=== PATIENT | female | born 1940 | race Caucasian/White ===

== ENCOUNTER → 2017-11-13 09:06 | Outpatient (CLI) | payer MEDICARE, OTHER, SELFPAY ==
--- NOTE | 2017-11-13 | DI.MG.S_ITS ---
BILATERAL DIGITAL SCREENING MAMMOGRAM 3D/2D WITH CAD: 11/13/2017 CLINICAL: Routine screening. Family history of breast cancer. Comparison is made to exams dated: 11/14/2012 mammogram, 09/12/2011 mammogram, and 05/30/2010 mammogram - [facility]. There are scattered fibroglandular elements in both breasts. Current study was also evaluated with a Computer Aided Detection (CAD) system. Bilateral breast implants are intact. No significant masses, calcifications, or other findings are seen in either breast. There has been no significant interval change. IMPRESSION: NEGATIVE There is no mammographic evidence of malignancy. A 1 year screening mammogram is recommended. This exam was interpreted at Station ID: [id number]. NOTE: For mammograms, a report in lay terms will be sent to the patient. Approximately 15% of breast malignancies will not be visualized mammographically. In the management of a palpable breast mass, a negative mammogram must not discourage biopsy of a clinically suspicious lesion. Electronically Signed By: Sera galindo/arnulfo:11/13/2017 10:18:23 letter sent: Normal Exam ACR BI-RADS Category 1: Negative [id number]
== END ==
PROVIDERS: PCP Family Medicine; Visit Provider Family Medicine
DX: Z12.31 Encounter for screening mammogram for malignant neoplasm of breast (principal); Z80.3 Family history of malignant neoplasm of breast
CPT/HCPCS: 77063; 77067

== ENCOUNTER 2018-04-06 01:16 | Emergency (ER) | payer MEDICARE, OTHER, SELFPAY ==
[2018-04-06 01:48] VITALS: BP 160/75; PULSE 79; RESP 16; TEMP 36.7; O2SAT 99; BMI 26.6
[2018-04-06] MEDS: CLINDAMYCIN 150 MG CAPSULE 300 MG PO (02:09)
--- NOTE | 2018-04-06 02:11 | ED_ITS ---
HPI - Skin/Abscess/Foreign Bdy General Chief complaint: Skin/Abscess/Foreign Body Stated complaint: bee sting 4 days ago red swollen Time Seen by Provider: 04/06/18 01:58 Source: patient Mode of arrival: ambulatory Limitations: no limitations History of Present Illness HPI narrative: This is a 77-year-old female who states she was either stung or bitten by a small be when she was in [place] 5 days ago. Patient states that the areas had some increasing redness Um after returning to the [facility] she noticed a lot more redness and a circular area as well as swelling in the ankle lower calf. She states the area is tender. There has not been any drainage. She has not had any fevers. No chest pain or shortness of breath. She states that this central area of the redness was where they would be either bit or stung her. She has not had any other GI symptoms. Related Data Home Medications Medication Instructions Recorded Confirmed ASPIRIN (Aspirin EC) 81 mg PO Q DAY #0 05/02/11 04/06/18 CA PANTOTHENATE/FOLIC ACID/VIT 1 tab PO Q DAY #0 05/02/11 (MULTIVITAMIN) loratadine [Claritin] 10 mg PO Q DAY #0 05/02/11 CHOLECALCIFEROL (VITAMIN D3) 2,000 iu PO QDAY #0 05/03/11 (Vitamin D) Calcium Carbonate/Vitamin D 1 cap PO Q DAY #0 05/03/11 (#CALCIUM) Previous Rx's Medication Instructions Recorded atenolol 25 mg PO QDAY #90 tab 04/26/17 chlorthalidone 25 mg PO QDAY #90 tab 05/02/17 potassium chloride ER 20 mEq 20 meq PO QDAY #90 tab 02/20/18 tablet,extended release(part/cryst) clindamycin HCl 300 mg PO QID #40 cap 04/06/18 Allergies Allergy/AdvReac Type Severity Reaction Status Date / Time morphine AdvReac Mild N/V Verified 04/06/18 01:55 Review of Systems Review of Systems All systems reviewed & are unremarkable except as noted in HPI and below Constitutional Denies fever(s) and Denies weakness Cardiovascular Denies chest pain, Denies lightheadedness, Denies palpitations, Denies dyspnea and Denies dyspnea on exertion Respiratory Denies dyspnea, Denies dyspnea on exertion and Denies wheezing Gastrointestinal Gastrointestinal: Denies nausea and Denies vomiting Musculoskeletal Reports as per HPI, Denies tingling and Reports other (swelling, redness) Integumentary/Breasts Reports erythema Neurologic Denies tingling, Denies paresthesias and Denies weakness Endocrine Denies palpitations Allergic/Immunologic Denies wheezing [facility] Surgical History History of breast augmentation History of cardiac radiofrequency ablation (RFA) History of cataract removal with insertion of prosthetic lens Status post cholecystectomy Family History Grandmother Stroke Mother Osteoporosis Social History Smoking Status: Never smoker Exam Narrative Exam Narrative: GENERAL: Alert and oriented x three, well-nourished, well- appearing female in mild distress. HEENT: Head normocephalic, atraumatic, EOMI, pupils reactive, face symmetric, moist mucous membranes NECK: Supple, full range of motion CARDIOVASCULAR: Regular rate and rhythm without murmurs, rubs or gallops. RESPIRATORY: Breath sounds equal bilaterally, no wheezes rales or rhonchi. ABDOMEN: Soft, nontender. Normoactive bowel sounds all 4 quadrants. No guarding or rebound, rigidity, no mass EXTREMITIES: Normal range of motion, no clubbing. Patient has a circular area of erythema and swelling the lower right calf that 5 cm in diameter, patient has some additional swelling of the lower ankle with no erythema. She has tenderness over the area of redness as well as warmth. There is no discharge or for fluctuant fluid collection. Patient has 2+ dorsalis pedis, full range of motion of her leg and feet cap refills less than 2 sec in all 5 toes. Neurovascularly intact NEUROLOGICAL: Cranial nerves II through XII grossly intact. Moving all extremities SKIN: Warm, dry, no petechiae, no rashes or lesions. Initial Vital Signs Initial Vital Signs: Vital Signs Temperature 98.1 F 04/06/18 01:48 Pulse Rate 79 04/06/18 01:48 Respiratory Rate 16 04/06/18 01:48 Blood Pressure 160/75 H 04/06/18 01:48 Pulse Oximetry 99 04/06/18 01:48 Course Orders Ordered: Discontinued Medications Clindamycin HCl (Cleocin) 300 mg PO NOW ONE Stop: 04/06/18 02:05 Last Admin: 04/06/18 02:09 Dose: 300 mg Vital Signs - 8 hr 04/06/18 01:48 04/06/18 02:50 Temperature 98.1 F Pulse Rate 79 71 Respiratory Rate 16 14 Blood Pressure 160/75 H 158/80 H Pulse Oximetry 99 99 Discharge Plan Departure Patient Disposition: Home Clinical Impression: Cellulitis of leg, Insect bite Discharge Date/Time: 04/06/18 02:51 Interventions: ED Discharge Assessment Last Done: 04/06/18 02:50 Instructions: DI for Cellulitis -- Adult Activity Restrictions/Additional Instructions: Take antibiotics until they are completely gone. Return to the emergency department for fevers greater than 100.4 F, increasing redness, increasing swelling, increasing pain of her lower extremity. Shortness of breath or chest pain or passing out or other new or concerning symptoms. Follow-up with primary care if your symptoms have not completely resolved by the time he finished your antibiotics Prescriptions: New clindamycin HCl 300 mg capsule 300 mg PO QID Qty: 40 RF: 0 No Action ASPIRIN (Aspirin EC) 81 mg PO Q DAY Qty: 0 RF: 0 loratadine [Claritin] 10 MG tablet 10 mg PO Q DAY Qty: 0 RF: 0 CA PANTOTHENATE/FOLIC ACID/VIT (MULTIVITAMIN) 1 tab PO Q DAY Qty: 0 RF: 0 CHOLECALCIFEROL (VITAMIN D3) (Vitamin D) 2,000 iu PO QDAY Qty: 0 RF: 0 Calcium Carbonate/Vitamin D (#CALCIUM) 1 cap PO Q DAY Qty: 0 RF: 0 atenolol 25 MG tablet 25 mg PO QDAY Qty: 90 RF: 3 chlorthalidone 25 MG tablet 25 mg PO QDAY Qty: 90 RF: 3 potassium chloride [Klor-Con M20] 20 mEq tablet,ER particles/crystals 20 meq PO QDAY Qty: 90 RF: 3
[2018-04-06 02:50] VITALS: BP 158/80; PULSE 71; RESP 14; O2SAT 99
--- NOTE | 2018-04-06 03:23 | PC.NURSE ---
reddened area from a witnessed bee sting in [place]. swollen with tight shiny skin. pt reports seeing the bee and stomping it . pt flew home yesterday and has increased symptoms today.
== END 2018-04-06 02:51 | disposition home or self-care (01) ==
PROVIDERS: Emergency Provider Emergency Medicine; PCP Family Medicine
DX: T63.441A Toxic effect of venom of bees, accidental (unintentional), initial encounter (principal); L03.115 Cellulitis of right lower limb
CPT/HCPCS: 99282; 99283

== ENCOUNTER → 2018-07-03 11:38 | Outpatient (CLI) | payer MEDICARE, OTHER, SELFPAY ==
[2018-07-03 13:16] LABS: BUN Creatinine Ratio 28.8 (6-22); Blood Urea Nitrogen 23 mg/dL (7-17); Calcium 9.9 mg/dL (8.4-10.2); Carbon Dioxide 33 mmol/L (22-32); Chloride 100 mmol/L (98-107); Estimated Glomerular Filt Rate > 60.0 mL/min (>60); Glucose 89 mg/dL (80-110); HEMOLYSIS 15 (0-50); Potassium 4.1 mmol/L (3.4-5.1); Sodium 141 mmol/L (137-145)
[2018-07-03 15:58] LABS: Creatinine Urine Random 111.7 mg/dL
[2018-07-03 16:05] LABS: Microalbumi Creatinin Ratio Ur 5.3 ug/mg CR (<30); Microalbumin Urine Random < 0.6 mg/dL (0-1.6)
== END ==
PROVIDERS: PCP Family Medicine; Visit Provider Family Medicine
DX: I10 Essential (primary) hypertension (principal)
CPT/HCPCS: 36415; 80048; 82043; 82570

== ENCOUNTER 2019-12-05 22:04 | Emergency (ER) | payer MEDICARE, OTHER, SELFPAY ==
[2019-12-05 22:15] VITALS: BP 180/90; PULSE 96; RESP 18; TEMP 36.6; O2SAT 96
--- NOTE | 2019-12-05 22:33 | DI.RAD.S_ITS ---
PROCEDURE: XR CHEST 1V INDICATIONS: chest pain TECHNIQUE: One view of the chest was acquired. COMPARISON: [facility], , CHEST 1 VIEW, 06/21/2007, 11:34. FINDINGS: Surgical changes and devices: None. Lungs and pleura: Lungs are clear. No pleural effusions or pneumothorax. Mediastinum: Mediastinal contours appear normal. Heart size is normal. There is aortic atherosclerosis. Bones and chest wall: No suspicious bony lesions. Overlying soft tissues appear unremarkable. IMPRESSION: No acute cardiopulmonary process is evident. Dictated by: Kade Pugh M.D. on 12/06/2019 at 7:36 Approved by: Kade Pugh M.D. on 12/06/2019 at 7:36
--- NOTE | 2019-12-05 22:39 | ED_ITS ---
HPI - Arrhythmia/Palpitations General Chief Complaint: Arrhythmia/Palpitations Stated Complaint: says something going on with her heart Time Seen by Provider: 12/05/19 22:21 Source: patient Mode of arrival: Ambulatory Limitations: no limitations History of Present Illness HPI narrative: 79F non smoker with history of HTN presents with her and the chief complaint of occasional palpitations over the past day or so and an episode of pain in her right posterior shoulder. That pain has since resolved and she denies any anterior chest pain, shortness of breath no dizziness, weakness or lightheadedness. She denies any nausea, vomiting or diarrhea. She denies any recent changes in diet or medications. Related Data Home Medications Medication Instructions Recorded Confirmed CA PANTOTHENATE/FOLIC ACID/VIT 1 tab PO Q DAY #0 05/02/11 10/29/18 (MULTIVITAMIN) loratadine [Claritin] 10 mg PO Q DAY #0 05/02/11 10/29/18 CHOLECALCIFEROL (VITAMIN D3) 2,000 iu PO QDAY #0 05/03/11 10/29/18 (Vitamin D) magnesium oxide 400 mg PO DAILY cap 07/03/18 10/29/18 Previous Rx's Medication Instructions Recorded atenolol 25 mg tablet 25 mg PO QDAY #90 tab 07/29/19 chlorthalidone 25 mg tablet See Rx Instructions .ROUTE 11/13/19 .COMPLEX #90 tablet potassium chloride 20 mEq See Rx Instructions PO QDAY #90 tab 11/13/19 tablet,extended release(part/cryst) Allergies Allergy/AdvReac Type Severity Reaction Status Date / Time clindamycin AdvReac Mild rash Verified 10/29/18 08:56 morphine AdvReac Mild N/V Verified 10/29/18 08:56 Review of Systems Constitutional Constitutional: Denies chills, Denies fatigue, Denies fever(s), Denies frequent falls, Denies lethargy and Denies weakness Eyes Eyes: Denies change in vision, Denies eye discharge, Denies irritation and Denies loss of vision ENT Ears, Nose, Mouth, and Throat: Denies change in voice, Denies dizziness, Denies neck pain, Denies sore throat and Denies throat swelling Cardiovascular Cardiovascular: Denies chest pain, Reports irregular heart rhythm, Denies lightheadedness, Denies palpitations, Denies dyspnea, Denies dyspnea on exertion and Denies orthopnea Respiratory Respiratory: Denies cough, Denies dyspnea, Denies dyspnea on exertion and Denies wheezing Gastrointestinal Gastrointestinal: Denies abdominal pain, Denies change in bowel habits, Denies diarrhea, Denies nausea and Denies vomiting Musculoskeletal Musculoskeletal: Denies neck pain and Denies numbness Integumentary/Breasts Skin/Breast: Denies pruritus, Denies erythema, Denies rash and Denies wounds Neurologic Neurologic: Denies behavioral changes, Denies confusion, Denies dizziness, Denies frequent falls, Denies loss of vision, Denies numbness and Denies weakness Psychiatric Psychiatric: Denies anxiety, Denies behavioral changes, Denies confusion, Denies depression, Denies homicidal ideation and Denies suicidal ideation Endocrine Endocrine: Denies fatigue, Denies flushing and Denies palpitations Hematologic/Lymphatic Hematologic/Lymphatic: Denies easy bruising Allergic/Immunologic Allergic/Immunologic: Denies urticaria, Denies throat swelling and Denies wheezing Patient History Medical History Essential hypertension (Chronic) Hypokalemia (Chronic) Surgical History History of breast augmentation History of cardiac radiofrequency ablation (RFA) History of cataract removal with insertion of prosthetic lens Status post cholecystectomy Family History Grandmother Stroke Mother Osteoporosis Social History marital status: number of children: 2 household members: spouse lives independently: Yes caregiver/support person: No housing: house Smoking Status: Never smoker second hand exposure: No alcohol intake: current substance use type: does not use Smoking Status: Never smoker alcohol intake frequency: 0-2 drinks per day Substance Use Type: does not use Exam Narrative Exam Narrative: GENERAL: [79] year old patient appears stated age. Well- nourished, well-developed patient, in mild distress. HEAD: Atraumatic. Normocephalic. EYES: Pupils equal round and reactive. Extraocular motions intact. No scleral icterus. No injection or drainage. ENT: Nose without bleeding, purulent drainage. Throat without erythema, tonsillar hypertrophy or exudate. Airway patent. NECK: Trachea midline. Non tender CARDIOVASCULAR: Regular rate and rhythm without murmurs, gallops, or rubs. RESPIRATORY: Clear to auscultation. Breath sounds equal bilaterally. No wheezes, rales, or rhonchi. GASTROINTESTINAL: Abdomen soft, non-tender, nondistended. EXTREMITIES: No edema or joint tenderness. BACK: Nontender without deformity or crepitance. No flank tenderness. NEURO: AOx3. SKIN: No rash or erythema of visible areas Initial Vital Signs Initial Vital Signs: Vital Signs Temperature 98 F 12/05/19 22:15 Pulse Rate 96 H 12/05/19 22:15 Respiratory Rate 18 12/05/19 22:15 Blood Pressure 180/90 H 12/05/19 22:15 Pulse Oximetry 96 12/05/19 22:15 Course Orders Ordered: ED Orders 12/05/19 22:30 EKG-12 Lead Stat 12/05/19 22:33 XR chest 1V Stat 12/05/19 22:36 Complete Blood Count AUTO DIFF Stat Comprehensive Metabolic Panel Stat Lipase Stat Partial Thromboplastin Time Stat Prothrombin Time INR Stat Troponin & CK Cardiac Panel Stat Discontinued Medications Potassium Chloride 40 meq/ (Sodium Chloride) 520 mls @ 130 mls/hr IV NOW ONE Stop: 12/06/19 03:59 Last Infusion: 12/06/19 04:10 Dose: 0 mls/hr Documented by: BECKI Cosigned by: JEANINE Admin: 12/06/19 00:13 Dose: 130 mls/hr Documented by: FANNIE Cosigned by: JEANINE Potassium Chloride (Potassium Chloride) 40 meq PO NOW ONE Stop: 12/06/19 00:01 Last Admin: 12/06/19 00:10 Dose: 40 meq Documented by: FANNIE Vital Signs Vital signs: Vital Signs - 8 hr 12/05/19 23:43 12/06/19 01:51 12/06/19 03:47 Pulse Rate 77 87 77 Respiratory Rate 19 16 20 Blood Pressure [Left Arm] 175/90 H 161/67 H 170/77 H Pulse Oximetry 93 97 99 12/06/19 05:30 Pulse Rate 76 Respiratory Rate 18 Blood Pressure [Left Arm] 169/76 H Pulse Oximetry 98 MDM - Arrhythmia/Palpitations Lab Data Result diagrams: 12/05/19 22:36 12/05/19 22:36 Labs: Lab Results 12/05/19 12/05/19 12/05/19 Range/Units 22:36 22:36 22:36 WBC 7.9 (4.5-11.0) X10^3/uL RBC 4.37 (4.0-5.2) X10^6/uL Hgb 13.8 (12.0-16.0) g/dL Hct 40.4 (36-46) % MCV 92.5 (80-100) fL MCH 31.5 (26-34) PG MCHC 34.1 (30-36) % RDW 13.0 (11.6-14.8) % Plt Count 315 (150-400) X10^3/uL Neut % (Auto) 48.6 L (50-75) % Lymph % (Auto) 36.9 (25-40) % Woodward % (Auto) 10.7 (3-14) % Eos % (Auto) 2.6 (2-4) % Baso % (Auto) 1.2 (0-2) % Neut # (Auto) 3800 (5349-5475) /uL Lymph # (Auto) 2900 (1057-2107) /uL Woodward # (Auto) 900 (0-900) /uL Eos # (Auto) 200 (0-450) /uL Baso # (Auto) 100 (0-100) /uL PT 11.8 (10.1-12.7) SECONDS INR 1.0 (0.9-1.3) APTT 31 (26.4-36.2) SECONDS Sodium 140 (137-145) mmol/L Potassium 2.8 L (3.4-5.1) mmol/L Chloride 101 (98-107) mmol/L Carbon Dioxide 27 (22-32) mmol/L BUN 20 H (7-17) mg/dL Creatinine 0.65 (0.52-1.04) mg/dL Estimated GFR > 60.0 (>60) mL/min BUN/Creatinine Ratio 30.8 H (6-22) Glucose 129 H (80-110) mg/dL Calcium 10.1 (8.4-10.2) mg/dL Total Bilirubin 0.2 (0.2-1.3) mg/dL AST 34 (14-36) IU/L ALT 23 (<35) IU/L Alkaline Phosphatase 92 (38-126) U/L Total Creatine Kinase 77 (30-135) U/L CK-MB (CK-2) TNP CK-MB (CK-2) Rel Index TNP Troponin I < 0.012 (0.01-0.034) ng/mL Total Protein 8.0 (6.3-8.2) g/dL Albumin 4.6 (3.5-5.0) g/dL Globulin 3.4 (1.7-4.1) g/dL Albumin/Globulin Ratio 1.4 (1.0-2.8) Lipase 272 (23-300) U/L Discharge Plan Departure Patient Disposition: Home Clinical Impression: Hypokalemia Instructions: DI for Hypokalemia, DI for Palpitations Activity Restrictions/Additional Instructions: *You have been diagnosed with [ low potassium and palpitations ] *What to do: *Please double your potassium pill for the next 5 days and then return to normal dosing. Otherwise take medications as directed *Follow up with your primary care provider in 2-3 days, call for an appointment. Let them know you were seen in the Emergency Department and that we ask that you be seen in follow up *Return to ER if you should have any new, worsening or concerning symptoms Prescriptions: No Action loratadine [Claritin] 10 MG tablet 10 mg PO Q DAY Qty: 0 RF: 0 CA PANTOTHENATE/FOLIC ACID/VIT (MULTIVITAMIN) 1 tab PO Q DAY Qty: 0 RF: 0 CHOLECALCIFEROL (VITAMIN D3) (Vitamin D) 2,000 iu PO QDAY Qty: 0 RF: 0 atenolol 25 mg tablet 25 mg PO QDAY Qty: 90 RF: 1 potassium chloride [Klor-Con M20] 20 mEq tablet,ER particles/crystals See Rx Instructions PO QDAY Qty: 90 RF: 0 chlorthalidone 25 mg tablet See Rx Instructions .ROUTE .COMPLEX Qty: 90 RF: 0 magnesium oxide 400 mg capsule 400 mg PO DAILY RF: 0 Referrals: Anabell Powell MD [Primary Care Provider] -
[2019-12-05 22:45] LABS: Add Manual Diff / Slide Review NO; Basophils Absolute Auto 100 /uL (0-100); Basophils Percent Auto 1.2 % (0-2); Eosinophils Absolute Auto 200 /uL (0-450); Eosinophils Percent Auto 2.6 % (2-4); Hematocrit 40.4 % (36-46); Hemoglobin 13.8 g/dL (12.0-16.0); Lymphocytes Absolute Auto 2900 /uL (1100-4500); Lymphocytes Percent Auto 36.9 % (25-40); Mean Corpuscular HGB Conc 34.1 % (30-36); Mean Corpuscular Hemoglobin 31.5 PG (26-34); Mean Corpuscular Volume 92.5 fL (80-100); Monocytes Absolute Auto 900 /uL (0-900); Monocytes Percent Auto 10.7 % (3-14); Neutrophils Absolute Auto 3800 /uL (1500-7000); Neutrophils Percent Auto 48.6 % (50-75); Platelet Count 315 X10^3/uL (150-400); Red Blood Cell Count 4.37 X10^6/uL (4.0-5.2); White Blood Cell Count 7.9 X10^3/uL (4.5-11.0)
[2019-12-05 22:50] LABS: Prothrombin Time 11.8 SECONDS (10.1-12.7)
[2019-12-05 22:52] LABS: PTT Partial Thromboplastin Tim 31 SECONDS (26.4-36.2)
[2019-12-05 22:54] LABS: Alanine Aminotransferase 23 IU/L (<35); Albumin 4.6 g/dL (3.5-5.0); Albumin Globulin Ratio 1.4 (1.0-2.8); Alkaline Phosphatase 92 U/L (38-126); Aspartate Aminotransferase 34 IU/L (14-36); BUN Creatinine Ratio 30.8 (6-22); Bilirubin Total 0.2 mg/dL (0.2-1.3); Blood Urea Nitrogen 20 mg/dL (7-17); Calcium 10.1 mg/dL (8.4-10.2); Carbon Dioxide 27 mmol/L (22-32); Chloride 101 mmol/L (98-107); Creatine Kinase 77 U/L (30-135); Estimated Glomerular Filt Rate > 60.0 mL/min (>60); Globulin 3.4 g/dL (1.7-4.1); Glucose 129 mg/dL (80-110); HEMOLYSIS < 15 (0-50); Lipase 272 U/L (23-300); Potassium 2.8 mmol/L (3.4-5.1); Sodium 140 mmol/L (137-145)
[2019-12-05 23:06] LABS: Troponin I < 0.012 ng/mL (0.01-0.034)
--- NOTE | 2019-12-05 23:06 | PC.NURSE ---
pt c/o irregular heartbeat, palpitations, and pounding heart. intermittent since this afternoon. also had a small episode of pain in her shoulder blade area. continuing to have irregular heart beat, all other symptoms resolved.
[2019-12-05 23:43] VITALS: BP 175/90; PULSE 77; RESP 19; O2SAT 93
[2019-12-06] MEDS: POTASSIUM CHLORIDE 20 MEQ/15 ML UDC 40 MEQ PO (00:10)
[2019-12-06] MEDS: POTASSIUM CHLORIDE 40 MEQ in SODIUM CHLORIDE 0.9% 500 ML 130 ML IV (00:13)
[2019-12-06 01:51] VITALS: BP 161/67; PULSE 87; RESP 16; O2SAT 97
[2019-12-06 03:47] VITALS: BP 170/77; PULSE 77; RESP 20; O2SAT 99
[2019-12-06 05:30] VITALS: BP 169/76; PULSE 76; RESP 18; O2SAT 98
== END 2019-12-06 06:25 | disposition home or self-care (01) ==
PROVIDERS: Emergency Provider Emergency Medicine; PCP Family Medicine
DX: E87.6 Hypokalemia (principal); R00.2 Palpitations; I10 Essential (primary) hypertension; M25.511 Pain in right shoulder
CPT/HCPCS: 36415; 71045; 80053; 82550; 83690; 84484; 85025; 85610; 85730; 93005; 96365; 96366; 99284; J3480

== ENCOUNTER → 2019-12-15 07:54 | Outpatient (CLI) | payer MEDICARE, OTHER, SELFPAY ==
[2019-12-15 10:12] LABS: BUN Creatinine Ratio 27.9 (6-22); Blood Urea Nitrogen 19 mg/dL (7-17); Calcium 9.8 mg/dL (8.4-10.2); Carbon Dioxide 30 mmol/L (22-32); Chloride 101 mmol/L (98-107); Estimated Glomerular Filt Rate > 60.0 mL/min (>60); Glucose 126 mg/dL (80-110); HEMOLYSIS < 15 (0-50); Potassium 3.7 mmol/L (3.4-5.1); Sodium 139 mmol/L (137-145)
== END ==
PROVIDERS: PCP Family Medicine; Referring Provider Family Medicine; Visit Provider Family Medicine
DX: E87.6 Hypokalemia (principal); I10 Essential (primary) hypertension
CPT/HCPCS: 36415; 80048

== ENCOUNTER → 2020-01-06 15:06 | Outpatient (CLI) | payer MEDICARE, OTHER, SELFPAY ==
[2020-01-06 16:33] LABS: BUN Creatinine Ratio 21.4 (6-22); Blood Urea Nitrogen 18 mg/dL (7-17); Carbon Dioxide 32 mmol/L (22-32); Chloride 104 mmol/L (98-107); Estimated Glomerular Filt Rate > 60.0 mL/min (>60); Glucose 96 mg/dL (80-110); HEMOLYSIS < 15 (0-50); Potassium 4.3 mmol/L (3.4-5.1); Sodium 141 mmol/L (137-145)
== END ==
PROVIDERS: PCP Family Medicine; Referring Provider Family Medicine; Visit Provider Family Medicine
DX: E87.6 Hypokalemia (principal)
CPT/HCPCS: 36415; 80048

== ENCOUNTER 2020-01-24 14:49 | Inpatient (IN) | payer MEDICARE, OTHER, SELFPAY ==
[2020-01-24] VITALS (34 sets, daily range): BP systolic 137–233; BP diastolic 57–105; PULSE 83–98; RESP 18–35; TEMP 36.7–37.3; O2SAT 90–99; BMI 26.6
--- NOTE | 2020-01-24 | DI.ECHO.S_ITS ---
[facility]---------+ [facility] +---------+ : : [address] : : : : [id number] : : : : Phone: [phone] Echocardiogram Report + + :Name: DANY AMADOR Study Date: 01/25/2020 Height: 66 in : :[facility] Weight: 168 lb : : Gender: Female BSA: 1.9 m2 : :: 1940 Age: 79 yrs BP: 129/59 mmHg: :Reason For Study: ANGINA : :Ordering Physician: : :HOSPITALISTMOHAN Performed By: Ligia Christy : :Referring: DANA HESTER : + + Interpretation Summary Left ventricular systolic function appears normal with an estimated ejection fraction of 65 to 70% without any focal wall motion abnormality. Global left ventricular strain assessment is also normal with a value of -21.5%. There is mild LVH with probable increased filling pressures. The right ventricle appears normal. Right ventricular systolic pressure is estimated at 32 mmHg with an estimated CVP of 3 mmHg. There is severe left atrial enlargement with mild right atrial enlargement. There is mild to moderate mitral and tricuspid regurgitation and mild aortic regurgitation. The ascending aorta is mildly enlarged. The abdominal aorta appears to have echogenic irregular luminal contours, suggestive of atherosclerotic disease. Consider formal abdominal ultrasound if clinically indicated. Procedure: A two-dimensional transthoracic echocardiogram with color flow and Doppler was performed. The study quality was technically adequate. There is no prior echocardiogram noted for this patient. The patient was in sinus rhythm with heart rates between 65-71 bpm during the exam. The patient had occasional PACs during the exam. The patient had occasional PVCs during the exam. Left Ventricle: The left ventricle is normal in size. There is mild concentric left ventricular hypertrophy. Left ventricular systolic function is normal without focal wall motion abnormalities. The ejection fraction is estimated to be 65-70%. Left ventricular global longitudinal strain average is -21.5%. Diastolic parameters suggest a pseudonormalization pattern, consistent with probable elevated filling pressures. Right Ventricle: The right ventricle is normal in size and function. Atria: The left atrium is severely dilated. The right atrium is mildly dilated. There is no Doppler evidence for an interatrial shunt. Mitral Valve: The mitral valve leaflets appear mildly thickened, but open well. There is mild to moderate mitral regurgitation. Aortic Valve: The aortic valve is trileaflet. The aortic valve is mildly calcified. The aortic valve opens well. There is no aortic valve stenosis. There is mild aortic regurgitation. Tricuspid Valve: The tricuspid valve is normal in structure and function. There is mild to moderate tricuspid regurgitation. The right ventricular systolic pressure is estimated to be at least 32 mmHg based on an estimated right atrial pressure of 3 mm Hg. Pulmonic Valve: The pulmonic valve leaflets are thin and pliable; valve motion is normal. There is trace pulmonic regurgitation. Great Vessels: The aortic root is normal size. The ascending aorta is mildly enlarged. The aortic arch is mildly enlarged. The IVC is of normal diameter and collapses greater than 50% with a sniff. This suggests a low right atrial pressure of 3 mm Hg. Pericardium/ Pleura There is no pericardial effusion. There is no pleural effusion. MMode/2D Measurements & Calculations LVIDd: 4.4 cm LVOT diam: 2.0 cm LVIDs: 3.1 cm Ao root diam: 3.6 cm FS: 30.5 % asc Aorta Diam: 3.9 cm EPSS: 0.70 cm Ao Arch Diam (Prox Trans): 3.3 cm IVSd: 1.2 cm LVPWd: 0.99 cm LV winslow. diameter/BSA (cm/m^2): 2.4 LV sys. diameter/BSA (cm/m^2): 1.7 LA A2 area: 25.2 cm2 RA long axis: 5.7 cm LA A4 area: 23.5 cm2 RA area: 21.4 cm2 LA length (vol): 5.7 cm RA vol: 68.3 ml LA vol: 88.4 ml RA : 36.8 ml/m2 LA vol index: 47.6 ml/m2 IVC diam: 1.9 cm RVD1 (basal): 4.0 cm TAPSE: 2.3 cm Doppler Measurements & Calculations Ao V2 max: 142.2 cm/sec LVOT Max Benigno: 84.9 cm/sec Ao V2 mean: 84.4 cm/sec LV V1 max P.9 mmHg Ao max P.1 mmHg LV V1 VTI: 17.6 cm Ao mean P.6 mmHg LFACO(I,D): 2.1 cm2 Ao V2 VTI: 27.9 cm FLACO(V,D): 2.0 cm2 sev ratio: 0.63 FLACO indexed to BSA (cm^2/m^2): 1.1 MV E max benigno: 102.5 cm/sec TR max benigno: 271.0 cm/sec MV A max benigno: 66.2 cm/sec TR max P.4 mmHg MV E/A: 1.5 PA V2 max: 111.4 cm/sec Med Peak E' Benigno: 5.5 cm/sec PA V2 mean: 63.5 cm/sec E/E' med: 18.7 PA mean P.0 mmHg Lat Peak E' Benigno: 7.9 cm/sec PA pr(Accel): 25.9 mmHg E/E' lat: 12.9 E/e' average: 15.8 MV dec time: 0.23 sec SV(LVOT): 57.6 ml Reading Physician:LIAN
--- NOTE | 2020-01-24 15:06 | DI.RAD.S_ITS ---
PROCEDURE: XR CHEST 1V INDICATIONS: chest pain TECHNIQUE: One view of the chest was acquired. COMPARISON: [facility], CR, XR CHEST 1V, 12/05/2019, 22:38. FINDINGS: Surgical changes and devices: None. Lungs and pleura: Lungs are hyperinflated and demonstrate diffuse coarsening of the interstitial markings. There is biapical pleural plaquing, left worse than right. No definite dense consolidations. No pleural effusions or pneumothorax. Mediastinum: Mediastinal contours appear normal. Heart size is stable, enlarged. Bones and chest wall: Thoracic scoliosis and diffuse demineralization. No suspicious bony lesions. Overlying soft tissues appear unremarkable. IMPRESSION: 1. No definite new pulmonary consolidations. 2. Chronic coarse interstitial markings suggest emphysema, fibrosis, or senescent changes. 3. Mild, stable cardiomegaly without central venous congestion. Dictated by: Christy Pak M.D. on 01/24/2020 at 14:55 Approved by: Christy Pak M.D. on 01/24/2020 at 14:57
--- NOTE | 2020-01-24 15:15 | ED_ITS ---
HPI - Chest Pain General Chief Complaint: Chest Pain Stated Complaint: Shortness of breath/Tightness in neck Time Seen by Provider: 01/24/20 14:58 Source: patient Mode of arrival: Ambulatory Limitations: no limitations History of Present Illness HPI narrative: The patient had a period of lower central chest discomfort this morning. She told her she felt like she had gas in her chest. She is not having chest discomfort at this time. She also complained of dyspnea yesterday, she had walked out side and developed dyspnea during her exertion. She was seen here about 6 weeks ago with palpitations, and hypokalemia. The hypokalemia was addressed. It was noted that she had significantly elevated blood pressure on that visit. At that time she was taking atenolol and chlorthalidone. Her blood pressure has been monitored by her PCM, medications are changed to atenolol and lisinopril. The lisinopril has been escalated from initial 5 mg daily now up to 40 mg daily. She continues take atenolol 25 mg daily. She apparently has previously had edema, there is no lower extremity edema at this time. She has no orthopnea. She generally has no dyspnea at rest, she had the episode of dyspnea on exertion yesterday. Related Data Home Medications Medication Instructions Recorded Confirmed CA PANTOTHENATE/FOLIC ACID/VIT 1 tab PO Q DAY #0 05/02/11 01/24/20 (MULTIVITAMIN) loratadine [Claritin] 10 mg PO Q DAY #0 05/02/11 01/24/20 CHOLECALCIFEROL (VITAMIN D3) 2,000 iu PO QDAY #0 05/03/11 01/24/20 (Vitamin D) Previous Rx's Medication Instructions Recorded atenolol 25 mg tablet 25 mg PO QDAY #90 tab 01/14/20 lisinopril 40 mg tablet 40 mg PO DAILY #90 tab 01/19/20 Allergies Allergy/AdvReac Type Severity Reaction Status Date / Time clindamycin AdvReac Mild rash Verified 01/24/20 15:01 morphine AdvReac Mild N/V Verified 01/24/20 15:01 Review of Systems Constitutional Constitutional: Denies chills, Denies fever(s), Denies headache(s) and Reports weakness Eyes Eyes: Denies change in vision ENT Ears, Nose, Mouth, and Throat: Denies change in voice, Denies vertigo, Denies d izziness, Denies headache(s), Denies neck pain and Denies sore throat Cardiovascular Cardiovascular: Reports as per HPI and Reports dyspnea Respiratory Respiratory: Reports as per HPI, Denies cough and Reports dyspnea Gastrointestinal Gastrointestinal: Denies abdominal pain, Denies change in bowel habits, Denies diarrhea, Denies nausea and Denies vomiting Musculoskeletal Musculoskeletal: Denies back pain, Denies muscle cramps, Denies neck pain and Denies numbness Integumentary/Breasts Skin/Breast: Denies pruritus, Denies rash and Denies wounds Neurologic Neurologic: Denies confusion, Denies vertigo, Denies dizziness, Denies headache(s), Denies numbness and Reports weakness Psychiatric Psychiatric: Denies anxiety and Denies confusion Hematologic/Lymphatic Hematologic/Lymphatic: Denies easy bruising Patient History Medical History Essential hypertension (Chronic) Hypokalemia (Chronic) Surgical History History of breast augmentation History of cardiac radiofrequency ablation (RFA) History of cataract removal with insertion of prosthetic lens Status post cholecystectomy Family History Grandmother Stroke Mother Osteoporosis Social History marital status: number of children: 2 household members: spouse lives independently: Yes caregiver/support person: No housing: house Smoking Status: Never smoker second hand exposure: No alcohol intake: current substance use type: does not use Smoking Status: Never smoker alcohol intake frequency: 0-2 drinks per day Substance Use Type: does not use Exam Initial Vital Signs Initial Vital Signs: Vital Signs Pulse Rate 98 H 01/24/20 14:56 Blood Pressure 217/105 H 01/24/20 14:56 Pulse Oximetry 95 01/24/20 14:56 Const General: cooperative, well developed and anxious Nutritional Appearance: well nourished [facility] Head: normocephalic and atraumatic Throat: posterior oropharynx normal Eyes Conjunctivae: conjunctivae normal Sclera: sclerae normal Pupils: PERRL EOM: EOM intact bilaterally Neck Neck: normal visual inspection, trachea midline, No lymphadenopathy and No JVD Lymphatic: No lymphedema Chest Chest: normal palpation of entire chest wall Resp Effort & Inspection: normal respiratory effort and able to speak in complete sentences Auscultation: clear to auscultation bilaterally, no rales, no rhonchi and no wheezes Cardio Rate: regular rate Rhythm: regular rhythm Heart Sounds: S1 normal, S2 normal, no click, no gallops, no murmurs and no rubs Pulses: normal peripheral pulses GI Inspection: non-distended Palpation: soft, no hepatosplenomegaly, No guarding, No pulsatile mass and No tender Auscultation: normal bowel sounds Back/Spine/Pelvis Back: No CVA tenderness Cervical Spine: cervical ROM normal Thoracic/Lumbar Spine: thoracic and lumbar spine normal to inspection Skin General: no rashes or lesions noted and No petechiae Neuro General: patient alert, patient oriented x3, gait normal and no focal motor deficits Speech: speech normal Extrem General: full ROM, no clubbing, cyanosis or edema, no pedal edema and no calf tenderness Psych Appearance: well kempt Mental Status: mental status grossly normal Attitude: cooperative Thought Content: normal Course Course Course Narrative: When the patient 1st arrived her systolic blood pressure was 217, she also had dyspnea yesterday as well as the chest discomfort today. Her blood pressure improved to 190s, but when I enter the room the next blood pressure ED was 234 systolic. Cardiac evaluation had been initiated. Labetalol 10 mg IV was given. Her systolic blood pressure dropped below 180 after labetalol. Chest x-ray suggested vascular congestion, her BNP is elevated. Troponin is negative. There are nonspecific changes only on the EKG. Next she complained of a severe frontal headache, a stat head CT was obtained, there are no acute changes. There is no suggestion of hemorrhage. On repeat exam she had no acute neurologic deficits. Upon return from CT again evaluate her. Her blood pressure is 1 60s systolic. She now has a degree of scotoma. She has no chest pain or dyspnea. The patient has hypertensive crisis with associated chest discomfort, and mild CHF. Lasix 40 mg IV was given. Although improved, she requires ongoing observation and possible treatment. The case was discussed with the on-call physician, Dr. Cavanaugh. She will be admitted. Orders Ordered: ED Orders 01/24/20 14:56 EKG-12 Lead Routine 01/24/20 15:04 BNP [NT-proBNP (BNP-Adult 18+)] Stat Complete Blood Count AUTO DIFF Stat Comprehensive Metabolic Panel Stat Lipase Stat Partial Thromboplastin Time Stat Prothrombin Time INR Stat Troponin & CK Cardiac Panel Stat 01/24/20 15:06 XR chest 1V Stat 01/24/20 16:38 Urine Culture Stat Urine Microscopic Stat 01/24/20 16:46 CT head/brain wo con Stat Discontinued Medications Acetaminophen (Tylenol) 650 mg PO NOW ONE Stop: 01/24/20 17:20 Last Admin: 01/24/20 17:23 Dose: 650 mg Documented by: LALA Furosemide (Lasix) 40 mg IV NOW ONE Stop: 01/24/20 18:20 Labetalol HCl (Trandate) 10 mg IV NOW ONE Stop: 01/24/20 15:24 Last Admin: 01/24/20 15:26 Dose: 10 mg Documented by: LALA Vital Signs Vital signs: Vital Signs - 8 hr 01/24/20 14:56 01/24/20 14:58 01/24/20 15:00 Temperature Pulse Rate 98 H 96 H 92 H Respiratory Rate 30 H 28 H Blood Pressure 217/105 H 215/101 H 209/100 H Pulse Oximetry 95 98 98 01/24/20 15:01 01/24/20 15:05 01/24/20 15:10 Temperature 99.1 F Pulse Rate 95 H 87 85 Respiratory Rate 28 H 28 H 27 H Blood Pressure 217/101 H Pulse Oximetry 98 98 97 01/24/20 15:15 01/24/20 15:20 01/24/20 15:21 Temperature Pulse Rate 86 83 87 Respiratory Rate 27 H 32 H 33 H Blood Pressure 199/94 H 233/94 H Pulse Oximetry 97 97 96 01/24/20 15:25 01/24/20 15:26 01/24/20 15:30 Temperature Pulse Rate 88 86 92 H Respiratory Rate 22 28 H Blood Pressure 233/94 H 186/82 H Pulse Oximetry 97 97 01/24/20 15:35 01/24/20 15:40 01/24/20 15:45 Temperature Pulse Rate 90 87 86 Respiratory Rate 35 H 26 H 26 H Blood Pressure 182/84 H 167/77 H 173/81 H Pulse Oximetry 95 96 95 01/24/20 15:59 01/24/20 16:00 08/08/20 16:05 Temperature Pulse Rate 91 H 92 H 87 Respiratory Rate 28 H 29 H 27 H Blood Pressure 173/85 H 182/91 H 171/84 H Pulse Oximetry 99 98 96 01/24/20 16:10 01/24/20 16:15 01/24/20 16:30 Temperature Pulse Rate 86 88 86 Respiratory Rate 24 26 H 25 H Blood Pressure 171/84 H 163/77 H 169/74 H Pulse Oximetry 95 95 94 01/24/20 16:45 01/24/20 17:01 01/24/20 17:03 Temperature Pulse Rate 95 H 94 H 91 H Respiratory Rate 26 H 26 H Blood Pressure 175/81 H 170/77 H Pulse Oximetry 94 96 96 01/24/20 17:15 01/24/20 17:34 01/24/20 17:45 Temperature Pulse Rate 90 93 H 91 H Respiratory Rate 24 25 H 27 H Blood Pressure 164/74 H Pulse Oximetry 94 95 93 01/24/20 18:00 01/24/20 18:15 Temperature Pulse Rate 88 85 Respiratory Rate 24 22 Blood Pressure Pulse Oximetry 90 L 90 L MDM - Chest Pain Lab Data Result diagrams: 01/24/20 15:04 01/24/20 15:04 Labs: Lab Results 01/24/20 01/24/20 01/24/20 Range/Units 15:04 15:04 15:04 WBC 14.7 H (4.5-11.0) X10^3/uL RBC 4.33 (4.0-5.2) X10^6/uL Hgb 13.3 (12.0-16.0) g/dL Hct 40.3 (36-46) % MCV 93.3 (80-100) fL MCH 30.8 (26-34) PG MCHC 33.0 (30-36) % RDW 13.4 (11.6-14.8) % Plt Count 321 (150-400) X10^3/uL Neut % (Auto) 78.9 H (50-75) % Lymph % (Auto) 8.9 L (25-40) % [place] % (Auto) 10.6 (3-14) % Eos % (Auto) 0.8 L (2-4) % Baso % (Auto) 0.8 (0-2) % Neut # (Auto) 49976 H (2622-3022) /uL Lymph # (Auto) 1300 (3056-7876) /uL [place] # (Auto) 1600 H (0-900) /uL Eos # (Auto) 100 (0-450) /uL Baso # (Auto) 100 (0-100) /uL PT 12.8 H (10.1-12.7) SECONDS INR 1.1 (0.9-1.3) APTT 32 (26.4-36.2) SECONDS Sodium 139 (137-145) mmol/L Potassium 3.8 (3.4-5.1) mmol/L Chloride 103 (98-107) mmol/L Carbon Dioxide 30 (22-32) mmol/L BUN 20 H (7-17) mg/dL Creatinine 0.63 (0.52-1.04) mg/dL Estimated GFR > 60.0 (>60) mL/min BUN/Creatinine Ratio 31.7 H (6-22) Glucose 117 H (80-110) mg/dL Calcium 10.1 (8.4-10.2) mg/dL Total Bilirubin 0.6 (0.2-1.3) mg/dL AST 67 H (14-36) IU/L ALT 59 H (<35) IU/L Alkaline Phosphatase 97 (38-126) U/L Total Creatine Kinase 59 (30-135) U/L CK-MB (CK-2) TNP CK-MB (CK-2) Rel Index TNP Troponin I < 0.012 (0.01-0.034) ng/mL NT-Pro-B Natriuret Pep (<450) pg/mL Total Protein 8.1 (6.3-8.2) g/dL Albumin 4.6 (3.5-5.0) g/dL Globulin 3.5 (1.7-4.1) g/dL Albumin/Globulin Ratio 1.3 (1.0-2.8) Lipase 140 (23-300) U/L Urine RBC (0-5/HPF) Urine WBC (0-5/HPF) Urine Bacteria (None) Ur Culture Indicated? 01/24/20 01/24/20 Range/Units 15:04 16:38 WBC (4.5-11.0) X10^3/uL RBC (4.0-5.2) X10^6/uL Hgb (12.0-16.0) g/dL Hct (36-46) % MCV (80-100) fL MCH (26-34) PG MCHC (30-36) % RDW (11.6-14.8) % Plt Count (150-400) X10^3/uL Neut % (Auto) (50-75) % Lymph % (Auto) (25-40) % [place] % (Auto) (3-14) % Eos % (Auto) (2-4) % Baso % (Auto) (0-2) % Neut # (Auto) (5627-2469) /uL Lymph # (Auto) (9199-2761) /uL [place] # (Auto) (0-900) /uL Eos # (Auto) (0-450) /uL Baso # (Auto) (0-100) /uL PT (10.1-12.7) SECONDS INR (0.9-1.3) APTT (26.4-36.2) SECONDS Sodium (137-145) mmol/L Potassium (3.4-5.1) mmol/L Chloride (98-107) mmol/L Carbon Dioxide (22-32) mmol/L BUN (7-17) mg/dL Creatinine (0.52-1.04) mg/dL Estimated GFR (>60) mL/min BUN/Creatinine Ratio (6-22) Glucose (80-110) mg/dL Calcium (8.4-10.2) mg/dL Total Bilirubin (0.2-1.3) mg/dL AST (14-36) IU/L ALT (<35) IU/L Alkaline Phosphatase (38-126) U/L Total Creatine Kinase (30-135) U/L CK-MB (CK-2) CK-MB (CK-2) Rel Index Troponin I (0.01-0.034) ng/mL NT-Pro-B Natriuret Pep 533 H (<450) pg/mL Total Protein (6.3-8.2) g/dL Albumin (3.5-5.0) g/dL Globulin (1.7-4.1) g/dL Albumin/Globulin Ratio (1.0-2.8) Lipase (23-300) U/L Urine RBC 1-5/hpf (0-5/HPF) Urine WBC 5-10/hpf H (0-5/HPF) Urine Bacteria None seen (None) Ur Culture Indicated? Specimen cultured Urine Dip Bedside Urine Glucose Negative Bedside Urine Bilirubin - Negative Bedside Urine Ketone - Negative Urine Specific [place] 1.015 Bedside Urine Occult Blood + Bedside Urine pH 7.5 Bedside Urine Protein +/- 15 Bedside Urine Urobilinogen - Negative Bedside Urine Nitrite - Negative Bedside Urine Leukocytes - Negative Esterase Imaging Data Chest x-ray: Radiologist's Impression: 99 Wood Velazquez MD Find Patient Imaging - Rashida Quijano 79 F 1940 ACTIVITY DATE EXAM STATUS AUTHOR 01/24/20 15:06 Signed Christy Pak ORDER STATUS ORDER START ORDER DETAIL CT head/brain wo con Taken 01/24/20 16:[address] [address] XRay Report Signed Patient: Rashida Quijano DMR#: [id number] : 1940Acct:[id number] Age/Sex: 79 / FDate of Service: 01/24/20 Loc: ED Accession Number: [id number] Procedure: XR chest 1V Ordering Provider: Wood Velazquez MD PROCEDURE: XR CHEST 1V INDICATIONS: chest pain TECHNIQUE: One view of the chest was acquired. COMPARISON: [facility], , XR CHEST 1V, 12/05/2019, 22:38. FINDINGS: Surgical changes and devices: None. Lungs and pleura: Lungs are hyperinflated and demonstrate diffuse coarsening of the interstitial markings. There is biapical pleural plaquing, left worse than right. No definite dense consolidations. No pleural effusions or pneumothorax. Mediastinum: Mediastinal contours appear normal. Heart size is stable, enlarged. Bones and chest wall: Thoracic scoliosis and diffuse demineralization. No suspicious bony lesions. Overlying soft tissues appear unremarkable. IMPRESSION: 1. No definite new pulmonary consolidations. 2. Chronic coarse interstitial markings suggest emphysema, fibrosis, or senescent changes. 3. Mild, stable cardiomegaly without central venous congestion. Dictated by: Christy Pak M.D. on 01/24/2020 at 14:55 Approved by: Christy Pak M.D. on 01/24/2020 at 14:57 CT scan - head: Radiologist's Impression: 85 Wood Velazquez MD Find Patient Imaging - Rashida Quijano 79 F 1940 ACTIVITY DATE EXAM STATUS AUTHOR 01/24/20 16:46 Signed Christy Pak 01/24/20 15:06 Signed Christy Pak [address] [address] [address] Scan Report Signed Patient: Rashida Quijano [facility]#: [id number] : 1940Acct:[id number] Age/Sex: 79 / FDate of Service: 01/24/20 Loc: ED Accession Number: [id number] Procedure: CT head/brain wo con Ordering Provider: Wood Velazquez MD PROCEDURE: CT HEAD/BRAIN WO CON INDICATIONS: Severe hypertension. Sudden onset of headache. TECHNIQUE: Noncontrast 4.5 mm thick angled axial sections acquired from the foramen magnum to the vertex, with coronal and sagittal reformats. For radiation dose reduction, the following was used: automated exposure control, adjustment of mA and/or kV according to patient size. COMPARISON: None. FINDINGS: Image quality: Excellent. CSF spaces: Basal cisterns are patent. No extra-axial fluid collections. The ventricles are symmetric in size and shape. Brain: No intracranial bleeds or masses. There is cerebral volume loss for age, with resultant ventricular and sulcal prominence. There are periventricular and deep white matter chronic small vessel ischemic changes. There is intracranial internal carotid artery atherosclerosis. Skull and face: Calvarium and visualized facial bones appear intact, without suspicious lesions. Sinuses: Visualized sinuses and mastoids are clear. IMPRESSION: 1. No CT evidence of acute intracranial process. 2. Age-appropriate exam. Dictated by: Christy Pak M.D. on 01/24/2020 at 16:03 Approved by: Christy Pak M.D. on 01/24/2020 at 16:03 ECG Data Attestation: I personally reviewed and interpreted this ECG as follows: (Normal sinus rhythm rate 94 beats per minute. First-degree AV block. Nonspecific ST T wave changes. No ectopy.) Critical Care Time Critical Care Time Critical Care Time: Yes Total Critical Care Time: 50 Attestation: Critical care time includes initial assessment patient, review of past medical records, review of EKG, lab and radiology data. Multiple treatment decisions were made. Clinical findings and clinical needs were discussed. I discussed the care with the on-call physician, who has agreed to accept the patient for admission. Discharge Plan Departure Patient Disposition: Admitted as Observation Prescriptions: No Action loratadine [Claritin] 10 MG tablet 10 mg PO Q DAY Qty: 0 RF: 0 CA PANTOTHENATE/FOLIC ACID/VIT (MULTIVITAMIN) 1 tab PO Q DAY Qty: 0 RF: 0 CHOLECALCIFEROL (VITAMIN D3) (Vitamin D) 2,000 iu PO QDAY Qty: 0 RF: 0 atenolol 25 mg tablet 25 mg PO QDAY Qty: 90 RF: 1 lisinopril 40 mg tablet 40 mg PO DAILY Qty: 90 RF: 1 Referrals: Anabell Powell MD [Primary Care Provider] - Admit Date/Time: 01/24/20 18:40
[2020-01-24 15:18] LABS: Add Manual Diff / Slide Review NO; Basophils Absolute Auto 100 /uL (0-100); Basophils Percent Auto 0.8 % (0-2); Eosinophils Absolute Auto 100 /uL (0-450); Eosinophils Percent Auto 0.8 % (2-4); Hematocrit 40.3 % (36-46); Hemoglobin 13.3 g/dL (12.0-16.0); Lymphocytes Absolute Auto 1300 /uL (1100-4500); Lymphocytes Percent Auto 8.9 % (25-40); Mean Corpuscular Hemoglobin 30.8 PG (26-34); Mean Corpuscular Volume 93.3 fL (80-100); Monocytes Absolute Auto 1600 /uL (0-900); Monocytes Percent Auto 10.6 % (3-14); Neutrophils Absolute Auto 11600 /uL (1500-7000); Neutrophils Percent Auto 78.9 % (50-75); Platelet Count 321 X10^3/uL (150-400); Red Blood Cell Count 4.33 X10^6/uL (4.0-5.2); Red Cell Distribution Width 13.4 % (11.6-14.8); White Blood Cell Count 14.7 X10^3/uL (4.5-11.0)
[2020-01-24 15:19] LABS: INR 1.1 (0.9-1.3); Prothrombin Time 12.8 SECONDS (10.1-12.7)
[2020-01-24 15:22] LABS: PTT Partial Thromboplastin Tim 32 SECONDS (26.4-36.2)
[2020-01-24] MEDS: LABETALOL 20 MG/4 ML SYRINGE 10 MG IV (15:26)
[2020-01-24 15:29] LABS: Alanine Aminotransferase 59 IU/L (<35); Albumin 4.6 g/dL (3.5-5.0); Albumin Globulin Ratio 1.3 (1.0-2.8); Alkaline Phosphatase 97 U/L (38-126); Aspartate Aminotransferase 67 IU/L (14-36); BUN Creatinine Ratio 31.7 (6-22); Bilirubin Total 0.6 mg/dL (0.2-1.3); Blood Urea Nitrogen 20 mg/dL (7-17); Calcium 10.1 mg/dL (8.4-10.2); Carbon Dioxide 30 mmol/L (22-32); Chloride 103 mmol/L (98-107); Creatine Kinase 59 U/L (30-135); Estimated Glomerular Filt Rate > 60.0 mL/min (>60); Globulin 3.5 g/dL (1.7-4.1); Glucose 117 mg/dL (80-110); HEMOLYSIS < 15 (0-50); Lipase 140 U/L (23-300); Potassium 3.8 mmol/L (3.4-5.1); Sodium 139 mmol/L (137-145); Total Protein 8.1 g/dL (6.3-8.2)
[2020-01-24 15:38] LABS: NT-proBNP (BNP-Adult 18+) 533 pg/mL (<450)
--- NOTE | 2020-01-24 15:38 | PC.NURSE ---
Reports pain/tightness in mid chest, starting at 0800. Worsens with inspiration. Reports new meds lisinopril with dosage changes weekly for the past 3-4 weeks
[2020-01-24 15:41] LABS: Troponin I < 0.012 ng/mL (0.01-0.034)
[2020-01-24 16:39] LABS: Bacteria Urine None Seen
--- NOTE | 2020-01-24 16:46 | DI.CT.S_ITS ---
PROCEDURE: CT HEAD/BRAIN WO CON INDICATIONS: Severe hypertension. Sudden onset of headache. TECHNIQUE: Noncontrast 4.5 mm thick angled axial sections acquired from the foramen magnum to the vertex, with coronal and sagittal reformats. For radiation dose reduction, the following was used: automated exposure control, adjustment of mA and/or kV according to patient size. COMPARISON: None. FINDINGS: Image quality: Excellent. CSF spaces: Basal cisterns are patent. No extra-axial fluid collections. The ventricles are symmetric in size and shape. Brain: No intracranial bleeds or masses. There is cerebral volume loss for age, with resultant ventricular and sulcal prominence. There are periventricular and deep white matter chronic small vessel ischemic changes. There is intracranial internal carotid artery atherosclerosis. Skull and face: Calvarium and visualized facial bones appear intact, without suspicious lesions. Sinuses: Visualized sinuses and mastoids are clear. IMPRESSION: 1. No CT evidence of acute intracranial process. 2. Age-appropriate exam. Dictated by: Christy Pak M.D. on 01/24/2020 at 16:03 Approved by: Christy Pak M.D. on 01/24/2020 at 16:03
[2020-01-24 16:51] LABS: Culture Indicated Urine Specimen Cultured; RBC Urine 1-5/HPF (0-5/HPF); WBC Urine 5-10/HPF (0-5/HPF)
[2020-01-24] MEDS: ACETAMINOPHEN 325 MG TABLET 650 MG PO (17:23)
[2020-01-24] MEDS: FUROSEMIDE 40 MG/4 ML VIAL IV (18:43)
--- NOTE | 2020-01-24 18:53 | PM.HP.1 ---
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 Powell. She presented to the ED today complaining of dyspnea and worsening chest pressure/tightness. Describes it as feeling like gas bubbling up into her chest and neck. Does not endorse chest pain, calling it instead a ?discomfort.? She generally has no dyspnea and after trying to lie down with no improvement in symptoms, decided to come into the ED to be evaluated. While in the ED described a frontal headache and had uncontrolled blood pressure. Physical exam findings showed no neurological deficits but she did have a scotoma. She had no peripheral edema. Patient denies nausea, vomiting, fever, or dizziness. No palpitations. She did have a recent ED visit 6 weeks ago for palpitations and hypokalemia. Patient was on atenolol and chlorthalidone at that time, chlorthalidone was discontinued and hypokalemia self-corrected. She is now on atenolol 25 mg p.o. q.day and lisinopril 40 mg p.o. q.day. Patient has 2 drinks per night before dinner. Vital signs upon presentation to the ED included a temperature of 99.1?, pulse 98, blood pressure 217/25, and O2 saturation 95% on room air. Final blood pressure after labetalol 10 mg IV x1 was 164/74. Workup significant for a mildly elevated white count at 14.7, BNP 533, AST and ALT elevated at 67 and 59, respectively. BUN and glucose slightly elevated. Chest x-ray showed coarse interstitial markings and stable cardiomegaly. CT of the head was notably negative. EKG showed nonspecific ST changes. Troponin was notably negative. Prior to transfer to floor patient was given Lasix 40 mg IV x1. Patient History Medical History Essential hypertension (Chronic) Hypokalemia (Chronic) Surgical History History of breast augmentation History of cardiac radiofrequency ablation (RFA) History of cataract removal with insertion of prosthetic lens Status post cholecystectomy Family & Social History Family History Grandmother Stroke Mother Osteoporosis Social History: household members spouse lives independently Yes caregiver/support person No Safety & Behavioral: Feels Safe in Current Yes Environment Tobacco & Substance use: Smoking Status Never smoker alcohol intake current alcohol intake frequency 0-2 drinks per day Substance Use Type does not use Meds Home Medications and Allergies Home Medications Medication Instructions Recorded Confirmed Type CA PANTOTHENATE/FOLIC ACID/VIT 1 tab PO Q DAY #0 05/02/11 01/24/20 History (MULTIVITAMIN) loratadine [Claritin] 10 mg PO Q DAY #0 05/02/11 01/24/20 History CHOLECALCIFEROL (VITAMIN D3) 2,000 iu PO QDAY #0 05/03/11 01/24/20 History (Vitamin D) atenolol 25 mg tablet 25 mg PO QDAY #90 tab 01/14/20 01/24/20 Rx lisinopril 40 mg tablet 40 mg PO DAILY #90 tab 01/19/20 01/24/20 Rx Allergies Allergy/AdvReac Type Severity Reaction Status Date / Time clindamycin AdvReac Mild rash Verified 01/24/20 15:01 morphine AdvReac Mild N/V Verified 01/24/20 15:01 Review of Systems Review of Systems ROS: Yes All systems reviewed with the patient and are negative except as otherwise documented Exam Vital Signs (past 8 hours): - 01/24/20 14:56 01/24/20 14:58 01/24/20 15:00 Temperature Pulse Rate 98 H 96 H 92 H Respiratory Rate 30 H 28 H Blood Pressure 217/105 H 215/101 H 209/100 H Pulse Oximetry 95 98 98 01/24/20 15:01 01/24/20 15:05 01/24/20 15:10 Temperature 99.1 F Pulse Rate 95 H 87 85 Respiratory Rate 28 H 28 H 27 H Blood Pressure 217/101 H Pulse Oximetry 98 98 97 01/24/20 15:15 01/24/20 15:20 01/24/20 15:21 Temperature Pulse Rate 86 83 87 Respiratory Rate 27 H 32 H 33 H Blood Pressure 199/94 H 233/94 H Pulse Oximetry 97 97 96 01/24/20 15:25 01/24/20 15:26 01/24/20 15:30 Temperature Pulse Rate 88 86 92 H Respiratory Rate 22 28 H Blood Pressure 233/94 H 186/82 H Pulse Oximetry 97 97 01/24/20 15:35 01/24/20 15:40 01/24/20 15:45 Temperature Pulse Rate 90 87 86 Respiratory Rate 35 H 26 H 26 H Blood Pressure 182/84 H 167/77 H 173/81 H Pulse Oximetry 95 96 95 01/24/20 15:59 01/24/20 16:00 01/24/20 16:05 Temperature Pulse Rate 91 H 92 H 87 Respiratory Rate 28 H 29 H 27 H Blood Pressure 173/85 H 182/91 H 171/84 H Pulse Oximetry 99 98 96 01/24/20 16:10 01/24/20 16:15 01/24/20 16:30 Temperature Pulse Rate 86 88 86 Respiratory Rate 24 26 H 25 H Blood Pressure 171/84 H 163/77 H 169/74 H Pulse Oximetry 95 95 94 01/24/20 16:45 01/24/20 17:01 01/24/20 17:03 Temperature Pulse Rate 95 H 94 H 91 H Respiratory Rate 26 H 26 H Blood Pressure 175/81 H 170/77 H Pulse Oximetry 94 96 96 01/24/20 17:15 01/24/20 17:34 01/24/20 17:45 Temperature Pulse Rate 90 93 H 91 H Respiratory Rate 24 25 H 27 H Blood Pressure 164/74 H Pulse Oximetry 94 95 93 01/24/20 18:00 01/24/20 18:15 01/24/20 18:45 Temperature Pulse Rate 88 85 86 Respiratory Rate 24 22 22 Blood Pressure Pulse Oximetry 90 L 90 L 91 01/24/20 18:47 Temperature Pulse Rate 86 Respiratory Rate 25 H Blood Pressure 162/72 H Pulse Oximetry 91 Oxygen Delivery Method Room Air Narrative Exam Narrative: GENERAL: Alert and oriented, appearing stated age and in no acute distress. HEENT: Head normocephalic/atraumatic. Pupils equal, round, and reactive to light and accomodation. Extraocular muscles intact. Tympanic membranes clear. Nasal mucosa moist, septum midline. Oral mucosa moist, no lesions. Neck soft and supple, no lymphadenopathy. LUNGS: Clear to ausculation bilaterally, no wheezes, rhonchi or rales. CV: Normal S1 and S2 with regular rate and rhythm, no audible murmurs, rubs or gallops. ABDOMEN: Soft, non-tender, non-distended, no organomegaly. Positive bowel sounds. EXTREMITIES: No clubbing, cyanosis, or edema. NEURO: Cranial nerves II through XII grossly intact, no focal deficits. PSYCH: Alert and oriented x 3. SKIN: No concerning lesions. Objective Labs Result Diagrams: 01/24/20 15:04 01/24/20 15:04 Labs: Laboratory Results - last 24 hr 01/24/20 01/24/20 01/24/20 15:04 15:04 15:04 WBC 14.7 H RBC 4.33 Hgb 13.3 Hct 40.3 MCV 93.3 MCH 30.8 MCHC 33.0 RDW 13.4 Plt Count 321 Neut % (Auto) 78.9 H Lymph % (Auto) 8.9 L [place] % (Auto) 10.6 Eos % (Auto) 0.8 L Baso % (Auto) 0.8 Neut # (Auto) 49818 H Lymph # (Auto) 1300 [place] # (Auto) 1600 H Eos # (Auto) 100 Baso # (Auto) 100 PT 12.8 H INR 1.1 APTT 32 Sodium 139 Potassium 3.8 Chloride 103 Carbon Dioxide 30 BUN 20 H Creatinine 0.63 Estimated GFR > 60.0 BUN/Creatinine Ratio 31.7 H Glucose 117 H Calcium 10.1 Total Bilirubin 0.6 AST 67 H ALT 59 H Alkaline Phosphatase 97 Total Creatine Kinase 59 CK-MB (CK-2) TNP CK-MB (CK-2) Rel Index TNP Troponin I < 0.012 NT-Pro-B Natriuret Pep Total Protein 8.1 Albumin 4.6 Globulin 3.5 Albumin/Globulin Ratio 1.3 Lipase 140 Urine RBC Urine WBC Urine Bacteria Ur Culture Indicated? 01/24/20 01/24/20 15:04 16:38 WBC RBC Hgb Hct MCV MCH MCHC RDW Plt Count Neut % (Auto) Lymph % (Auto) [place] % (Auto) Eos % (Auto) Baso % (Auto) Neut # (Auto) Lymph # (Auto) [place] # (Auto) Eos # (Auto) Baso # (Auto) PT INR APTT Sodium Potassium Chloride Carbon Dioxide BUN Creatinine Estimated GFR BUN/Creatinine Ratio Glucose Calcium Total Bilirubin AST ALT Alkaline Phosphatase Total Creatine Kinase CK-MB (CK-2) CK-MB (CK-2) Rel Index Troponin I NT-Pro-B Natriuret Pep 533 H Total Protein Albumin Globulin Albumin/Globulin Ratio Lipase Urine RBC 1-5/hpf Urine WBC 5-10/hpf H Urine Bacteria None seen Ur Culture Indicated? Specimen cultured Assessment & Plan Assessment & Plan narrative: 1. Hypertensive crisis, acute -Presentation BP 217/105, down to 164/74 after labetalol 10 mg IV x 1. Now 144/57. -History of recent medication change from hydrochlorothiazide to lisinopril. -Headache, frontal, CT head negative. -Risk for ASCVD. PLAN: Observation overnight for [place] rule out and neurological monitoring. Nitroglycerin 5 mcg/min IV for SBP greater than 160 and/or DBP >110. Will continue home lisinopril and atenolol. 2. Dyspnea on exertion with angina, acute -Risk for ASCVD. PLAN: Will start aspirin 325 mg PO qd and check fasting lipid panel in the morning. Blood pressure control as noted above. Will rule out [place]. Echo and cardiac stress test. 4. Rule out [place] PLAN: Please see #2. 5. Heart failure, mild, etiology unknown, acute -BNP 533 -Lasix 40 mg IV x 1 in ED PLAN: BNP in am, lasix if needed. Echo and stress test as noted above. 6. Elevated liver enzymes, acute -AST 67, ALT 59, possibly due to acute phase. PLAN: Will trend CMP in am. 7. Cardiomegaly, chronic PLAN: As above. DVT prophylaxis: SCDs. Code: Full Disposition: Anticipate overnight stay for observation and cardiac rule out.
[2020-01-24 20:04] LABS: COVID19 -Nasal RAPID Negative (Negative)
[2020-01-24 21:21] LABS: Troponin I 0.012 ng/mL (0.01-0.034)
--- NOTE | 2020-01-24 22:29 | PC.NURSE ---
2230- Patient desaturates to 89-90% when sleeping. Placed on 2 liters nasal cannula. Will monitor.
[2020-01-25] VITALS (12 sets, daily range): BP systolic 119–155; BP diastolic 58–93; PULSE 50–86; RESP 16–20; TEMP 36.3–36.8; O2SAT 93–98
[2020-01-25] MEDS: ACETAMINOPHEN 325 MG TABLET 650 MG PO (02:24)
[2020-01-25 05:21] LABS: Add Manual Diff / Slide Review NO; Basophils Absolute Auto 100 /uL (0-100); Basophils Percent Auto 0.7 % (0-2); Eosinophils Absolute Auto 100 /uL (0-450); Eosinophils Percent Auto 0.7 % (2-4); Hematocrit 36.4 % (36-46); Hemoglobin 12.3 g/dL (12.0-16.0); Lymphocytes Absolute Auto 1800 /uL (1100-4500); Mean Corpuscular HGB Conc 33.7 % (30-36); Mean Corpuscular Hemoglobin 31.1 PG (26-34); Mean Corpuscular Volume 92.1 fL (80-100); Monocytes Absolute Auto 1500 /uL (0-900); Monocytes Percent Auto 15.5 % (3-14); Neutrophils Absolute Auto 6500 /uL (1500-7000); Neutrophils Percent Auto 65.1 % (50-75); Platelet Count 262 X10^3/uL (150-400); Red Blood Cell Count 3.96 X10^6/uL (4.0-5.2); Red Cell Distribution Width 13.1 % (11.6-14.8); White Blood Cell Count 9.9 X10^3/uL (4.5-11.0)
[2020-01-25 05:34] LABS: Alanine Aminotransferase 47 IU/L (<35); Albumin 3.8 g/dL (3.5-5.0); Albumin Globulin Ratio 1.2 (1.0-2.8); Alkaline Phosphatase 74 U/L (38-126); Aspartate Aminotransferase 42 IU/L (14-36); Bilirubin Total 1.1 mg/dL (0.2-1.3); Blood Urea Nitrogen 13 mg/dL (7-17); Carbon Dioxide 31 mmol/L (22-32); Chloride 101 mmol/L (98-107); Cholesterol 181 mg/dL (140-199); Estimated Glomerular Filt Rate > 60.0 mL/min (>60); Globulin 3.1 g/dL (1.7-4.1); Glucose 120 mg/dL (80-110); HDL Cholesterol 62 mg/dL (40-60); HEMOLYSIS < 15 (0-50); LDL Cholesterol Calculated 105 mg/dL (<100); Sodium 139 mmol/L (137-145); Total Protein 6.9 g/dL (6.3-8.2); Triglycerides 71 mg/dL (35-150)
[2020-01-25 05:42] LABS: NT-proBNP (BNP-Adult 18+) 1220 pg/mL (<450)
[2020-01-25 05:45] LABS: Troponin I 0.014 ng/mL (0.01-0.034)
[2020-01-25 05:52] LABS: Potassium 2.7 mmol/L (3.4-5.1)
[2020-01-25] MEDS: POTASSIUM CHLORIDE 20 MEQ TAB 40 MEQ PO ×3 (08:16→20:09)
[2020-01-25] MEDS: ASPIRIN EC 325 MG TABLET PO (08:16)
[2020-01-25] MEDS: atenoloL 25 MG TABLET PO (08:16)
[2020-01-25] MEDS: lisinopriL 20 MG TABLET 40 MG PO (08:16)
[2020-01-25] MEDS: LORATADINE 10 MG TABLET PO (08:17)
--- NOTE | 2020-01-25 09:01 | PM.PN.1 ---
Subjective Subjective Date Patient Seen: 01/25/20 Time Patient Seen: 09:01 Interval history: Feeling much better this morning, had a shower. Nursing reports uneventful night. Patient continues to have a very slight feeling of chest pressure and chest tightness on her left side with deep inspiration. Feels a little short of breath when this happens. Denies overt chest pain. No headache. Has been afebrile. Blood pressures have normalized on home medication, now 120/60s. Potassium was low this morning, patient has been repleted orally. Has completed echo, awaiting stress test which will happen tomorrow Exam Vital Signs (past 8 hours): - 01/25/20 04:53 01/25/20 08:00 01/25/20 08:16 Temperature 98.2 F 97.3 F L Pulse Rate 77 83 72 Respiratory Rate 18 18 Blood Pressure 119/62 128/58 L 128/58 L Pulse Oximetry 97 95 Oxygen Delivery Method Room Air Oxygen Flow Rate 0 Narrative Exam Narrative: GENERAL: Alert and oriented, appearing stated age and in no acute distress. HEENT: Head normocephalic/atraumatic. Pupils equal, round, and reactive to light and accomodation. Extraocular muscles intact. Tympanic membranes clear. Nasal mucosa moist, septum midline. Oral mucosa moist, no lesions. Neck soft and supple, no lymphadenopathy. LUNGS: Clear to ausculation bilaterally, no wheezes, rhonchi or rales. CV: Normal S1 and S2 with regular rate and rhythm, no audible murmurs, rubs or gallops. ABDOMEN: Soft, non-tender, non-distended, no organomegaly. Positive bowel sounds. EXTREMITIES: No clubbing, cyanosis, or edema. NEURO: Cranial nerves II through XII grossly intact, no focal deficits. PSYCH: Alert and oriented x 3. SKIN: No concerning lesions. Objective Labs Result Diagrams: 01/25/20 04:50 01/25/20 04:50 Labs: Laboratory Results - last 24 hr 01/24/20 01/24/20 01/24/20 15:04 15:04 15:04 WBC 14.7 H RBC 4.33 Hgb 13.3 Hct 40.3 MCV 93.3 MCH 30.8 MCHC 33.0 RDW 13.4 Plt Count 321 Neut % (Auto) 78.9 H Lymph % (Auto) 8.9 L [place] % (Auto) 10.6 Eos % (Auto) 0.8 L Baso % (Auto) 0.8 Neut # (Auto) 63524 H Lymph # (Auto) 1300 [place] # (Auto) 1600 H Eos # (Auto) 100 Baso # (Auto) 100 PT 12.8 H INR 1.1 APTT 32 Sodium 139 Potassium 3.8 Chloride 103 Carbon Dioxide 30 BUN 20 H Creatinine 0.63 Estimated GFR > 60.0 BUN/Creatinine Ratio 31.7 H Glucose 117 H Calcium 10.1 Total Bilirubin 0.6 AST 67 H ALT 59 H Alkaline Phosphatase 97 Total Creatine Kinase 59 CK-MB (CK-2) TNP CK-MB (CK-2) Rel Index TNP Troponin I < 0.012 NT-Pro-B Natriuret Pep Total Protein 8.1 Albumin 4.6 Globulin 3.5 Albumin/Globulin Ratio 1.3 Triglycerides Cholesterol LDL Cholesterol, Calc HDL Cholesterol Lipase 140 Urine RBC Urine WBC Urine Bacteria Ur Culture Indicated? Nasal Screen MRSA (PCR) COVID-19 PCR 01/24/20 01/24/20 01/24/20 15:04 16:38 18:48 WBC RBC Hgb Hct MCV MCH MCHC RDW Plt Count Neut % (Auto) Lymph % (Auto) [place] % (Auto) Eos % (Auto) Baso % (Auto) Neut # (Auto) Lymph # (Auto) [place] # (Auto) Eos # (Auto) Baso # (Auto) PT INR APTT Sodium Potassium Chloride Carbon Dioxide BUN Creatinine Estimated GFR BUN/Creatinine Ratio Glucose Calcium Total Bilirubin AST ALT Alkaline Phosphatase Total Creatine Kinase CK-MB (CK-2) CK-MB (CK-2) Rel Index Troponin I NT-Pro-B Natriuret Pep 533 H Total Protein Albumin Globulin Albumin/Globulin Ratio Triglycerides Cholesterol LDL Cholesterol, Calc HDL Cholesterol Lipase Urine RBC 1-5/hpf Urine WBC 5-10/hpf H Urine Bacteria None seen Ur Culture Indicated? Specimen cultured Nasal Screen MRSA (PCR) COVID-19 PCR Negative 01/24/20 01/24/20 01/25/20 19:30 20:45 04:50 WBC RBC Hgb Hct MCV MCH MCHC RDW Plt Count Neut % (Auto) Lymph % (Auto) [place] % (Auto) Eos % (Auto) Baso % (Auto) Neut # (Auto) Lymph # (Auto) [place] # (Auto) Eos # (Auto) Baso # (Auto) PT INR APTT Sodium Potassium Chloride Carbon Dioxide BUN Creatinine Estimated GFR BUN/Creatinine Ratio Glucose Calcium Total Bilirubin AST ALT Alkaline Phosphatase Total Creatine Kinase CK-MB (CK-2) CK-MB (CK-2) Rel Index Troponin I 0.012 0.014 NT-Pro-B Natriuret Pep Total Protein Albumin Globulin Albumin/Globulin Ratio Triglycerides Cholesterol LDL Cholesterol, Calc HDL Cholesterol Lipase Urine RBC Urine WBC Urine Bacteria Ur Culture Indicated? Nasal Screen MRSA (PCR) Negative for mrsa COVID-19 PCR 01/25/20 01/25/20 04:50 04:50 WBC 9.9 RBC 3.96 L Hgb 12.3 Hct 36.4 MCV 92.1 MCH 31.1 MCHC 33.7 RDW 13.1 Plt Count 262 Neut % (Auto) 65.1 Lymph % (Auto) 18.0 L [place] % (Auto) 15.5 H Eos % (Auto) 0.7 L Baso % (Auto) 0.7 Neut # (Auto) 6500 Lymph # (Auto) 1800 [place] # (Auto) 1500 H Eos # (Auto) 100 Baso # (Auto) 100 PT INR APTT Sodium 139 Potassium 2.7 L* Chloride 101 Carbon Dioxide 31 BUN 13 Creatinine 0.62 Estimated GFR > 60.0 BUN/Creatinine Ratio 21.0 Glucose 120 H Calcium 9.0 Total Bilirubin 1.1 AST 42 H ALT 47 H Alkaline Phosphatase 74 Total Creatine Kinase CK-MB (CK-2) CK-MB (CK-2) Rel Index Troponin I NT-Pro-B Natriuret Pep 1220 H Total Protein 6.9 Albumin 3.8 Globulin 3.1 Albumin/Globulin Ratio 1.2 Triglycerides 71 Cholesterol 181 LDL Cholesterol, Calc 105 H HDL Cholesterol 62 H Lipase Urine RBC Urine WBC Urine Bacteria Ur Culture Indicated? Nasal Screen MRSA (PCR) COVID-19 PCR Assessment & Plan Assessment & Plan narrative: 1. Hypertensive crisis, acute, resolving -Presentation BP 217/105, down to 164/74 after labetalol 10 mg IV x 1. 144/57 when transferred to floor. Has normalized overnight. -History of recent medication change from hydrochlorothiazide to lisinopril. -Headache, frontal, CT head negative, no further headache. -Risk for ASCVD. -Troponin negative x 3 -Echo showed ejection fraction of 65-70%, mild LVH, severe left atrial enlargement, mild right atrial enlargement, and a mildly enlarged ascending aorta. Questionable atherosclerotic disease in the aorta. PLAN: Observation overnight unremarkable. Suspect that hypertensive crisis secondary to angina and CHF. Patient does have a history of cardiac ablation x2 for what sounds like a reentry SVT, may have gone into an arrhythmia as well prior to her episode that would have exacerbated her heart failure and increased her blood pressure. ASCVD risk 62% during her hypertensive crisis (based on BP). Will likely benefit from a pvc monitor as an outpatient and close outpatient cardiac follow up. Will continue home lisinopril and atenolol while awaiting stress test prior to discharge. 2. Acute Coronary Syndrome secondary to unstable angina -Patient has had recent significant worsening of dyspnea and chest tightness/pressure that led to a hypertensive crisis. -FLP showed elevated LDL 105. -ASCVD risk score 32.5% using her baseline BP of 128/58 this morning and 62% while in hypertensive crisis. -Troponin negative x 3 -Oxygenating well on room air. -HD#1: experiencing mild chest pressure/tightness on her left side with deep inspiration and slight shortness of breath. PLAN: Questionable atherosclerotic disease in the aorta on echo, high ASCVD risk score; will start atorvastain 80 mg PO qhs. May benefit from prophylactic PCI in outpatient setting. Patient is appropriately on a beta-fannie and RAFAEL-inhibitor. Patient has a 10 year life expectancy, with her ASCVD risk, aspirin appropriate; will change to 81 mg PO qd to mitigate risk of bleeding. Blood pressure control as noted above. Advised cutting down on alcohol intake to <1 serving per day. Cardiac stress test pending. SL nitro as needed for angina. Nitroglycerin drip ordered for persistently elevated blood pressure (SBP>160 and/or DBP >105). Plan for outpatient prescription of nitroglycerin as needed for symptoms. Patient already has outpatient cardiology appointment with Dr. Flores on 02/15/2020, will facilitate earlier appointment upon discharge. Following potassium and magnesium closely. Potassium has been repleted, repeat labs due this evening at 6:00 p.m. 3. Rule out [place] PLAN: Please see #1-2. 4. Heart failure, with preserved ejection fraction, acute -BNP 533 on admission, now 1220. -Lasix 40 mg IV x 1 in ED. -Echo showed ejection fraction of 65-70%, mild LVH, severe left atrial enlargement, mild right atrial enlargement, and a mildly enlarged ascending aorta. Questionable atherosclerotic disease in the aorta. -HD#1: experiencing mild chest pressure/tightness on her left side with deep inspiration and slight shortness of breath. PLAN: Repeat lasix 40 mg IV x 1 now. Patient had a significant hypertensive crisis with acute HF and unstable angina, still at risk for repeat episode and DC/CVA if not controlled. ASCVD risk 62% during hypertensive crisis. BNP in am. Echo and stress test as noted above. 5. Hypokalemia, new -2.7 on HD#1 PLAN: KCl 40 meq PO BIDac. Repeat lab this evening and again in morning to ensure levels are repleted while on Lasix. Goal level >4.0. 6. Elevated liver enzymes, acute -AST 67, ALT 59 on admission now 42/27, respectively. PLAN: Likely acute phase, will trend CMP in am. 7. Cardiomegaly, chronic -Echo showed ejection fraction of 65-70%, mild LVH, severe left atrial enlargement, mild right atrial enlargement, and a mildly enlarged ascending aorta. Questionable atherosclerotic disease in the aorta. PLAN: As above. 8. Questionable atherosclerotic disease, aorta PLAN: AAA US. DVT prophylaxis: SCDs. Code: Full Disposition: Anticipate discharge tomorrow after stress test complete. Will need blood pressure follow-up with PCP in 1 week and likely initiation of cardiac event monitor in advance of cardiology appointment. [place] to move up cardiology appointment after discharge to discuss medication management, possible need for prophylactic PCI, and event monitor.
--- NOTE | 2020-01-25 09:12 | PC.NURSE ---
Dayshift Note: Pt received sitting up in bed, eating breakfast. Pt on RA, SPO2 93-96%. Denies SOB, chest pain or chest pressure. Pt is tolerating diet, reports feeling much better than on admission last night. Pt's BP is 128/58. Pt given morning medications, including 40 mEq PO potassium for low potassium. Pt is NSR. Will continue to monitor, notify MD with changes.
[2020-01-25] MEDS: FUROSEMIDE 40 MG/4 ML VIAL IV (12:24)
--- NOTE | 2020-01-25 12:27 | DI.US.S_ITS ---
PROCEDURE: US ABD AORTA ANEURYSM SCREEN INDICATIONS: ATHEROSCLEROTIC DIAGNOSIS IN AORTA TECHNIQUE: Real time scanning was performed of the aorta and iliac arteries, with image documentation. COMPARISON: [facility], CT, IVP (ABD & PEL WWO CONTRAST), 12/03/2014, 10:49. FINDINGS: Aorta: Proximal aortic diameter measures 2 cm. Mid-aorta measures 1.6 cm. Distal aortic diameter is 1.4 cm. Iliac arteries: Right common iliac artery measures 1 cm. Left common iliac artery measures 1.1 cm. IMPRESSION: Negative for aneurysm. No significant change from the prior. Dictated by: Wong Winter M.D. on 01/26/2020 at 8:38 Approved by: Wong Winter M.D. on 01/26/2020 at 8:39
--- NOTE | 2020-01-25 13:24 | PC.NURSE ---
Day shift: Pt moved from room 227 to room 211. Tolerated the move well. Oriented to new room and call light. Spouse in room for support. Report received from INSPECTOR PACKER GLASS CONTAINER. Also talked about Pt w/ Dr Cavanaugh. Pt on tele. Call light in reach.
--- NOTE | 2020-01-25 16:09 | CM.DANOTE ---
Discharge Planning/Care Management DCP: assessment: case received, EMR reviewed and went this morning to check in with pt. She was having ECHO. Spoke later with Dr. Cavanaugh, following this pt this weekend. PCP: Dr. Kristian Powell Payer: Medicare and [facility] Medical Admission status: OBS: confirmed by HONG Puri. Pt is a 79 year old who admitted last night with chest pain and shortness of breath. Dr. Cavanaugh stated she expected pt would be able to d/c to home setting if test results supported same. She had placed an order for ECHO and stress test and wondered if stress test was doable on Sunday. Referred her to the RN coordinator as the best person to know this on a daily basis: then called RN coordinator Ruel who confirmed that for today no one was available for to do this test. He stated option was to wait for Sunday or to have it as an outpatient. Dr. Cavanaugh confirmed then that she did not think pt would be medically stable for a d/c until these test results were in and decision made to keep pt until Sunday. She also discussed same with HONG Puri. P: home when medically stable for same, likely tomorrow if stress test results support this. CM Discharge Assessment Start: 01/25/20 16:06 Freq: Status: Active Protocol: Document 01/25/20 16:07 ITV (Rec: 01/25/20 16:08 ITV [id number]) Discharge Planning Assessment Advance Directives? Yes: at home History Provided By Medical Record Prior Living Arrangements House Household Members spouse Is patient alert and oriented? Yes Review Status In Process
--- NOTE | 2020-01-25 16:55 | PC.NURSE ---
Addendum entered by Daniela Conn R.N. 01/25/20 19:19: Pt transferred to ICU per MD orders. Addendum entered by Daniela Conn R.N. 01/25/20 18:55: At 1820 pt stated that she felt like she was slipping a beat Tel per ICU staff NSR At 1840 tele showed a-fib. B/P 134/81 P= 73 Pt stated she had a brief moment w/chest pressure but resolved in a short time. Dr. Cavanaugh made aware by INSTALLATION SPECIALIST, EKG done, and labs drawn. Will await results. Original Note: Pt awake, denies any discomfort @ this time. Lungs clear. SpO2 98% RA Tele shows NSR per ICU staff. HL LFA intact/patent. Call light w/in reach, pt calls appropriately for needs.
--- NOTE | 2020-01-25 19:09 | PM.EVENT ---
Event Note Date Patient Seen: 01/25/20 Time Patient Seen: 19:09 Event Note: Called by nursing, reporting new onset atrial fibrillation in the last hour. QT interval normal at 432. Patient did report that she is feeling more chest pressure. BP 134/81, HR 73. Patient has known WPW with history of cardiac ablation x 2 in 1994 and 1995. Potassium was low this morning, 2.7. She was given 40 meq of oral potassium, evening labs ordered at 18:00 but not yet drawn. Nursing will call those in stat. In the meantime, advised vasalva maneuvers. Due to her WPW, first-line medical agents for cardioversion are contraindicated. Have consulted with Dr. Flores, cardiology, he recommended: 1. Heparin Drip, baseline PT/PTT now. 2. Amiodorine 150 mg IV x 1 over 10 min, followed by 1 mg/min IV x 6 hours, then 0.5 mg/min IV x 18 hours. 3. Aggressive correction of potassium if indicated. 4. Electrical cardioversion tomorrow after appropriate anticoagulation if unable to medically cardiovert. Will also run a 12 lead EKG now and again in the morning. Will repeat troponins. Patient was transferred to ACU this morning after unremarkable night, she will be transferred back to ICU now. UPDATE: K 3.5, Mg 2.0. Goal K >4, Goal Mg >2. Will give an extra dose of oral potassium now, 40 meq and recheck labs in am.
--- NOTE | 2020-01-25 19:14 | PC.NURSE ---
Addendum entered by Gissel Franco R.N. 01/25/20 22:26: 2220- patient converted to NSR. Vital signs wnl, Amiodarone gtt infusing per protocol. Addendum entered by Gissel Franco R.N. 01/25/20 19:34: 1930- Patient transferred to room 230. Remains in AFIB/CVR. No change in rhythm with valsalva maneuver. Will monitor. Original Note: 1830- Patient tele shows AFib/CVR/SVR . Stat EKG ordered and notified. Darlene DIXON notified. Patient hemodynamically stable. Will monitor
[2020-01-25 19:36] LABS: HEMOLYSIS < 15 (0-50); Potassium 3.5 mmol/L (3.4-5.1)
[2020-01-25] MEDS: AMIODARONE 150 MG/100 ML PIGGYBACK 600 MG IV (20:10)
[2020-01-25] MEDS: HEPARIN 5,000 UNIT/ML VIAL 6100 UNIT IV (20:10)
[2020-01-25] MEDS: HEPARIN DRIP 25,000 UNIT/500 ML IV.SOLN 27.433 UNIT IV (20:11)
[2020-01-25] MEDS: AMIODARONE 360 MG/200 ML PIGGYBACK 33.33 MG IV (20:46)
[2020-01-25] MEDS: ATORVASTATIN 20 MG TABLET 80 MG PO (21:50)
[2020-01-25 21:52] LABS: Troponin I < 0.012 ng/mL (0.01-0.034)
[2020-01-26] VITALS (36 sets, daily range): BP systolic 99–158; BP diastolic 53–95; PULSE 55–74; RESP 16–20; TEMP 36.1–36.5; O2SAT 92–99
[2020-01-26 03:07] LABS: Add Manual Diff / Slide Review NO; Basophils Absolute Auto 100 /uL (0-100); Basophils Percent Auto 0.9 % (0-2); Eosinophils Absolute Auto 300 /uL (0-450); Hemoglobin 12.8 g/dL (12.0-16.0); Lymphocytes Absolute Auto 3100 /uL (1100-4500); Lymphocytes Percent Auto 37.2 % (25-40); Mean Corpuscular HGB Conc 32.8 % (30-36); Mean Corpuscular Hemoglobin 30.8 PG (26-34); Mean Corpuscular Volume 93.9 fL (80-100); Monocytes Absolute Auto 1100 /uL (0-900); Monocytes Percent Auto 13.2 % (3-14); Neutrophils Absolute Auto 3900 /uL (1500-7000); Neutrophils Percent Auto 45.7 % (50-75); Platelet Count 282 X10^3/uL (150-400); Red Blood Cell Count 4.15 X10^6/uL (4.0-5.2); Red Cell Distribution Width 13.4 % (11.6-14.8); White Blood Cell Count 8.5 X10^3/uL (4.5-11.0)
[2020-01-26] MEDS: AMIODARONE 360 MG/200 ML PIGGYBACK 16.7 MG IV ×2 (03:15→14:49)
[2020-01-26 03:16] LABS: INR 1.3 (0.9-1.3); Prothrombin Time 15.3 SECONDS (10.1-12.7)
[2020-01-26 03:22] LABS: Alanine Aminotransferase 42 IU/L (<35); Albumin 3.9 g/dL (3.5-5.0); Albumin Globulin Ratio 1.2 (1.0-2.8); Alkaline Phosphatase 78 U/L (38-126); Aspartate Aminotransferase 34 IU/L (14-36); BUN Creatinine Ratio 19.4 (6-22); Bilirubin Total 0.4 mg/dL (0.2-1.3); Blood Urea Nitrogen 13 mg/dL (7-17); Calcium 9.2 mg/dL (8.4-10.2); Carbon Dioxide 32 mmol/L (22-32); Chloride 104 mmol/L (98-107); Estimated Glomerular Filt Rate > 60.0 mL/min (>60); Globulin 3.2 g/dL (1.7-4.1); Glucose 124 mg/dL (80-110); HEMOLYSIS < 15 (0-50); Sodium 138 mmol/L (137-145); Total Protein 7.1 g/dL (6.3-8.2)
[2020-01-26 03:32] LABS: NT-proBNP (BNP-Adult 18+) 510 pg/mL (<450)
[2020-01-26 03:34] LABS: Troponin I < 0.012 ng/mL (0.01-0.034)
[2020-01-26 03:49] LABS: PTT Partial Thromboplastin Tim 195 SECONDS (26.4-36.2)
--- NOTE | 2020-01-26 06:32 | PC.NURSE ---
Noc Note: Pt denies any chest pain or pressure. PTT drawn at 0300, lab reported at 0345 PTT was 195, Heparin gtt running at 27.4, gtt held x 60 min per protocol and restarted at 214ml/hr per protocol. Amiodarone running as ordered. Pt tele was SR, 1 st degree AVB. Pt is A&Ox 4 and making needs known, Moving independently in the bed. BP had been WNL this shift.
--- NOTE | 2020-01-26 08:27 | PM.PN.1 ---
Subjective Subjective Date Patient Seen: 01/26/20 Time Patient Seen: 08:27 Interval history: Patient basically feeling well doing well. Denies really any chest pressure pain. Takes a deep breath maybe feels like she might be able to feel something. Has gone back to sinus rhythm on telemetry and EKG Breathing seems to be okay. Vital signs have been okay blood pressure much better Exam Vital Signs (past 8 hours): - 01/26/20 01:00 01/26/20 01:45 01/26/20 02:00 Pulse Rate 65 64 Blood Pressure 113/57 L 119/63 Pulse Oximetry 95 97 98 01/26/20 03:09 01/26/20 03:10 01/26/20 03:15 Pulse Rate 69 68 67 Blood Pressure 131/64 Pulse Oximetry 96 96 95 01/26/20 03:30 01/26/20 03:45 01/26/20 04:00 Pulse Rate 69 67 69 Blood Pressure 118/56 L Pulse Oximetry 93 96 95 01/26/20 04:15 01/26/20 04:30 01/26/20 04:45 Pulse Rate 68 64 64 Blood Pressure Pulse Oximetry 93 96 96 01/26/20 05:00 01/26/20 05:01 01/26/20 05:15 Pulse Rate 66 66 69 Blood Pressure 108/53 L Pulse Oximetry 98 97 98 01/26/20 05:30 01/26/20 05:45 01/26/20 06:00 Pulse Rate 66 60 65 Blood Pressure 117/56 L Pulse Oximetry 95 94 96 01/26/20 06:15 01/26/20 06:30 01/26/20 06:45 Pulse Rate 67 67 70 Blood Pressure Pulse Oximetry 98 97 96 01/26/20 07:06 01/26/20 07:08 Pulse Rate 74 68 Blood Pressure 156/72 H Pulse Oximetry 96 96 Fraction of Inspired Oxygen 100 Oxygen Delivery Method Nasal Cannula Oxygen Flow Rate 2 Objective Labs Result Diagrams: 01/26/20 02:56 01/26/20 02:56 Labs: Laboratory Results - last 24 hr 01/25/20 01/25/20 01/25/20 19:30 19:30 21:08 WBC RBC Hgb Hct MCV MCH MCHC RDW Plt Count Neut % (Auto) Lymph % (Auto) Jessamine % (Auto) Eos % (Auto) Baso % (Auto) Neut # (Auto) Lymph # (Auto) Jessamine # (Auto) Eos # (Auto) Baso # (Auto) PT INR APTT Sodium Potassium 3.5 Chloride Carbon Dioxide BUN Creatinine Estimated GFR BUN/Creatinine Ratio Glucose Calcium Magnesium 2.0 Total Bilirubin AST ALT Alkaline Phosphatase Troponin I < 0.012 NT-Pro-B Natriuret Pep Total Protein Albumin Globulin Albumin/Globulin Ratio 01/26/20 01/26/20 01/26/20 02:56 02:56 02:56 WBC 8.5 RBC 4.15 Hgb 12.8 Hct 39.0 MCV 93.9 MCH 30.8 MCHC 32.8 RDW 13.4 Plt Count 282 Neut % (Auto) 45.7 L Lymph % (Auto) 37.2 Jessamine % (Auto) 13.2 Eos % (Auto) 3.0 Baso % (Auto) 0.9 Neut # (Auto) 3900 Lymph # (Auto) 3100 Jessamine # (Auto) 1100 H Eos # (Auto) 300 Baso # (Auto) 100 PT INR APTT Sodium 138 Potassium 4.0 Chloride 104 Carbon Dioxide 32 BUN 13 Creatinine 0.67 Estimated GFR > 60.0 BUN/Creatinine Ratio 19.4 Glucose 124 H Calcium 9.2 Magnesium 2.0 Total Bilirubin 0.4 AST 34 ALT 42 H Alkaline Phosphatase 78 Troponin I NT-Pro-B Natriuret Pep 510 H Total Protein 7.1 Albumin 3.9 Globulin 3.2 Albumin/Globulin Ratio 1.2 01/26/20 01/26/20 02:56 02:56 WBC RBC Hgb Hct MCV MCH MCHC RDW Plt Count Neut % (Auto) Lymph % (Auto) Jessamine % (Auto) Eos % (Auto) Baso % (Auto) Neut # (Auto) Lymph # (Auto) Jess[place] # (Auto) Eos # (Auto) Baso # (Auto) PT 15.3 H INR 1.3 APTT 195 H* D Sodium Potassium Chloride Carbon Dioxide BUN Creatinine Estimated GFR BUN/Creatinine Ratio Glucose Calcium Magnesium Total Bilirubin AST ALT Alkaline Phosphatase Troponin I < 0.012 NT-Pro-B Natriuret Pep Total Protein Albumin Globulin Albumin/Globulin Ratio Assessment & Plan Assessment & Plan narrative: 1. Atrial fibrillation-patient's return to sinus rhythm. She continue on the amiodarone drip for now. 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 Given the complicated history she presents with with the WPW the apparently new paroxysmal atrial fibrillation the congestive heart failure hypertensive crisis I believe she would certainly benefit from Cardiology input and I will ask for an inpatient consultation as well. She was also started on heparin probably anticipation of possible cardioversion but I am going to discontinue that at this point. 2. Chest pressure-patient with negative EKG and troponins and is scheduled for cardiac stress testing. That makes sense to follow through with that at this point. 3. Congestive heart failure-acute congestive heart failure with normal left ventricular ejection fraction. Continue with diuretic therapy. BNP much better 4. Electrolytes-patient's potassium is now normal. Continue to monitor this and recheck tomorrow 5. LFTs-improved this morning. Further workup as per patient's PCP probably as an outpatient Note: Greater than 30 minutes was spent evaluating the patient on the floor, including examining the patient, discussing clinical course with clinical and nursing staff, reviewing clinical course in the computer, preparing documentation and writing orders for continued management of care, discussing status with family as appropriate, reviewing plans for the next 24 hours with both patient/family and nursing staff as appropriate.
[2020-01-26] MEDS: POTASSIUM CHLORIDE 20 MEQ TAB 40 MEQ PO (08:59)
[2020-01-26] MEDS: lisinopriL 20 MG TABLET 40 MG PO (08:59)
[2020-01-26] MEDS: atenoloL 25 MG TABLET PO ×2 (09:00→20:40)
[2020-01-26] MEDS: ASPIRIN EC 81 MG TABLET PO (09:00)
[2020-01-26] MEDS: LORATADINE 10 MG TABLET PO (09:00)
[2020-01-26] MEDS: CALCIUM CARBONATE 500 MG TAB 1000 MG PO (11:46)
--- NOTE | 2020-01-26 14:19 | PC.NURSE ---
Day Shift Note Pt alert and oriented x3. Amio gtt infusing at 0.5 mg/min. SB/SR in the 50-60s. Heparin gtt d/c'd this morning per MD order. SBA in room. Reported heartburn at 1145 which resolved with Tums, no further symptoms reported. Taken down for stress test at 1300 and returned to room at this time. Call light within reach.
--- NOTE | 2020-01-26 17:06 | DI.NM.S_ITS ---
DATE OF SERVICE: 01/25/2020 PROCEDURE: Pharmacological perfusion study. INDICATIONS: Atrial fibrillation, shortness of breath, diastolic heart failure. RADIOPHARMACEUTICAL: 24.2 millicurie technetium-99m Myoview IV was injected at stress. Please note this is a stress test perfusion study only. CARDIAC STRESS: The patient underwent IV Lexiscan perfusion study under the supervision of an attending staff using standard protocol. Initially, she had attempted exercise stress test. However, she was on amiodarone drip with inability of heart rate to go up, hence was given IV Lexiscan. She remained hemodynamically stable. No significant symptoms were reported. Baseline EKG revealed sinus rhythm. During stress, there were no convincing ischemic changes. There were no significant sustained arrhythmias. RAW DATA: There was breast shadow seen. The patient has a breast implant. GATED STUDY: Stress LV ejection fraction 76% without any obvious wall motion abnormalities. Stress end-diastolic volume 116 mL. Lung heart ratio 0.33, which is within normal limits. MYOCARDIAL PERFUSION SCAN: Stress supine images revealed a small-sized moderately decreased perfusion of mid anterior wall which got improved during prone images. No convincing significant perfusion defect during prone images. CONCLUSION: I will call this study likely a normal myocardial perfusion study with evidence of breast tissue attenuation artifact which got improved during prone images. The patient has history of breast implant. No regional wall motion abnormalities. Left ventricular function is preserved. Overall this is a low risk myocardial perfusion scan. Rashida Quijano - MEKA/papi/cass doc#: [id number]/job#: [id number] dd: 01/26/2020 16:52:00 dt: 01/26/2020 17:00:00 DICTATING MD/COPIES TO: Romana James MD COPIES MNE: AB;
--- NOTE | 2020-01-26 17:35 | P.CONS_ITS ---
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 According to the patient about 3 weeks ago she was seen at [facility] because of palpitation. She was found to be significantly hypokalemic hence c hlorthalidone was discontinued. Since then her blood pressure started getting uncontrolled and she started retaining fluid. PCP started her on lisinopril which was slowly increased to 40 mg a day however blood pressure was still uncontrolled. She presented to the ED on Sunday complaining of dyspnea and worsening chest pressure/tightness. Describes it as feeling like gas bubbling up into her chest and neck. Does not endorse chest pain, calling it instead a ?discomfort.? She generally has no dyspnea and after trying to lie down with no improvement in symptoms, decided to come into the ED to be evaluated. While in the ED described a frontal headache and had uncontrolled blood pressure. Physical exam findings showed no neurological deficits but she did have a scotoma. She had no peripheral edema. Patient denies nausea, vomiting, fever, or dizziness. Vital signs upon presentation to the ED included a temperature of 99.1?, pulse 98, blood pressure 217/25, and O2 saturation 95% on room air. Final blood pressure after labetalol 10 mg IV x1 was 164/74. Workup significant for a mildly elevated white count at 14.7, BNP 533, AST and ALT elevated at 67 and 59, respectively. BUN and glucose slightly elevated. Chest x-ray showed coarse interstitial markings and stable cardiomegaly. CT of the head was notably negative. EKG showed nonspecific ST changes. Troponin was notably negative. Prior to transfer to floor patient was given Lasix 40 mg IV x1. In the hospital she developed if atrial fibrillation. Her potassium was low. Potassium was corrected. She was also started on amiodarone and resulted in sinus rhythm. Underwent 2D echo which revealed preserved systolic function with pseudonormalization of diastolic dysfunction and severe left atrium enlargement. Perfusion study today did not reveal any significant ischemia infarction. There is evidence of breast tissue attenuation artifact. Patient denies any fever, cough, expectoration or bleeding or stroke-like symptoms. She drinks 2 alcoholic drinks a night. She has symptoms of sleep apnea but never been investigated. Meds Home Medications and Allergies Home Medications Medication Instructions Recorded Confirmed Type CA PANTOTHENATE/FOLIC ACID/VIT 1 tab PO Q DAY #0 05/02/11 01/24/20 History (MULTIVITAMIN) loratadine [Claritin] 10 mg PO Q DAY #0 05/02/11 01/24/20 History CHOLECALCIFEROL (VITAMIN D3) 2,000 iu PO QDAY #0 05/03/11 01/24/20 History (Vitamin D) atenolol 25 mg tablet 25 mg PO QDAY #90 tab 01/14/20 01/24/20 Rx lisinopril 40 mg tablet 40 mg PO DAILY #90 tab 01/19/20 01/24/20 Rx Allergies Allergy/AdvReac Type Severity Reaction Status Date / Time clindamycin AdvReac Mild rash Verified 01/24/20 15:01 morphine AdvReac Mild N/V Verified 01/24/20 15:01 Review of Systems Review of Systems ROS: Yes All systems reviewed with the patient and are negative except as otherwise documented Exam Vital Signs (past 8 hours): - 01/26/20 10:00 01/26/20 10:05 01/26/20 11:00 Temperature Pulse Rate 63 56 L Respiratory Rate 16 18 Blood Pressure 117/56 L 99/54 L Pulse Oximetry 93 93 94 01/26/20 12:00 01/26/20 15:10 01/26/20 16:00 Temperature 97.5 F L Pulse Rate 55 L 63 66 Respiratory Rate 18 16 17 Blood Pressure 120/79 124/59 L 125/57 L Pulse Oximetry 95 93 95 01/26/20 17:00 Temperature Pulse Rate 68 Respiratory Rate 16 Blood Pressure 125/75 Pulse Oximetry 96 Fraction of Inspired Oxygen 100 Oxygen Delivery Method Room Air Oxygen Flow Rate 0 Const General: cooperative and comfortable [facility] Head: normal to inspection Eyes Other: No significant anemia or jaundice Neck Other: No obvious JVD Chest Chest: normal inspection of the chest Resp Other: No obvious crepitations or rhonchi Cardio Other: S1, S2 appears normal, no S3, no S4, soft ejection systolic murmur at left parasternal area GI Other: No obvious hepatosplenomegaly Neuro Other: No obvious motor or sensory deficit Extrem Other: No significant pedal edema Psych Other: Alert oriented to time place and person Objective Labs Result Diagrams: 01/26/20 02:56 01/26/20 02:56 Labs: Laboratory Results - last 24 hr 01/25/20 01/25/20 01/25/20 19:30 19:30 21:08 WBC RBC Hgb Hct MCV MCH MCHC RDW Plt Count Neut % (Auto) Lymph % (Auto) Maries % (Auto) Eos % (Auto) Baso % (Auto) Neut # (Auto) Lymph # (Auto) Maries # (Auto) Eos # (Auto) Baso # (Auto) PT INR APTT Sodium Potassium 3.5 Chloride Carbon Dioxide BUN Creatinine Estimated GFR BUN/Creatinine Ratio Glucose Calcium Magnesium 2.0 Total Bilirubin AST ALT Alkaline Phosphatase Troponin I < 0.012 NT-Pro-B Natriuret Pep Total Protein Albumin Globulin Albumin/Globulin Ratio 01/26/20 01/26/20 01/26/20 02:56 02:56 02:56 WBC 8.5 RBC 4.15 Hgb 12.8 Hct 39.0 MCV 93.9 MCH 30.8 MCHC 32.8 RDW 13.4 Plt Count 282 Neut % (Auto) 45.7 L Lymph % (Auto) 37.2 Maries % (Auto) 13.2 Eos % (Auto) 3.0 Baso % (Auto) 0.9 Neut # (Auto) 3900 Lymph # (Auto) 3100 Maries # (Auto) 1100 H Eos # (Auto) 300 Baso # (Auto) 100 PT INR APTT Sodium 138 Potassium 4.0 Chloride 104 Carbon Dioxide 32 BUN 13 Creatinine 0.67 Estimated GFR > 60.0 BUN/Creatinine Ratio 19.4 Glucose 124 H Calcium 9.2 Magnesium 2.0 Total Bilirubin 0.4 AST 34 ALT 42 H Alkaline Phosphatase 78 Troponin I NT-Pro-B Natriuret Pep 510 H Total Protein 7.1 Albumin 3.9 Globulin 3.2 Albumin/Globulin Ratio 1.2 01/26/20 01/26/20 02:56 02:56 WBC RBC Hgb Hct MCV MCH MCHC RDW Plt Count Neut % (Auto) Lymph % (Auto) Maries % (Auto) Eos % (Auto) Baso % (Auto) Neut # (Auto) Lymph # (Auto) Maries # (Auto) Eos # (Auto) Baso # (Auto) PT 15.3 H INR 1.3 APTT 195 H* D Sodium Potassium Chloride Carbon Dioxide BUN Creatinine Estimated GFR BUN/Creatinine Ratio Glucose Calcium Magnesium Total Bilirubin AST ALT Alkaline Phosphatase Troponin I < 0.012 NT-Pro-B Natriuret Pep Total Protein Albumin Globulin Albumin/Globulin Ratio Assessment & Plan Assessment and plan (1) Acute diastolic heart failure: Status: Acute (2) Hypertensive heart disease with acute diastolic congestive heart failure: Status: Acute (3) Atrial fibrillation: Status: Acute (4) Hypokalemia: Status: Chronic (5) History of Nzobn-Wvedvqahp-Mjjtm (WPW) syndrome: Status: Acute Assessment & Plan narrative: Patient has acute diastolic heart failure likely due to uncontrolled hypertension. On 2D echo patient has pseudonormalization type of diastolic dysfunction with preserved LV systolic function without any critical aortic valve or mitral valve pathology. Left atrium is significantly enlarged. She feels better with diuretic however she is prone for profound hypokalemia which is a likely trigger for atrial fibrillation. In the hospital she has ruled out for myocardial infarction. 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 During atrial fibrillation, she did not have any wide QRS tachycardia. EKG today at about 3:20 a.m. showed sinus rhythm with evidence of repolarization QTC 460 milliseconds and AL interval 228 millisecond suggestive of first-degree AV block. It suggests that old accessory pathway ablation is effective. Patient also has symptoms of sleep apnea but never been investigated. She will need diuretic. In order to avoid side effects of hypokalemia I will use Aldactone w hich is reported seems bearing diuretic. Will start 25 mg daily. I do not see ongoing need for amiodarone at this point of time. This is the 1st time she was diagnosed atrial fibrillation. Her CHADS2 vascular score is 4 and she will need anticoagulation for stroke prevention. Will recommend Eliquis 5 mg twice a day and stopping aspirin. We will also stop amiodarone and increase atenolol to 25 mg twice a day. Because of history of complex multiple types of supraventricular arrhythmias in the past, it would be reasonable for her to be seen by EP as an outpatient. Her ischemic workup is negative. Will also recommend checking TSH. Discussed the plan with the patient as well as her husb and. Consider close watch on electrolytes. Target blood pressure less than 130/80. Consider sleep apnea workup as an outpatient. Thanks for the cardiology consult. At this point of time cardiology service will sign off. Feel free to call us if needs any further assistance. Total time spent today for this consultation at least 70 minutes with more than 50% time [id number] counseling and coordination of care.
[2020-01-26] MEDS: APIXABAN 5 MG TABLET PO (20:40)
[2020-01-26] MEDS: ATORVASTATIN 20 MG TABLET 80 MG PO (20:41)
[2020-01-27] VITALS (40 sets, daily range): BP systolic 113–173; BP diastolic 53–111; PULSE 57–79; RESP 15–39; TEMP 36.2–36.8; O2SAT 87–99
[2020-01-27] MEDS: NITROGLYCERIN 0.4 MG SL TAB SL ×2 (00:51→07:39)
--- NOTE | 2020-01-27 01:19 | PC.NURSE ---
Addendum entered by Amanda Jolly R.N. 01/27/20 06:25: Patient has been dozing intermittently since 299, no more episodes of chest pain or pressure, or c/o pain beneath breast. Troponin I has been 0.012 x2, VSS. No EKG changes. Addendum entered by Amanda Jolly R.N. 01/27/20 06:21: 0300-Patient c/o pain under left breast again, states it is comes on gradual, gets sharp, then goes away rates low. No change to VS or SpO2, went to give another SL nitroglycerine, but she declined. Will continue to monitor. Original Note: 0115-Patient developed chest pressure 2/10 started at sternum, radiated to jaw, then moved under left breast and increased to 7/10, routine am EKG obtained, BP 173/111, HR 70s still SR, placed her on 2L NC for difficult breathing SpO2 93-96%, Lt LS slightly coarse, otherwise clear. 1 nitroglycerine tab given under tongue with fast relief, states pain is gone. Notified provider cert occupational therapy asst, Dr Hernandez of all above information, orders received for STAT Troponin, and repeat with scheduled am labs, continue with nitroglycerine prn for chest pain. BP decreased to 158/74. Patient is now joking, anxiety decreased, will monitor closely.
[2020-01-27 02:07] LABS: Troponin I < 0.012 ng/mL (0.01-0.034)
[2020-01-27 05:28] LABS: INR 1.3 (0.9-1.3); Prothrombin Time 15.5 SECONDS (10.1-12.7)
[2020-01-27 05:31] LABS: PTT Partial Thromboplastin Tim 34 SECONDS (26.4-36.2)
[2020-01-27 05:32] LABS: Add Manual Diff / Slide Review NO; Basophils Absolute Auto 100 /uL (0-100); Basophils Percent Auto 0.9 % (0-2); Eosinophils Absolute Auto 300 /uL (0-450); Eosinophils Percent Auto 4.1 % (2-4); Hematocrit 38.7 % (36-46); Hemoglobin 12.7 g/dL (12.0-16.0); Lymphocytes Absolute Auto 1900 /uL (1100-4500); Lymphocytes Percent Auto 24.4 % (25-40); Mean Corpuscular HGB Conc 32.7 % (30-36); Mean Corpuscular Hemoglobin 30.7 PG (26-34); Monocytes Absolute Auto 900 /uL (0-900); Monocytes Percent Auto 11.8 % (3-14); Neutrophils Absolute Auto 4500 /uL (1500-7000); Neutrophils Percent Auto 58.8 % (50-75); Platelet Count 280 X10^3/uL (150-400); Red Blood Cell Count 4.12 X10^6/uL (4.0-5.2); Red Cell Distribution Width 12.9 % (11.6-14.8); White Blood Cell Count 7.7 X10^3/uL (4.5-11.0)
[2020-01-27 05:36] LABS: Alanine Aminotransferase 35 IU/L (<35); Albumin 3.8 g/dL (3.5-5.0); Albumin Globulin Ratio 1.3 (1.0-2.8); Alkaline Phosphatase 71 U/L (38-126); Aspartate Aminotransferase 28 IU/L (14-36); BUN Creatinine Ratio 22.2 (6-22); Bilirubin Total 0.7 mg/dL (0.2-1.3); Blood Urea Nitrogen 14 mg/dL (7-17); Calcium 9.6 mg/dL (8.4-10.2); Carbon Dioxide 27 mmol/L (22-32); Chloride 106 mmol/L (98-107); Estimated Glomerular Filt Rate > 60.0 mL/min (>60); Glucose 106 mg/dL (80-110); HEMOLYSIS < 15 (0-50); Sodium 139 mmol/L (137-145); Total Protein 6.8 g/dL (6.3-8.2)
[2020-01-27 05:44] LABS: NT-proBNP (BNP-Adult 18+) 577 pg/mL (<450)
[2020-01-27 05:46] LABS: Troponin I < 0.012 ng/mL (0.01-0.034)
[2020-01-27 06:51] LABS: Thyroid Stimulating Hormone 1.28 uIU/mL (0.47-4.68)
--- NOTE | 2020-01-27 08:00 | P.PN_ITS ---
Subjective Subjective Date Patient Seen: 01/27/20 Time Patient Seen: 07:45 Interval history: This morning the pt reports having mild, 2/10 on the pain scale, lower substernal chest pain. She states it is a dull aching sensation. It started briefly after she woke. It does not radiate. No associated nausea, palpitations, diaphoresis. She received a dose of sublingual nitroglycerin a few minutes prior to our discussion. She states that it feels like a gas se nsation that she frequently gets at home. Her BP was noted to be elevated to 160/77. The pt also reports that last night she had much more severe chest pain. It started in a similar way to her pain this morning, but then spread up under her sternum and more into the left side of her chest. The pain intensified significantly. Troponins were negative x 2, and EKG negative as well. She recieved sublingual nitrogen, which did alleviate the pain. Per nursing, no additional overnight events other than those mentioned above. She has remained in sinus rhythm with normal rate. Exam Vital Signs (past 8 hours): - 01/27/20 00:25 01/27/20 00:26 01/27/20 00:30 Temperature Pulse Rate 69 73 69 Respiratory Rate Blood Pressure 158/88 H Pulse Oximetry 94 96 97 01/27/20 00:38 01/27/20 00:45 01/27/20 00:49 Temperature 97.3 F L Pulse Rate 67 72 79 Respiratory Rate 18 27 H 37 H Blood Pressure 149/65 H 173/111 H Pulse Oximetry 96 95 95 01/27/20 00:51 01/27/20 00:58 01/27/20 01:00 Temperature Pulse Rate 74 67 67 Respiratory Rate 23 23 Blood Pressure 173/111 H 158/74 H 158/74 H Pulse Oximetry 92 92 01/27/20 01:15 01/27/20 01:30 01/27/20 01:45 Temperature Pulse Rate 64 64 71 Respiratory Rate 19 22 25 H Blood Pressure Pulse Oximetry 95 99 87 L 01/27/20 01:46 01/27/20 02:00 01/27/20 02:15 Temperature Pulse Rate 71 63 67 Respiratory Rate 25 H 23 18 Blood Pressure 144/69 H 134/61 Pulse Oximetry 99 96 96 01/27/20 02:30 01/27/20 02:45 01/27/20 02:53 Temperature Pulse Rate 75 64 69 Respiratory Rate 39 H 19 25 H Blood Pressure 148/81 H Pulse Oximetry 96 96 98 01/27/20 03:00 01/27/20 03:15 01/27/20 03:30 Temperature Pulse Rate 67 66 61 Respiratory Rate 29 H 28 H 17 Blood Pressure 151/80 H Pulse Oximetry 97 95 96 01/27/20 03:45 01/27/20 04:00 01/27/20 04:15 Temperature Pulse Rate 58 L 60 65 Respiratory Rate 15 16 18 Blood Pressure 143/62 H Pulse Oximetry 97 96 97 01/27/20 04:30 01/27/20 04:45 01/27/20 05:00 Temperature Pulse Rate 62 65 61 Respiratory Rate 16 17 17 Blood Pressure 113/53 L Pulse Oximetry 96 96 95 01/27/20 05:15 01/27/20 05:30 01/27/20 05:45 Temperature Pulse Rate 66 66 57 L Respiratory Rate 20 18 17 Blood Pressure Pulse Oximetry 95 94 93 01/27/20 06:00 01/27/20 06:01 01/27/20 06:15 Temperature Pulse Rate 59 L 59 L 58 L Respiratory Rate 16 18 15 Blood Pressure 135/63 Pulse Oximetry 92 94 95 01/27/20 06:30 01/27/20 06:45 01/27/20 07:00 Temperature Pulse Rate 66 63 63 Respiratory Rate 24 23 21 Blood Pressure Pulse Oximetry 95 01/27/20 07:39 Temperature Pulse Rate 66 Respiratory Rate Blood Pressure 160/77 H Pulse Oximetry Fraction of Inspired Oxygen 24 Oxygen Delivery Method Nasal Cannula Oxygen Flow Rate 1 Narrative Exam Narrative: Gen: NAD, sitting comfortably in bed, appears well, speaking easily in complete sentences CV: RRR, no murmurs Resp: clear to auscultation bilaterally Abd: soft, nontender, nondistended, normoactive bowel sounds Ext: no edema Objective Labs Result Diagrams: 01/27/20 04:36 01/27/20 04:36 Labs: Laboratory Results - last 24 hr 01/27/20 01/27/20 01/27/20 01:36 04:36 04:36 WBC 7.7 RBC 4.12 Hgb 12.7 Hct 38.7 MCV 94.0 MCH 30.7 MCHC 32.7 RDW 12.9 Plt Count 280 Neut % (Auto) 58.8 Lymph % (Auto) 24.4 L [place] % (Auto) 11.8 Eos % (Auto) 4.1 H Baso % (Auto) 0.9 Neut # (Auto) 4500 Lymph # (Auto) 1900 [place] # (Auto) 900 Eos # (Auto) 300 Baso # (Auto) 100 PT INR APTT Sodium 139 Potassium 4.0 Chloride 106 Carbon Dioxide 27 BUN 14 Creatinine 0.63 Estimated GFR > 60.0 BUN/Creatinine Ratio 22.2 H Glucose 106 Calcium 9.6 Total Bilirubin 0.7 AST 28 ALT 35 H Alkaline Phosphatase 71 Troponin I < 0.012 NT-Pro-B Natriuret Pep 577 H Total Protein 6.8 Albumin 3.8 Globulin 3.0 Albumin/Globulin Ratio 1.3 TSH 01/27/20 01/27/20 01/27/20 04:36 04:36 04:36 WBC RBC Hgb Hct MCV MCH MCHC RDW Plt Count Neut % (Auto) Lymph % (Auto) [place] % (Auto) Eos % (Auto) Baso % (Auto) Neut # (Auto) Lymph # (Auto) [place] # (Auto) Eos # (Auto) Baso # (Auto) PT 15.5 H INR 1.3 APTT 34 D Sodium Potassium Chloride Carbon Dioxide BUN Creatinine Estimated GFR BUN/Creatinine Ratio Glucose Calcium Total Bilirubin AST ALT Alkaline Phosphatase Troponin I < 0.012 NT-Pro-B Natriuret Pep Total Protein Albumin Globulin Albumin/Globulin Ratio TSH 1.28 Assessment & Plan Assessment and plan (1) Acute diastolic heart failure: Status: Acute (2) Hypertensive heart disease with acute diastolic congestive heart failure: Status: Acute (3) Atrial fibrillation: Status: Acute (4) Hypokalemia: Status: Chronic (5) History of Typyn-Bmdzaswhh-Xntqd (WPW) syndrome: Status: Acute Assessment & Plan narrative: 79yo woman with hypertension, hypokalemia, and hx of WPW s/p ablation who presented with dyspnea and chest pain, found to have hypertensive crisis with acute diastolic heart failure. Later in hospitalization, pt went into atrial fibrillation with conversion to sinus rhythm on amiodarone. 1) Acute diastolic congestive heart failure: 2) Hypertension: 3) Atrial Fibrillation: 4) Hypokalemia: 5) COVID-19 COVID-19 status: Negative Result date/Date tested (Pos, Neg/Pending): 01/24/20
[2020-01-27] MEDS: CALCIUM CARBONATE 500 MG TAB 1000 MG PO (08:05)
[2020-01-27] MEDS: APIXABAN 5 MG TABLET PO (09:36)
[2020-01-27] MEDS: LORATADINE 10 MG TABLET PO (09:36)
[2020-01-27] MEDS: lisinopriL 20 MG TABLET 40 MG PO (09:36)
[2020-01-27] MEDS: SPIRONOLACTONE 25 MG TABLET PO (09:36)
[2020-01-27] MEDS: atenoloL 25 MG TABLET PO (09:36)
[2020-01-27] MEDS: SODIUM CHLORIDE 0.9% FLUSH 10 ML IV (09:37)
--- NOTE | 2020-01-27 12:12 | CM.DPC ---
DCP Cont: Met with patient in her room. Introduced self and role. She was sitting up in her chair next to her bed. Pleasant. Patient had seen her provider this morning. She is hopeful that she can go home today. She is independent, and resides with her spouse, Jorge. She mentioned that he had recent stent surgery, but is now doing well. She has good community support as well. P: DCP to continue to follow. Plan is for home when she is medically cleared. Viviana Cruz RN/Roll Edge Machine Operator
--- NOTE | 2020-01-27 17:02 | P.DS_ITS ---
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 Powell. She presented to the ED today complaining of dyspnea and worsening chest pressure/tightness. Describes it as feeling like gas bubbling up into her chest and neck. Does not endorse chest pain, calling it instead a ?discomfort.? She generally has no dyspnea and after trying to lie down with no improvement in symptoms, decided to come into the ED to be evaluated. While in the ED described a frontal headache and had uncontrolled blood pressure. Physical exam findings showed no neurological deficits but she did have a scotoma. She had no peripheral edema. Patient denies nausea, vomiting, fever, or dizziness. No palpitations. She did have a recent ED visit 6 weeks ago for palpitations and hypokalemia. Patient was on atenolol and chlorthalidone at that time, chlorthalidone was discontinued and hypokalemia self-corrected. She is now on atenolol 25 mg p.o. q.day and lisinopril 40 mg p.o. q.day. Patient has 2 drinks per night before dinner. Vital signs upon presentation to the ED included a temperature of 99.1?, pulse 98, blood pressure 217/25, and O2 saturation 95% on room air. Final blood pressure after labetalol 10 mg IV x1 was 164/74. Workup significant for a mildly elevated white count at 14.7, BNP 533, AST and ALT elevated at 67 and 59, respectively. BUN and glucose slightly elevated. Chest x-ray showed coarse interstitial markings and stable cardiomegaly. CT of the head was notably negative. EKG showed nonspecific ST changes. Troponin was notably negative. Prior to transfer to floor patient was given Lasix 40 mg IV x1. Discharge Providers Provider Date of admission: 01/24/20 18:40 Discharge Date: 01/27/20 Primary care physician: Anabell Powell MD Consults: 01/24/20 20:23 Consult to Discharge Planning Routine Comment: 01/26/20 08:26 Consult to Physician Routine Comment: Consulting Provider: Romana James Reason for consultation: afib Has provider been notified: Yes Discharge provider: Anabell Powell MD Summary Hospital Course Discharge Diagnosis: Acute diastolic heart failure Hypertensive crisis Atrial fibrillation Hypokalemia Elevated liver enzymes Hospital Course: The pt presented with chest pain and shortness of breath, found to be severely hypertensive. She received 10mg Labetalol IV in the ED, which brought down her BP. She had a negative initial cardiac work-up with negative troponin x 3 and normal EKG. Echo was completed that showed ejection fraction of 65-70%, mild LVH, severe left atrial enlargement, mild right atrial enlargement, and a mildly enlarged ascending aorta. Questionable atherosclerotic disease in the aorta. Abdominal u/s was completed, that showed no evidence of AAA. The pts BNP geraldine, and she received a dose of Lasix due to acute diastolic heart failure. She had good diuresis, but then worsening hypokalemia that was appropriately repleted. She will repeat her CMP in 2 days. The pts statin was increased to 80mg Atorvastatin daily. Lexiscan stress test was completed, that was negative. On hospital day #2, the pt went into atrial fibrillation. Due to her hx of WPW, Cardiology was consulted via phone. She was started on a heparin drip in preparation for possible cardioversion the next day, in addition to Amiodarone 150 mg IV x 1 over 10 min, followed by 1 mg/min IV x 6 hours, then 0.5 mg/min IV x 18 hours. The pt converted back into sinus rhythm, and remained sinus rhythm throughout the remainder of her hospitalization. The Amiodarone and Heparin were stopped the next day. Cardiology was consulted again on hospital day #3, and saw the pt in-person. They started the pt on potassium-sparing diuretic Spirinolactone. Due to a CHADS2-VASC score of 4, she was started on Eliquis. Her Atenolol was increased to BID dosing. The pts BPs were slightly erratic prior to d/c, however on further discussion with Cardiology the decision was made to not further adjust her medications prior to discharge. If her BPs remain elevated, they recommend starting Imdur 30mg, or Nitroglycerin patch for 12 hrs/day, or increasing her Spirinolactone to 50mg daily. Cardiology also recommends sleep study as an outpatient. She will f/u with Dr Casper as an outpatient. Incidentally, the pts liver enzymes were found to be slightly elevated at admission, thought to be an acute phase reaction to her hypertensive crisis. They were trending down appropriately at discharge. The pt had intermittent episodes of chest pain throughout her hospitalization. These were primarily managed with nitroglycerin, which did little, and then Tums, which helped significantly more. She will be started on Omeprazole daily at discharge. The pt will keep a log of her BPs at home, and daily weights as well. She will f/u in clinic in 1 week. Status at Discharge Cognitive/behavioral status at discharge: oriented Functional status at discharge: independent ambulation Overall status at discharge: patient is back to baseline Time Spent with Patient Time spent: Greater than 30 minutes Exam Vital Signs (past 8 hours): - 01/27/20 12:00 01/27/20 16:00 Temperature 97.2 F L 97.8 F Pulse Rate 72 62 Respiratory Rate 20 15 Blood Pressure 167/76 H 140/65 Pulse Oximetry 98 99 Fraction of Inspired Oxygen 24 Oxygen Delivery Method Room Air Oxygen Flow Rate 0 Narrative Exam Narrative: Gen: NAD, sitting comfortably in bed, appears well, speaking easily in complete sentences CV: RRR, no murmurs Resp: clear to auscultation bilaterally Abd: soft, nontender, nondistended, normoactive bowel sounds Ext: no edema Objective Labs Result Diagrams: 01/27/20 04:36 01/27/20 04:36 Labs: Laboratory Results - last 24 hr 01/27/20 01/27/20 01/27/20 01:36 04:36 04:36 WBC 7.7 RBC 4.12 Hgb 12.7 Hct 38.7 MCV 94.0 MCH 30.7 MCHC 32.7 RDW 12.9 Plt Count 280 Neut % (Auto) 58.8 Lymph % (Auto) 24.4 L [place] % (Auto) 11.8 Eos % (Auto) 4.1 H Baso % (Auto) 0.9 Neut # (Auto) 4500 Lymph # (Auto) 1900 [place] # (Auto) 900 Eos # (Auto) 300 Baso # (Auto) 100 PT INR APTT Sodium 139 Potassium 4.0 Chloride 106 Carbon Dioxide 27 BUN 14 Creatinine 0.63 Estimated GFR > 60.0 BUN/Creatinine Ratio 22.2 H Glucose 106 Calcium 9.6 Total Bilirubin 0.7 AST 28 ALT 35 H Alkaline Phosphatase 71 Troponin I < 0.012 NT-Pro-B Natriuret Pep 577 H Total Protein 6.8 Albumin 3.8 Globulin 3.0 Albumin/Globulin Ratio 1.3 TSH 01/27/20 01/27/20 01/27/20 04:36 04:36 04:36 WBC RBC Hgb Hct MCV MCH MCHC RDW Plt Count Neut % (Auto) Lymph % (Auto) [place] % (Auto) Eos % (Auto) Baso % (Auto) Neut # (Auto) Lymph # (Auto) [place] # (Auto) Eos # (Auto) Baso # (Auto) PT 15.5 H INR 1.3 APTT 34 D Sodium Potassium Chloride Carbon Dioxide BUN Creatinine Estimated GFR BUN/Creatinine Ratio Glucose Calcium Total Bilirubin AST ALT Alkaline Phosphatase Troponin I < 0.012 NT-Pro-B Natriuret Pep Total Protein Albumin Globulin Albumin/Globulin Ratio TSH 1.28 Discharge Plan Discharge Plan Patient Disposition: Home Discharge comment: Please check your blood pressure at home twice/day and keep a log. Please check your weight daily at the same time and keep a log. Discharge orders & Medications Prescriptions: New atorvastatin [Lipitor] 20 mg Tablet 80 mg PO BEDTIME Qty: 30 RF: 0 atenolol 25 mg Tablet 25 mg PO BID Qty: 60 RF: 0 spironolactone 25 mg Tablet 25 mg PO DAILY Qty: 30 RF: 0 Eliquis 5 mg Tablet 5 mg PO BID Qty: 60 RF: 0 omeprazole 20 mg capsule,delayed release(DR/EC) 20 mg PO DAILY Qty: 30 RF: 0 Continued loratadine [Claritin] 10 MG tablet 10 mg PO Q DAY Qty: 0 RF: 0 CA PANTOTHENATE/FOLIC ACID/VIT (MULTIVITAMIN) 1 tab PO Q DAY Qty: 0 RF: 0 CHOLECALCIFEROL (VITAMIN D3) (Vitamin D) 2,000 iu PO QDAY Qty: 0 RF: 0 lisinopril 40 mg tablet 40 mg PO DAILY Qty: 90 RF: 1 Discontinued atenolol 25 mg tablet 25 mg PO QDAY Qty: 90 RF: 1 Follow up/Referrals: Anabell Powell MD [Primary Care Provider] - 1 Week Discharge Health Status Multidrug resistant organism: No MDRO Diet/Activity/Treatments Diet: Diet as Tolerated Visit Report/Discharge Packet Instructions: DI for Heart Failure, DI for Prescription Opioid Use Visit Report Forms: Congestive Heart Failure, Patient Portal/API, Stroke Signs & Symptoms Discharge Data Primary Care Provider: Anabell Powell Discharges patient from system. Discharge Date/Time: 01/27/20 17:23
== END 2020-01-27 17:23 | disposition home or self-care (01) | DRG 308 ==
LOC: ED 15:15 → ICU 18:41 → AC 01-26 14:22 → ICU 01-27 09:28
PROVIDERS: Family Medicine; Internal Medicine Cardiovascular Disease; Admitting Provider Student in an Organized Health Care Education/Training Program; Emergency Provider Emergency Medicine; PCP Family Medicine; Visit Provider Family Medicine
DX: I48.91 Unspecified atrial fibrillation (principal); I50.31 Acute diastolic (congestive) heart failure; I16.9 Hypertensive crisis, unspecified; I11.0 Hypertensive heart disease with heart failure; E87.6 Hypokalemia; R74.0 Nonspecific elevation of levels of transaminase and lactic acid dehydrogenase [LDH]; I45.6 Pre-excitation syndrome
CPT/HCPCS: 36415; 70450; 71045; 76706; 78451; 80053; 80061; 81003; 81015; 82550; 83690; 83735; 83880; 84132; 84443; 84484; 85025; 85610; 85730; 87086; 87635; 87797; 93005; 93010; 93017; 93306; 94762; 96374; 96375; 99233; 99285; 99291; A9502; J0282; J1644; J1940; J2785

== ENCOUNTER → 2020-03-16 13:01 | Outpatient (CLI) | payer MEDICARE, OTHER, SELFPAY ==
[2020-01-24 19:42] VITALS: BMI 26.6
[2020-03-16 13:37] LABS: BUN Creatinine Ratio 27.1 (6-22); Blood Urea Nitrogen 19 mg/dL (7-17); Calcium 9.4 mg/dL (8.4-10.2); Carbon Dioxide 28 mmol/L (22-32); Chloride 104 mmol/L (98-107); Estimated Glomerular Filt Rate > 60.0 mL/min (>60); Glucose 102 mg/dL (80-110); HEMOLYSIS < 15 (0-50); Potassium 4.2 mmol/L (3.4-5.1); Sodium 139 mmol/L (137-145)
== END ==
PROVIDERS: PCP Family Medicine; Referring Provider Family Medicine; Visit Provider Family Medicine
DX: E87.6 Hypokalemia (principal)
CPT/HCPCS: 36415; 80048

== ENCOUNTER → 2020-07-05 10:07 | Outpatient (CLI) | payer MEDICARE, OTHER, SELFPAY ==
[2020-01-24 19:42] VITALS: BMI 26.6
[2020-07-05 11:06] LABS: HEMOLYSIS < 15 (0-50)
[2020-07-05 11:07] LABS: Blood Urea Nitrogen 58 mg/dL (7-17); Carbon Dioxide 25 mmol/L (22-32); Chloride 107 mmol/L (98-107); Estimated Glomerular Filt Rate 14.7 mL/min (>60); Glucose 117 mg/dL (80-110); Sodium 140 mmol/L (137-145)
[2020-07-05 11:19] LABS: Potassium 5.5 mmol/L (3.4-5.1)
== END ==
PROVIDERS: PCP Family Medicine; Referring Provider Internal Medicine Cardiovascular Disease; Visit Provider Internal Medicine Cardiovascular Disease
DX: I10 Essential (primary) hypertension (principal)
CPT/HCPCS: 36415; 80048

== ENCOUNTER 2020-07-05 15:06 | Observation (INO) | payer MEDICARE, OTHER, SELFPAY ==
[2020-01-24 19:42] VITALS: BMI 26.6
[2020-07-05] VITALS (10 sets, daily range): BP systolic 111–148; BP diastolic 58–82; PULSE 63–77; RESP 14–27; TEMP 36.2–36.7; O2SAT 97–100; BMI 26.8
--- NOTE | 2020-07-05 15:14 | DI.RAD.S_ITS ---
PROCEDURE: XR CHEST 1V INDICATIONS: chest pain TECHNIQUE: One view of the chest was acquired. COMPARISON: [facility], CR, XR CHEST 1V, 01/24/2020, 15:19. [facility], CR, XR CHEST 1V, 12/05/2019, 22:38. FINDINGS: Surgical changes and devices: None. Lungs and pleura: Lungs are clear. No pleural effusions or pneumothorax. Mediastinum: Mediastinal contours appear normal. Heart size is normal. Bones and chest wall: No suspicious bony lesions. Overlying soft tissues appear unremarkable. IMPRESSION: Normal for age, source of current chest pain symptoms is not seen. Dictated by: Reginald Martinez M.D. on 07/05/2020 at 15:41 Approved by: Reginald Martinez M.D. on 07/05/2020 at 15:42
--- NOTE | 2020-07-05 15:30 | ED.RECABL ---
HPI - Recheck/Abnormal Lab/Rx General Chief Complaint: Recheck/Abnormal Lab/Rx Stated Complaint: ACUTE RENAL FAILURE Time Seen by Provider: 07/05/20 15:18 Source: patient Mode of arrival: Ambulatory Limitations: no limitations History of Present Illness HPI narrative: The patient is an 80-year-old female nonsmoker who presents with her for chief complaint of an abnormal lab. She has a history of atrial fibrillation, is on apixaban, recently had her flecainide dose lowered from 50 mg twice a day to 50 mg in the morning and 25 mg at night. She also takes lisinopril. She states that she has been feeling poorly for a few months with general fatigue, sometimes nausea, no chest pain or shortness of breath. She saw her heavy forging machine operator, Dr. James, who ordered some labs creatinine had increased from February 2020 at 0.7 to 3.05. Additionally her potassium was 5.5. The patient states that we need to get her feeling better so she can go on her cruise to scanned in ED via, as well as get her coronavirus vaccination. She denies any recent illnesses, denies any episodes of dehydration, states that she is making urine well. She does complain of urinary frequency that is a little worse than usual. Denies any dysuria. She denies any abdominal pain or flank pain. Her primary care provider is Dr. Powell. She states that she is eating and drinking well. She had lunch at [employer] today. Related Data Home Medications Medication Instructions Recorded Confirmed CA PANTOTHENATE/FOLIC ACID/VIT 1 tab PO Q DAY #0 05/02/11 05/04/20 (MULTIVITAMIN) CHOLECALCIFEROL (VITAMIN D3) 2,000 iu PO QDAY #0 05/03/11 05/04/20 (Vitamin D) Previous Rx's Medication Instructions Recorded lisinopril 40 mg tablet 40 mg PO DAILY #90 tab 02/26/20 loratadine 10 mg tablet 10 mg PO Q DAY #30 tab 02/26/20 spironolactone 25 mg tablet 25 mg PO DAILY #30 tab 02/26/20 atenolol 25 mg tablet 25 mg PO BID #180 tab 04/21/20 omeprazole 20 mg capsule,delayed 20 mg PO DAILY #90 cap 04/21/20 release flecainide 50 mg tablet 50 mg PO Q12H #60 tab 05/04/20 atorvastatin 80 mg tablet See Rx Instructions .ROUTE 05/31/20 .COMPLEX #90 tab apixaban 5 mg tablet See Rx Instructions .ROUTE 06/17/20 .COMPLEX #60 tab Allergies Allergy/AdvReac Type Severity Reaction Status Date / Time clindamycin AdvReac Mild rash Verified 05/03/20 09:04 morphine AdvReac Mild N/V Verified 05/03/20 09:04 Review of Systems Review of Systems Narrative: GENERAL: See HPI HEENT: Denies sinus pain, ear pain, sore throat, difficulty swallowing, dizziness. RESPIRATORY: Denies dyspnea, cough, wheezing, hemoptysis, sputum. CARDIOVASCULAR: Denies chest pain, palpitations, orthopnea, edema, GASTROINTESTINAL: Denies nausea, vomiting, abdominal pain, diarrhea, constipation, melena. : Denies dysuria, frequency, incontinence, hematuria, urinary retention. MUSCULOSKELETAL: denies weakness, joint pain, or bony pain SKIN: Denies rash, skin lesions, or other NEUROLOGIC: Denies weakness, headache, numbness, change in speech, confusion, seizures, incoordination. PSYCHIATRIC: No concerning psychosocial issues. 12 point review of systems is negative except for those stated above Patient History Medical History Acute diastolic heart failure Atrial fibrillation Essential hypertension History of Xiqhm-Zonmuhjzt-Hxdbk (WPW) syndrome Hypokalemia Insomnia Obstructive sleep apnea syndrome Surgical History History of breast augmentation History of cardiac radiofrequency ablation (RFA) History of cataract removal with insertion of prosthetic lens Status post cholecystectomy Family History Grandmother Stroke Mother Osteoporosis Social History marital status: number of children: 2 household members: spouse lives independently: Yes caregiver/support person: No housing: house Smoking Status: Never smoker second hand exposure: No alcohol intake: current substance use type: does not use Smoking Status: Never smoker alcohol intake frequency: 0-2 drinks per day Substance Use Type: does not use Exam Narrative Exam Narrative: GENERAL: This is a well-nourished, well-developed patient, in no acute distress with at bedside HEAD: Atraumatic. Normocephalic. No temporal or scalp tenderness. EYES: Pupils equal round and reactive. Extraocular motions intact. No scleral icterus. No injection or drainage. ENT: Nose without bleeding, purulent drainage or septal hematoma. Wearing a mask. Airway patent. NECK: Trachea midline. No JVD or lymphadenopathy. Supple, nontender, no meningeal signs. CARDIOVASCULAR: Regular rate and rhythm RESPIRATORY: Clear to auscultation. Breath sounds equal bilaterally. No wheezes, rales, or rhonchi. No cough. No increased respiratory effort. No accessory muscle use. GASTROINTESTINAL: Abdomen soft, non-tender, nondistended. No hepato-splenomegaly, or palpable masses. No guarding. Active bowel sounds all 4 quadrants. EXTREMITIES: No clubbing, cyanosis, or edema. No joint tenderness, effusion, or edema noted. BACK: Nontender without deformity or crepitance. No flank tenderness. NEURO: AOx3. SKIN: No rash or erythema on visible skin Scores GCS Consuelo coma scale eye opening: Spontaneous Consuelo coma scale verbal response: Orientated Consuelo coma scale motor response: Obey commands Fisher coma scale total score: 15 Course Orders Ordered: ED Orders 07/05/20 15:14 XR chest 1V Stat COVID19 Stat EKG-12 Lead Stat 07/05/20 15:15 Urinalysis and Microscopic Stat 07/05/20 15:21 BNP [NT-proBNP (BNP-Adult 18+)] Stat Complete Blood Count AUTO DIFF Stat Comprehensive Metabolic Panel Stat Lipase Stat Partial Thromboplastin Time Stat Prothrombin Time INR Stat Troponin & CK Cardiac Panel Stat MDM - Recheck/Abnormal Lab/Rx Lab Data Result diagrams: 07/05/20 15:21 07/05/20 15:21 Discharge Plan Departure Prescriptions: No Action flecainide 50 mg tablet 50 mg PO Q12H Qty: 60 RF: 0 CA PANTOTHENATE/FOLIC ACID/VIT (MULTIVITAMIN) 1 tab PO Q DAY Qty: 0 RF: 0 CHOLECALCIFEROL (VITAMIN D3) (Vitamin D) 2,000 iu PO QDAY Qty: 0 RF: 0 lisinopril 40 mg tablet 40 mg PO DAILY Qty: 90 RF: 1 loratadine [Claritin] 10 mg tablet 10 mg PO Q DAY Qty: 30 RF: 1 spironolactone 25 mg tablet 25 mg PO DAILY Qty: 30 RF: 3 omeprazole 20 mg capsule,delayed release(DR/EC) 20 mg PO DAILY Qty: 90 RF: 3 atenolol 25 mg tablet 25 mg PO BID Qty: 180 RF: 0 atorvastatin 80 mg tablet See Rx Instructions .ROUTE .COMPLEX Qty: 90 RF: 1 Eliquis 5 mg tablet See Rx Instructions .ROUTE .COMPLEX Qty: 60 RF: 2
[2020-07-05 15:31] LABS: Add Manual Diff / Slide Review NO; Basophils Absolute Auto 100 /uL (0-100); Basophils Percent Auto 1.3 % (0-2); Eosinophils Absolute Auto 300 /uL (0-450); Eosinophils Percent Auto 3.5 % (2-4); Hematocrit 33.1 % (36-46); Hemoglobin 11.3 g/dL (12.0-16.0); Lymphocytes Absolute Auto 2200 /uL (1100-4500); Lymphocytes Percent Auto 22.6 % (25-40); Mean Corpuscular HGB Conc 34.1 % (30-36); Mean Corpuscular Hemoglobin 31.3 PG (26-34); Mean Corpuscular Volume 91.8 fL (80-100); Monocytes Absolute Auto 1100 /uL (0-900); Monocytes Percent Auto 11.6 % (3-14); Neutrophils Absolute Auto 6000 /uL (1500-7000); Platelet Count 414 X10^3/uL (150-400); White Blood Cell Count 9.8 X10^3/uL (4.5-11.0)
--- NOTE | 2020-07-05 15:40 | ED_ITS ---
HPI - Recheck/Abnormal Lab/Rx <Kimberly Vale, VETERINARY LABORATORY TECHNICIAN-BC - Last Filed: 07/05/20 15:58> General Chief Complaint: Recheck/Abnormal Lab/Rx Stated Complaint: ACUTE RENAL FAILURE Time Seen by Provider: 07/05/20 15:18 Source: patient Mode of arrival: Ambulatory Limitations: no limitations History of Present Illness HPI narrative: The patient is an 80-year-old female nonsmoker with history of atrial fibrillation who presents with a chief complaint of an elevated creatinine. She states that she has felt poorly for the past several months, with increased fatigue, lack of energy, sometimes nausea with no vomiting. She denies any chest pain or shortness of breath. 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 Allie tenorio who checked her labs and noticed today that her creatinine was elevated at 3.05. Her previous creatinine was drawn in February and was 0.70. Additionally her potassium was 5.5 this morning. The patient denies any recent episodes of dehydration, states she has been eating and drinking normally. She went for [employer] at lunch today. She denies any dysuria complains of slight frequency. She does note that her flecainide dose was recently decreased from 50 mg twice a day to 50 mg in the morning and 25 mg at night. She states that we have to get her feeling better so she can get her coronavirus vaccination that is scheduled soon. She denies any previous history or issues with her kidneys, though notes that her father from kidney cancer. She also has a history of diastolic heart failure, history of WPW. Related Data Home Medications Medication Instructions Recorded Confirmed apixaban [Eliquis] 5 mg PO BID 07/05/20 07/05/20 atorvastatin 80 mg PO DAILY 07/05/20 07/05/20 cholecalciferol (vitamin D3) 25 mcg PO DAILY 07/05/20 07/05/20 flecainide 25 mg PO QPM 07/05/20 07/05/20 flecainide 50 mg PO QAM 07/05/20 07/05/20 Previous Rx's Medication Instructions Recorded lisinopril 40 mg tablet 40 mg PO DAILY #90 tab 02/26/20 loratadine 10 mg tablet 10 mg PO Q DAY #30 tab 02/26/20 spironolactone 25 mg tablet 25 mg PO DAILY #30 tab 02/26/20 atenolol 25 mg tablet 25 mg PO BID #180 tab 04/21/20 omeprazole 20 mg capsule,delayed 20 mg PO DAILY #90 cap 04/21/20 release Allergies Allergy/AdvReac Type Severity Reaction Status Date / Time clindamycin AdvReac Mild rash Verified 07/05/20 18:24 morphine AdvReac Mild N/V Verified 07/05/20 18:24 Review of Systems <ANU Jauregui - Last Filed: 07/05/20 15:58> Review of Systems Narrative: GENERAL: See HPI HEENT: Denies sinus pain, ear pain, sore throat, difficulty swallowing, dizziness. RESPIRATORY: Denies dyspnea, cough, wheezing, hemoptysis, sputum. CARDIOVASCULAR: Denies chest pain, palpitations, orthopnea, edema, GASTROINTESTINAL: Denies nausea, vomiting, abdominal pain, diarrhea, constipation, melena. : Denies dysuria, frequency, incontinence, hematuria, urinary retention. MUSCULOSKELETAL: denies weakness, joint pain, or bony pain SKIN: Denies rash, skin lesions, or other NEUROLOGIC: Denies weakness, headache, numbness, change in speech, confusion, seizures, incoordination. PSYCHIATRIC: No concerning psychosocial issues. 12 point review of systems is negative except for those stated above Patient History <ANU Jauregui - Last Filed: 07/05/20 15:58> Medical History Acute diastolic heart failure Atrial fibrillation Essential hypertension History of Oqizu-Dfkkgxkfr-Dqlpd (WPW) syndrome Hypokalemia Insomnia Obstructive sleep apnea syndrome Surgical History History of breast augmentation History of cardiac radiofrequency ablation (RFA) History of cataract removal with insertion of prosthetic lens Status post cholecystectomy Family History Grandmother Stroke Mother Osteoporosis Social History marital status: number of children: 2 household members: spouse lives independently: Yes caregiver/support person: No housing: house Smoking Status: Never smoker second hand exposure: No alcohol intake: current substance use type: does not use Smoking Status: Never smoker alcohol intake frequency: 0-2 drinks per day Substance Use Type: does not use Exam <ANU Jauregui - Last Filed: 07/05/20 15:58> Narrative Exam Narrative: GENERAL: This is a well-nourished, well-developed patient, in no acute distress with at bedside HEAD: Atraumatic. Normocephalic. No temporal or scalp tenderness. EYES: Pupils equal round and reactive. Extraocular motions intact. No scleral icterus. No injection or drainage. ENT: Nose without bleeding, purulent drainage or septal hematoma. Wearing a mask Airway patent. NECK: Trachea midline. No JVD or lymphadenopathy. Supple, nontender, no meningeal signs. CARDIOVASCULAR: Regular rate and rhythm RESPIRATORY: Clear to auscultation. Breath sounds equal bilaterally. No wheezes, rales, or rhonchi. No cough. No increased respiratory effort. No accessory muscle use. GASTROINTESTINAL: Abdomen soft, non-tender, nondistended. No hepato- splenomegaly, or palpable masses. No guarding. Active bowel sounds all 4 quadrants. EXTREMITIES: No clubbing, cyanosis, or edema. No joint tenderness, effusion, or edema noted. BACK: Nontender without deformity or crepitance. No flank tenderness. NEURO: AOx3. Alert interactive, age appropriate SKIN: No rash or erythema. Initial Vital Signs Initial Vital Signs: Vital Signs Temperature 98.1 F 07/05/20 15:10 Pulse Rate 66 07/05/20 15:10 Respiratory Rate 14 07/05/20 15:10 Blood Pressure 127/71 07/05/20 15:10 Pulse Oximetry 99 07/05/20 15:10 <Kimberly Talavera DO - Last Filed: 07/05/20 18:55> Initial Vital Signs Initial Vital Signs: Vital Signs Temperature 98.1 F 07/05/20 15:10 Pulse Rate 66 07/05/20 15:10 Respiratory Rate 14 07/05/20 15:10 Blood Pressure 127/71 07/05/20 15:10 Pulse Oximetry 99 07/05/20 15:10 Scores <ANU Jauregui - Last Filed: 07/05/20 15:58> GCS Consuelo coma scale eye opening: Spontaneous Consuelo coma scale verbal response: Orientated [place] coma scale motor response: Obey commands [place] coma scale total score: 15 Course <CHANEL JaureguiP-BC - Last Filed: 07/05/20 15:58> Course Course Narrative: The patient is an 80-year-old female who presents with a chief complaint of an elevated creatinine and general not feeling well for the past several months. Repeat labs are pending at this time, will get a CT KUB to evaluate for any possible masses, renal stones etcetera. Urine is pending. Patient signed out to Dr. Talavera at 16:00 with labs, urine and imaging pending. Patient is in accordance with plan of care. Orders Ordered: ED Orders 07/05/20 15:14 XR chest 1V Stat EKG-12 Lead Stat 07/05/20 15:21 BNP [NT-proBNP (BNP-Adult 18+)] Stat Complete Blood Count AUTO DIFF Stat Comprehensive Metabolic Panel Stat Lipase Stat Magnesium Stat Partial Thromboplastin Time Stat Prothrombin Time INR Stat Troponin & CK Cardiac Panel Stat 07/05/20 15:30 COVID19 Stat 07/05/20 15:46 CT kidney ureter bladder (KUB) Stat 07/05/20 16:15 Urinalysis and Microscopic Stat Urine Culture Stat Vital Signs Vital signs: Vital Signs - 8 hr 07/05/20 15:10 07/05/20 15:29 07/05/20 15:30 Temperature 98.1 F Pulse Rate 66 63 63 Respiratory Rate 14 27 H 26 H Blood Pressure 127/71 127/71 Pulse Oximetry 99 100 100 07/05/20 16:03 07/05/20 16:20 07/05/20 16:30 Temperature Pulse Rate 64 67 66 Respiratory Rate 17 25 H 19 Blood Pressure 137/62 Pulse Oximetry 99 99 100 07/05/20 17:00 07/05/20 17:30 Temperature Pulse Rate 67 66 Respiratory Rate 24 19 Blood Pressure 137/62 Pulse Oximetry 98 99 <Kimberly Talavera DO - Last Filed: 07/05/20 18:55> Orders Ordered: ED Orders 07/05/20 15:14 XR chest 1V Stat EKG-12 Lead Stat 07/05/20 15:21 BNP [NT-proBNP (BNP-Adult 18+)] Stat Complete Blood Count AUTO DIFF Stat Comprehensive Metabolic Panel Stat Lipase Stat Magnesium Stat Partial Thromboplastin Time Stat Prothrombin Time INR Stat Troponin & CK Cardiac Panel Stat 07/05/20 15:30 COVID19 Stat 07/05/20 15:46 CT kidney ureter bladder (KUB) Stat 07/05/20 16:15 Urinalysis and Microscopic Stat Urine Culture Stat Consultations Consultation #1: Spoke with Dr. Powell who accepts for observation. Plan for observation overnight. Hold possible offending medications and if patient is stable follow up with nephrology. Reviewed labs, CT and EKG findings. Vital Signs Vital signs: Vital Signs - 8 hr 07/05/20 15:10 07/05/20 15:29 07/05/20 15:30 Temperature 98.1 F Pulse Rate 66 63 63 Respiratory Rate 14 27 H 26 H Blood Pressure 127/71 127/71 Pulse Oximetry 99 100 100 07/05/20 16:03 07/05/20 16:20 07/05/20 16:30 Temperature Pulse Rate 64 67 66 Respiratory Rate 17 25 H 19 Blood Pressure 137/62 Pulse Oximetry 99 99 100 07/05/20 17:00 07/05/20 17:30 Temperature Pulse Rate 67 66 Respiratory Rate 24 19 Blood Pressure 137/62 Pulse Oximetry 98 99 MDM - Recheck/Abnormal Lab/Rx <CHRISTIE Jauregui-BC - Last Filed: 07/05/20 15:58> Lab Data Result diagrams: 07/05/20 15:21 07/05/20 15:21 Labs: Lab Results 07/05/20 07/05/20 07/05/20 Range/Units 15:21 15:21 15:21 WBC 9.8 (4.5-11.0) X10^3/uL RBC 3.60 L (4.0-5.2) X10^6/uL Hgb 11.3 L (12.0-16.0) g/dL Hct 33.1 L (36-46) % MCV 91.8 (80-100) fL MCH 31.3 (26-34) PG MCHC 34.1 (30-36) % RDW 13.0 (11.6-14.8) % Plt Count 414 H (150-400) X10^3/uL Neut % (Auto) 61.0 (50-75) % Lymph % (Auto) 22.6 L (25-40) % [place] % (Auto) 11.6 (3-14) % Eos % (Auto) 3.5 (2-4) % Baso % (Auto) 1.3 (0-2) % Neut # (Auto) 6000 (2037-7384) /uL Lymph # (Auto) 2200 (4742-2725) /uL [place] # (Auto) 1100 H (0-900) /uL Eos # (Auto) 300 (0-450) /uL Baso # (Auto) 100 (0-100) /uL PT 18.9 H (10.1-12.7) SECONDS INR 1.6 H (0.9-1.3) APTT 39 H (26.4-36.2) SECONDS Sodium 139 (137-145) mmol/L Potassium 5.4 H (3.4-5.1) mmol/L Chloride 107 (98-107) mmol/L Carbon Dioxide 24 (22-32) mmol/L BUN 62 H (7-17) mg/dL Creatinine 3.01 H (0.52-1.04) mg/dL Estimated GFR 15.0 L (>60) mL/min BUN/Creatinine Ratio 20.6 (6-22) Glucose 119 H (80-110) mg/dL Calcium 9.9 (8.4-10.2) mg/dL Magnesium (1.6-2.3) mg/dL Total Bilirubin 0.2 (0.2-1.3) mg/dL AST 28 (14-36) IU/L ALT 19 (<35) IU/L Alkaline Phosphatase 116 (38-126) U/L Total Creatine Kinase 35 (30-135) U/L CK-MB (CK-2) TNP CK-MB (CK-2) Rel Index TNP Troponin I < 0.012 (0.01-0.034) ng/mL NT-Pro-B Natriuret Pep 252 (<450) pg/mL Total Protein 8.5 H (6.3-8.2) g/dL Albumin 4.5 (3.5-5.0) g/dL Globulin 4.0 (1.7-4.1) g/dL Albumin/Globulin Ratio 1.1 (1.0-2.8) Lipase 665 H (23-300) U/L Urine Color Urine Appearance Urine pH (4.5-8.0) Ur Specific [place] (1.000-1.035) Urine Protein (Negative) Urine Glucose (UA) (Negative) g/dL Urine Ketones (NEGATIVE) Urine Occult Blood (Negative) Urine Nitrate (Negative) Urine Bilirubin (NEGATIVE) Urine Urobilinogen (0.2) E.U./dL Ur Leukocyte Esterase (NEGATIVE) Urine RBC (0-5/HPF) Urine WBC (0-5/HPF) Ur Squamous Epith Cells (0-5/HPF) Urine Bacteria (None) Ur Culture Indicated? SARS-CoV-2 (PCR) (Negative) 07/05/20 07/05/20 07/05/20 Range/Units 15:21 15:30 16:15 WBC (4.5-11.0) X10^3/uL RBC (4.0-5.2) X10^6/uL Hgb (12.0-16.0) g/dL Hct (36-46) % MCV (80-100) fL MCH (26-34) PG MCHC (30-36) % RDW (11.6-14.8) % Plt Count (150-400) X10^3/uL Neut % (Auto) (50-75) % Lymph % (Auto) (25-40) % [place] % (Auto) (3-14) % Eos % (Auto) (2-4) % Baso % (Auto) (0-2) % Neut # (Auto) (0003-2526) /uL Lymph # (Auto) (9682-2347) /uL [place] # (Auto) (0-900) /uL Eos # (Auto) (0-450) /uL Baso # (Auto) (0-100) /uL PT (10.1-12.7) SECONDS INR (0.9-1.3) APTT (26.4-36.2) SECONDS Sodium (137-145) mmol/L Potassium (3.4-5.1) mmol/L Chloride (98-107) mmol/L Carbon Dioxide (22-32) mmol/L BUN (7-17) mg/dL Creatinine (0.52-1.04) mg/dL Estimated GFR (>60) mL/min BUN/Creatinine Ratio (6-22) Glucose (80-110) mg/dL Calcium (8.4-10.2) mg/dL Magnesium 1.8 (1.6-2.3) mg/dL Total Bilirubin (0.2-1.3) mg/dL AST (14-36) IU/L ALT (<35) IU/L Alkaline Phosphatase (38-126) U/L Total Creatine Kinase (30-135) U/L CK-MB (CK-2) CK-MB (CK-2) Rel Index Troponin I (0.01-0.034) ng/mL NT-Pro-B Natriuret Pep (<450) pg/mL Total Protein (6.3-8.2) g/dL Albumin (3.5-5.0) g/dL Globulin (1.7-4.1) g/dL Albumin/Globulin Ratio (1.0-2.8) Lipase (23-300) U/L Urine Color Yellow Urine Appearance Clear Urine pH 6.5 (4.5-8.0) Ur Specific [place] <=1.005 (1.000-1.035) Urine Protein Negative (Negative) Urine Glucose (UA) Negative (Negative) g/dL Urine Ketones Negative (NEGATIVE) Urine Occult Blood 1+ H (Negative) Urine Nitrate Negative (Negative) Urine Bilirubin Negative (NEGATIVE) Urine Urobilinogen 0.2 (0.2) E.U./dL Ur Leukocyte Esterase Trace H (NEGATIVE) Urine RBC 1-5/hpf (0-5/HPF) Urine WBC 5-10/hpf H (0-5/HPF) Ur Squamous Epith Cells 0-1 /hpf (0-5/HPF) Urine Bacteria Few (2-10) H (None) Ur Culture Indicated? Specimen cultured SARS-CoV-2 (PCR) Negative (Negative) Urine Dip Bedside Urine Glucose Negative Bedside Urine Bilirubin - Negative Bedside Urine Ketone - Negative Urine Specific [place] 1.005 Bedside Urine Occult Blood +/- Bedside Urine pH 6.5 Bedside Urine Protein - Negative Bedside Urine Urobilinogen - Negative Bedside Urine Nitrite - Negative Bedside Urine Leukocytes - Negative Esterase Imaging Data Chest x-ray: Radiologist's Impression: [address] [place] [id number] ReportSigned Patient: Rashida Quijano [facility]#: [id number]: 1940Acct:[id number]/Sex: 80 / FDate of Service: 07/05/20Loc: EDAccession Number: [id number] Procedure: XR chest 1V Ordering Provider: Kimberly Vale VETERINARY LABORATORY TECHNICIAN-BC PROCEDURE: XR CHEST 1V INDICATIONS: chest pain TECHNIQUE: One view of the chest was acquired. COMPARISON: [facility], CR, XR CHEST 1V, 01/24/2020, 15:19. [facility], CR, XR CHEST 1V, 12/05/2019, 22:38. FINDINGS: Surgical changes and devices: None. Lungs and pleura: Lungs are clear. No pleural effusions or pneumothorax. Mediastinum: Mediastinal contours appear normal. Heart size is normal. Bones and chest wall: No suspicious bony lesions. Overlying soft tissues appear unremarkable. IMPRESSION: Normal for age, source of current chest pain symptoms is not seen. Dictated by: Reginald Martinez M.D. on 07/05/2020 at 15:41 Approved by: Reginald Martinez M.D. on 07/05/2020 at 15:42 <Kimberly Talavera, - Last Filed: 07/05/20 18:55> Lab Data Attestation: I reviewed the patient's lab results. Labs: Lab Results 07/05/20 07/05/20 07/05/20 Range/Units 15:21 15:21 15:21 WBC 9.8 (4.5-11.0) X10^3/uL RBC 3.60 L (4.0-5.2) X10^6/uL Hgb 11.3 L (12.0-16.0) g/dL Hct 33.1 L (36-46) % MCV 91.8 (80-100) fL MCH 31.3 (26-34) PG MCHC 34.1 (30-36) % RDW 13.0 (11.6-14.8) % Plt Count 414 H (150-400) X10^3/uL Neut % (Auto) 61.0 (50-75) % Lymph % (Auto) 22.6 L (25-40) % [place] % (Auto) 11.6 (3-14) % Eos % (Auto) 3.5 (2-4) % Baso % (Auto) 1.3 (0-2) % Neut # (Auto) 6000 (0975-4261) /uL Lymph # (Auto) 2200 (5127-8459) /uL [place] # (Auto) 1100 H (0-900) /uL Eos # (Auto) 300 (0-450) /uL Baso # (Auto) 100 (0-100) /uL PT 18.9 H (10.1-12.7) SECONDS INR 1.6 H (0.9-1.3) APTT 39 H (26.4-36.2) SECONDS Sodium 139 (137-145) mmol/L Potassium 5.4 H (3.4-5.1) mmol/L Chloride 107 (98-107) mmol/L Carbon Dioxide 24 (22-32) mmol/L BUN 62 H (7-17) mg/dL Creatinine 3.01 H (0.52-1.04) mg/dL Estimated GFR 15.0 L (>60) mL/min BUN/Creatinine Ratio 20.6 (6-22) Glucose 119 H (80-110) mg/dL Calcium 9.9 (8.4-10.2) mg/dL Magnesium (1.6-2.3) mg/dL Total Bilirubin 0.2 (0.2-1.3) mg/dL AST 28 (14-36) IU/L ALT 19 (<35) IU/L Alkaline Phosphatase 116 (38-126) U/L Total Creatine Kinase 35 (30-135) U/L CK-MB (CK-2) TNP CK-MB (CK-2) Rel Index TNP Troponin I < 0.012 (0.01-0.034) ng/mL NT-Pro-B Natriuret Pep 252 (<450) pg/mL Total Protein 8.5 H (6.3-8.2) g/dL Albumin 4.5 (3.5-5.0) g/dL Globulin 4.0 (1.7-4.1) g/dL Albumin/Globulin Ratio 1.1 (1.0-2.8) Lipase 665 H (23-300) U/L Urine Color Urine Appearance Urine pH (4.5-8.0) Ur Specific [place] (1.000-1.035) Urine Protein (Negative) Urine Glucose (UA) (Negative) g/dL Urine Ketones (NEGATIVE) Urine Occult Blood (Negative) Urine Nitrate (Negative) Urine Bilirubin (NEGATIVE) Urine Urobilinogen (0.2) E.U./dL Ur Leukocyte Esterase (NEGATIVE) Urine RBC (0-5/HPF) Urine WBC (0-5/HPF) Ur Squamous Epith Cells (0-5/HPF) Urine Bacteria (None) Ur Culture Indicated? SARS-CoV-2 (PCR) (Negative) 07/05/20 07/05/20 07/05/20 Range/Units 15:21 15:30 16:15 WBC (4.5-11.0) X10^3/uL RBC (4.0-5.2) X10^6/uL Hgb (12.0-16.0) g/dL Hct (36-46) % MCV (80-100) fL MCH (26-34) PG MCHC (30-36) % RDW (11.6-14.8) % Plt Count (150-400) X10^3/uL Neut % (Auto) (50-75) % Lymph % (Auto) (25-40) % [place] % (Auto) (3-14) % Eos % (Auto) (2-4) % Baso % (Auto) (0-2) % Neut # (Auto) (2992-0074) /uL Lymph # (Auto) (5563-9866) /uL [place] # (Auto) (0-900) /uL Eos # (Auto) (0-450) /uL Baso # (Auto) (0-100) /uL PT (10.1-12.7) SECONDS INR (0.9-1.3) APTT (26.4-36.2) SECONDS Sodium (137-145) mmol/L Potassium (3.4-5.1) mmol/L Chloride (98-107) mmol/L Carbon Dioxide (22-32) mmol/L BUN (7-17) mg/dL Creatinine (0.52-1.04) mg/dL Estimated GFR (>60) mL/min BUN/Creatinine Ratio (6-22) Glucose (80-110) mg/dL Calcium (8.4-10.2) mg/dL Magnesium 1.8 (1.6-2.3) mg/dL Total Bilirubin (0.2-1.3) mg/dL AST (14-36) IU/L ALT (<35) IU/L Alkaline Phosphatase (38-126) U/L Total Creatine Kinase (30-135) U/L CK-MB (CK-2) CK-MB (CK-2) Rel Index Troponin I (0.01-0.034) ng/mL NT-Pro-B Natriuret Pep (<450) pg/mL Total Protein (6.3-8.2) g/dL Albumin (3.5-5.0) g/dL Globulin (1.7-4.1) g/dL Albumin/Globulin Ratio (1.0-2.8) Lipase (23-300) U/L Urine Color Yellow Urine Appearance Clear Urine pH 6.5 (4.5-8.0) Ur Specific [place] <=1.005 (1.000-1.035) Urine Protein Negative (Negative) Urine Glucose (UA) Negative (Negative) g/dL Urine Ketones Negative (NEGATIVE) Urine Occult Blood 1+ H (Negative) Urine Nitrate Negative (Negative) Urine Bilirubin Negative (NEGATIVE) Urine Urobilinogen 0.2 (0.2) E.U./dL Ur Leukocyte Esterase Trace H (NEGATIVE) Urine RBC 1-5/hpf (0-5/HPF) Urine WBC 5-10/hpf H (0-5/HPF) Ur Squamous Epith Cells 0-1 /hpf (0-5/HPF) Urine Bacteria Few (2-10) H (None) Ur Culture Indicated? Specimen cultured SARS-CoV-2 (PCR) Negative (Negative) Urine Dip Bedside Urine Glucose Negative Bedside Urine Bilirubin - Negative Bedside Urine Ketone - Negative Urine Specific [place] 1.005 Bedside Urine Occult Blood +/- Bedside Urine pH 6.5 Bedside Urine Protein - Negative Bedside Urine Urobilinogen - Negative Bedside Urine Nitrite - Negative Bedside Urine Leukocytes - Negative Esterase Imaging Data CT scan - abdomen/pelvis: Radiologist's Impression: [address] [id number] Scan ReportSigned Patient: Rashida Quijano [facility]#: [id number]: 1940Acct:[id number]/Sex: 80 / FDate of Service: 07/05/20Loc: EDAccession Number: [id number] Procedure: CT kidney ureter bladder (KUB) Ordering Provider: Kimberly Vale [facility]- PROCEDURE: CT KIDNEY URETER BLADDER (KUB) INDICATIONS: elevated cr TECHNIQUE: Noncontrast 5 mm thick sections acquired from the diaphragms to the symphysis. 5 mm thick coronal and sagittal reformats were then performed. For radiation dose reduction, the following was used: automated exposure control, adjustment of mA and/or kV according to patient size. COMPARISON: [facility], CR, XR CHEST 1V, 07/05/2020, 15:27. [facility], CT, IVP (ABD & PEL WWO CONTRAST), 12/03/2014, 10:49. [facility], CR, XR CHEST 1V, 01/24/2020, 15:19. FINDINGS: Image quality: Excellent. Lung bases: Lung bases are clear. Heart size is normal. Small hiatal hernia. Urinary system: Both kidneys are normal in size. No kidney stones. No hydronephrosis or perinephric fat stranding. Both ureters appear non-dilated throughout their expected courses. Bladder wall thickness is normal; no calcified bladder stones. Other solid organs: Liver is normal in size. Gallbladder is surgically absent . Pancreas is normal in contours. Spleen is normal in size. No adrenal nodules. Peritoneum and bowel: Unenhanced bowel loops demonstrate normal wall thickness and caliber. There is a large amount of stool in colon. Scattered colonic diverticula are present. No CT findings to suggest acute diverticulitis. No free fluid or air. Nodes and vessels: No retroperitoneal or mesenteric adenopathy by size criteria. Aorta and inferior vena cava are normal in caliber. Abdominal wall: Small fat containing periumbilical hernia. Pelvis: Uterus and ovaries are unremarkable. No free pelvic fluid. No inguinal hernias or adenopathy. Bones: No suspicious bony lesions. No vertebral body compression fractures. There are severe degenerative changes at L 4-L5 and L5-S1. IMPRESSION: 1. No acute abnormalities in abdomen or pelvis. 2. Diverticulosis without diverticulitis. 3. A large amount of stool in colon. Dictated by: Braydon Beth M.D. on 07/05/2020 at 16:05 Approved by: Braydon Beth M.D. on 07/05/2020 at 16:22 ECG Data Attestation: I personally reviewed and interpreted this ECG as follows: Prior ECG tracings: available for review Interpretation: Sinus rhythm with first-degree AV block, rate of 63 NH 234, QRS of 94 and QTC of 417. No acute ST changes. Possible peaked even 2 3 AVF but not throughout all leads. Patient has prior EKG from 03/05/2020. Patient's NH interval was not as prolonged there is no 1st degree AV block but otherwise similar EKG findings. [facility] Narrative Medical decision making narrative: This is an 80-year-old female who is sent in for acute renal failure after having baseline labs checked. Patient has been feeling fatigued and nauseated with decreased appetite and describes her breath as intermittently smelling like ammonia. Patient is on 2 medications that could potentially cause an acute kidney injury. She has not had any other clear dehydrating of events or other causes. There are no obstructive causes noted on her imaging today. She has a mild hyperkalemia but electrolytes are otherwise normal. EKG shows a prolonged NH interval and peaked T-waves in 2 3 AVF but not consistently throughout all leads. Plan for hydration, observation overnight and strict I's and O's. Patient accepted by Dr. Powell. Discharge Plan Departure Patient Disposition: Admitted as Observation Clinical Impression: Acute renal failure, Hyperkalemia Admit Date/Time: 07/05/20 17:57 Admit Provider: Anabell Powell
[2020-07-05 15:41] LABS: INR 1.6 (0.9-1.3); Prothrombin Time 18.9 SECONDS (10.1-12.7)
[2020-07-05 15:44] LABS: PTT Partial Thromboplastin Tim 39 SECONDS (26.4-36.2)
--- NOTE | 2020-07-05 15:46 | DI.CT.S_ITS ---
PROCEDURE: CT KIDNEY URETER BLADDER (KUB) INDICATIONS: elevated cr TECHNIQUE: Noncontrast 5 mm thick sections acquired from the diaphragms to the symphysis. 5 mm thick coronal and sagittal reformats were then performed. For radiation dose reduction, the following was used: automated exposure control, adjustment of mA and/or kV according to patient size. COMPARISON: [facility], CR, XR CHEST 1V, 07/05/2020, 15:27. [facility], CT, IVP (ABD & PEL WWO CONTRAST), 12/03/2014, 10:49. [facility], CR, XR CHEST 1V, 01/24/2020, 15:19. FINDINGS: Image quality: Excellent. Lung bases: Lung bases are clear. Heart size is normal. Small hiatal hernia. Urinary system: Both kidneys are normal in size. No kidney stones. No hydronephrosis or perinephric fat stranding. Both ureters appear non-dilated throughout their expected courses. Bladder wall thickness is normal; no calcified bladder stones. Other solid organs: Liver is normal in size. Gallbladder is surgically absent . Pancreas is normal in contours. Spleen is normal in size. No adrenal nodules. Peritoneum and bowel: Unenhanced bowel loops demonstrate normal wall thickness and caliber. There is a large amount of stool in colon. Scattered colonic diverticula are present. No CT findings to suggest acute diverticulitis. No free fluid or air. Nodes and vessels: No retroperitoneal or mesenteric adenopathy by size criteria. Aorta and inferior vena cava are normal in caliber. Abdominal wall: Small fat containing periumbilical hernia. Pelvis: Uterus and ovaries are unremarkable. No free pelvic fluid. No inguinal hernias or adenopathy. Bones: No suspicious bony lesions. No vertebral body compression fractures. There are severe degenerative changes at L 4-L5 and L5-S1. IMPRESSION: 1. No acute abnormalities in abdomen or pelvis. 2. Diverticulosis without diverticulitis. 3. A large amount of stool in colon. Dictated by: Braydon Beth M.D. on 07/05/2020 at 16:05 Approved by: Braydon Beth M.D. on 07/05/2020 at 16:22
[2020-07-05 15:51] LABS: Alanine Aminotransferase 19 IU/L (<35); Albumin 4.5 g/dL (3.5-5.0); Albumin Globulin Ratio 1.1 (1.0-2.8); Alkaline Phosphatase 116 U/L (38-126); Aspartate Aminotransferase 28 IU/L (14-36); BUN Creatinine Ratio 20.6 (6-22); Bilirubin Total 0.2 mg/dL (0.2-1.3); Blood Urea Nitrogen 62 mg/dL (7-17); Calcium 9.9 mg/dL (8.4-10.2); Carbon Dioxide 24 mmol/L (22-32); Chloride 107 mmol/L (98-107); Creatine Kinase 35 U/L (30-135); Glucose 119 mg/dL (80-110); HEMOLYSIS 22 (0-50); Lipase 665 U/L (23-300); Sodium 139 mmol/L (137-145); Total Protein 8.5 g/dL (6.3-8.2)
[2020-07-05 15:57] LABS: COVID19 -Nasal RAPID Negative (Negative)
[2020-07-05 16:03] LABS: NT-proBNP (BNP-Adult 18+) 252 pg/mL (<450); Troponin I < 0.012 ng/mL (0.01-0.034)
[2020-07-05 16:05] LABS: Magnesium 1.8 mg/dL (1.6-2.3); Potassium 5.4 mmol/L (3.4-5.1)
[2020-07-05 16:50] LABS: Appearance Urine UA CLEAR; Bilirubin Urine UA NEGATIVE (NEGATIVE); Color Urine UA YELLOW; Glucose Urine UA NEGATIVE (Negative); Ketones Urine UA NEGATIVE (NEGATIVE); Leukocyte Esterase Urine UA TRACE (NEGATIVE); Nitrite Urine UA NEGATIVE (Negative); Occult Blood Urine UA 1+ (Negative); Protein Urine UA NEGATIVE (Negative); Specific Gravity Urine UA <=1.005 (1.000-1.035); Urobilinogen Urine UA 0.2 E.U./dL (0.2)
[2020-07-05 16:52] LABS: Bacteria Urine Few (2-10); Culture Indicated Urine Specimen Cultured; RBC Urine 1-5/HPF (0-5/HPF); Squamous Epithelial Cell Urine 0-1 /HPF (0-5/HPF); WBC Urine 5-10/HPF (0-5/HPF); pH Urine UA 6.5 (4.5-8.0)
[2020-07-05] MEDS: SODIUM CHLORIDE 0.9% 1,000 ML 100 ML IV (20:06)
[2020-07-05] MEDS: DOCUSATE 100 MG CAPSULE PO (21:39)
[2020-07-05] MEDS: atenoloL 25 MG TABLET PO (21:40)
[2020-07-05] MEDS: APIXABAN 5 MG TABLET PO (21:40)
[2020-07-05] MEDS: FLECAINIDE 100 MG TABLET 25 MG PO (21:40)
[2020-07-06 05:20] LABS: BUN Creatinine Ratio 19.1 (6-22); Blood Urea Nitrogen 52 mg/dL (7-17); Calcium 9.3 mg/dL (8.4-10.2); Calcium 9.4 mg/dL (8.4-10.2); Carbon Dioxide 24 mmol/L (22-32); Chloride 109 mmol/L (98-107); Estimated Glomerular Filt Rate 16.8 mL/min (>60); Glucose 110 mg/dL (80-110); HEMOLYSIS < 15 (0-50); Lipase 439 U/L (23-300); Phosphorous 4.4 mg/dL (2.8-4.1); Potassium 5.1 mmol/L (3.4-5.1); Sodium 138 mmol/L (137-145)
[2020-07-06] MEDS: PANTOPRAZOLE 20 MG TABLET PO (06:00)
[2020-07-06] MEDS: SODIUM CHLORIDE 0.9% 1,000 ML 100 ML IV ×2 (06:01→16:21)
--- NOTE | 2020-07-06 07:30 | P.HP_ITS ---
History of Present Illness History of Present Illness Date Patient Seen: 07/06/20 Time Patient Seen: 07:45 Chief complaint: ACUTE RENAL FAILURE Narrative: Pt is an 80yo woman with hypertension, diastolic CHF, atrial fibrillation, BLAIR, recent hypokalemia, and a hx of WPW who presented with acute kidney failure. The pt reports that starting around [place] she began having an uneasy feeling in her abdomen. It would start shortly after rising in the morning, last all day, and then generally resolve by around 8pm at night. Tums helped minimally. She denies any associated nausea, vomiting, diarrhea, or constipation. Her stools have been more dry since starting the Spirinolactone, but otherwise normal. During the same time frame, the pt has been feeling very fatigued. She has little energy to accomplish anything during the day. She denies any association with depression. She has been eating normally, and drinking, if anything, more water than usual. The pt does recall going on a walk around 2 months ago, and feeling that it was difficult to complete due to fatigue, not SOB, as well. The pt reports that she has otherwise been feeling well. She has been urinating appropriately, with normal volumes. She denies any recent chest pain, SOB. Her weight has been stable and she denies any LE edema. She denies any dizziness. She has been on Lisinopril for a long period of time. Spirinolactone was started during her hospitalization in January. She was started on Flecainide in February. Her Flecainide dose was decreased last week. Patient History Medical History Acute diastolic heart failure Atrial fibrillation Essential hypertension History of Bzpnr-Pjcynnstg-Uxtke (WPW) syndrome Hypokalemia Insomnia Obstructive sleep apnea syndrome Surgical History History of breast augmentation History of cardiac radiofrequency ablation (RFA) History of cataract removal with insertion of prosthetic lens Status post cholecystectomy Family & Social History Family History Grandmother Stroke Mother Osteoporosis Social History: household members spouse Prior Living Arrangements House lives independently Yes caregiver/support person No Safety & Behavioral: Feels Safe in Current Yes Environment Been Physically Hurt or No Threatened By a Person Suicidal Ideation Description None Suicide Plan Description No Plan Tobacco & Substance use: Smoking Status Never smoker alcohol intake current alcohol intake frequency a few times a month Substance Use Type does not use Meds Home Medications and Allergies Home Medications Medication Instructions Recorded Confirmed Type lisinopril 40 mg tablet 40 mg PO DAILY #90 tab 02/26/20 07/05/20 Rx loratadine 10 mg tablet 10 mg PO Q DAY #30 tab 02/26/20 07/05/20 Rx spironolactone 25 mg tablet 25 mg PO DAILY #30 tab 02/26/20 07/05/20 Rx atenolol 25 mg tablet 25 mg PO BID #180 tab 04/21/20 07/05/20 Rx omeprazole 20 mg capsule,delayed 20 mg PO DAILY #90 cap 04/21/20 07/05/20 Rx release apixaban [Eliquis] 5 mg PO BID 07/05/20 07/05/20 History atorvastatin 80 mg PO DAILY 07/05/20 07/05/20 History cholecalciferol (vitamin D3) 25 mcg PO DAILY 07/05/20 07/05/20 History flecainide 25 mg PO QPM 07/05/20 07/05/20 History flecainide 50 mg PO QAM 07/05/20 07/05/20 History Allergies Allergy/AdvReac Type Severity Reaction Status Date / Time clindamycin AdvReac Mild rash Verified 07/05/20 18:24 morphine AdvReac Mild N/V Verified 07/05/20 18:24 Review of Systems Constitutional Constitutional: Denies fever(s), Denies headache(s), Reports lethargy, Denies night sweats, Denies poor appetite, Denies weight gain and Denies weight loss Eyes Eyes: Denies diplopia and Denies spots in vision ENT Ears, Nose, Mouth, and Throat: No dizziness, No otalgia, No headache(s), No nasal congestion and No sinus pain Cardiovascular Cardiovascular: Denies chest pain, Denies syncope, Denies rapid heart rate, Denies pedal edema, Denies palpitations and Denies dyspnea Respiratory Respiratory: Denies cough, Denies dyspnea and Denies wheezing Gastrointestinal Gastrointestinal: Reports abdominal pain, Denies melena, Denies bloating, Denies hematochezia, Denies change in bowel habits, Denies constipation, Reports heartburn and Denies loose stools Genitourinary Genitourinary: Denies hematuria, Denies urinary frequency, Denies difficulty voiding, Denies urinary incontinence, Denies urinary hesitancy and Denies urinary urgency Neurologic Neurologic: Denies dizziness, Denies syncope and Denies headache(s) Endocrine Endocrine: Denies palpitations Allergic/Immunologic Allergic/Immunologic: Denies wheezing Exam Vital Signs (past 8 hours): - 07/05/20 23:53 Temperature 97.7 F Pulse Rate 69 Respiratory Rate 18 Blood Pressure 111/58 L Pulse Oximetry 97 Oxygen Delivery Method Room Air Oxygen Flow Rate 0 Narrative Exam Narrative: GEN - alert, cooperative and no distress HEENT - normocephalic and atraumatic, sclera white, moist mucus membranes NECK - FROM, no adenopathy, no JVD HEART - RRR, S1, S2 normal, no S3 or S4, grade 2/6 systolic murmur LUNGS - symmetric chest rise, no accessory muscles, clear to auscultation bilaterally ABD - flat, nondistended, normal bowel sounds, soft, nontender and no hepatomegaly, splenomegaly or masses EXT - no cyanosis, clubbing or edema SKIN - no rashes or suspicious lesions NEURO - no gross deficits Objective Imaging CT scan - abdomen: Radiologist's impression: PROCEDURE: CT KIDNEY URETER BLADDER (KUB) INDICATIONS: elevated cr TECHNIQUE: Noncontrast 5 mm thick sections acquired from the diaphragms to the symphysis. 5 mm thick coronal and sagittal reformats were then performed. For radiation dose reduction, the following was used: automated exposure control, adjustment of mA and/or kV according to patient size. COMPARISON: [facility], CR, XR CHEST 1V, 07/05/2020, 15:27. [facility], CT, IVP (ABD & PEL WWO CONTRAST), 12/03/2014, 10:49. [facility], CR, XR CHEST 1V, 01/24/2020, 15:19. FINDINGS: Image quality: Excellent. Lung bases: Lung bases are clear. Heart size is normal. Small hiatal hernia. Urinary system: Both kidneys are normal in size. No kidney stones. No hydronephrosis or perinephric fat stranding. Both ureters appear non-dilated throughout their expected courses. Bladder wall thickness is normal; no calcified bladder stones. Other solid organs: Liver is normal in size. Gallbladder is surgically absent . Pancreas is normal in contours. Spleen is normal in size. No adrenal nodules. Peritoneum and bowel: Unenhanced bowel loops demonstrate normal wall thickness and caliber. There is a large amount of stool in colon. Scattered colonic diverticula are present. No CT findings to suggest acute diverticulitis. No free fluid or air. Nodes and vessels: No retroperitoneal or mesenteric adenopathy by size criteria. Aorta and inferior vena cava are normal in caliber. Abdominal wall: Small fat containing periumbilical hernia. Pelvis: Uterus and ovaries are unremarkable. No free pelvic fluid. No inguinal hernias or adenopathy. Bones: No suspicious bony lesions. No vertebral body compression fractures. There are severe degenerative changes at L 4-L5 and L5-S1. IMPRESSION: 1. No acute abnormalities in abdomen or pelvis. 2. Diverticulosis without diverticulitis. 3. A large amount of stool in colon. Dictated by: Braydon Beth M.D. on 07/05/2020 at 16:05 Labs Result Diagrams: 07/05/20 15:21 07/06/20 13:37 Labs: Laboratory Results - last 24 hr 07/05/20 07/05/20 07/05/20 15:21 15:21 15:21 WBC 9.8 RBC 3.60 L Hgb 11.3 L Hct 33.1 L MCV 91.8 MCH 31.3 MCHC 34.1 RDW 13.0 Plt Count 414 H Neut % (Auto) 61.0 Lymph % (Auto) 22.6 L [place] % (Auto) 11.6 Eos % (Auto) 3.5 Baso % (Auto) 1.3 Neut # (Auto) 6000 Lymph # (Auto) 2200 [place] # (Auto) 1100 H Eos # (Auto) 300 Baso # (Auto) 100 PT 18.9 H INR 1.6 H APTT 39 H Sodium 139 Potassium 5.4 H Chloride 107 Carbon Dioxide 24 BUN 62 H Creatinine 3.01 H Estimated GFR 15.0 L BUN/Creatinine Ratio 20.6 Glucose 119 H Calcium 9.9 Phosphorus Magnesium Total Bilirubin 0.2 AST 28 ALT 19 Alkaline Phosphatase 116 Total Creatine Kinase 35 CK-MB (CK-2) TNP CK-MB (CK-2) Rel Index TNP Troponin I < 0.012 NT-Pro-B Natriuret Pep 252 Total Protein 8.5 H Albumin 4.5 Globulin 4.0 Albumin/Globulin Ratio 1.1 Lipase 665 H Urine Color Urine Appearance Urine pH Ur Specific [place] Urine Protein Urine Glucose (UA) Urine Ketones Urine Occult Blood Urine Nitrate Urine Bilirubin Urine Urobilinogen Ur Leukocyte Esterase Urine RBC Urine WBC Ur Squamous Epith Cells Urine Bacteria Ur Culture Indicated? SARS-CoV-2 (PCR) 07/05/20 07/05/20 07/05/20 15:21 15:30 16:15 WBC RBC Hgb Hct MCV MCH MCHC RDW Plt Count Neut % (Auto) Lymph % (Auto) [place] % (Auto) Eos % (Auto) Baso % (Auto) Neut # (Auto) Lymph # (Auto) [place] # (Auto) Eos # (Auto) Baso # (Auto) PT INR APTT Sodium Potassium Chloride Carbon Dioxide BUN Creatinine Estimated GFR BUN/Creatinine Ratio Glucose Calcium Phosphorus Magnesium 1.8 Total Bilirubin AST ALT Alkaline Phosphatase Total Creatine Kinase CK-MB (CK-2) CK-MB (CK-2) Rel Index Troponin I NT-Pro-B Natriuret Pep Total Protein Albumin Globulin Albumin/Globulin Ratio Lipase Urine Color Yellow Urine Appearance Clear Urine pH 6.5 Ur Specific [place] <=1.005 Urine Protein Negative Urine Glucose (UA) Negative Urine Ketones Negative Urine Occult Blood 1+ H Urine Nitrate Negative Urine Bilirubin Negative Urine Urobilinogen 0.2 Ur Leukocyte Esterase Trace H Urine RBC 1-5/hpf Urine WBC 5-10/hpf H Ur Squamous Epith Cells 0-1 /hpf Urine Bacteria Few (2-10) H Ur Culture Indicated? Specimen cultured SARS-CoV-2 (PCR) Negative 07/06/20 07/06/20 04:45 04:45 WBC RBC Hgb Hct MCV MCH MCHC RDW Plt Count Neut % (Auto) Lymph % (Auto) [place] % (Auto) Eos % (Auto) Baso % (Auto) Neut # (Auto) Lymph # (Auto) [place] # (Auto) Eos # (Auto) Baso # (Auto) PT INR APTT Sodium 138 Potassium 5.1 Chloride 109 H Carbon Dioxide 24 BUN 52 H Creatinine 2.72 H Estimated GFR 16.8 L BUN/Creatinine Ratio 19.1 Glucose 110 Calcium 9.4 9.3 Phosphorus 4.4 H Magnesium Total Bilirubin AST ALT Alkaline Phosphatase Total Creatine Kinase CK-MB (CK-2) CK-MB (CK-2) Rel Index Troponin I NT-Pro-B Natriuret Pep Total Protein Albumin Globulin Albumin/Globulin Ratio Lipase 439 H Urine Color Urine Appearance Urine pH Ur Specific [place] Urine Protein Urine Glucose (UA) Urine Ketones Urine Occult Blood Urine Nitrate Urine Bilirubin Urine Urobilinogen Ur Leukocyte Esterase Urine RBC Urine WBC Ur Squamous Epith Cells Urine Bacteria Ur Culture Indicated? SARS-CoV-2 (PCR) Assessment & Plan Assessment & Plan narrative: Pt is a 80yo woman with hypertension, diastolic CH F, atrial fibrillation, BLAIR, recent hypokalemia, and a hx of WPW who presented with acute kidney injury. The pt has been feeling very fatigued with mild abdominal discomfort for the last several weeks. Fatigue possibly coming on earlier than that as well. Pts last creatinine in February in normal range. Medications started recently prior to that time include Spirinolactone and Flecainide, most likely cause of elevated creatinine as pt otherwise without concerning symptoms and imaging negative. 1) Acute kidney injury: Is improved this morning with Cr down to 2.7. Potassium normal range. Urine output appropriate. Discussed with Dr James, as he is managing the likely offending medications as an outpatient. - Continue to hold Lisinopril and Spirinolactone. Can add Amlodipine if needed for HTN. - Continue mIVF 100cc/hr until tomorrow - Repeat BMP this afternoon to ensure continuing to improve - Decrease Flecainide to 25mg BID dosing 2) Hypertension/Diastolic CHF: BP in accetable range thus far - Hold Lisinopril, Sprinolactone as above - Continue Atenolol - Monitor BP closely - Monitor fluid status closely 3) Atrial Fibrillation: Rate controlled. Normal rhythm today. - Continue Atenolol - Decrease Flecainide as above - Continue Eliquis FEN: Cardiac diet DVT PPX: On Eliquis Code: Full Dispo: Pending continue improvement in creatinine. Plan to d/c tomorrow pavel padilla.
[2020-07-06 08:55] VITALS: BP 98/61; PULSE 66; RESP 14; TEMP 35.9; O2SAT 100
[2020-07-06] MEDS: CHOLECALCIFEROL (VITAMIN D3) 1,000 UNIT TABLET 1000 UNIT PO (09:46)
[2020-07-06] MEDS: APIXABAN 5 MG TABLET PO ×2 (09:46→21:23)
[2020-07-06] MEDS: ATORVASTATIN 20 MG TABLET 80 MG PO ×2 (09:46→21:23)
[2020-07-06] MEDS: ACETAMINOPHEN 325 MG TABLET 650 MG PO (09:46)
[2020-07-06] MEDS: DOCUSATE 100 MG CAPSULE PO ×2 (09:46→21:23)
[2020-07-06] MEDS: LORATADINE 10 MG TABLET PO (09:46)
[2020-07-06] MEDS: FLECAINIDE 100 MG TABLET 50 MG PO (09:47)
[2020-07-06 13:28] VITALS: BP 101/58; PULSE 64; RESP 16
[2020-07-06 14:03] LABS: BUN Creatinine Ratio 18.4 (6-22); Blood Urea Nitrogen 46 mg/dL (7-17); Carbon Dioxide 22 mmol/L (22-32); Chloride 110 mmol/L (98-107); Estimated Glomerular Filt Rate 18.5 mL/min (>60); Glucose 150 mg/dL (80-110); HEMOLYSIS < 15 (0-50); Potassium 4.6 mmol/L (3.4-5.1); Sodium 139 mmol/L (137-145)
--- NOTE | 2020-07-06 15:44 | CM.DANOTE ---
Discharge Planning/Care Management DCP: assessment: case received, EMR reviewed and met with pt. Introduced self and role. Pt is found lying in bed, looking comfortable. Pt confirms she is functionally independent at baseline and does go out/limited by COVID restrictions and I just have not felt very well this last month Says she is hopeful that she will be ok'd for d/c tomorrow as, on the advice of PCP Dr. Powell she and her are scheduled for first COVID-19 vaccine at 5PM tomorrow in [place]. Pt is aware that Dr. Powell plans to consult with her account installation specialist: Dr. James on medication adjustments. Pt's spouse will be picking her up at d/c. CM Discharge Assessment Start: 07/06/20 15:43 Freq: Status: Active Protocol: Document 07/06/20 15:43 ITV (Rec: 07/06/20 15:44 ITV [id number]) Discharge Planning Assessment Advance Directives? Yes: at home History Provided By Patient,Medical Record Has Patient been admitted in last 30 No days? Prior Living Arrangements House Household Members spouse Independent with ADL's Yes Is patient alert and oriented? Yes Discharge Plan Home
[2020-07-06 16:10] VITALS: BP 111/63; PULSE 61; RESP 17; TEMP 36.5; O2SAT 99
[2020-07-06 20:00] VITALS: BP 96/55; PULSE 64; RESP 19; TEMP 36.2; O2SAT 98
[2020-07-06] MEDS: FLECAINIDE 100 MG TABLET 25 MG PO (21:33)
[2020-07-06 22:15] VITALS: BP 127/63; PULSE 66
--- NOTE | 2020-07-06 22:22 | PC.NURSE ---
Evening Shift Note Patient complaint of skipped beat upon taking own radial pulse this RN auscultated HR and HR 66 regular with a dropped beat every 4 to 6 beats. Patient asymptomatic BP 127/63. This RN notified the construction flagger provider, HORACIO for telemetry, ok to give bedtime atenolol and no other follow-up with PCP unless patient becomes symptomatic or hemodynamically unstable. Will continued to monitor and update water pipe installer RN.
[2020-07-06] MEDS: atenoloL 25 MG TABLET PO (22:41)
[2020-07-07 00:10] VITALS: BP 134/68; PULSE 74; RESP 18; TEMP 36.5; O2SAT 98
[2020-07-07] MEDS: SODIUM CHLORIDE 0.9% 1,000 ML 100 ML IV (02:17)
[2020-07-07 05:11] VITALS: BP 130/71; PULSE 73; RESP 18; TEMP 36.4; O2SAT 98
[2020-07-07 05:39] LABS: BUN Creatinine Ratio 17.4 (6-22); Blood Urea Nitrogen 38 mg/dL (7-17); Calcium 8.7 mg/dL (8.4-10.2); Carbon Dioxide 24 mmol/L (22-32); Chloride 115 mmol/L (98-107); Estimated Glomerular Filt Rate 21.7 mL/min (>60); Glucose 103 mg/dL (80-110); HEMOLYSIS < 15 (0-50); Sodium 141 mmol/L (137-145)
[2020-07-07 05:52] LABS: Phosphorous 3.7 mg/dL (2.8-4.1)
[2020-07-07] MEDS: PANTOPRAZOLE 20 MG TABLET PO (06:35)
[2020-07-07 08:00] VITALS: BP 130/72; PULSE 63; RESP 16; TEMP 35.8; O2SAT 99
--- NOTE | 2020-07-07 08:15 | PM.DS.1 ---
History of Present Illness History of Present Illness Date Patient Seen: 07/07/20 Time Patient Seen: 07:50 Chief complaint: ACUTE RENAL FAILURE Narrative: Pt is an 80yo woman with hypertension, diastolic CHF, atrial fibrillation, BLAIR, recent hypokalemia, and a hx of WPW who presented with acute kidney failure. The pt reports that starting around [place] she began having an uneasy feeling in her abdomen. It would start shortly after rising in the morning, last all day, and then generally resolve by around 8pm at night. Tums helped minimally. She denies any associated nausea, vomiting, diarrhea, or constipation. Her stools have been more dry since starting the Spirinolactone, but otherwise normal. During the same time frame, the pt has been feeling very fatigued. She has little energy to accomplish anything during the day. She denies any association with depression. She has been eating normally, and drinking, if anything, more water than usual. The pt does recall going on a walk around 2 months ago, and feeling that it was difficult to complete due to fatigue, not SOB, as well. The pt reports that she has otherwise been feeling well. She has been urinating appropriately, with normal volumes. She denies any recent chest pain, SOB. Her weight has been stable and she denies any LE edema. She denies any dizziness. She has been on Lisinopril for a long period of time. Spirinolactone was started during her hospitalization in January. She was started on Flecainide in February. Her Flecainide dose was decreased last week. Discharge Providers Provider Date of admission: 07/05/20 17:57 Discharge Date: 07/07/20 Primary care physician: Anabell Powell MD Discharge provider: Anabell Powell MD Summary Hospital Course Discharge Diagnosis: Acute kidney injury Hypertension Atrial fibrillation Diastolic CHF Hospital Course: The pt was admitted with acute kidney injury. Her Lisinopril and Spirinolactone were held. She was started on mIVF at 100cc/hr, which were continued for approximately 36 hrs. The pts creatinine trended down. Her fatigue improved, and abdominal uneasiness improved as well. At the time of discharge, she was feeling improved. Her blood pressure remained stable, and she showed no signs of fluid overload. Cardiology recommended decreasing her Flecainide to 25mg BID. She will be discharged home with instructions to remain off the Lisinopril and Spirinolactone. Referral will be placed to Nephrology for follow-up. She will repeat a BMP in one week. Status at Discharge Cognitive/behavioral status at discharge: oriented Functional status at discharge: independent ambulation Overall status at discharge: patient is progressing back to baseline Exam Vital Signs (past 8 hours): - 07/07/20 05:11 Temperature 97.5 F L Pulse Rate 73 Respiratory Rate 18 Blood Pressure 130/71 Pulse Oximetry 98 Oxygen Delivery Method Room Air Oxygen Flow Rate 0 Narrative Exam Narrative: GEN - alert, cooperative and no distress HEENT - moist mucus membranes NECK - no JVD HEART - RRR, S1, S2 normal, no S3 or S4, grade 2/6 systolic murmur LUNGS - clear to auscultation bilaterally ABD - flat, nondistended, normal bowel sounds, soft, nontender EXT - no cyanosis, clubbing or edema Objective Labs Result Diagrams: 07/05/20 15:21 07/07/20 05:00 Labs: Laboratory Results - last 24 hr 07/06/20 07/07/20 07/07/20 13:37 05:00 05:00 Sodium 139 141 Potassium 4.6 5.0 Chloride 110 H 115 H Carbon Dioxide 22 24 BUN 46 H 38 H Creatinine 2.50 H 2.18 H Estimated GFR 18.5 L 21.7 L BUN/Creatinine Ratio 18.4 17.4 Glucose 150 H 103 Calcium 9.0 8.7 Phosphorus 3.7 PFSH Medical History Acute diastolic heart failure Atrial fibrillation Essential hypertension History of Vjofc-Udwwptozz-Nftop (WPW) syndrome Hypokalemia Insomnia Obstructive sleep apnea syndrome Surgical History History of breast augmentation History of cardiac radiofrequency ablation (RFA) History of cataract removal with insertion of prosthetic lens Status post cholecystectomy Family History Grandmother Stroke Mother Osteoporosis Social History marital status: number of children: 2 household members: spouse lives independently: Yes caregiver/support person: No housing: house Smoking Status: Never smoker second hand exposure: No alcohol intake: current substance use type: does not use Discharge Plan Discharge Plan Patient Disposition: Home Provider Discharge Comment: Please have BMP (lab test) drawn before follow-up in a week. Discharge orders & Medications Prescriptions: Continued loratadine [Claritin] 10 mg tablet 10 mg PO Q DAY Qty: 30 RF: 1 omeprazole 20 mg capsule,delayed release(DR/EC) 20 mg PO DAILY Qty: 90 RF: 3 atenolol 25 mg tablet 25 mg PO BID Qty: 180 RF: 0 cholecalciferol (vitamin D3) 25 mcg (1,000 unit) Capsule 25 mcg PO DAILY RF: 0 atorvastatin 80 mg tablet 80 mg PO DAILY RF: 0 Eliquis 5 mg tablet 5 mg PO BID RF: 0 Changed flecainide 50 mg tablet 25 mg PO BID Qty: 60 RF: 0 Discontinued lisinopril 40 mg tablet 40 mg PO DAILY Qty: 90 RF: 1 spironolactone 25 mg tablet 25 mg PO DAILY Qty: 30 RF: 3 flecainide 50 mg Tablet 50 mg PO QAM RF: 0 Follow up/Referrals: Anabell Powell MD [Primary Care Provider] - 1 Week Diet/Activity/Treatments Diet: Regular Visit Report/Discharge Packet Instructions: Acute Kidney Injury Visit Report Forms: Patient Portal/API, Stroke Signs & Symptoms Discharge Data Primary Care Provider: Anabell Powell Attending Provider: Anabell Powell Admit Date/Time: 07/05/20 17:57
[2020-07-07] MEDS: DOCUSATE 100 MG CAPSULE PO (09:15)
[2020-07-07] MEDS: LORATADINE 10 MG TABLET PO (09:15)
[2020-07-07] MEDS: CHOLECALCIFEROL (VITAMIN D3) 1,000 UNIT TABLET 1000 UNIT PO (09:15)
[2020-07-07] MEDS: APIXABAN 5 MG TABLET PO (09:15)
[2020-07-07] MEDS: atenoloL 25 MG TABLET PO (09:15)
[2020-07-07] MEDS: FLECAINIDE 100 MG TABLET 25 MG PO (09:16)
--- NOTE | 2020-07-07 10:41 | PC.NURSE ---
Discharge: Pt reports she is ready to go home. Feels much better, is up indep in room, gait is steady. No pain. Tolerates fluids/foods w/out problems. Vds w/out diff. Reviewed d/c packet and medication changes. Spouse present at time of d/c. Questions answered. Pt d/c home via auto w/spouse.
[2020-07-07 15:44] LABS: Ionized Calcium 5.2 mg/dL (4.5-5.6)
== END 2020-07-07 10:20 | disposition home or self-care (01) ==
LOC: ED 17:52 → AC 17:58
PROVIDERS: Nurse Practitioner Family; Admitting Provider Family Medicine; Emergency Provider Emergency Medicine; PCP Family Medicine; Referring Provider Emergency Medicine; Visit Provider Family Medicine
DX: N17.9 Acute kidney failure, unspecified (principal); I11.0 Hypertensive heart disease with heart failure; I50.30 Unspecified diastolic (congestive) heart failure; I48.91 Unspecified atrial fibrillation; Z20.822 Contact with and (suspected) exposure to COVID-19; G47.33 Obstructive sleep apnea (adult) (pediatric)
CPT/HCPCS: 36415; 71045; 74176; 80048; 80053; 81001; 81003; 82310; 82330; 82550; 83690; 83735; 83880; 84100; 84484; 85025; 85610; 85730; 87086; 87635; 93005; 93010; 96360; 96361; 99217; 99219; 99284; C9803; G0378

== ENCOUNTER → 2020-07-14 09:54 | Outpatient (CLI) | payer MEDICARE, OTHER, SELFPAY ==
[2020-07-05 21:43] VITALS: BMI 26.8
[2020-07-14 11:21] LABS: Blood Urea Nitrogen 26 mg/dL (7-17); Calcium 9.6 mg/dL (8.4-10.2); Carbon Dioxide 26 mmol/L (22-32); Chloride 105 mmol/L (98-107); Estimated Glomerular Filt Rate 32.7 mL/min (>60); Glucose 90 mg/dL (80-110); HEMOLYSIS < 15 (0-50); Sodium 139 mmol/L (137-145)
== END ==
PROVIDERS: PCP Family Medicine; Referring Provider Family Medicine; Visit Provider Family Medicine
DX: N17.9 Acute kidney failure, unspecified (principal)
CPT/HCPCS: 36415; 80048

== ENCOUNTER → 2020-07-29 10:19 | Outpatient (CLI) | payer MEDICARE, OTHER, SELFPAY ==
[2020-07-05 21:43] VITALS: BMI 26.8
[2020-07-29 11:47] LABS: Hematocrit 30.1 % (36-46); Hemoglobin 9.9 g/dL (12.0-16.0); Mean Corpuscular Hemoglobin 30.2 PG (26-34); Mean Corpuscular Volume 91.5 fL (80-100); Platelet Count 306 X10^3/uL (150-400); Red Blood Cell Count 3.29 X10^6/uL (4.0-5.2); Red Cell Distribution Width 13.2 % (11.6-14.8); White Blood Cell Count 7.1 X10^3/uL (4.5-11.0)
[2020-07-29 11:55] LABS: BUN Creatinine Ratio 19.1 (6-22); Blood Urea Nitrogen 22 mg/dL (7-17); Calcium 9.2 mg/dL (8.4-10.2); Carbon Dioxide 31 mmol/L (22-32); Chloride 107 mmol/L (98-107); Estimated Glomerular Filt Rate 45.4 mL/min (>60); Glucose 99 mg/dL (80-110); HEMOLYSIS < 15 (0-50); Potassium 4.1 mmol/L (3.4-5.1); Sodium 141 mmol/L (137-145)
[2020-07-29 12:40] LABS: Creatinine Urine Random 73.1 mg/dL; Protein (Total) Urine Random 12 mg/dL (0-12); Protein Creatinine Ratio Urine 0.16 GRAM/24H
== END ==
PROVIDERS: Student in an Organized Health Care Education/Training Program; PCP Family Medicine; Referring Provider Internal Medicine Cardiovascular Disease; Visit Provider Internal Medicine Cardiovascular Disease
DX: N05.9 Unspecified nephritic syndrome with unspecified morphologic changes (principal); D70.9 Neutropenia, unspecified; D63.1 Anemia in chronic kidney disease; R80.9 Proteinuria, unspecified; Z51.81 Encounter for therapeutic drug level monitoring; Z79.899 Other long term (current) drug therapy
CPT/HCPCS: 36415; 80048; 80299; 82570; 84156; 85027

== ENCOUNTER → 2020-08-03 09:16 | Outpatient (CLI) | payer MEDICARE, OTHER, SELFPAY ==
[2020-07-05 21:43] VITALS: BMI 26.8
[2020-08-03 10:37] LABS: Reticulocyte Count, Percent 1.5 % (1.06-2.63)
[2020-08-03 10:55] LABS: HEMOLYSIS < 15 (0-50); Iron 64 ug/dL (37-170)
[2020-08-03 11:07] LABS: Percent Iron Saturation 23 % (15-50); Total Iron Binding Capacity 276 ug/dL (265-497); Transferrin 207 mg/dL (206-381)
[2020-08-03 12:05] LABS: Folate 19.4 ng/mL (2.76-20.0); Vitamin B12 796 pg/mL (239-931)
== END ==
PROVIDERS: PCP Family Medicine; Referring Provider Internal Medicine Cardiovascular Disease; Visit Provider Internal Medicine Cardiovascular Disease
DX: D64.9 Anemia, unspecified (principal)
CPT/HCPCS: 36415; 82607; 82746; 83540; 83550; 85045

== ENCOUNTER → 2020-08-05 07:27 | Outpatient (CLI) | payer MEDICARE, OTHER, SELFPAY ==
[2020-07-05 21:43] VITALS: BMI 26.8
[2020-08-06 14:45] LABS: Fecal Immunochemical Test Negative (Negative)
== END ==
PROVIDERS: PCP Family Medicine; Referring Provider Internal Medicine Cardiovascular Disease; Visit Provider Internal Medicine Cardiovascular Disease
DX: D64.9 Anemia, unspecified (principal)
CPT/HCPCS: 82274

== ENCOUNTER → 2020-08-10 11:00 | Outpatient (CLI) | payer MEDICARE, OTHER, SELFPAY ==
[2020-07-05 21:43] VITALS: BMI 26.8
[2020-08-10 11:43] LABS: Hematocrit 29.9 % (36-46); Hemoglobin 9.9 g/dL (12.0-16.0)
[2020-08-10 12:16] LABS: Blood Urea Nitrogen 21 mg/dL (7-17); Calcium 9.6 mg/dL (8.4-10.2); Carbon Dioxide 31 mmol/L (22-32); Chloride 106 mmol/L (98-107); Estimated Glomerular Filt Rate 50.4 mL/min (>60); Glucose 104 mg/dL (80-110); HEMOLYSIS < 15 (0-50); Potassium 4.2 mmol/L (3.4-5.1); Sodium 140 mmol/L (137-145)
== END ==
PROVIDERS: PCP Family Medicine; Referring Provider Family Medicine; Visit Provider Family Medicine
DX: N17.9 Acute kidney failure, unspecified (principal); D64.9 Anemia, unspecified; E87.5 Hyperkalemia
CPT/HCPCS: 36415; 80048; 85014; 85018

== ENCOUNTER → 2020-09-04 12:18 | Outpatient (CLI) | payer MEDICARE, OTHER, SELFPAY ==
[2020-07-05 21:43] VITALS: BMI 26.8
[2020-09-04 12:41] LABS: Bacteria Urine None Seen; WBC Urine None Seen (0-5/HPF)
[2020-09-04 13:03] LABS: Appearance Urine UA CLEAR; Bilirubin Urine UA NEGATIVE (NEGATIVE); Color Urine UA YELLOW; Glucose Urine UA NEGATIVE (Negative); Ketones Urine UA NEGATIVE (NEGATIVE); Leukocyte Esterase Urine UA NEGATIVE (NEGATIVE); Nitrite Urine UA NEGATIVE (Negative); Occult Blood Urine UA 1+ (Negative); Protein Urine UA NEGATIVE (Negative); Urobilinogen Urine UA 0.2 E.U./dL (0.2)
[2020-09-04 13:08] LABS: Hematocrit 31.9 % (36-46); Hemoglobin 10.6 g/dL (12.0-16.0)
[2020-09-04 13:11] LABS: Culture Indicated Urine Cult Not Indicated; RBC Urine 1-5/HPF (0-5/HPF)
[2020-09-04 13:29] LABS: BUN Creatinine Ratio 22.8 (6-22); Blood Urea Nitrogen 21 mg/dL (7-17); Calcium 9.5 mg/dL (8.4-10.2); Carbon Dioxide 28 mmol/L (22-32); Chloride 105 mmol/L (98-107); Estimated Glomerular Filt Rate 58.7 mL/min (>60); Glucose 96 mg/dL (80-110); HEMOLYSIS < 15 (0-50); Potassium 4.3 mmol/L (3.4-5.1); Sodium 139 mmol/L (137-145)
[2020-09-04 13:31] LABS: Creatinine Urine Random 98.1 mg/dL; Protein (Total) Urine Random 9 mg/dL (0-12); Protein Creatinine Ratio Urine 0.09 GRAM/24H
[2020-09-05 10:07] LABS: Parathyroid Hormone Int 44 pg/mL (15-65)
== END ==
PROVIDERS: PCP Family Medicine; Referring Provider Student in an Organized Health Care Education/Training Program; Visit Provider Student in an Organized Health Care Education/Training Program
DX: N05.9 Unspecified nephritic syndrome with unspecified morphologic changes (principal); D64.9 Anemia, unspecified; N25.81 Secondary hyperparathyroidism of renal origin; N30.00 Acute cystitis without hematuria; R80.9 Proteinuria, unspecified
CPT/HCPCS: 36415; 80048; 81001; 82570; 83970; 84156; 85014; 85018

== ENCOUNTER → 2020-10-18 14:19 | Outpatient (CLI) | payer MEDICARE, OTHER, SELFPAY ==
[2020-07-05 21:43] VITALS: BMI 26.8
--- NOTE | 2020-10-18 14:22 | DI.RAD.S_ITS ---
PROCEDURE: XR CHEST 2V INDICATIONS: orthopnea TECHNIQUE: 2 views of the chest were acquired. COMPARISON: [facility], CR, XR CHEST 1V, 07/05/2020, 15:27. FINDINGS: Surgical changes and devices: None. Lungs and pleura: No pneumothorax. No pleural effusion identified. Ill-defined increased patchy and ground-glass opacities in both lung bases. Roya B lines projecting the right costophrenic angle. Mediastinum: Cardiac silhouette and mediastinal contours are stable. Bones and chest wall: Scoliosis and discogenic changes. IMPRESSION: Bilaterally increased ill-defined and ground-glass opacities suggestive of pulmonary edema. Recommend clinical and laboratory correlation to exclude underlying infection. If there is persistent clinical diagnostic uncertainty, continued surveillance with short interval radiographic followup after treatment is recommended. Dictated by: Napoleon Gaspar M.D. on 10/18/2020 at 14:48 Approved by: Napoleon Gaspar M.D. on 10/18/2020 at 14:50
[2020-10-18 15:33] LABS: Add Manual Diff / Slide Review NO; Basophils Absolute Auto 100 /uL (0-100); Basophils Percent Auto 1.3 % (0-2); Eosinophils Absolute Auto 200 /uL (0-450); Eosinophils Percent Auto 2.6 % (2-4); Hematocrit 34.4 % (36-46); Hemoglobin 11.5 g/dL (12.0-16.0); Lymphocytes Absolute Auto 1700 /uL (1100-4500); Mean Corpuscular HGB Conc 33.4 % (30-36); Mean Corpuscular Hemoglobin 30.4 PG (26-34); Mean Corpuscular Volume 91.1 fL (80-100); Monocytes Absolute Auto 800 /uL (0-900); Monocytes Percent Auto 10.6 % (3-14); Neutrophils Absolute Auto 4600 /uL (1500-7000); Neutrophils Percent Auto 62.5 % (50-75); Platelet Count 295 X10^3/uL (150-400); Red Blood Cell Count 3.77 X10^6/uL (4.0-5.2); Red Cell Distribution Width 12.9 % (11.6-14.8); White Blood Cell Count 7.3 X10^3/uL (4.5-11.0)
[2020-10-18 15:57] LABS: Alanine Aminotransferase 48 IU/L (<35); Albumin 4.1 g/dL (3.5-5.0); Albumin Globulin Ratio 1.3 (1.0-2.8); Alkaline Phosphatase 104 U/L (38-126); Aspartate Aminotransferase 47 IU/L (14-36); BUN Creatinine Ratio 24.2 (6-22); Bilirubin Total 0.3 mg/dL (0.2-1.3); Blood Urea Nitrogen 23 mg/dL (7-17); Calcium 9.7 mg/dL (8.4-10.2); Carbon Dioxide 30 mmol/L (22-32); Chloride 104 mmol/L (98-107); Estimated Glomerular Filt Rate 56.6 mL/min (>60); Globulin 3.1 g/dL (1.7-4.1); Glucose 98 mg/dL (80-110); HEMOLYSIS < 15 (0-50); Sodium 140 mmol/L (137-145); Total Protein 7.2 g/dL (6.3-8.2)
[2020-10-18 16:02] LABS: NT-proBNP (BNP-Adult 18+) 1410 pg/mL (<450)
== END ==
PROVIDERS: PCP Family Medicine; Referring Provider Family Medicine; Visit Provider Family Medicine
DX: R06.01 Orthopnea (principal)
CPT/HCPCS: 36415; 71046; 80053; 83880; 85025

== ENCOUNTER → 2020-10-20 14:19 | Outpatient (CLI) | payer MEDICARE, OTHER, SELFPAY ==
[2020-07-05 21:43] VITALS: BMI 26.8
[2020-10-20 16:08] LABS: BUN Creatinine Ratio 21.1 (6-22); Blood Urea Nitrogen 19 mg/dL (7-17); Calcium 9.7 mg/dL (8.4-10.2); Carbon Dioxide 32 mmol/L (22-32); Chloride 103 mmol/L (98-107); Estimated Glomerular Filt Rate > 60.0 mL/min (>60); Glucose 95 mg/dL (80-110); HEMOLYSIS < 15 (0-50); Sodium 143 mmol/L (137-145)
== END ==
PROVIDERS: PCP Family Medicine; Referring Provider Family Medicine; Visit Provider Family Medicine
DX: E87.70 Fluid overload, unspecified (principal)
CPT/HCPCS: 36415; 80048

== ENCOUNTER → 2020-10-22 10:42 | Outpatient (CLI) | payer MEDICARE, OTHER, SELFPAY ==
[2020-07-05 21:43] VITALS: BMI 26.8
[2020-10-22 11:46] LABS: BUN Creatinine Ratio 22.1 (6-22); Blood Urea Nitrogen 19 mg/dL (7-17); Calcium 9.9 mg/dL (8.4-10.2); Carbon Dioxide 30 mmol/L (22-32); Chloride 102 mmol/L (98-107); Estimated Glomerular Filt Rate > 60.0 mL/min (>60); Glucose 99 mg/dL (80-110); HEMOLYSIS < 15 (0-50); Potassium 3.9 mmol/L (3.4-5.1); Sodium 139 mmol/L (137-145)
== END ==
PROVIDERS: PCP Family Medicine; Referring Provider Family Medicine; Visit Provider Family Medicine
DX: E87.70 Fluid overload, unspecified (principal)
CPT/HCPCS: 36415; 80048

== ENCOUNTER 2021-02-15 12:31 | Emergency (ER) | payer MEDICARE, OTHER, SELFPAY ==
[2020-07-05 21:43] VITALS: BMI 26.8
[2021-02-15] VITALS (12 sets, daily range): BP systolic 168–192; BP diastolic 77–108; PULSE 62–77; RESP 18–36; TEMP 36.2; O2SAT 92–97
--- NOTE | 2021-02-15 12:39 | DI.RAD.S_ITS ---
PROCEDURE: XR CHEST 1V INDICATIONS: Chest pain TECHNIQUE: One view of the chest was acquired. COMPARISON: [facility], CR, XR CHEST 1V, 07/05/2020, 15:27. FINDINGS: Surgical changes and devices: None. Lungs and pleura: Increased interstitial markings in both lungs. No pleural effusions or pneumothorax. Mediastinum: Mediastinal contours appear normal. Heart size is enlarged. Bones and chest wall: No suspicious bony lesions. Overlying soft tissues appear unremarkable. IMPRESSION: Increased interstitial markings in both lungs with cardiomegaly. Findings are suggestive of cardiogenic pulmonary edema. Superimposed infection cannot be strictly excluded. Dictated by: Chan Warren M.D. on 02/15/2021 at 13:45 Approved by: Chan Warren M.D. on 02/15/2021 at 13:46
[2021-02-15 12:58] LABS: Add Manual Diff / Slide Review NO; Basophils Absolute Auto 100 /uL (0-100); Basophils Percent Auto 1.1 % (0-2); Eosinophils Absolute Auto 200 /uL (0-450); Eosinophils Percent Auto 2.8 % (2-4); Hemoglobin 12.3 g/dL (12.0-16.0); Lymphocytes Absolute Auto 1800 /uL (1100-4500); Lymphocytes Percent Auto 21.2 % (25-40); Mean Corpuscular HGB Conc 33.3 % (30-36); Mean Corpuscular Volume 90.2 fL (80-100); Monocytes Absolute Auto 800 /uL (0-900); Monocytes Percent Auto 9.8 % (3-14); Neutrophils Absolute Auto 5600 /uL (1500-7000); Neutrophils Percent Auto 65.1 % (50-75); Platelet Count 323 X10^3/uL (150-400); Red Cell Distribution Width 14.8 % (11.6-14.8); White Blood Cell Count 8.5 X10^3/uL (4.5-11.0)
[2021-02-15 13:13] LABS: Alanine Aminotransferase 43 IU/L (<35); Albumin 4.7 g/dL (3.5-5.0); Albumin Globulin Ratio 1.5 (1.0-2.8); Alkaline Phosphatase 140 U/L (38-126); Aspartate Aminotransferase 57 IU/L (14-36); BUN Creatinine Ratio 25.7 (6-22); Bilirubin Total 0.8 mg/dL (0.2-1.3); Blood Urea Nitrogen 18 mg/dL (7-17); Calcium 9.7 mg/dL (8.4-10.2); Carbon Dioxide 27 mmol/L (22-32); Chloride 106 mmol/L (98-107); Creatine Kinase 57 U/L (30-135); Estimated Glomerular Filt Rate > 60.0 mL/min (>60); Globulin 3.2 g/dL (1.7-4.1); Glucose 114 mg/dL (80-110); HEMOLYSIS < 15 (0-50); Lipase 185 U/L (23-300); Magnesium 1.8 mg/dL (1.6-2.3); Potassium 4.1 mmol/L (3.4-5.1); Sodium 141 mmol/L (137-145); Total Protein 7.9 g/dL (6.3-8.2)
--- NOTE | 2021-02-15 13:13 | ED_ITS ---
HPI - Chest Pain General Chief Complaint: Chest Pain Stated Complaint: SOB, strange feeling in chest Time Seen by Provider: 02/15/21 12:45 Source: patient Mode of arrival: Ambulatory Limitations: no limitations History of Present Illness HPI narrative: Patient is a 80-year-old female with history of atrial fibrillat ion, congestive heart failure on Eliquis presenting today with increasing shortness of breath. She says that she was walking around [place] today when she got so short of breath that she needed to stop. She had no chest pain or pressure palpitations. She is still feeling somewhat short of breath. She says that she weighs herself every day because of congestive heart failure today she thought her weight might be up 1 lb. She denies fever or chills. She has also noted some swelling in her left leg only. She says she always has swelling around the ankle but out seems to be a little bit more. No cough no orthopnea, no known coronary artery disease. Related Data Home Medications Medication Instructions Recorded Confirmed cholecalciferol (vitamin D3) 25 25 mcg PO DAILY 07/05/20 10/18/20 mcg (1,000 unit) capsule multivitamin (Daily Multi-Vitamin) 1 tab PO DAILY 07/16/20 10/18/20 apixaban 5 mg tablet (Eliquis) 2.5 mg PO BID tab 10/15/20 10/18/20 Previous Rx's Medication Instructions Recorded loratadine 10 mg tablet (Claritin) 10 mg PO Q DAY #30 tab 02/26/20 atenolol 25 mg tablet 25 mg PO BID #180 tab 04/21/20 flecainide 50 mg tablet 25 mg PO BID #60 tab 07/07/20 furosemide 20 mg tablet 20 mg PO QAM #30 tab 10/18/20 potassium chloride 20 mEq 20 meq PO DAILY #30 tab 10/18/20 tablet,extended release(part/cryst) atorvastatin 80 mg tablet See Rx Instructions .ROUTE 11/24/20 .COMPLEX #90 tablet furosemide 20 mg tablet (Lasix) 20 mg PO DAILY PRN #14 tab 02/15/21 potassium chloride 20 mEq 20 meq PO DAILY #14 tab 02/15/21 tablet,extended release Allergies Allergy/AdvReac Type Severity Reaction Status Date / Time clindamycin AdvReac Mild rash Verified 07/16/20 09:17 morphine AdvReac Mild N/V Verified 07/16/20 09:17 Review of Systems Review of Systems Narrative: GENERAL: Denies chills, fatigue, malaise, fever, sweats, travel HEENT: Denies sinus pain, ear pain, sore throat, difficulty swallowing, neck pain RESPIRATORY: See HPI CARDIOVASCULAR: Denies chest pain, palpitations, orthopnea, edema GASTROINTESTINAL: Denies nausea, vomiting, abdominal pain, diarrhea, constipation, melena. : Denies dysuria, frequency, incontinence, hematuria, urinary retention, flank pain. MUSCULOSKELETAL: Denies weakness, joint pain, or bony pain SKIN: No rash, no erythema, no pruritus NEUROLOGIC: Denies weakness, dizziness, headache, numbness, change in speech, confusion PSYCHIATRIC: No concerning psychosocial issues. 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 Hypokalemia Insomnia Obstructive sleep apnea syndrome Surgical History History of breast augmentation History of cardiac radiofrequency ablation (RFA) History of cataract removal with insertion of prosthetic lens Status post cholecystectomy Family History Grandmother Stroke Mother Osteoporosis Social History marital status: number of children: 2 household members: spouse lives independently: Yes caregiver/support person: No housing: house Smoking Status: Never smoker second hand exposure: No alcohol intake: current substance use type: does not use Smoking Status: Never smoker alcohol intake frequency: a few times a month Substance Use Type: does not use Exam Initial Vital Signs Initial Vital Signs: Vital Signs Temperature 97.1 F L 02/15/21 12:35 Pulse Rate 77 02/15/21 12:35 Respiratory Rate 18 02/15/21 12:35 Blood Pressure 192/108 H 02/15/21 12:35 Pulse Oximetry 95 02/15/21 12:35 GENERAL: Alert well-appearing 80-year-old female HEENT: Head atraumatic,EOMI, pupils reactive, face symmetric, [moist] mucous membranes CARDIOVASCULAR: Regular rate and rhythm without murmurs, rubs or gallops. RESPIRATORY: Breath sounds equal bilaterally, no wheezes rales or rhonchi. ABDOMEN: Soft, nontender. Normoactive bowel sounds all 4 quadrants. No guarding or rebound. EXTREMITIES: Normal range of motion, no clubbing or edema. Neurovascularly intact NEUROLOGICAL: Alert and oriented x4.Normal gait and speech. SKIN: Warm, dry, no laceration, no petechiae, no rashes or lesions. Course Orders Ordered: ED Orders 02/15/21 12:39 XR chest 1V Stat EKG-12 Lead Stat 02/15/21 12:50 BNP [NT-proBNP (BNP-Adult 18+)] Stat Complete Blood Count AUTO DIFF Stat Comprehensive Metabolic Panel Stat Lipase Stat Magnesium Stat Troponin & CK Cardiac Panel Stat 02/15/21 13:14 US periph venous low extrem lt Stat 02/15/21 13:45 Urine Microscopic Stat 02/15/21 14:48 Troponin I Stat Discontinued Medications Furosemide (Furosemide 40 Mg/4 Ml Vial) 20 mg IV NOW ONE Stop: 02/15/21 15:01 Last Admin: 02/15/21 15:12 Dose: 20 mg Documented by: JAMA Vital Signs Vital signs: Vital Signs - 8 hr 02/15/21 12:35 02/15/21 12:43 02/15/21 12:51 Temperature 97.1 F L Pulse Rate 77 72 67 Respiratory Rate 18 34 H 27 H Blood Pressure 192/108 H 174/88 H Pulse Oximetry 95 94 95 02/15/21 13:00 02/15/21 13:35 02/15/21 14:00 Temperature Pulse Rate 65 70 70 Respiratory Rate 25 H 31 H 36 H Blood Pressure 168/82 H Pulse Oximetry 93 95 94 02/15/21 14:30 02/15/21 14:37 02/15/21 14:45 Temperature Pulse Rate 64 64 69 Respiratory Rate 24 32 H 27 H Blood Pressure 176/79 H 173/81 H Pulse Oximetry 93 92 96 02/15/21 15:00 02/15/21 15:33 02/15/21 16:00 Temperature Pulse Rate 62 76 65 Respiratory Rate 26 H 33 H 27 H Blood Pressure 174/81 H 173/77 H Pulse Oximetry 97 95 MDM - Chest Pain Lab Data Result diagrams: 02/15/21 12:50 02/15/21 12:50 Labs: Lab Results 02/15/21 02/15/21 02/15/21 Range/Units 12:50 12:50 13:45 WBC 8.5 (4.5-11.0) X10^3/uL RBC 4.10 (4.0-5.2) X10^6/uL Hgb 12.3 (12.0-16.0) g/dL Hct 37.0 (36-46) % MCV 90.2 (80-100) fL MCH 30.0 (26-34) PG MCHC 33.3 (30-36) % RDW 14.8 (11.6-14.8) % Plt Count 323 (150-400) X10^3/uL Neut % (Auto) 65.1 (50-75) % Lymph % (Auto) 21.2 L (25-40) % [place] % (Auto) 9.8 (3-14) % Eos % (Auto) 2.8 (2-4) % Baso % (Auto) 1.1 (0-2) % Neut # (Auto) 5600 (9199-7961) /uL Lymph # (Auto) 1800 (7792-3824) /uL [place] # (Auto) 800 (0-900) /uL Eos # (Auto) 200 (0-450) /uL Baso # (Auto) 100 (0-100) /uL Sodium 141 (137-145) mmol/L Potassium 4.1 (3.4-5.1) mmol/L Chloride 106 (98-107) mmol/L Carbon Dioxide 27 (22-32) mmol/L BUN 18 H (7-17) mg/dL Creatinine 0.70 (0.52-1.04) mg/dL Estimated GFR > 60.0 (>60) mL/min BUN/Creatinine Ratio 25.7 H (6-22) Glucose 114 H (80-110) mg/dL Calcium 9.7 (8.4-10.2) mg/dL Magnesium 1.8 (1.6-2.3) mg/dL Total Bilirubin 0.8 (0.2-1.3) mg/dL AST 57 H (14-36) IU/L ALT 43 H (<35) IU/L Alkaline Phosphatase 140 H (38-126) U/L Total Creatine Kinase 57 (30-135) U/L CK-MB (CK-2) TNP CK-MB (CK-2) Rel Index TNP Troponin I < 0.012 (0.01-0.034) ng/mL NT-Pro-B Natriuret Pep 1190 H (<450) pg/mL Total Protein 7.9 (6.3-8.2) g/dL Albumin 4.7 (3.5-5.0) g/dL Globulin 3.2 (1.7-4.1) g/dL Albumin/Globulin Ratio 1.5 (1.0-2.8) Lipase 185 (23-300) U/L Urine RBC 1-5/hpf (0-5/HPF) Urine WBC None seen (0-5/HPF) Urine Bacteria None seen (None) Ur Culture Indicated? Cult not indicated 02/15/21 Range/Units 14:48 WBC (4.5-11.0) X10^3/uL RBC (4.0-5.2) X10^6/uL Hgb (12.0-16.0) g/dL Hct (36-46) % MCV (80-100) fL MCH (26-34) PG MCHC (30-36) % RDW (11.6-14.8) % Plt Count (150-400) X10^3/uL Neut % (Auto) (50-75) % Lymph % (Auto) (25-40) % [place] % (Auto) (3-14) % Eos % (Auto) (2-4) % Baso % (Auto) (0-2) % Neut # (Auto) (7985-8633) /uL Lymph # (Auto) (9597-1132) /uL [place] # (Auto) (0-900) /uL Eos # (Auto) (0-450) /uL Baso # (Auto) (0-100) /uL Sodium (137-145) mmol/L Potassium (3.4-5.1) mmol/L Chloride (98-107) mmol/L Carbon Dioxide (22-32) mmol/L BUN (7-17) mg/dL Creatinine (0.52-1.04) mg/dL Estimated GFR (>60) mL/min BUN/Creatinine Ratio (6-22) Glucose (80-110) mg/dL Calcium (8.4-10.2) mg/dL Magnesium (1.6-2.3) mg/dL Total Bilirubin (0.2-1.3) mg/dL AST (14-36) IU/L ALT (<35) IU/L Alkaline Phosphatase (38-126) U/L Total Creatine Kinase (30-135) U/L CK-MB (CK-2) CK-MB (CK-2) Rel Index Troponin I < 0.012 (0.01-0.034) ng/mL NT-Pro-B Natriuret Pep (<450) pg/mL Total Protein (6.3-8.2) g/dL Albumin (3.5-5.0) g/dL Globulin (1.7-4.1) g/dL Albumin/Globulin Ratio (1.0-2.8) Lipase (23-300) U/L Urine RBC (0-5/HPF) Urine WBC (0-5/HPF) Urine Bacteria (None) Ur Culture Indicated? Urine Dip Bedside Urine Glucose Negative Bedside Urine Bilirubin - Negative Bedside Urine Ketone - Negative Urine Specific [place] 1.010 Bedside Urine Occult Blood +/- Bedside Urine pH 6.0 Bedside Urine Protein - Negative Bedside Urine Urobilinogen - Negative Bedside Urine Nitrite - Negative Bedside Urine Leukocytes - Negative Esterase ECG Data Interpretation: Normal sinus rhythm rate 73 WA interval 208 QRS [address] changes or T-wave inversions MDM Narrative Medical decision making narrative: Patient has a history of congestive heart failure started having shortness of breath today. She sleeps on a wedge and CPAP at baseline. She said she was unable to sleep evening. Weight when up 1 lb today. BNP mildly elevated at 1100 previously 1400. Symptoms most consistent with mild congestive heart failure. She has standing orders for Lasix and potassium but is almost out. sHe is given 1 dose of Lasix IV emergency department. Unlikely to have pulmonary embolism she is on Eliquis she has 2- troponins. Discharge Plan Departure Patient Disposition: Home Clinical Impression: Congestive heart failure Qualifiers: Heart failure type: unspecified Heart failure chronicity: acute on chronic Qualified Code(s): I50.9 - Heart failure, unspecified Instructions: Heart Failure Activity Restrictions/Additional Instructions: *You have been diagnosed with congestive heart failure exacerbation *What to do: At this time here difficulty breathing is likely secondary to congestive heart failure exacerbation very mild at this time. Will restart you on your medications. *Continue to take medications as directed--> SENT TO [facility] Furosemide 20 mg once a day for 3 days Potassium chloride 20 mEq once daily for 3 days with furosemide *Follow up with your primary care provider in 2-3 days *Return to ER if you should have increasing shortness of breath, increasing weight gain, increasing swelling or any new, worsening or concerning symptoms Prescriptions: New furosemide [Lasix] 20 mg tablet 20 mg PO DAILY PRN (Reason: weight gain) Qty: 14 RF: 0 potassium chloride 20 mEq tablet extended release 20 meq PO DAILY Qty: 14 RF: 0 No Action multivitamin [Daily Multi-Vitamin] Tablet 1 tab PO DAILY RF: 0 loratadine [Claritin] 10 mg tablet 10 mg PO Q DAY Qty: 30 RF: 1 atenolol 25 mg tablet 25 mg PO BID Qty: 180 RF: 0 furosemide 20 mg tablet 20 mg PO QAM Qty: 30 RF: 0 potassium chloride 20 mEq tablet,ER particles/crystals 20 meq PO DAILY Qty: 30 RF: 0 atorvastatin 80 mg tablet See Rx Instructions .ROUTE .COMPLEX Qty: 90 RF: 1 cholecalciferol (vitamin D3) 25 mcg (1,000 unit) Capsule 25 mcg PO DAILY RF: 0 flecainide 50 mg tablet 25 mg PO BID Qty: 60 RF: 0 Eliquis 5 mg tablet 2.5 mg PO BID RF: 0 Referrals: Anabell Powell MD [Primary Care Provider] -
--- NOTE | 2021-02-15 13:14 | DI.US.S_ITS ---
PROCEDURE: US PERIPH VENOUS LOW EXTREM LT INDICATIONS: EDEMA; SOB TECHNIQUE: Real-time imaging, as well as color and pulse Doppler interrogation, were performed of the lower extremity deep veins from the inguinal ligament to the popliteal fossa. COMPARISON: None. FINDINGS: The common femoral, femoral and popliteal veins are normally compressible, and free of intraluminal thrombus. Color and pulse Doppler demonstrate normal phasic intraluminal flow. There is normal augmentation response to distal compression maneuver. A Mcdonough's cyst can be seen that measures 5.9 x 1.7 x 3.1 cm. IMPRESSION: Negative for deep venous thrombosis. Dictated by: Wong Winter M.D. on 02/15/2021 at 12:42 Approved by: Wong Winter M.D. on 02/15/2021 at 12:43
[2021-02-15 13:24] LABS: NT-proBNP (BNP-Adult 18+) 1190 pg/mL (<450); Troponin I < 0.012 ng/mL (0.01-0.034)
[2021-02-15 14:41] LABS: Bacteria Urine None Seen; WBC Urine None Seen (0-5/HPF)
[2021-02-15 14:48] LABS: Culture Indicated Urine Cult Not Indicated; RBC Urine 1-5/HPF (0-5/HPF)
[2021-02-15] MEDS: FUROSEMIDE 40 MG/4 ML VIAL 20 MG IV (15:12)
[2021-02-15 15:18] LABS: Troponin I < 0.012 ng/mL (0.01-0.034)
--- NOTE | 2021-02-15 15:41 | PC.NURSE ---
Patient walked to and from bathroom fine, however became short of breath with oxygen at 87% when she returned to bed. O2 increased to 96% after laying down for a few minutes.
== END 2021-02-15 16:18 | disposition home or self-care (01) ==
PROVIDERS: Emergency Provider Emergency Medicine; PCP Family Medicine
DX: I50.9 Heart failure, unspecified (principal); R06.02 Shortness of breath; R79.89 Other specified abnormal findings of blood chemistry; Z79.01 Long term (current) use of anticoagulants
CPT/HCPCS: 36415; 71045; 80053; 81003; 81015; 82550; 83690; 83735; 83880; 84484; 85025; 93005; 93971; 96374; 99284; J1940

== ENCOUNTER → 2021-03-10 14:02 | Outpatient (CLI) | payer MEDICARE, OTHER, SELFPAY ==
[2020-07-05 21:43] VITALS: BMI 26.8
[2021-03-10 14:47] LABS: Hematocrit 37.7 % (36-46); Hemoglobin 12.1 g/dL (12.0-16.0)
[2021-03-10 15:14] LABS: HEMOLYSIS < 15 (0-50); Iron 36 ug/dL (37-170)
[2021-03-10 15:15] LABS: Creatinine Urine Random 159.6 mg/dL
[2021-03-10 15:18] LABS: BUN Creatinine Ratio 23.4 (6-22); Blood Urea Nitrogen 18 mg/dL (7-17); Calcium 9.3 mg/dL (8.4-10.2); Carbon Dioxide 35 mmol/L (22-32); Chloride 105 mmol/L (98-107); Estimated Glomerular Filt Rate > 60.0 mL/min (>60); Glucose 92 mg/dL (80-110); HEMOLYSIS < 15 (0-50); Sodium 145 mmol/L (137-145)
[2021-03-10 15:20] LABS: Protein (Total) Urine Random < 5 mg/dL (0-12); Protein Creatinine Ratio Urine 0.03 GRAM/24H
[2021-03-10 15:27] LABS: Percent Iron Saturation 13 % (15-50); Total Iron Binding Capacity 277 ug/dL (265-497); Transferrin 229 mg/dL (206-381)
[2021-03-10 15:49] LABS: Ferritin 91 ng/mL (11-264)
[2021-03-11 09:04] LABS: Parathyroid Hormone Int 40 pg/mL (15-65)
== END ==
PROVIDERS: PCP Family Medicine; Referring Provider Student in an Organized Health Care Education/Training Program; Visit Provider Student in an Organized Health Care Education/Training Program
DX: D64.9 Anemia, unspecified (principal); N05.9 Unspecified nephritic syndrome with unspecified morphologic changes; D50.0 Iron deficiency anemia secondary to blood loss (chronic); N25.81 Secondary hyperparathyroidism of renal origin; R80.9 Proteinuria, unspecified
CPT/HCPCS: 36415; 80048; 82570; 82728; 83540; 83550; 83970; 84156; 85014; 85018

== ENCOUNTER → 2021-04-19 09:02 | Outpatient (CLI) | payer MEDICARE, OTHER, SELFPAY ==
[2020-07-05 21:43] VITALS: BMI 26.8
[2021-04-19 11:52] LABS: Alanine Aminotransferase 40 IU/L (<35); Albumin 4.2 g/dL (3.5-5.0); Albumin Globulin Ratio 1.6 (1.0-2.8); Alkaline Phosphatase 97 U/L (38-126); Aspartate Aminotransferase 42 IU/L (14-36); BUN Creatinine Ratio 26.9 (6-22); Bilirubin Total 0.5 mg/dL (0.2-1.3); Blood Urea Nitrogen 21 mg/dL (7-17); Calcium 9.9 mg/dL (8.4-10.2); Carbon Dioxide 33 mmol/L (22-32); Chloride 101 mmol/L (98-107); Cholesterol 146 mg/dL (140-199); Estimated Glomerular Filt Rate > 60.0 mL/min (>60); Globulin 2.6 g/dL (1.7-4.1); Glucose 101 mg/dL (80-110); HDL Cholesterol 62 mg/dL (40-60); HEMOLYSIS < 15 (0-50); LDL Cholesterol Calculated 60 mg/dL (<100); Potassium 4.5 mmol/L (3.4-5.1); Sodium 141 mmol/L (137-145); Total Protein 6.8 g/dL (6.3-8.2); Triglycerides 122 mg/dL (35-150)
== END ==
PROVIDERS: PCP Family Medicine; Referring Provider Internal Medicine Cardiovascular Disease; Visit Provider Internal Medicine Cardiovascular Disease
DX: E78.5 Hyperlipidemia, unspecified (principal)
CPT/HCPCS: 36415; 80053; 80061

== ENCOUNTER 2021-06-07 09:45 | Outpatient (RCR) | payer MEDICARE, OTHER, SELFPAY ==
[2020-07-05 21:43] VITALS: BMI 26.8
--- NOTE | 2021-04-06 16:19 | PT.OIE ---
Current Diagnoses Pain in left knee (04/06/21) Past Medical History (Last Reviewed 02/15/21 @ 13:18 by Leidy Stern DO) Acute diastolic heart failure Atrial fibrillation Essential hypertension History of Gpqhn-Jmgcblwew-Bjazb (WPW) syndrome Hypokalemia Insomnia Obstructive sleep apnea syndrome Past Surgical History (Last Reviewed 02/15/21 @ 13:18 by Leidy Stern DO) History of breast augmentation History of cardiac radiofrequency ablation (RFA) History of cataract removal with insertion of prosthetic lens Status post cholecystectomy Visit Care Team Role Provider Type Anabell Powell MD Attending Provider Physician Primary Care Provider Referring Provider Specialty: [facility] Address: [address] [place] [address], [facility] Email: [email or web address] Physical Therapy Initial Evaluation PT-OP-A Visit Information Start: 03/31/21 15:30 Freq: Status: Active Protocol: Document 04/06/21 13:45 AMB (Rec: 04/06/21 13:49 AMB [email or web address]) Out-Patient Physical Therapy Visit Information Visit Information Visit Type Initial Evaluation Visit Start Time 13:45 Visit Stop Time 14:30 Total Visit Minutes 45 Visit Number 1 PT-OP-B Current Condition Start: 03/31/21 15:30 Freq: Status: Active Protocol: Document 04/06/21 13:00 AMB (Rec: 04/06/21 13:14 AMB [id number]) Current Condition History of Current Condition Onset Date January 2021 Current Complaints L knee pain History of Current Condition Whole L leg is more swollen than R. Does have CHF so watches swelling a lot. Just got back from the motorhome and wasn't walking and it has been worse. Stairs are quite uncomfortable. 3STE, with living on one level but does have a second floor. [place] are challenging. Stamina is a challenge with CHF and afib. A bit of concern about balance, no falls in the last 6 months. Prior Functional Status Baseline Function- ADL's Independent Baseline Function- Mobility Independent Current Functional Impairments (Reported) Functional Limitations- ADL's Left knee pain limits stairs Personal Factors Other Personal Factors That May Effect CHF, Renal failure, Afib, Therapy/Recovery hypertension PT-OP-C Subjective Start: 03/31/21 15:30 Freq: Status: Active Protocol: Document 04/06/21 13:00 AMB (Rec: 04/06/21 15:48 AMB [email or web address]) Patient Questionnaires Lower Extremity Functional Scale LEFS Score 58 LEFS Impairment 20 to 39% Impaired (Score 48- 62) OP-PT Pain Assessment Comments Pain Comments 4/10 pain in L knee 1/10pain in R knee, worst at patellar tendon and popliteal fossa PT-OP-D Balance Start: 03/31/21 15:30 Freq: Status: Active Protocol: Document 04/06/21 13:00 AMB (Rec: 04/06/21 16:10 AMB [email or web address]) Balance Tests Single Limb Standing Single Limb- Right 3-5sec Single Limb- Left 3-5 sec PT-OP-G Mobility & Gait Start: 03/31/21 15:30 Freq: Status: Active Protocol: Document 04/06/21 13:00 AMB (Rec: 04/06/21 16:04 AMB [email or web address]) OP Gait Assessment Comments Gait Comments Good step length, but keeps left leg slightly flexed Stair Climbing Evaluation Comments Stair Climbing Comments Ascends and descends alternating gait without need for rail PT-OP-J Posture/Palpation/Skin Start: 03/31/21 15:30 Freq: Status: Active Protocol: Document 04/06/21 13:00 AMB (Rec: 04/06/21 16:04 AMB [email or web address]) Palpation Assessment Location One Palpation Location L ankle Palpation Findings Edema Palpation Details Pitting edema at L ankle- CHF and pt reports she has broken that ankle 2x. Edema into leg and knee as well, but not pitting. PT-OP-K Range of Motion Start: 03/31/21 15:30 Freq: Status: Active Protocol: Document 04/06/21 13:00 AMB (Rec: 04/06/21 16:04 AMB [email or web address]) Knee Goniometric Range of Motion Knee Right Patient Position Supine Flexion Active (degrees) 135 Extension Active (degrees) 0 Left Patient Position Supine Flexion Passive (degrees) 116 Extension Passive (degrees) 9 PT-OP-M Strength Start: 03/31/21 15:30 Freq: Status: Active Protocol: Document 04/06/21 13:00 AMB (Rec: 04/06/21 16:04 AMB [email or web address]) Hip Strength Hip Manual Muscle Testing Right Flexion (L2) 4+ Good+ Extension (S1) 4+ Good+ Abduction 4 Good Adduction 4 Good Left Flexion (L2) 4- Good- Extension (S1) 4- Good- Abduction 4- Good- Adduction 4- Good- Knee Strength Knee Manual Muscle Testing Right Flexion (S2) 4+ Good+ Extension (L3) 4+ Good+ Left Flexion (S2) 4+ Good+ Extension (L3) 4+ Good+ PT-OP-T Assessment and Plan Start: 03/31/21 15:30 Freq: Status: Active Protocol: Document 04/06/21 13:00 AMB (Rec: 04/06/21 15:48 AMB [email or web address]) Physical Therapy Assessment Rehab Potential Rehabilitation Potential Good Evaluation Complexity Number of Personal Factors/Comorbidities 3 or More Number of Body Systems Impaired 4 or More Clinical Presentation at Evaluation Stable Impairments Impairments Gait,Pain,ROM,Strength Goals Two Impairment Gait Short Term Goal (STG) Rashida will ambulate in the community over uneven terrain for 30 minutes without an increase in L knee pain. STG Duration 4 weeks Dials Inspector Goal (LTG) Rashida will ascend and descend a flight of stairs without knee pain. LTG Duration 8 weeks One Impairment ROM Short Term Goal (STG) Rashida will improve her knee extension to lacking 4 degrees or less. STG Duration 4 weeks Mcc Goal (LTG) Rashida will improve her knee flexion to actively 130 degrees. LTG Duration 8 weeks Assessment Summary Assessment Rashida presents to physical therapy with L knee pain complicated by L leg edema. She has restricted ROM and pain with palpation over both the popliteal fossa and the patellar tendon. While her knee strength is well maintained, her hip and core strength is limited. This is limiting her ability to do stairs or walk without pain. She will benefit from physical therapy to instruct her in an appropriate program to progress her range of motion, strength, and gait, although her long standing ankle injury and L leg edema may be limiting factors. Physical Therapy Plan Frequency and Duration Frequency of Treatment 2x/Week Duration of Treatment 8 weeks Plan of Care Start Date 04/06/21 Plan of Care End Date 06/01/21 Therapeutic Interventions Therapeutic Interventions Gait Training,Home Exercise Program,Joint Mobilizations, Manual Therapy,Neuromuscular Re-education,Self-Care/Home Management,Therapeutic Activities,Therapeutic Exercises Modalities Cold Pack/Ice Massage,Electric Stimulation,Hot Packs Next Visit Focus/Plan Next Note Type Treatment Note
--- NOTE | 2021-04-06 16:20 | PT.OPPOC ---
Physical, Occupational & Speech Therapy At [facility] Current Diagnoses Pain in left knee (04/06/21) Visit Care Team Role Provider Type Anabell Powell MD Attending Provider Physician Primary Care Provider Referring Provider Specialty: Family Practice Address: [address] [place] [address], [address] Email: [email or web address] Plan Of Care PT-OP-T Assessment and Plan Start: 03/31/21 15:30 Freq: Status: Active Protocol: Document 04/06/21 13:00 AMB (Rec: 04/06/21 15:48 AMB [email or web address]) Physical Therapy Assessment Rehab Potential Rehabilitation Potential Good Evaluation Complexity Number of Personal Factors/Comorbidities 3 or More Number of Body Systems Impaired 4 or More Clinical Presentation at Evaluation Stable Impairments Impairments Gait,Pain,ROM,Strength Goals Two Impairment Gait Short Term Goal (STG) Rashida will ambulate in the community over uneven terrain for 30 minutes without an increase in L knee pain. STG Duration 4 weeks Wire Cutter Goal (LTG) Rashida will ascend and descend a flight of stairs without knee pain. LTG Duration 8 weeks One Impairment ROM Short Term Goal (STG) Rashida will improve her knee extension to lacking 4 degrees or less. STG Duration 4 weeks Longterm Goal (LTG) Rashida will improve her knee flexion to actively 130 degrees. LTG Duration 8 weeks Assessment Summary Assessment Rashida presents to physical therapy with L knee pain complicated by L leg edema. She has restricted ROM and pain with palpation over both the popliteal fossa and the patellar tendon. While her knee strength is well maintained, her hip and core strength is limited. This is limiting her ability to do stairs or walk without pain. She will benefit from physical therapy to instruct her in an appropriate program to progress her range of motion, strength, and gait, although her long standing ankle injury and L leg edema may be limiting factors. Physical Therapy Plan Frequency and Duration Frequency of Treatment 2x/Week Duration of Treatment 8 weeks Plan of Care Start Date 04/06/21 Plan of Care End Date 06/01/21 Therapeutic Interventions Therapeutic Interventions Gait Training,Home Exercise Program,Joint Mobilizations, Manual Therapy,Neuromuscular Re-education,Self-Care/Home Management,Therapeutic Activities,Therapeutic Exercises Modalities Cold Pack/Ice Massage,Electric Stimulation,Hot Packs Next Visit Focus/Plan Next Note Type Treatment Note Plan of Care Dates Plan of Care Start Date 04/06/21 Plan of Care End Date 06/01/21 Electronically Signed by: Farzana Leonard, PT 04/06/21 [id number] Please Sign and Return: I have reviewed this Plan of Care and certify that the skilled therapy services above are required to meet the patient?s needs. Physician Signature Date Printed Name and Credentials Clinical Instructor Signature Printed Name and Credentials
--- NOTE | 2021-04-07 15:15 | PT.OTN ---
Current Diagnoses Pain in left knee (04/07/21) Physical Therapy Treatment Note PT-OP-A Visit Information Start: 03/31/21 15:30 Freq: Status: Active Protocol: Document 04/07/21 14:00 AMB (Rec: 04/07/21 14:53 AMB [id number]) Out-Patient Physical Therapy Visit Information Visit Information Visit Type Treatment Note Visit Start Time 14:00 Visit Stop Time 14:45 Total Visit Minutes 45 Visit Number 2 PT-OP-B Current Condition Start: 03/31/21 15:30 Freq: Status: Active Protocol: Document 04/06/21 13:00 AMB (Rec: 04/06/21 13:14 AMB [id number]) Current Condition History of Current Condition Onset Date January 2021 Current Complaints L knee pain History of Current Condition Whole L leg is more swollen than R. Does have CHF so watches swelling a lot. Just got back from the motorhome and wasn't walking and it has been worse. Stairs are quite uncomfortable. 3STE, with living on one level but does have a second floor. [place] are challenging. Stamina is a challenge with CHF and afib. A bit of concern about balance, no falls in the last 6 months. Prior Functional Status Baseline Function- ADL's Independent Baseline Function- Mobility Independent Current Functional Impairments (Reported) Functional Limitations- ADL's Left knee pain limits stairs Personal Factors Other Personal Factors That May Effect CHF, Renal failure, Afib, Therapy/Recovery hypertension PT-OP-C Subjective Start: 03/31/21 15:30 Freq: Status: Active Protocol: Document 04/07/21 15:00 AMB (Rec: 04/07/21 15:15 AMB [email or web address]) OP-PT Subjective Patient Comments Patient Comments Pt states she is feeling a little better than yesterday PT-OP-D Balance Start: 03/31/21 15:30 Freq: Status: Active Protocol: Document 04/06/21 13:00 AMB (Rec: 04/06/21 16:10 AMB [email or web address]) Balance Tests Single Limb Standing Single Limb- Right 3-5sec Single Limb- Left 3-5 sec PT-OP-G Mobility & Gait Start: 03/31/21 15:30 Freq: Status: Active Protocol: Document 04/06/21 13:00 AMB (Rec: 04/06/21 16:04 AMB [email or web address]) OP Gait Assessment Comments Gait Comments Good step length, but keeps left leg slightly flexed Stair Climbing Evaluation Comments Stair Climbing Comments Ascends and descends alternating gait without need for rail PT-OP-J Posture/Palpation/Skin Start: 03/31/21 15:30 Freq: Status: Active Protocol: Document 04/06/21 13:00 AMB (Rec: 04/06/21 16:04 AMB [email or web address]) Palpation Assessment Location One Palpation Location L ankle Palpation Findings Edema Palpation Details Pitting edema at L ankle- CHF and pt reports she has broken that ankle 2x. Edema into leg and knee as well, but not pitting. PT-OP-K Range of Motion Start: 03/31/21 15:30 Freq: Status: Active Protocol: Document 04/06/21 13:00 AMB (Rec: 04/06/21 16:04 AMB [email or web address]) Knee Goniometric Range of Motion Knee Right Patient Position Supine Flexion Active (degrees) 135 Extension Active (degrees) 0 Left Patient Position Supine Flexion Passive (degrees) 116 Extension Passive (degrees) 9 PT-OP-M Strength Start: 03/31/21 15:30 Freq: Status: Active Protocol: Document 04/06/21 13:00 AMB (Rec: 04/06/21 16:04 AMB [email or web address]) Hip Strength Hip Manual Muscle Testing Right Flexion (L2) 4+ Good+ Extension (S1) 4+ Good+ Abduction 4 Good Adduction 4 Good Left Flexion (L2) 4- Good- Extension (S1) 4- Good- Abduction 4- Good- Adduction 4- Good- Knee Strength Knee Manual Muscle Testing Right Flexion (S2) 4+ Good+ Extension (L3) 4+ Good+ Left Flexion (S2) 4+ Good+ Extension (L3) 4+ Good+ PT-OP-Q Treatments Start: 03/31/21 15:30 Freq: Status: Active Protocol: Document 04/07/21 15:00 AMB (Rec: 04/07/21 15:15 AMB [email or web address]) Cardio Equipment Recumbent Elliptical (Biodex) Duration (Minutes) 5 Resistance 1.5 Gym Equipment Shuttle Recovery Bilateral Squats Resistance 50 Shuttle Recovery Platform Stable Reps/Time 2x15 Therapeutic Exercises Sidelying Exercises 2 Sidelying Exercise Name hip abduction Reps/Minutes 2x10 1 Sidelying Exercise Name clamshell Resistance #2 t band Reps/Minutes 2x10 Standing Exercises 3 Standing Exercise Name calf stretch- on stairs Reps/Minutes 30x2 2 Standing Exercise Name hamstring stretch- on stairs Reps/Minutes 30x4 1 Standing Exercise Name sit to stand Reps/Minutes 10 Comments with cues for alignment PT-OP-T Assessment and Plan Start: 03/31/21 15:30 Freq: Status: Active Protocol: Document 04/07/21 15:00 AMB (Rec: 04/07/21 15:15 AMB [email or web address]) Physical Therapy Assessment Assessment Summary Assessment Rashida tolerated exercises well and displayed good understanding of trying to decrease her genu valgus, but it is challenging for her bilaterally. Physical Therapy Plan Next Visit Focus/Plan Next Note Type Treatment Note Next Visit Plan Continue to progress hip strengthening and discuss alignment. Follow up on tolerance to HEP: sit to stand, hip abd, clamshell, hamstring stretch, calf stretch
--- NOTE | 2021-04-18 11:03 | PT.OTN ---
Current Diagnoses Pain in left knee (04/18/21) Physical Therapy Treatment Note PT-OP-A Visit Information Start: 03/31/21 15:30 Freq: Status: Active Protocol: Document 04/18/21 09:00 AMB (Rec: 04/18/21 09:38 AMB [id number]) Out-Patient Physical Therapy Visit Information Visit Information Visit Type Treatment Note Visit Start Time 09:00 Visit Stop Time 09:45 Total Visit Minutes 45 Visit Number 3 PT-OP-B Current Condition Start: 03/31/21 15:30 Freq: Status: Active Protocol: Document 04/06/21 13:00 AMB (Rec: 04/06/21 13:14 AMB [id number]) Current Condition History of Current Condition Onset Date January 2021 Current Complaints L knee pain History of Current Condition Whole L leg is more swollen than R. Does have CHF so watches swelling a lot. Just got back from the motorhome and wasn't walking and it has been worse. Stairs are quite uncomfortable. 3STE, with living on one level but does have a second floor. [place] are challenging. Stamina is a challenge with CHF and afib. A bit of concern about balance, no falls in the last 6 months. Prior Functional Status Baseline Function- ADL's Independent Baseline Function- Mobility Independent Current Functional Impairments (Reported) Functional Limitations- ADL's Left knee pain limits stairs Personal Factors Other Personal Factors That May Effect CHF, Renal failure, Afib, Therapy/Recovery hypertension PT-OP-C Subjective Start: 03/31/21 15:30 Freq: Status: Active Protocol: Document 04/18/21 09:00 AMB (Rec: 04/18/21 09:38 AMB [id number]) OP-PT Subjective Patient Comments Patient Comments Pt feeling a little less pain, doing exercises, but was sore after last visit. PT-OP-D Balance Start: 03/31/21 15:30 Freq: Status: Active Protocol: Document 04/06/21 13:00 AMB (Rec: 04/06/21 16:10 AMB [email or web address]) Balance Tests Single Limb Standing Single Limb- Right 3-5sec Single Limb- Left 3-5 sec PT-OP-G Mobility & Gait Start: 03/31/21 15:30 Freq: Status: Active Protocol: Document 04/06/21 13:00 AMB (Rec: 04/06/21 16:04 AMB [email or web address]) OP Gait Assessment Comments Gait Comments Good step length, but keeps left leg slightly flexed Stair Climbing Evaluation Comments Stair Climbing Comments Ascends and descends alternating gait without need for rail PT-OP-J Posture/Palpation/Skin Start: 03/31/21 15:30 Freq: Status: Active Protocol: Document 04/06/21 13:00 AMB (Rec: 04/06/21 16:04 AMB [email or web address]) Palpation Assessment Location One Palpation Location L ankle Palpation Findings Edema Palpation Details Pitting edema at L ankle- CHF and pt reports she has broken that ankle 2x. Edema into leg and knee as well, but not pitting. PT-OP-K Range of Motion Start: 03/31/21 15:30 Freq: Status: Active Protocol: Document 04/06/21 13:00 AMB (Rec: 04/06/21 16:04 AMB [email or web address]) Knee Goniometric Range of Motion Knee Right Patient Position Supine Flexion Active (degrees) 135 Extension Active (degrees) 0 Left Patient Position Supine Flexion Passive (degrees) 116 Extension Passive (degrees) 9 PT-OP-M Strength Start: 03/31/21 15:30 Freq: Status: Active Protocol: Document 04/06/21 13:00 AMB (Rec: 04/06/21 16:04 AMB [email or web address]) Hip Strength Hip Manual Muscle Testing Right Flexion (L2) 4+ Good+ Extension (S1) 4+ Good+ Abduction 4 Good Adduction 4 Good Left Flexion (L2) 4- Good- Extension (S1) 4- Good- Abduction 4- Good- Adduction 4- Good- Knee Strength Knee Manual Muscle Testing Right Flexion (S2) 4+ Good+ Extension (L3) 4+ Good+ Left Flexion (S2) 4+ Good+ Extension (L3) 4+ Good+ PT-OP-Q Treatments Start: 03/31/21 15:30 Freq: Status: Active Protocol: Document 04/18/21 09:00 AMB (Rec: 04/18/21 09:38 AMB [id number]) Gym Equipment Shuttle Recovery Bilateral Squats Resistance 50 Shuttle Recovery Platform Stable Reps/Time 2x15 Therapeutic Exercises Supine Exercises 2 Supine Exercise Name SLR Reps/Minutes 2x10 Comments cues TA 1 Supine Exercise Name bridges Reps/Minutes 2x10 Sidelying Exercises 2 Sidelying Exercise Name hip abduction Reps/Minutes 2x10 Comments cues to avoid rolling backwards 1 Sidelying Exercise Name clamshell Resistance #2 t band Reps/Minutes 2x10 Comments cue to avoid rolling backwards Standing Exercises 3 Standing Exercise Name calf stretch- on stairs Reps/Minutes 30x2 2 Standing Exercise Name hamstring stretch- on stairs Reps/Minutes 30x4 1 Standing Exercise Name sit to stand Reps/Minutes 10 Comments with cues for alignment Manual Therapy Treatment Taping 1 Body Location L knee Type of Tape Kinesio Tape Comments 2 I strips PT-OP-T Assessment and Plan Start: 03/31/21 15:30 Freq: Status: Active Protocol: Document 04/18/21 09:00 AMB (Rec: 04/18/21 09:38 AMB [id number]) Physical Therapy Assessment Goals Two Impairment Gait Short Term Goal (STG) Rashida will ambulate in the community over uneven terrain for 30 minutes without an increase in L knee pain. STG Duration 4 weeks B2B Sales Manager Goal (LTG) Rashida will ascend and descend a flight of stairs without knee pain. LTG Duration 8 weeks One Impairment ROM Short Term Goal (STG) Rashida will improve her knee extension to lacking 4 degrees or less. STG Duration 4 weeks B2B Sales Manager Goal (LTG) Rashida will improve her knee flexion to actively 130 degrees. LTG Duration 8 weeks Assessment Summary Assessment Rashida was concerned about her knee swelling, so provided education regarding that. She feels she is progressing and the knee is less sore, although her muscles were sore bilaterally after last visit. Physical Therapy Plan Next Visit Focus/Plan Next Note Type Treatment Note Next Visit Plan Continue to progress hip strengthening and discuss alignment. Follow up on tolerance to HEP: sit to stand, hip abd, clamshell, hamstring stretch, calf stretch
--- NOTE | 2021-04-21 14:28 | PT.OTN ---
Current Diagnoses Pain in left knee (04/21/21) Physical Therapy Treatment Note PT-OP-A Visit Information Start: 03/31/21 15:30 Freq: Status: Active Protocol: Document 04/21/21 09:01 AMB (Rec: 04/21/21 09:39 AMB [id number]) Out-Patient Physical Therapy Visit Information Visit Information Visit Type Treatment Note Visit Start Time 09:00 Visit Stop Time 09:45 Total Visit Minutes 45 Visit Number 4 PT-OP-B Current Condition Start: 03/31/21 15:30 Freq: Status: Active Protocol: Document 04/06/21 13:00 AMB (Rec: 04/06/21 13:14 AMB [id number]) Current Condition History of Current Condition Onset Date January 2021 Current Complaints L knee pain History of Current Condition Whole L leg is more swollen than R. Does have CHF so watches swelling a lot. Just got back from the motorhome and wasn't walking and it has been worse. Stairs are quite uncomfortable. 3STE, with living on one level but does have a second floor. [place] are challenging. Stamina is a challenge with CHF and afib. A bit of concern about balance, no falls in the last 6 months. Prior Functional Status Baseline Function- ADL's Independent Baseline Function- Mobility Independent Current Functional Impairments (Reported) Functional Limitations- ADL's Left knee pain limits stairs Personal Factors Other Personal Factors That May Effect CHF, Renal failure, Afib, Therapy/Recovery hypertension PT-OP-C Subjective Start: 03/31/21 15:30 Freq: Status: Active Protocol: Document 04/21/21 09:01 AMB (Rec: 04/21/21 09:39 AMB [id number]) OP-PT Subjective Patient Comments Patient Comments Pt feels like she's improving, better with not twisting to get into and out of the car. PT-OP-D Balance Start: 03/31/21 15:30 Freq: Status: Active Protocol: Document 04/06/21 13:00 AMB (Rec: 04/06/21 16:10 AMB [email or web address]) Balance Tests Single Limb Standing Single Limb- Right 3-5sec Single Limb- Left 3-5 sec PT-OP-G Mobility & Gait Start: 03/31/21 15:30 Freq: Status: Active Protocol: Document 04/06/21 13:00 AMB (Rec: 04/06/21 16:04 AMB [email or web address]) OP Gait Assessment Comments Gait Comments Good step length, but keeps left leg slightly flexed Stair Climbing Evaluation Comments Stair Climbing Comments Ascends and descends alternating gait without need for rail PT-OP-J Posture/Palpation/Skin Start: 03/31/21 15:30 Freq: Status: Active Protocol: Document 04/06/21 13:00 AMB (Rec: 04/06/21 16:04 AMB [email or web address]) Palpation Assessment Location One Palpation Location L ankle Palpation Findings Edema Palpation Details Pitting edema at L ankle- CHF and pt reports she has broken that ankle 2x. Edema into leg and knee as well, but not pitting. PT-OP-K Range of Motion Start: 03/31/21 15:30 Freq: Status: Active Protocol: Document 04/06/21 13:00 AMB (Rec: 04/06/21 16:04 AMB [email or web address]) Knee Goniometric Range of Motion Knee Right Patient Position Supine Flexion Active (degrees) 135 Extension Active (degrees) 0 Left Patient Position Supine Flexion Passive (degrees) 116 Extension Passive (degrees) 9 PT-OP-M Strength Start: 03/31/21 15:30 Freq: Status: Active Protocol: Document 04/06/21 13:00 AMB (Rec: 04/06/21 16:04 AMB [email or web address]) Hip Strength Hip Manual Muscle Testing Right Flexion (L2) 4+ Good+ Extension (S1) 4+ Good+ Abduction 4 Good Adduction 4 Good Left Flexion (L2) 4- Good- Extension (S1) 4- Good- Abduction 4- Good- Adduction 4- Good- Knee Strength Knee Manual Muscle Testing Right Flexion (S2) 4+ Good+ Extension (L3) 4+ Good+ Left Flexion (S2) 4+ Good+ Extension (L3) 4+ Good+ PT-OP-Q Treatments Start: 03/31/21 15:30 Freq: Status: Active Protocol: Document 04/21/21 09:01 AMB (Rec: 04/21/21 09:39 AMB [id number]) Therapeutic Exercises Supine Exercises 2 Supine Exercise Name SLR Reps/Minutes 2x10 Comments cues TA 1 Supine Exercise Name bridges Reps/Minutes 2x10 Sidelying Exercises 2 Sidelying Exercise Name hip abduction Reps/Minutes 2x10 Comments cues to avoid rolling backwards 1 Sidelying Exercise Name clamshell Resistance #2 t band Reps/Minutes 2x10 Comments cue to avoid rolling backwards Standing Exercises 3 Standing Exercise Name calf stretch- on stairs Reps/Minutes 30x2 2 Standing Exercise Name hamstring stretch- on stairs Reps/Minutes 30x4 1 Standing Exercise Name sit to stand Reps/Minutes 10 Comments with cues for alignment PT-OP-T Assessment and Plan Start: 03/31/21 15:30 Freq: Status: Active Protocol: Document 04/21/21 09:01 AMB (Rec: 04/21/21 09:39 AMB [id number]) Physical Therapy Assessment Goals Two Impairment Gait Short Term Goal (STG) Rashida will ambulate in the community over uneven terrain for 30 minutes without an increase in L knee pain. STG Duration 4 weeks Bus Boy Goal (LTG) Rashida will ascend and descend a flight of stairs without knee pain. LTG Duration 8 weeks One Impairment ROM Short Term Goal (STG) Rashida will improve her knee extension to lacking 4 degrees or less. STG Duration 4 weeks Custodial Goal (LTG) Rashida will improve her knee flexion to actively 130 degrees. LTG Duration 8 weeks Assessment Summary Assessment Swelling better at knee this week, so retaped. Eccentric control of stairs still challenging but improving. Physical Therapy Plan Next Visit Focus/Plan Next Note Type Treatment Note Next Visit Plan Continue to progress hip strengthening and discuss alignment. Follow up on tolerance to HEP: sit to stand, hip abd, clamshell, hamstring stretch, calf stretch
--- NOTE | 2021-04-25 10:20 | PT.OTN ---
Current Diagnoses Pain in left knee (04/25/21) Physical Therapy Treatment Note PT-OP-A Visit Information Start: 03/31/21 15:30 Freq: Status: Active Protocol: Document 04/25/21 09:33 MA (Rec: 04/25/21 10:18 MA [id number]) Out-Patient Physical Therapy Visit Information Visit Information Visit Type Treatment Note Visit Start Time 09:30 Visit Stop Time 10:10 Total Visit Minutes 40 Visit Number 5 Number of DESIGN CONSULTANT Visits 1 PT-OP-B Current Condition Start: 03/31/21 15:30 Freq: Status: Active Protocol: Document 04/06/21 13:00 AMB (Rec: 04/06/21 13:14 AMB [id number]) Current Condition History of Current Condition Onset Date January 2021 Current Complaints L knee pain History of Current Condition Whole L leg is more swollen than R. Does have CHF so watches swelling a lot. Just got back from the motorhome and wasn't walking and it has been worse. Stairs are quite uncomfortable. 3STE, with living on one level but does have a second floor. [place] are challenging. Stamina is a challenge with CHF and afib. A bit of concern about balance, no falls in the last 6 months. Prior Functional Status Baseline Function- ADL's Independent Baseline Function- Mobility Independent Current Functional Impairments (Reported) Functional Limitations- ADL's Left knee pain limits stairs Personal Factors Other Personal Factors That May Effect CHF, Renal failure, Afib, Therapy/Recovery hypertension PT-OP-C Subjective Start: 03/31/21 15:30 Freq: Status: Active Protocol: Document 04/25/21 09:33 MA (Rec: 04/25/21 10:18 MA [id number]) OP-PT Subjective Patient Comments Patient Comments I am tighter than normal and am really retaining water today PT-OP-D Balance Start: 03/31/21 15:30 Freq: Status: Active Protocol: Document 04/06/21 13:00 AMB (Rec: 04/06/21 16:10 AMB [email or web address]) Balance Tests Single Limb Standing Single Limb- Right 3-5sec Single Limb- Left 3-5 sec PT-OP-G Mobility & Gait Start: 03/31/21 15:30 Freq: Status: Active Protocol: Document 04/06/21 13:00 AMB (Rec: 04/06/21 16:04 AMB [email or web address]) OP Gait Assessment Comments Gait Comments Good step length, but keeps left leg slightly flexed Stair Climbing Evaluation Comments Stair Climbing Comments Ascends and descends alternating gait without need for rail PT-OP-J Posture/Palpation/Skin Start: 03/31/21 15:30 Freq: Status: Active Protocol: Document 04/06/21 13:00 AMB (Rec: 04/06/21 16:04 AMB [email or web address]) Palpation Assessment Location One Palpation Location L ankle Palpation Findings Edema Palpation Details Pitting edema at L ankle- CHF and pt reports she has broken that ankle 2x. Edema into leg and knee as well, but not pitting. PT-OP-K Range of Motion Start: 03/31/21 15:30 Freq: Status: Active Protocol: Document 04/06/21 13:00 AMB (Rec: 04/06/21 16:04 AMB [email or web address]) Knee Goniometric Range of Motion Knee Right Patient Position Supine Flexion Active (degrees) 135 Extension Active (degrees) 0 Left Patient Position Supine Flexion Passive (degrees) 116 Extension Passive (degrees) 9 PT-OP-M Strength Start: 03/31/21 15:30 Freq: Status: Active Protocol: Document 04/06/21 13:00 AMB (Rec: 04/06/21 16:04 AMB [email or web address]) Hip Strength Hip Manual Muscle Testing Right Flexion (L2) 4+ Good+ Extension (S1) 4+ Good+ Abduction 4 Good Adduction 4 Good Left Flexion (L2) 4- Good- Extension (S1) 4- Good- Abduction 4- Good- Adduction 4- Good- Knee Strength Knee Manual Muscle Testing Right Flexion (S2) 4+ Good+ Extension (L3) 4+ Good+ Left Flexion (S2) 4+ Good+ Extension (L3) 4+ Good+ PT-OP-Q Treatments Start: 03/31/21 15:30 Freq: Status: Active Protocol: Document 04/25/21 09:33 MA (Rec: 04/25/21 10:18 MA [id number]) Therapeutic Exercises Supine Exercises 2 Supine Exercise Name SLR Reps/Minutes 2x10 Comments cues TA 1 Supine Exercise Name bridges Reps/Minutes 2x10 Sidelying Exercises 2 Sidelying Exercise Name hip abduction Reps/Minutes 2x10 Comments cues to avoid rolling backwards 1 Sidelying Exercise Name clamshell Resistance #2 t band Reps/Minutes 2x10 Comments cue to avoid rolling backwards Sitting Exercises Stretch Sitting Exercise Name Calf/HS stretch with legs extended infront of pt Side bilateral Reps/Minutes 2x30 Comments cues to keep toes pointing up Standing Exercises 3 Standing Exercise Name calf stretch- on stairs Reps/Minutes 30x2 2 Standing Exercise Name hamstring stretch- on stairs Reps/Minutes 30x4 1 Standing Exercise Name sit to stand Resistance lvl 2 TB Reps/Minutes 10 Comments with cues for alignment- added TB around knees Gait Training Gait Activity Stairs Device Used Left rail Distance/Duration 2x 4 steps Comments pt has less LLE pain when descending after stretching Manual Therapy Treatment Taping 1 Body Location L knee Type of Tape Kinesio Tape Comments 2 I strips PT-OP-T Assessment and Plan Start: 03/31/21 15:30 Freq: Status: Active Protocol: Document 04/25/21 09:33 MA (Rec: 04/25/21 10:18 MA [id number]) Physical Therapy Assessment Goals Two Impairment Gait Short Term Goal (STG) Rashida will ambulate in the community over uneven terrain for 30 minutes without an increase in L knee pain. STG Duration 4 weeks Senior Manufacturing Technician Goal (LTG) Rashida will ascend and descend a flight of stairs without knee pain. LTG Duration 8 weeks One Impairment ROM Short Term Goal (STG) Rashida will improve her knee extension to lacking 4 degrees or less. STG Duration 4 weeks Nursing Home Goal (LTG) Rashida will improve her knee flexion to actively 130 degrees. LTG Duration 8 weeks Assessment Summary Assessment Rashida feels she is improving since starting therapy. Accordint to pt, her water weight is high today and she feels the tape helps a lot with the swelling and pain around her L knee. Retaped pt with two I-strips and worked on stretching L calf/HS. Pt feels stair training went smoother after stretching and it hurt less to descend after she warmed up. Pt tends to adduct LEs when sitting. Added theraband around quads as reminder to keep knees abducted during sit<>stands. Physical Therapy Plan Frequency and Duration Frequency of Treatment 2x/Week Duration of Treatment 8 weeks Plan of Care Start Date 04/06/21 Plan of Care End Date 06/01/21 Therapeutic Interventions Therapeutic Interventions Gait Training,Home Exercise Program,Joint Mobilizations, Manual Therapy,Neuromuscular Re-education,Self-Care/Home Management,Therapeutic Activities,Therapeutic Exercises Modalities Cold Pack/Ice Massage,Electric Stimulation,Hot Packs Next Visit Focus/Plan Next Note Type Treatment Note Next Visit Plan TB around quads for sit<> stands as external cue to avoid adduction Continue to progress hip strengthening and discuss alignment. Follow up on tolerance to HEP: sit to stand, hip abd, clamshell, hamstring stretch, calf stretch
--- NOTE | 2021-04-27 15:32 | PT.OTN ---
Current Diagnoses Pain in left knee (04/27/21) Physical Therapy Treatment Note PT-OP-A Visit Information Start: 03/31/21 15:30 Freq: Status: Active Protocol: Document 04/27/21 14:33 AMB (Rec: 04/27/21 15:32 AMB [id number]) Out-Patient Physical Therapy Visit Information Visit Information Visit Type Treatment Note Visit Start Time 14:30 Visit Stop Time 15:15 Total Visit Minutes 45 Visit Number 6 PT-OP-B Current Condition Start: 03/31/21 15:30 Freq: Status: Active Protocol: Document 04/06/21 13:00 AMB (Rec: 04/06/21 13:14 AMB [id number]) Current Condition History of Current Condition Onset Date January 2021 Current Complaints L knee pain History of Current Condition Whole L leg is more swollen than R. Does have CHF so watches swelling a lot. Just got back from the motorhome and wasn't walking and it has been worse. Stairs are quite uncomfortable. 3STE, with living on one level but does have a second floor. [place] are challenging. Stamina is a challenge with CHF and afib. A bit of concern about balance, no falls in the last 6 months. Prior Functional Status Baseline Function- ADL's Independent Baseline Function- Mobility Independent Current Functional Impairments (Reported) Functional Limitations- ADL's Left knee pain limits stairs Personal Factors Other Personal Factors That May Effect CHF, Renal failure, Afib, Therapy/Recovery hypertension PT-OP-C Subjective Start: 03/31/21 15:30 Freq: Status: Active Protocol: Document 04/27/21 14:33 AMB (Rec: 04/27/21 15:32 AMB [id number]) OP-PT Subjective Patient Comments Patient Comments Overall feeling better, stretching before I do the stairs is helpful. PT-OP-D Balance Start: 03/31/21 15:30 Freq: Status: Active Protocol: Document 04/06/21 13:00 AMB (Rec: 04/06/21 16:10 AMB [email or web address]) Balance Tests Single Limb Standing Single Limb- Right 3-5sec Single Limb- Left 3-5 sec PT-OP-G Mobility & Gait Start: 03/31/21 15:30 Freq: Status: Active Protocol: Document 04/06/21 13:00 AMB (Rec: 04/06/21 16:04 AMB [email or web address]) OP Gait Assessment Comments Gait Comments Good step length, but keeps left leg slightly flexed Stair Climbing Evaluation Comments Stair Climbing Comments Ascends and descends alternating gait without need for rail PT-OP-J Posture/Palpation/Skin Start: 03/31/21 15:30 Freq: Status: Active Protocol: Document 04/06/21 13:00 AMB (Rec: 04/06/21 16:04 AMB [email or web address]) Palpation Assessment Location One Palpation Location L ankle Palpation Findings Edema Palpation Details Pitting edema at L ankle- CHF and pt reports she has broken that ankle 2x. Edema into leg and knee as well, but not pitting. PT-OP-K Range of Motion Start: 03/31/21 15:30 Freq: Status: Active Protocol: Document 04/06/21 13:00 AMB (Rec: 04/06/21 16:04 AMB [email or web address]) Knee Goniometric Range of Motion Knee Right Patient Position Supine Flexion Active (degrees) 135 Extension Active (degrees) 0 Left Patient Position Supine Flexion Passive (degrees) 116 Extension Passive (degrees) 9 PT-OP-M Strength Start: 03/31/21 15:30 Freq: Status: Active Protocol: Document 04/06/21 13:00 AMB (Rec: 04/06/21 16:04 AMB [email or web address]) Hip Strength Hip Manual Muscle Testing Right Flexion (L2) 4+ Good+ Extension (S1) 4+ Good+ Abduction 4 Good Adduction 4 Good Left Flexion (L2) 4- Good- Extension (S1) 4- Good- Abduction 4- Good- Adduction 4- Good- Knee Strength Knee Manual Muscle Testing Right Flexion (S2) 4+ Good+ Extension (L3) 4+ Good+ Left Flexion (S2) 4+ Good+ Extension (L3) 4+ Good+ PT-OP-Q Treatments Start: 03/31/21 15:30 Freq: Status: Active Protocol: Document 04/27/21 14:33 AMB (Rec: 04/27/21 15:32 AMB [id number]) Cardio Equipment Recumbent Stepper (Sci-Fit) Duration (Minutes) 5 Resistance 1.5 Therapeutic Exercises Supine Exercises 2 Supine Exercise Name SLR Reps/Minutes 2x10 Comments cues TA 1 Supine Exercise Name bridges Reps/Minutes 2x10 Standing Exercises 4 Standing Exercise Name hip abduction and extension Reps/Minutes 2x10 Comments #2 t band 3 Standing Exercise Name calf stretch- on stairs Reps/Minutes 30x2 2 Standing Exercise Name hamstring stretch- on stairs Reps/Minutes 30x4 1 Standing Exercise Name sit to stand Resistance lvl 2 TB Reps/Minutes 10 Comments with cues for alignment- added TB around knees Manual Therapy Treatment Taping 1 Body Location L knee Type of Tape Kinesio Tape Comments 2 I strips PT-OP-T Assessment and Plan Start: 03/31/21 15:30 Freq: Status: Active Protocol: Document 04/27/21 14:33 AMB (Rec: 04/27/21 15:32 AMB [id number]) Physical Therapy Assessment Goals Two Impairment Gait Short Term Goal (STG) Rashida will ambulate in the community over uneven terrain for 30 minutes without an increase in L knee pain. STG Duration 4 weeks Story Editor Goal (LTG) Rashida will ascend and descend a flight of stairs without knee pain. LTG Duration 8 weeks One Impairment ROM Short Term Goal (STG) Rashida will improve her knee extension to lacking 4 degrees or less. STG Duration 4 weeks Story Editor Goal (LTG) Rashida will improve her knee flexion to actively 130 degrees. LTG Duration 8 weeks Assessment Summary Assessment Pt was fatigued after last visit, but did well today, continues to need reminders regarding genu valgus. Has had to take diuretics 3 days. Asked to ice knee to see if that helps with knee swelling. Physical Therapy Plan Next Visit Focus/Plan Next Note Type Treatment Note Next Visit Plan TB around quads for sit<> stands as external cue to avoid adduction Continue to progress hip strengthening and discuss alignment. Follow up on tolerance to HEP: sit to stand, hip abd, clamshell, hamstring stretch, calf stretch
--- NOTE | 2021-05-03 10:57 | PT.OTN ---
Current Diagnoses Pain in left knee (05/03/21) Physical Therapy Treatment Note PT-OP-A Visit Information Start: 03/31/21 15:30 Freq: Status: Active Protocol: Document 05/03/21 09:45 AMB (Rec: 05/03/21 10:57 AMB [email or web address]) Out-Patient Physical Therapy Visit Information Visit Information Visit Type Treatment Note Visit Start Time 09:45 Visit Stop Time 10:30 Total Visit Minutes 45 Visit Number 7 PT-OP-B Current Condition Start: 03/31/21 15:30 Freq: Status: Active Protocol: Document 04/06/21 13:00 AMB (Rec: 04/06/21 13:14 AMB [id number]) Current Condition History of Current Condition Onset Date January 2021 Current Complaints L knee pain History of Current Condition Whole L leg is more swollen than R. Does have CHF so watches swelling a lot. Just got back from the motorhome and wasn't walking and it has been worse. Stairs are quite uncomfortable. 3STE, with living on one level but does have a second floor. [place] are challenging. Stamina is a challenge with CHF and afib. A bit of concern about balance, no falls in the last 6 months. Prior Functional Status Baseline Function- ADL's Independent Baseline Function- Mobility Independent Current Functional Impairments (Reported) Functional Limitations- ADL's Left knee pain limits stairs Personal Factors Other Personal Factors That May Effect CHF, Renal failure, Afib, Therapy/Recovery hypertension PT-OP-C Subjective Start: 03/31/21 15:30 Freq: Status: Active Protocol: Document 05/03/21 09:45 AMB (Rec: 05/03/21 10:57 AMB [email or web address]) OP-PT Subjective Patient Comments Patient Comments Feeling stiff this morning PT-OP-D Balance Start: 03/31/21 15:30 Freq: Status: Active Protocol: Document 04/06/21 13:00 AMB (Rec: 04/06/21 16:10 AMB [email or web address]) Balance Tests Single Limb Standing Single Limb- Right 3-5sec Single Limb- Left 3-5 sec PT-OP-G Mobility & Gait Start: 03/31/21 15:30 Freq: Status: Active Protocol: Document 04/06/21 13:00 AMB (Rec: 04/06/21 16:04 AMB [email or web address]) OP Gait Assessment Comments Gait Comments Good step length, but keeps left leg slightly flexed Stair Climbing Evaluation Comments Stair Climbing Comments Ascends and descends alternating gait without need for rail PT-OP-J Posture/Palpation/Skin Start: 03/31/21 15:30 Freq: Status: Active Protocol: Document 05/03/21 09:54 AMB (Rec: 05/03/21 09:55 AMB [id number]) Skin Assessment Other Assessments Skin Assessment Comments 40 R, 42.5 L PT-OP-K Range of Motion Start: 03/31/21 15:30 Freq: Status: Active Protocol: Document 04/06/21 13:00 AMB (Rec: 04/06/21 16:04 AMB [email or web address]) Knee Goniometric Range of Motion Knee Right Patient Position Supine Flexion Active (degrees) 135 Extension Active (degrees) 0 Left Patient Position Supine Flexion Passive (degrees) 116 Extension Passive (degrees) 9 PT-OP-M Strength Start: 03/31/21 15:30 Freq: Status: Active Protocol: Document 04/06/21 13:00 AMB (Rec: 04/06/21 16:04 AMB [email or web address]) Hip Strength Hip Manual Muscle Testing Right Flexion (L2) 4+ Good+ Extension (S1) 4+ Good+ Abduction 4 Good Adduction 4 Good Left Flexion (L2) 4- Good- Extension (S1) 4- Good- Abduction 4- Good- Adduction 4- Good- Knee Strength Knee Manual Muscle Testing Right Flexion (S2) 4+ Good+ Extension (L3) 4+ Good+ Left Flexion (S2) 4+ Good+ Extension (L3) 4+ Good+ PT-OP-Q Treatments Start: 03/31/21 15:30 Freq: Status: Active Protocol: Document 05/03/21 09:45 AMB (Rec: 05/03/21 10:57 AMB [email or web address]) Therapeutic Exercises Supine Exercises 2 Supine Exercise Name SLR Reps/Minutes 2x10 Comments cues TA 1 Supine Exercise Name bridges Reps/Minutes 2x10 Sidelying Exercises 2 Sidelying Exercise Name hip abduction Reps/Minutes 2x10 Comments cues to avoid rolling backwards Standing Exercises 1 Standing Exercise Name sit to stand Resistance lvl 2 TB Reps/Minutes 10 Comments with cues for alignment- added TB around knees Manual Therapy Treatment Soft Tissue Mobilization 1 Body Location posterior knee Mobilization Type Myofascial Release Joint Mobilizations 1 Joint tibiofemoral Direction AP Grade II Taping 1 Body Location L knee Type of Tape Kinesio Tape Comments 2 I strips PT-OP-T Assessment and Plan Start: 03/31/21 15:30 Freq: Status: Active Protocol: Document 05/03/21 09:45 AMB (Rec: 05/03/21 10:57 AMB [email or web address]) Physical Therapy Assessment Goals Two Impairment Gait Short Term Goal (STG) Rashida will ambulate in the community over uneven terrain for 30 minutes without an increase in L knee pain. STG Duration 4 weeks Lmft Goal (LTG) Rashida will ascend and descend a flight of stairs without knee pain. LTG Duration 8 weeks One Impairment ROM Short Term Goal (STG) Rashida will improve her knee extension to lacking 4 degrees or less. STG Duration 4 weeks Lmft Goal (LTG) Rashida will improve her knee flexion to actively 130 degrees. LTG Duration 8 weeks Assessment Summary Assessment Pt with improved knee extension after manual and stretching, really encouraged stretching today, as pt does feel better with walking/ stairs when knee is able to move through it's full ROM. Physical Therapy Plan Next Visit Focus/Plan Next Note Type Treatment Note Next Visit Plan TB around quads for sit<> stands as external cue to avoid adduction Continue to progress hip strengthening and discuss alignment. Follow up on tolerance to HEP: sit to stand, hip abd, clamshell, hamstring stretch, calf stretch
--- NOTE | 2021-05-06 10:29 | PT.OTN ---
Current Diagnoses Pain in left knee (05/06/21) Physical Therapy Treatment Note PT-OP-A Visit Information Start: 03/31/21 15:30 Freq: Status: Active Protocol: Document 05/06/21 09:39 MA (Rec: 05/06/21 10:28 MA [id number]) Out-Patient Physical Therapy Visit Information Visit Information Visit Type Treatment Note Visit Start Time 09:40 Visit Stop Time 10:25 Total Visit Minutes 45 Visit Number 8 Number of MINI LAB OPERATOR Visits 1 PT-OP-B Current Condition Start: 03/31/21 15:30 Freq: Status: Active Protocol: Document 04/06/21 13:00 AMB (Rec: 04/06/21 13:14 AMB [id number]) Current Condition History of Current Condition Onset Date January 2021 Current Complaints L knee pain History of Current Condition Whole L leg is more swollen than R. Does have CHF so watches swelling a lot. Just got back from the motorhome and wasn't walking and it has been worse. Stairs are quite uncomfortable. 3STE, with living on one level but does have a second floor. [place] are challenging. Stamina is a challenge with CHF and afib. A bit of concern about balance, no falls in the last 6 months. Prior Functional Status Baseline Function- ADL's Independent Baseline Function- Mobility Independent Current Functional Impairments (Reported) Functional Limitations- ADL's Left knee pain limits stairs Personal Factors Other Personal Factors That May Effect CHF, Renal failure, Afib, Therapy/Recovery hypertension PT-OP-C Subjective Start: 03/31/21 15:30 Freq: Status: Active Protocol: Document 05/06/21 09:39 MA (Rec: 05/06/21 10:28 MA [id number]) OP-PT Subjective Patient Comments Patient Comments Pt is feeling good this morning and was able to walk down and up her steep driveway PT-OP-D Balance Start: 03/31/21 15:30 Freq: Status: Active Protocol: Document 04/06/21 13:00 AMB (Rec: 04/06/21 16:10 AMB [email or web address]) Balance Tests Single Limb Standing Single Limb- Right 3-5sec Single Limb- Left 3-5 sec PT-OP-G Mobility & Gait Start: 03/31/21 15:30 Freq: Status: Active Protocol: Document 04/06/21 13:00 AMB (Rec: 04/06/21 16:04 AMB [email or web address]) OP Gait Assessment Comments Gait Comments Good step length, but keeps left leg slightly flexed Stair Climbing Evaluation Comments Stair Climbing Comments Ascends and descends alternating gait without need for rail PT-OP-J Posture/Palpation/Skin Start: 03/31/21 15:30 Freq: Status: Active Protocol: Document 05/03/21 09:54 AMB (Rec: 05/03/21 09:55 AMB [id number]) Skin Assessment Other Assessments Skin Assessment Comments 40 R, 42.5 L PT-OP-K Range of Motion Start: 03/31/21 15:30 Freq: Status: Active Protocol: Document 04/06/21 13:00 AMB (Rec: 04/06/21 16:04 AMB [email or web address]) Knee Goniometric Range of Motion Knee Right Patient Position Supine Flexion Active (degrees) 135 Extension Active (degrees) 0 Left Patient Position Supine Flexion Passive (degrees) 116 Extension Passive (degrees) 9 PT-OP-M Strength Start: 03/31/21 15:30 Freq: Status: Active Protocol: Document 04/06/21 13:00 AMB (Rec: 04/06/21 16:04 AMB [email or web address]) Hip Strength Hip Manual Muscle Testing Right Flexion (L2) 4+ Good+ Extension (S1) 4+ Good+ Abduction 4 Good Adduction 4 Good Left Flexion (L2) 4- Good- Extension (S1) 4- Good- Abduction 4- Good- Adduction 4- Good- Knee Strength Knee Manual Muscle Testing Right Flexion (S2) 4+ Good+ Extension (L3) 4+ Good+ Left Flexion (S2) 4+ Good+ Extension (L3) 4+ Good+ PT-OP-Q Treatments Start: 03/31/21 15:30 Freq: Status: Active Protocol: Document 05/06/21 09:39 MA (Rec: 05/06/21 10:28 MA [id number]) Therapeutic Exercises Supine Exercises 2 Supine Exercise Name SLR Reps/Minutes 2x10 Comments cues TA 1 Supine Exercise Name bridges Reps/Minutes 2x10 Sidelying Exercises 2 Sidelying Exercise Name hip abduction Reps/Minutes 2x10 Comments cues to avoid rolling backwards Sitting Exercises Stretch Sitting Exercise Name Calf/HS stretch with legs extended infront of pt Side bilateral Reps/Minutes 2x30 Comments Self-STM with roller to HS and calves Standing Exercises 3 Standing Exercise Name calf stretch- on stairs Reps/Minutes 30x2 2 Standing Exercise Name hamstring stretch- on stairs Reps/Minutes 30x4 1 Standing Exercise Name sit to stand Resistance lvl 2 TB Reps/Minutes 10 Comments with cues for alignment- added TB around knees Manual Therapy Treatment Soft Tissue Mobilization 1 Body Location posterior knee- medial HS Mobilization Type Myofascial Release Taping 1 Body Location L knee Type of Tape Kinesio Tape Comments 2 I strips Other Other Manual Treatments PROM knee extension: contract- relax PT-OP-T Assessment and Plan Start: 03/31/21 15:30 Freq: Status: Active Protocol: Document 05/06/21 09:39 MA (Rec: 05/06/21 10:28 MA [id number]) Physical Therapy Assessment Goals Two Impairment Gait Short Term Goal (STG) Rashida will ambulate in the community over uneven terrain for 30 minutes without an increase in L knee pain. STG Duration 4 weeks Analytical Manager Goal (LTG) Rashida will ascend and descend a flight of stairs without knee pain. LTG Duration 8 weeks One Impairment ROM Short Term Goal (STG) Rashida will improve her knee extension to lacking 4 degrees or less. STG Duration 4 weeks Nursing Home Goal (LTG) Rashida will improve her knee flexion to actively 130 degrees. LTG Duration 8 weeks Assessment Summary Assessment Added self-rolling during seated HS stretch to HEP. Pt is able to increase knee extension to lacking 5 degrees on the L after STM and stretches. Rashida has a hard time relaxing during passive stretching but improves ROM when utilizing contract-relax method. Physical Therapy Plan Frequency and Duration Frequency of Treatment 2x/Week Duration of Treatment 8 weeks Plan of Care Start Date 04/06/21 Plan of Care End Date 06/01/21 Therapeutic Interventions Therapeutic Interventions Gait Training,Home Exercise Program,Joint Mobilizations, Manual Therapy,Neuromuscular Re-education,Self-Care/Home Management,Therapeutic Activities,Therapeutic Exercises Modalities Cold Pack/Ice Massage,Electric Stimulation,Hot Packs Next Visit Focus/Plan Next Note Type Treatment Note Next Visit Plan Assess self-STM with rolling pin during seated HS stretch TB around quads for sit<> stands as external cue to avoid adduction Continue to progress hip strengthening and discuss alignment. Follow up on tolerance to HEP: sit to stand, hip abd, clamshell, hamstring stretch, calf stretch
--- NOTE | 2021-05-10 15:42 | PT.OTN ---
Current Diagnoses Pain in left knee (05/09/21) Physical Therapy Treatment Note PT-OP-A Visit Information Start: 03/31/21 15:30 Freq: Status: Active Protocol: Document 05/09/21 08:15 AMB (Rec: 05/10/21 15:42 AMB [email or web address]) Out-Patient Physical Therapy Visit Information Visit Information Visit Type Treatment Note Visit Start Time 08:15 Visit Stop Time 09:00 Total Visit Minutes 45 Visit Number 9 PT-OP-B Current Condition Start: 03/31/21 15:30 Freq: Status: Active Protocol: Document 04/06/21 13:00 AMB (Rec: 04/06/21 13:14 AMB [id number]) Current Condition History of Current Condition Onset Date January 2021 Current Complaints L knee pain History of Current Condition Whole L leg is more swollen than R. Does have CHF so watches swelling a lot. Just got back from the motorhome and wasn't walking and it has been worse. Stairs are quite uncomfortable. 3STE, with living on one level but does have a second floor. [place] are challenging. Stamina is a challenge with CHF and afib. A bit of concern about balance, no falls in the last 6 months. Prior Functional Status Baseline Function- ADL's Independent Baseline Function- Mobility Independent Current Functional Impairments (Reported) Functional Limitations- ADL's Left knee pain limits stairs Personal Factors Other Personal Factors That May Effect CHF, Renal failure, Afib, Therapy/Recovery hypertension PT-OP-C Subjective Start: 03/31/21 15:30 Freq: Status: Active Protocol: Document 05/09/21 08:15 AMB (Rec: 05/10/21 15:42 AMB [email or web address]) OP-PT Subjective Patient Comments Patient Comments Pt overall feeling better, going on a long car trip for Thanksgiving so wondering how stiffness will do with that. PT-OP-D Balance Start: 03/31/21 15:30 Freq: Status: Active Protocol: Document 04/06/21 13:00 AMB (Rec: 04/06/21 16:10 AMB [email or web address]) Balance Tests Single Limb Standing Single Limb- Right 3-5sec Single Limb- Left 3-5 sec PT-OP-G Mobility & Gait Start: 03/31/21 15:30 Freq: Status: Active Protocol: Document 04/06/21 13:00 AMB (Rec: 04/06/21 16:04 AMB [email or web address]) OP Gait Assessment Comments Gait Comments Good step length, but keeps left leg slightly flexed Stair Climbing Evaluation Comments Stair Climbing Comments Ascends and descends alternating gait without need for rail PT-OP-J Posture/Palpation/Skin Start: 03/31/21 15:30 Freq: Status: Active Protocol: Document 05/03/21 09:54 AMB (Rec: 05/03/21 09:55 AMB [id number]) Skin Assessment Other Assessments Skin Assessment Comments 40 R, 42.5 L PT-OP-K Range of Motion Start: 03/31/21 15:30 Freq: Status: Active Protocol: Document 04/06/21 13:00 AMB (Rec: 04/06/21 16:04 AMB [email or web address]) Knee Goniometric Range of Motion Knee Right Patient Position Supine Flexion Active (degrees) 135 Extension Active (degrees) 0 Left Patient Position Supine Flexion Passive (degrees) 116 Extension Passive (degrees) 9 PT-OP-M Strength Start: 03/31/21 15:30 Freq: Status: Active Protocol: Document 04/06/21 13:00 AMB (Rec: 04/06/21 16:04 AMB [email or web address]) Hip Strength Hip Manual Muscle Testing Right Flexion (L2) 4+ Good+ Extension (S1) 4+ Good+ Abduction 4 Good Adduction 4 Good Left Flexion (L2) 4- Good- Extension (S1) 4- Good- Abduction 4- Good- Adduction 4- Good- Knee Strength Knee Manual Muscle Testing Right Flexion (S2) 4+ Good+ Extension (L3) 4+ Good+ Left Flexion (S2) 4+ Good+ Extension (L3) 4+ Good+ PT-OP-Q Treatments Start: 03/31/21 15:30 Freq: Status: Active Protocol: Document 05/09/21 08:15 AMB (Rec: 05/10/21 15:42 AMB [email or web address]) Therapeutic Exercises Supine Exercises 2 Supine Exercise Name SLR Reps/Minutes 2x10 Comments cues TA 1 Supine Exercise Name bridges Reps/Minutes 2x10 Sitting Exercises Stretch Sitting Exercise Name Calf/HS stretch with legs extended infront of pt Side bilateral Reps/Minutes 2x30 Comments Self-STM with roller to HS and calves Standing Exercises 3 Standing Exercise Name calf stretch- on stairs Reps/Minutes 30x2 2 Standing Exercise Name hamstring stretch- on stairs Reps/Minutes 30x4 1 Standing Exercise Name sit to stand Resistance lvl 2 TB Reps/Minutes 10 Comments with cues for alignment- added TB around knees Manual Therapy Treatment Soft Tissue Mobilization 1 Body Location posterior knee- medial HS Mobilization Type Myofascial Release PT-OP-T Assessment and Plan Start: 03/31/21 15:30 Freq: Status: Active Protocol: Document 05/09/21 08:15 AMB (Rec: 05/10/21 15:42 AMB [email or web address]) Physical Therapy Assessment Goals Two Impairment Gait Short Term Goal (STG) Rashida will ambulate in the community over uneven terrain for 30 minutes without an increase in L knee pain. STG Duration 4 weeks Form Stripper Goal (LTG) Rashida will ascend and descend a flight of stairs without knee pain. LTG Duration 8 weeks One Impairment ROM Short Term Goal (STG) Rashida will improve her knee extension to lacking 4 degrees or less. STG Duration MET Form Stripper Goal (LTG) Rashida will improve her knee flexion to actively 130 degrees. LTG Duration 8 weeks Assessment Summary Assessment Rashida was able to better actively extend her knee today , although did have pain with flexion after working on terminal extension. Would recommend pt continue to move knee consistently while she is in the car. Physical Therapy Plan Next Visit Focus/Plan Next Note Type Treatment Note Next Visit Plan TB around quads for sit<> stands as external cue to avoid adduction Continue to progress hip strengthening and discuss alignment. Follow up on tolerance to HEP: sit to stand, hip abd, clamshell, hamstring stretch, calf stretch
--- NOTE | 2021-05-17 15:39 | PT.OTN ---
Current Diagnoses Pain in left knee (05/17/21) Physical Therapy Treatment Note PT-OP-A Visit Information Start: 03/31/21 15:30 Freq: Status: Active Protocol: Document 05/17/21 09:45 AMB (Rec: 05/17/21 15:34 AMB [email or web address]) Out-Patient Physical Therapy Visit Information Visit Information Visit Type Progress Note Visit Start Time 09:45 Visit Stop Time 10:30 Total Visit Minutes 45 Visit Number 10 PT-OP-B Current Condition Start: 03/31/21 15:30 Freq: Status: Active Protocol: Document 04/06/21 13:00 AMB (Rec: 04/06/21 13:14 AMB [id number]) Current Condition History of Current Condition Onset Date January 2021 Current Complaints L knee pain History of Current Condition Whole L leg is more swollen than R. Does have CHF so watches swelling a lot. Just got back from the motorhome and wasn't walking and it has been worse. Stairs are quite uncomfortable. 3STE, with living on one level but does have a second floor. [place] are challenging. Stamina is a challenge with CHF and afib. A bit of concern about balance, no falls in the last 6 months. Prior Functional Status Baseline Function- ADL's Independent Baseline Function- Mobility Independent Current Functional Impairments (Reported) Functional Limitations- ADL's Left knee pain limits stairs Personal Factors Other Personal Factors That May Effect CHF, Renal failure, Afib, Therapy/Recovery hypertension PT-OP-C Subjective Start: 03/31/21 15:30 Freq: Status: Active Protocol: Document 05/17/21 09:45 AMB (Rec: 05/17/21 15:34 AMB [email or web address]) OP-PT Subjective Patient Comments Patient Comments Pt does continue to note stiffness when leg extended but otherwise feels like walking and stairs are going better. Did get tired over but did a lot of shopping with her DIL and that went fine. PT-OP-D Balance Start: 03/31/21 15:30 Freq: Status: Active Protocol: Document 04/06/21 13:00 AMB (Rec: 04/06/21 16:10 AMB [email or web address]) Balance Tests Single Limb Standing Single Limb- Right 3-5sec Single Limb- Left 3-5 sec PT-OP-G Mobility & Gait Start: 03/31/21 15:30 Freq: Status: Active Protocol: Document 04/06/21 13:00 AMB (Rec: 04/06/21 16:04 AMB [email or web address]) OP Gait Assessment Comments Gait Comments Good step length, but keeps left leg slightly flexed Stair Climbing Evaluation Comments Stair Climbing Comments Ascends and descends alternating gait without need for rail PT-OP-J Posture/Palpation/Skin Start: 03/31/21 15:30 Freq: Status: Active Protocol: Document 05/03/21 09:54 AMB (Rec: 05/03/21 09:55 AMB [id number]) Skin Assessment Other Assessments Skin Assessment Comments 40 R, 42.5 L PT-OP-K Range of Motion Start: 03/31/21 15:30 Freq: Status: Active Protocol: Document 04/06/21 13:00 AMB (Rec: 04/06/21 16:04 AMB [email or web address]) Knee Goniometric Range of Motion Knee Right Patient Position Supine Flexion Active (degrees) 135 Extension Active (degrees) 0 Left Patient Position Supine Flexion Passive (degrees) 116 Extension Passive (degrees) 9 PT-OP-M Strength Start: 03/31/21 15:30 Freq: Status: Active Protocol: Document 04/06/21 13:00 AMB (Rec: 04/06/21 16:04 AMB [email or web address]) Hip Strength Hip Manual Muscle Testing Right Flexion (L2) 4+ Good+ Extension (S1) 4+ Good+ Abduction 4 Good Adduction 4 Good Left Flexion (L2) 4- Good- Extension (S1) 4- Good- Abduction 4- Good- Adduction 4- Good- Knee Strength Knee Manual Muscle Testing Right Flexion (S2) 4+ Good+ Extension (L3) 4+ Good+ Left Flexion (S2) 4+ Good+ Extension (L3) 4+ Good+ PT-OP-Q Treatments Start: 03/31/21 15:30 Freq: Status: Active Protocol: Document 05/17/21 09:48 AMB (Rec: 05/17/21 10:18 AMB [id number]) Therapeutic Exercises Supine Exercises 2 Supine Exercise Name SLR Reps/Minutes 2x10 Comments cues TA 1 Supine Exercise Name bridges Reps/Minutes 2x10 Sidelying Exercises 2 Sidelying Exercise Name hip abduction Reps/Minutes 2x10 Comments cues to avoid rolling backwards 1 Sidelying Exercise Name clamshell Resistance #2 t band Reps/Minutes 2x10 Comments cue to avoid rolling backwards Standing Exercises 3 Standing Exercise Name calf stretch- on stairs Reps/Minutes 30x2 2 Standing Exercise Name hamstring stretch- on stairs Reps/Minutes 30x4 1 Standing Exercise Name sit to stand Resistance lvl 2 TB Reps/Minutes 10 Comments with cues for alignment- added TB around knees Manual Therapy Treatment Soft Tissue Mobilization 1 Body Location posterior knee- medial and lateral HS Mobilization Type Myofascial Release PT-OP-T Assessment and Plan Start: 03/31/21 15:30 Freq: Status: Active Protocol: Document 05/17/21 09:48 AMB (Rec: 05/17/21 10:18 AMB [id number]) Physical Therapy Assessment Goals Two Impairment Gait Short Term Goal (STG) Rashida will ambulate in the community over uneven terrain for 30 minutes without an increase in L knee pain. STG Duration 4 weeks Jail Goal (LTG) Rashida will ascend and descend a flight of stairs without knee pain. LTG Duration 8 weeks One Impairment ROM Short Term Goal (STG) Rashida will improve her knee extension to lacking 4 degrees or less. STG Duration MET Jail Goal (LTG) Rashida will improve her knee flexion to actively 130 degrees. LTG Duration MET Assessment Summary Assessment Rashida is doing well. Discussed if she continues to do well may not need all appts that are currently scheduled, but let's wait and see how she does before changing schedule. ROM is improving, pt is doing HEP. But can get pain at end range extension. Physical Therapy Plan Next Visit Focus/Plan Next Note Type Treatment Note Next Visit Plan HEP: sit to stand, hip abd, clamshell, hamstring stretch, calf stretch, follow up on swelling
--- NOTE | 2021-05-20 10:27 | PT.OTN ---
Current Diagnoses Pain in left knee (05/20/21) Physical Therapy Treatment Note PT-OP-A Visit Information Start: 03/31/21 15:30 Freq: Status: Active Protocol: Document 05/20/21 09:48 MA (Rec: 05/20/21 10:27 MA [id number]) Out-Patient Physical Therapy Visit Information Visit Information Visit Type Treatment Note Visit Start Time 09:45 Visit Stop Time 10:33 Total Visit Minutes 48 Visit Number 11 Number of ORTHODONTIST ASSISTANT Visits 1 PT-OP-B Current Condition Start: 03/31/21 15:30 Freq: Status: Active Protocol: Document 04/06/21 13:00 AMB (Rec: 04/06/21 13:14 AMB [id number]) Current Condition History of Current Condition Onset Date January 2021 Current Complaints L knee pain History of Current Condition Whole L leg is more swollen than R. Does have CHF so watches swelling a lot. Just got back from the motorhome and wasn't walking and it has been worse. Stairs are quite uncomfortable. 3STE, with living on one level but does have a second floor. [place] are challenging. Stamina is a challenge with CHF and afib. A bit of concern about balance, no falls in the last 6 months. Prior Functional Status Baseline Function- ADL's Independent Baseline Function- Mobility Independent Current Functional Impairments (Reported) Functional Limitations- ADL's Left knee pain limits stairs Personal Factors Other Personal Factors That May Effect CHF, Renal failure, Afib, Therapy/Recovery hypertension PT-OP-C Subjective Start: 03/31/21 15:30 Freq: Status: Active Protocol: Document 05/20/21 09:48 MA (Rec: 05/20/21 10:27 MA [id number]) OP-PT Subjective Patient Comments Patient Comments Pt feels her knee has improved greatly and she walked around for awhile this morning before starting to feel any pain PT-OP-D Balance Start: 03/31/21 15:30 Freq: Status: Active Protocol: Document 04/06/21 13:00 AMB (Rec: 04/06/21 16:10 AMB [email or web address]) Balance Tests Single Limb Standing Single Limb- Right 3-5sec Single Limb- Left 3-5 sec PT-OP-G Mobility & Gait Start: 03/31/21 15:30 Freq: Status: Active Protocol: Document 04/06/21 13:00 AMB (Rec: 04/06/21 16:04 AMB [email or web address]) OP Gait Assessment Comments Gait Comments Good step length, but keeps left leg slightly flexed Stair Climbing Evaluation Comments Stair Climbing Comments Ascends and descends alternating gait without need for rail PT-OP-J Posture/Palpation/Skin Start: 03/31/21 15:30 Freq: Status: Active Protocol: Document 05/03/21 09:54 AMB (Rec: 05/03/21 09:55 AMB [id number]) Skin Assessment Other Assessments Skin Assessment Comments 40 R, 42.5 L PT-OP-K Range of Motion Start: 03/31/21 15:30 Freq: Status: Active Protocol: Document 05/17/21 09:45 AMB (Rec: 05/17/21 15:40 AMB [email or web address]) Knee Goniometric Range of Motion Knee Left Flexion Passive (degrees) 130 Extension Passive (degrees) 4 PT-OP-M Strength Start: 03/31/21 15:30 Freq: Status: Active Protocol: Document 04/06/21 13:00 AMB (Rec: 04/06/21 16:04 AMB [email or web address]) Hip Strength Hip Manual Muscle Testing Right Flexion (L2) 4+ Good+ Extension (S1) 4+ Good+ Abduction 4 Good Adduction 4 Good Left Flexion (L2) 4- Good- Extension (S1) 4- Good- Abduction 4- Good- Adduction 4- Good- Knee Strength Knee Manual Muscle Testing Right Flexion (S2) 4+ Good+ Extension (L3) 4+ Good+ Left Flexion (S2) 4+ Good+ Extension (L3) 4+ Good+ PT-OP-Q Treatments Start: 03/31/21 15:30 Freq: Status: Active Protocol: Document 05/20/21 09:48 MA (Rec: 05/20/21 10:27 MA [id number]) Therapeutic Exercises Supine Exercises 2 Supine Exercise Name SLR Reps/Minutes 2x10 Comments cues TA 1 Supine Exercise Name bridges Reps/Minutes 2x10 Sidelying Exercises 2 Sidelying Exercise Name hip abduction Reps/Minutes 2x10 Comments cues to avoid rolling backwards 1 Sidelying Exercise Name clamshell Resistance #2 t band Reps/Minutes 2x10 Comments cue to avoid rolling backwards Standing Exercises TKE Standing Exercise Name total knee extension Equipment Used lvl 2 TB Reps/Minutes 2x10 Comments added to HEP 3 Standing Exercise Name calf stretch- on stairs Reps/Minutes 30x2 2 Standing Exercise Name hamstring stretch- on stairs Reps/Minutes 30x4 1 Standing Exercise Name sit to stand Resistance lvl 2 TB- no band this session Reps/Minutes 10 Comments with cues for alignment- added TB around knees Manual Therapy Treatment Soft Tissue Mobilization 1 Body Location posterior knee- medial and lateral HS Mobilization Type Myofascial Release Comments gastroc and HS this session PT-OP-R Modalities Start: 03/31/21 15:30 Freq: Status: Active Protocol: Document 05/20/21 09:48 MA (Rec: 05/20/21 10:27 MA [id number]) Hot Pack/Cold Pack Treatment Cold Pack Location L knee Patient Position Supine Treatment Duration (minutes) 10 Patient Tolerance Good PT-OP-T Assessment and Plan Start: 03/31/21 15:30 Freq: Status: Active Protocol: Document 05/20/21 09:48 MA (Rec: 05/20/21 10:27 MA [id number]) Physical Therapy Assessment Goals Two Impairment Gait Short Term Goal (STG) Rashida will ambulate in the community over uneven terrain for 30 minutes without an increase in L knee pain. STG Duration 4 weeks Proposal Engineer Goal (LTG) Rashida will ascend and descend a flight of stairs without knee pain. LTG Duration 8 weeks One Impairment ROM Short Term Goal (STG) Rashida will improve her knee extension to lacking 4 degrees or less. STG Duration MET Proposal Engineer Goal (LTG) Rashida will improve her knee flexion to actively 130 degrees. LTG Duration MET Assessment Summary Assessment Pt is doing well with her exercises and stretches. She continues to need minor cues for SL abduction and ER exercises to keep hips neutral . Added TKE to HEP with pt stating she feels like she is able to stretch HS better on stair after completing TKE exercise. Pt's swelling has greatly improved around L knee but pt requested ending with ice at end of session while she was here before running errands. Physical Therapy Plan Frequency and Duration Frequency of Treatment 2x/Week Duration of Treatment 8 weeks Plan of Care Start Date 04/06/21 Plan of Care End Date 06/01/21 Therapeutic Interventions Therapeutic Interventions Gait Training,Home Exercise Program,Joint Mobilizations, Manual Therapy,Neuromuscular Re-education,Self-Care/Home Management,Therapeutic Activities,Therapeutic Exercises Modalities Cold Pack/Ice Massage,Electric Stimulation,Hot Packs Next Visit Focus/Plan Next Note Type Treatment Note Next Visit Plan review TKE HEP: sit to stand, hip abd, clamshell, hamstring stretch, calf stretch, follow up on swelling
--- NOTE | 2021-05-24 15:43 | PT.OTN ---
Current Diagnoses Pain in left knee (05/24/21) Physical Therapy Treatment Note PT-OP-A Visit Information Start: 03/31/21 15:30 Freq: Status: Active Protocol: Document 05/24/21 09:45 AMB (Rec: 05/24/21 10:29 AMB [id number]) Out-Patient Physical Therapy Visit Information Visit Information Visit Type Treatment Note Visit Number 12 PT-OP-B Current Condition Start: 03/31/21 15:30 Freq: Status: Active Protocol: Document 04/06/21 13:00 AMB (Rec: 04/06/21 13:14 AMB [id number]) Current Condition History of Current Condition Onset Date January 2021 Current Complaints L knee pain History of Current Condition Whole L leg is more swollen than R. Does have CHF so watches swelling a lot. Just got back from the motorhome and wasn't walking and it has been worse. Stairs are quite uncomfortable. 3STE, with living on one level but does have a second floor. [place] are challenging. Stamina is a challenge with CHF and afib. A bit of concern about balance, no falls in the last 6 months. Prior Functional Status Baseline Function- ADL's Independent Baseline Function- Mobility Independent Current Functional Impairments (Reported) Functional Limitations- ADL's Left knee pain limits stairs Personal Factors Other Personal Factors That May Effect CHF, Renal failure, Afib, Therapy/Recovery hypertension PT-OP-C Subjective Start: 03/31/21 15:30 Freq: Status: Active Protocol: Document 05/24/21 09:45 AMB (Rec: 05/24/21 15:39 AMB [email or web address]) OP-PT Subjective Patient Comments Patient Comments Rashida is overall doing well, feels better when she's moving PT-OP-D Balance Start: 03/31/21 15:30 Freq: Status: Active Protocol: Document 04/06/21 13:00 AMB (Rec: 04/06/21 16:10 AMB [email or web address]) Balance Tests Single Limb Standing Single Limb- Right 3-5sec Single Limb- Left 3-5 sec PT-OP-G Mobility & Gait Start: 03/31/21 15:30 Freq: Status: Active Protocol: Document 04/06/21 13:00 AMB (Rec: 04/06/21 16:04 AMB [email or web address]) OP Gait Assessment Comments Gait Comments Good step length, but keeps left leg slightly flexed Stair Climbing Evaluation Comments Stair Climbing Comments Ascends and descends alternating gait without need for rail PT-OP-J Posture/Palpation/Skin Start: 03/31/21 15:30 Freq: Status: Active Protocol: Document 05/03/21 09:54 AMB (Rec: 05/03/21 09:55 AMB [id number]) Skin Assessment Other Assessments Skin Assessment Comments 40 R, 42.5 L PT-OP-K Range of Motion Start: 03/31/21 15:30 Freq: Status: Active Protocol: Document 05/17/21 09:45 AMB (Rec: 05/17/21 15:40 AMB [email or web address]) Knee Goniometric Range of Motion Knee Left Flexion Passive (degrees) 130 Extension Passive (degrees) 4 PT-OP-M Strength Start: 03/31/21 15:30 Freq: Status: Active Protocol: Document 04/06/21 13:00 AMB (Rec: 04/06/21 16:04 AMB [email or web address]) Hip Strength Hip Manual Muscle Testing Right Flexion (L2) 4+ Good+ Extension (S1) 4+ Good+ Abduction 4 Good Adduction 4 Good Left Flexion (L2) 4- Good- Extension (S1) 4- Good- Abduction 4- Good- Adduction 4- Good- Knee Strength Knee Manual Muscle Testing Right Flexion (S2) 4+ Good+ Extension (L3) 4+ Good+ Left Flexion (S2) 4+ Good+ Extension (L3) 4+ Good+ PT-OP-Q Treatments Start: 03/31/21 15:30 Freq: Status: Active Protocol: Document 05/24/21 09:45 AMB (Rec: 05/24/21 10:29 AMB [id number]) Therapeutic Exercises Supine Exercises 2 Supine Exercise Name SLR Reps/Minutes 2x10 Comments cues TA 1 Supine Exercise Name bridges Reps/Minutes 2x10 Standing Exercises TKE Standing Exercise Name total knee extension Equipment Used lvl 2 TB Reps/Minutes 2x10 Comments added to HEP 3 Standing Exercise Name calf stretch- on stairs Reps/Minutes 30x2 2 Standing Exercise Name hamstring stretch- on stairs Reps/Minutes 30x4 1 Standing Exercise Name sit to stand Resistance lvl 2 TB- no band this session Reps/Minutes 10 Comments with cues for alignment- added TB around knees Manual Therapy Treatment Soft Tissue Mobilization 1 Body Location posterior knee- medial and lateral HS Mobilization Type Myofascial Release Comments gastroc and HS this session PT-OP-R Modalities Start: 03/31/21 15:30 Freq: Status: Active Protocol: Document 05/20/21 09:48 MA (Rec: 05/20/21 10:27 MA [id number]) Hot Pack/Cold Pack Treatment Cold Pack Location L knee Patient Position Supine Treatment Duration (minutes) 10 Patient Tolerance Good PT-OP-T Assessment and Plan Start: 03/31/21 15:30 Freq: Status: Active Protocol: Document 05/24/21 09:45 AMB (Rec: 05/24/21 10:29 AMB [id number]) Physical Therapy Assessment Goals Two Impairment Gait Short Term Goal (STG) Rashida will ambulate in the community over uneven terrain for 30 minutes without an increase in L knee pain. STG Duration MET Longterm Goal (LTG) Rashida will ascend and descend a flight of stairs without knee pain. LTG Duration 8 weeks One Impairment ROM Short Term Goal (STG) Rashida will improve her knee extension to lacking 4 degrees or less. STG Duration MET Longterm Goal (LTG) Rashida will improve her knee flexion to actively 130 degrees. LTG Duration MET Assessment Summary Assessment Pt is doing well with stretches, didn't have pain today going down stairs after doing stretches. Physical Therapy Plan Next Visit Focus/Plan Next Note Type Treatment Note Next Visit Plan review TKE standing band exercises HEP: sit to stand, hip abd, clamshell, hamstring stretch, calf stretch,
--- NOTE | 2021-05-31 10:23 | PT.OTN ---
Current Diagnoses Pain in left knee (05/31/21) Physical Therapy Treatment Note PT-OP-A Visit Information Start: 03/31/21 15:30 Freq: Status: Active Protocol: Document 05/31/21 09:45 AMB (Rec: 05/31/21 10:32 AMB [id number]) Out-Patient Physical Therapy Visit Information Visit Information Visit Type Treatment Note Visit Start Time 09:45 Visit Stop Time 10:30 Total Visit Minutes 45 Visit Number 13 PT-OP-B Current Condition Start: 03/31/21 15:30 Freq: Status: Active Protocol: Document 04/06/21 13:00 AMB (Rec: 04/06/21 13:14 AMB [id number]) Current Condition History of Current Condition Onset Date January 2021 Current Complaints L knee pain History of Current Condition Whole L leg is more swollen than R. Does have CHF so watches swelling a lot. Just got back from the motorhome and wasn't walking and it has been worse. Stairs are quite uncomfortable. 3STE, with living on one level but does have a second floor. [place] are challenging. Stamina is a challenge with CHF and afib. A bit of concern about balance, no falls in the last 6 months. Prior Functional Status Baseline Function- ADL's Independent Baseline Function- Mobility Independent Current Functional Impairments (Reported) Functional Limitations- ADL's Left knee pain limits stairs Personal Factors Other Personal Factors That May Effect CHF, Renal failure, Afib, Therapy/Recovery hypertension PT-OP-C Subjective Start: 03/31/21 15:30 Freq: Status: Active Protocol: Document 05/31/21 09:45 AMB (Rec: 05/31/21 16:02 AMB [email or web address]) OP-PT Subjective Patient Comments Patient Comments rashida states she is doing pretty good, wondering if the knee is going to be a little sensitive for a long time at this point. PT-OP-D Balance Start: 03/31/21 15:30 Freq: Status: Active Protocol: Document 04/06/21 13:00 AMB (Rec: 04/06/21 16:10 AMB [email or web address]) Balance Tests Single Limb Standing Single Limb- Right 3-5sec Single Limb- Left 3-5 sec PT-OP-G Mobility & Gait Start: 03/31/21 15:30 Freq: Status: Active Protocol: Document 04/06/21 13:00 AMB (Rec: 04/06/21 16:04 AMB [email or web address]) OP Gait Assessment Comments Gait Comments Good step length, but keeps left leg slightly flexed Stair Climbing Evaluation Comments Stair Climbing Comments Ascends and descends alternating gait without need for rail PT-OP-J Posture/Palpation/Skin Start: 03/31/21 15:30 Freq: Status: Active Protocol: Document 05/03/21 09:54 AMB (Rec: 05/03/21 09:55 AMB [id number]) Skin Assessment Other Assessments Skin Assessment Comments 40 R, 42.5 L PT-OP-K Range of Motion Start: 03/31/21 15:30 Freq: Status: Active Protocol: Document 05/17/21 09:45 AMB (Rec: 05/17/21 15:40 AMB [email or web address]) Knee Goniometric Range of Motion Knee Left Flexion Passive (degrees) 130 Extension Passive (degrees) 4 PT-OP-M Strength Start: 03/31/21 15:30 Freq: Status: Active Protocol: Document 04/06/21 13:00 AMB (Rec: 04/06/21 16:04 AMB [email or web address]) Hip Strength Hip Manual Muscle Testing Right Flexion (L2) 4+ Good+ Extension (S1) 4+ Good+ Abduction 4 Good Adduction 4 Good Left Flexion (L2) 4- Good- Extension (S1) 4- Good- Abduction 4- Good- Adduction 4- Good- Knee Strength Knee Manual Muscle Testing Right Flexion (S2) 4+ Good+ Extension (L3) 4+ Good+ Left Flexion (S2) 4+ Good+ Extension (L3) 4+ Good+ PT-OP-Q Treatments Start: 03/31/21 15:30 Freq: Status: Active Protocol: Document 05/31/21 09:45 AMB (Rec: 06/04/21 10:19 AMB [id number]) Therapeutic Exercises Supine Exercises 2 Supine Exercise Name SLR Reps/Minutes 2x10 Comments cues TA 1 Supine Exercise Name bridges Reps/Minutes 2x10 Sidelying Exercises 2 Sidelying Exercise Name hip abduction Reps/Minutes 2x10 Comments cues to avoid rolling backwards Standing Exercises 3 Standing Exercise Name calf stretch- on stairs Reps/Minutes 30x2 2 Standing Exercise Name hamstring stretch- on stairs Reps/Minutes 30x4 1 Standing Exercise Name sit to stand Resistance lvl 2 TB- no band this session Reps/Minutes 10 Comments with cues for alignment- added TB around knees Manual Therapy Treatment Soft Tissue Mobilization 1 Body Location posterior knee- medial and lateral HS Mobilization Type Myofascial Release Comments gastroc and HS this session PT-OP-R Modalities Start: 03/31/21 15:30 Freq: Status: Active Protocol: Document 05/20/21 09:48 MA (Rec: 05/20/21 10:27 MA [id number]) Hot Pack/Cold Pack Treatment Cold Pack Location L knee Patient Position Supine Treatment Duration (minutes) 10 Patient Tolerance Good PT-OP-T Assessment and Plan Start: 03/31/21 15:30 Freq: Status: Active Protocol: Document 05/31/21 09:45 AMB (Rec: 05/31/21 10:32 AMB [id number]) Physical Therapy Assessment Goals Two Impairment Gait Short Term Goal (STG) Rashida will ambulate in the community over uneven terrain for 30 minutes without an increase in L knee pain. STG Duration MET Skilled Nursing Goal (LTG) Rashida will ascend and descend a flight of stairs without knee pain. LTG Duration 8 weeks One Impairment ROM Short Term Goal (STG) Rashida will improve her knee extension to lacking 4 degrees or less. STG Duration MET Skilled Nursing Goal (LTG) Rashida will improve her knee flexion to actively 130 degrees. LTG Duration MET Assessment Summary Assessment Rashida is planning to do the treadmill as a part of knee feeling better, knee extension is getting better as well. Can be stiff, but as long as she stretches it out it feels a lot better. Stairs can still be tricky, definitely needs to stretch out of else stairs are still painful. Planning on one more visit to finalize HEP, and then Rashida will work on her exercises independently for a few months and then follow up with PCP if sx continue or worsen. Physical Therapy Plan Frequency and Duration Frequency of Treatment 1x/Week Duration of Treatment 2 weeks Plan of Care Start Date 05/31/21 Plan of Care End Date 06/15/21 Therapeutic Interventions Therapeutic Interventions Gait Training,Home Exercise Program,Joint Mobilizations, Manual Therapy,Neuromuscular Re-education,Self-Care/Home Management,Therapeutic Activities,Therapeutic Exercises Modalities Cold Pack/Ice Massage,Electric Stimulation,Hot Packs Next Visit Focus/Plan Next Note Type Treatment Note Next Visit Plan finalize HEP
--- NOTE | 2021-05-31 10:23 | PT.OPPOC ---
Physical, Occupational & Speech Therapy At [facility] Current Diagnoses Pain in left knee (05/31/21) Visit Care Team Role Provider Type Anabell Powell MD Attending Provider Physician Primary Care Provider Referring Provider Specialty: Family Practice Address: [address] [place] [address], [facility] [place], [address] Email: [email or web address] Plan Of Care PT-OP-T Assessment and Plan Start: 03/31/21 15:30 Freq: Status: Active Protocol: Document 05/31/21 09:45 AMB (Rec: 05/31/21 10:32 AMB [id number]) Physical Therapy Assessment Goals Two Impairment Gait Short Term Goal (STG) Rashida will ambulate in the community over uneven terrain for 30 minutes without an increase in L knee pain. STG Duration MET Assisted Goal (LTG) Rashida will ascend and descend a flight of stairs without knee pain. LTG Duration 8 weeks One Impairment ROM Short Term Goal (STG) Rashida will improve her knee extension to lacking 4 degrees or less. STG Duration MET Assisted Goal (LTG) Rashida will improve her knee flexion to actively 130 degrees. LTG Duration MET Assessment Summary Assessment Rashida is planning to do the treadmill as a part of knee feeling better, knee extension is getting better as well. Can be stiff, but as long as she stretches it out it feels a lot better. Stairs can still be tricky, definitely needs to stretch out of else stairs are still painful. Planning on one more visit to finalize HEP, and then Rashida will work on her exercises independently for a few months and then follow up with PCP if sx continue or worsen. Physical Therapy Plan Frequency and Duration Frequency of Treatment 1x/Week Duration of Treatment 2 weeks Plan of Care Start Date 05/31/21 Plan of Care End Date 06/15/21 Therapeutic Interventions Therapeutic Interventions Gait Training,Home Exercise Program,Joint Mobilizations, Manual Therapy,Neuromuscular Re-education,Self-Care/Home Management,Therapeutic Activities,Therapeutic Exercises Modalities Cold Pack/Ice Massage,Electric Stimulation,Hot Packs Next Visit Focus/Plan Next Note Type Treatment Note Next Visit Plan finalize HEP Plan of Care Dates Plan of Care Start Date 05/31/21 Plan of Care End Date 06/15/21 Electronically Signed by: Farzana Leonard, PT 06/04/21 1023 Please Sign and Return: I have reviewed this Plan of Care and certify that the skilled therapy services above are required to meet the patient?s needs. Physician Signature Date Printed Name and Credentials Clinical Instructor Signature Printed Name and Credentials
--- NOTE | 2021-06-07 16:21 | PT.OTN ---
Current Diagnoses Pain in left knee (06/07/21) Physical Therapy Treatment Note PT-OP-A Visit Information Start: 03/31/21 15:30 Freq: Status: Active Protocol: Document 06/07/21 09:40 AMB (Rec: 06/07/21 10:42 AMB [id number]) Out-Patient Physical Therapy Visit Information Visit Information Visit Type Discharge Summary Visit Start Time 09:45 Visit Stop Time 10:30 Total Visit Minutes 45 Visit Number 14 PT-OP-B Current Condition Start: 03/31/21 15:30 Freq: Status: Active Protocol: Document 04/06/21 13:00 AMB (Rec: 04/06/21 13:14 AMB [id number]) Current Condition History of Current Condition Onset Date January 2021 Current Complaints L knee pain History of Current Condition Whole L leg is more swollen than R. Does have CHF so watches swelling a lot. Just got back from the motorhome and wasn't walking and it has been worse. Stairs are quite uncomfortable. 3STE, with living on one level but does have a second floor. [place] are challenging. Stamina is a challenge with CHF and afib. A bit of concern about balance, no falls in the last 6 months. Prior Functional Status Baseline Function- ADL's Independent Baseline Function- Mobility Independent Current Functional Impairments (Reported) Functional Limitations- ADL's Left knee pain limits stairs Personal Factors Other Personal Factors That May Effect CHF, Renal failure, Afib, Therapy/Recovery hypertension PT-OP-C Subjective Start: 03/31/21 15:30 Freq: Status: Active Protocol: Document 06/07/21 09:40 AMB (Rec: 06/07/21 10:42 AMB [id number]) OP-PT Subjective Patient Comments Patient Comments Rashida states her knee feels almost normal. PT-OP-D Balance Start: 03/31/21 15:30 Freq: Status: Active Protocol: Document 04/06/21 13:00 AMB (Rec: 04/06/21 16:10 AMB [id number]) Balance Tests Single Limb Standing Single Limb- Right 3-5sec Single Limb- Left 3-5 sec PT-OP-G Mobility & Gait Start: 03/31/21 15:30 Freq: Status: Active Protocol: Document 04/06/21 13:00 AMB (Rec: 04/06/21 16:04 AMB [id number]) OP Gait Assessment Comments Gait Comments Good step length, but keeps left leg slightly flexed Stair Climbing Evaluation Comments Stair Climbing Comments Ascends and descends alternating gait without need for rail PT-OP-J Posture/Palpation/Skin Start: 03/31/21 15:30 Freq: Status: Active Protocol: Document 05/03/21 09:54 AMB (Rec: 05/03/21 09:55 AMB [id number]) Skin Assessment Other Assessments Skin Assessment Comments 40 R, 42.5 L PT-OP-K Range of Motion Start: 03/31/21 15:30 Freq: Status: Active Protocol: Document 05/17/21 09:45 AMB (Rec: 05/17/21 15:40 AMB [email or web address]) Knee Goniometric Range of Motion Knee Left Flexion Passive (degrees) 130 Extension Passive (degrees) 4 PT-OP-M Strength Start: 03/31/21 15:30 Freq: Status: Active Protocol: Document 04/06/21 13:00 AMB (Rec: 04/06/21 16:04 AMB [email or web address]) Hip Strength Hip Manual Muscle Testing Right Flexion (L2) 4+ Good+ Extension (S1) 4+ Good+ Abduction 4 Good Adduction 4 Good Left Flexion (L2) 4- Good- Extension (S1) 4- Good- Abduction 4- Good- Adduction 4- Good- Knee Strength Knee Manual Muscle Testing Right Flexion (S2) 4+ Good+ Extension (L3) 4+ Good+ Left Flexion (S2) 4+ Good+ Extension (L3) 4+ Good+ PT-OP-Q Treatments Start: 03/31/21 15:30 Freq: Status: Active Protocol: Document 06/07/21 09:45 AMB (Rec: 06/07/21 16:17 AMB [id number]) Therapeutic Exercises Supine Exercises 3 Supine Exercise Name TKE Side left Resistance AROM Reps/Minutes 10 2 Supine Exercise Name SLR Reps/Minutes 2x10 Comments cues TA Standing Exercises 3 Standing Exercise Name calf stretch- on stairs Reps/Minutes 30x2 2 Standing Exercise Name hamstring stretch- on stairs Reps/Minutes 30x4 1 Standing Exercise Name sit to stand Resistance lvl 2 TB- no band this session Reps/Minutes 10 Comments with cues for alignment- added TB around knees Manual Therapy Treatment Soft Tissue Mobilization 1 Body Location posterior knee- medial and lateral HS Mobilization Type Myofascial Release Comments gastroc and HS this session Joint Mobilizations 1 Joint tibiofemoral Direction AP Grade II PT-OP-R Modalities Start: 03/31/21 15:30 Freq: Status: Active Protocol: Document 05/20/21 09:48 MA (Rec: 05/20/21 10:27 MA [id number]) Hot Pack/Cold Pack Treatment Cold Pack Location L knee Patient Position Supine Treatment Duration (minutes) 10 Patient Tolerance Good PT-OP-T Assessment and Plan Start: 03/31/21 15:30 Freq: Status: Active Protocol: Document 06/07/21 09:40 AMB (Rec: 06/07/21 10:42 AMB [id number]) Physical Therapy Assessment Goals Two Impairment Gait Short Term Goal (STG) Rashida will ambulate in the community over uneven terrain for 30 minutes without an increase in L knee pain. STG Duration MET Orthophoto Tech/Draftsman Goal (LTG) Rashida will ascend and descend a flight of stairs without knee pain. LTG Duration PARTIALLY MET_ as long as she stretches first One Impairment ROM Short Term Goal (STG) Rashida will improve her knee extension to lacking 4 degrees or less. STG Duration MET Orthophoto Tech/Draftsman Goal (LTG) Rashida will improve her knee flexion to actively 130 degrees. LTG Duration MET Assessment Summary Assessment Rashida continues to have limited knee extension AROM but it has improved considerably in her time in physical therapy. She now feels ready to progress her walking to get herself ready for her big cruise trip. Educated todayto continue her HEP for the next few months and then if still feeling well she could decrease frequency of exercises to 2-3x/week. Physical Therapy Plan Discharge Physical Therapy Discharge Reasons Goals Met
== END 2021-07-19 08:51 ==
LOC: PHYS 09:45
PROVIDERS: PCP Family Medicine; Referring Provider Family Medicine; Visit Provider Family Medicine
DX: M25.562 Pain in left knee (principal)
CPT/HCPCS: 97110; 97116; 97140; 97161

== ENCOUNTER → 2021-07-25 13:38 | Outpatient (CLI) | payer MEDICARE, OTHER, SELFPAY ==
[2020-07-05 21:43] VITALS: BMI 26.8
--- NOTE | 2021-07-25 | DI.ECHO.S_ITS ---
[facility] +---------+ [facility] +---------+ : : [address] [place] : : : : [id number] : : : : Phone: [phone] +---------+ Echocardiogram Report + + :Name: DANY AMADOR Study Date: 07/25/2021 Height: 66 in : :[facility] ReadingLocation: Weight: 160 lb : : Gender: Female BSA: 1.8 m2 : :: 1940 Age: 81 yrs BP: 131/74 mmHg: :Reason For Study: ATRIAL FIBRILLATION : :Ordering Physician: HANH, : :ANTONIO Performed By: Ligia Christy : :Referring: ANTONIO SCHAFER : + + Interpretation Summary Intermittent short sinus pauses not significant however 1 pause due to nonconducted PAC seen. The patient was in sinus rhythm with heart rates between 54-71 bpm during the exam. The left ventricle is normal in size and wall thickness. The ejection fraction is estimated to be 60-65%. There has been no significant change in LV EF since the previous exam. The right ventricle is at the upper limits of normal in size. The right ventricular systolic function is normal. There is moderate mitral regurgitation. Compared to the prior echo study, there has been an increase in the severity of mitral regurgitation. Previously mild to moderate mitral regurgitation. There is mild to moderate tricuspid regurgitation. Compared to the prior echo exam, there has been no change in TR severity. The right ventricular systolic pressure is estimated to be at least 34 mmHg based on an estimated right atrial pressure of 3 mm Hg. Procedure: A two-dimensional transthoracic echocardiogram with color flow and Doppler was performed. The study quality was technically adequate. Comparison is made with the echocardiogram of 01/25/2020. The patient was in sinus rhythm with heart rates between 54-71 bpm during the exam. Intermittent short sinus pauses not significant however 1 pause due to nonconducted PAC seen. The patient was in first degree heart block during the exam. Left Ventricle: The left ventricle is normal in size and wall thickness. There is no thrombus. The ejection fraction is estimated to be 60-65%. There has been no significant change since the previous exam. There are no focal wall motion abnormalities. Diastolic parameters suggest a relaxation abnormality of the left ventricle, consistent with probable normal filling pressures. Right Ventricle: The right ventricle is at the upper limits of normal in size. The right ventricular systolic function is normal. Atria: The left atrium is severely dilated. The left atrium has remained unchanged in size since the prior echo exam. Right atrial size is normal. There is no Doppler evidence for an interatrial shunt. Mitral Valve: The mitral valve leaflets appear mildly thickened, but open well. There is mild mitral annular calcification. There is moderate mitral regurgitation. Compared to the prior echo study, there has been an increase in the severity of mitral regurgitation. Aortic Valve: The aortic valve is trileaflet. The aortic valve opens well. There is no aortic valve stenosis. There is mild aortic regurgitation. Compared to the prior echo study, there has been no change in the severity of aortic regurgitation. Tricuspid Valve: Tricuspid leaflets are thickened. There is mild to moderate tricuspid regurgitation. The right ventricular systolic pressure is estimated to be at least 34 mmHg based on an estimated right atrial pressure of 3 mm Hg. Compared to the prior echo exam, there has been no change in TR severity. Pulmonic Valve: The pulmonic valve is not well visualized. Great Vessels: The aortic root is not well visualized but is probably normal size. The ascending aorta could not be visualized. The IVC is of normal diameter and collapses greater than 50% with a sniff. This suggests a low right atrial pressure of 3 mm Hg. Pericardium/ Pleura There is no pericardial effusion. There is no pleural effusion. MMode/2D Measurements & Calculations LVIDd: 4.9 cm LVOT diam: 2.1 cm LVIDs: 3.3 cm Ao Arch Diam (Prox Trans): 3.1 cm FS: 32.2 % IVSd: 0.85 cm LVPWd: 0.74 cm LV winslow. diameter/BSA (cm/m^2): 2.7 LV sys. diameter/BSA (cm/m^2): 1.8 LA A2 area: 25.3 cm2 RA long axis: 5.6 cm LA A4 area: 25.5 cm2 RA area: 19.1 cm2 LA length (vol): 5.8 cm RA vol: 55.5 ml LA vol: 93.8 ml RA : 30.5 ml/m2 LA vol index: 51.5 ml/m2 IVC diam: 1.3 cm RVD1 (basal): 4.1 cm TAPSE: 2.8 cm Doppler Measurements & Calculations Ao V2 max: 151.1 cm/sec LVOT Max Benigno: 114.7 cm/sec Ao V2 mean: 96.9 cm/sec LV V1 max P.3 mmHg Ao max P.1 mmHg LV V1 VTI: 25.7 cm Ao mean P.4 mmHg FLACO(I,D): 3.0 cm2 Ao V2 VTI: 29.1 cm FLACO(V,D): 2.6 cm2 sev ratio: 0.88 FLACO indexed to BSA (cm^2/m^2): 1.7 AI P1/2t: 767.7 msec AI dec slope: 141.2 cm/sec2 MV E max benigno: 71.8 cm/sec TR max benigno: 280.2 cm/sec MV A max benigno: 102.0 cm/sec TR max P.4 mmHg MV E/A: 0.70 PA V2 max: 104.0 cm/sec Med Peak E' Benigno: 6.4 cm/sec PA V2 mean: 76.5 cm/sec E/E' med: 11.2 PA mean P.5 mmHg Lat Peak E' Benigno: 7.1 cm/sec PA pr(Accel): 24.2 mmHg E/E' lat: 10.0 E/e' average: 10.6 MV dec time: 0.28 sec SV(LVOT): 88.2 ml Reading Physician:03:24 PM
== END ==
PROVIDERS: PCP Family Medicine; Referring Provider Internal Medicine Cardiovascular Disease; Visit Provider Internal Medicine Cardiovascular Disease
DX: I48.0 Paroxysmal atrial fibrillation (principal); I08.3 Combined rheumatic disorders of mitral, aortic and tricuspid valves
CPT/HCPCS: 93306

== ENCOUNTER → 2021-07-30 08:27 | Outpatient (CLI) | payer MEDICARE, OTHER, SELFPAY ==
[2020-07-05 21:43] VITALS: BMI 26.8
[2021-07-30 11:35] LABS: BUN Creatinine Ratio 24.4 (6-22); Blood Urea Nitrogen 19 mg/dL (7-17); Calcium 9.4 mg/dL (8.4-10.2); Carbon Dioxide 37 mmol/L (22-32); Chloride 101 mmol/L (98-107); Cholesterol 157 mg/dL (140-199); Estimated Glomerular Filt Rate > 60.0 mL/min (>60); Glucose 104 mg/dL (80-110); HDL Cholesterol 66 mg/dL (40-60); HEMOLYSIS < 15 (0-50); LDL Cholesterol Calculated 78 mg/dL (<100); Potassium 3.1 mmol/L (3.4-5.1); Sodium 141 mmol/L (137-145); Triglycerides 65 mg/dL (35-150)
[2021-07-30 12:51] LABS: Thyroid Stimulating Hormone 0.777 uIU/mL (0.47-4.68)
== END ==
PROVIDERS: PCP Family Medicine; Referring Provider Internal Medicine Cardiovascular Disease; Visit Provider Internal Medicine Cardiovascular Disease
DX: I10 Essential (primary) hypertension (principal)
CPT/HCPCS: 36415; 80048; 80061; 83735; 84443

== ENCOUNTER → 2021-08-10 10:57 | Outpatient (CLI) | payer MEDICARE, OTHER, SELFPAY ==
[2020-07-05 21:43] VITALS: BMI 26.8
[2021-08-10 13:15] LABS: BUN Creatinine Ratio 25.3 (6-22); Blood Urea Nitrogen 20 mg/dL (7-17); Carbon Dioxide 33 mmol/L (22-32); Chloride 101 mmol/L (98-107); Estimated Glomerular Filt Rate > 60.0 mL/min (>60); Glucose 94 mg/dL (80-110); HEMOLYSIS < 15 (0-50); Potassium 3.5 mmol/L (3.4-5.1); Sodium 144 mmol/L (137-145)
== END ==
PROVIDERS: PCP Family Medicine; Referring Provider Internal Medicine Cardiovascular Disease; Visit Provider Internal Medicine Cardiovascular Disease
DX: I10 Essential (primary) hypertension (principal)
CPT/HCPCS: 36415; 80048

== ENCOUNTER → 2021-10-12 10:27 | Outpatient (CLI) | payer MEDICARE, OTHER, SELFPAY ==
[2020-07-05 21:43] VITALS: BMI 26.8
[2021-10-12 11:36] LABS: Hematocrit 39.5 % (36-46); Hemoglobin 13.1 g/dL (12.0-16.0)
[2021-10-12 11:52] LABS: BUN Creatinine Ratio 25.6 (6-22); Blood Urea Nitrogen 21 mg/dL (7-17); Calcium 9.2 mg/dL (8.4-10.2); Carbon Dioxide 36 mmol/L (22-32); Chloride 102 mmol/L (98-107); Estimated Glomerular Filt Rate > 60 mL/min (>60); Glucose 100 mg/dL (80-110); HEMOLYSIS < 15 (0-50); Potassium 3.7 mmol/L (3.4-5.1); Sodium 142 mmol/L (137-145)
[2021-10-12 12:02] LABS: Total Iron Binding Capacity 300 ug/dL (265-497)
[2021-10-12 12:21] LABS: Creatinine Urine Random 69.2 mg/dL
[2021-10-12 12:22] LABS: Protein (Total) Urine Random < 5 mg/dL (0-12); Protein Creatinine Ratio Urine < 0.07 GRAM/24H
[2021-10-12 12:25] LABS: Ferritin 111 ng/mL (11-264)
[2021-10-13 08:12] LABS: Parathyroid Hormone Int 38 pg/mL (15-65)
== END ==
PROVIDERS: PCP Family Medicine; Referring Provider Student in an Organized Health Care Education/Training Program; Visit Provider Student in an Organized Health Care Education/Training Program
DX: D50.0 Iron deficiency anemia secondary to blood loss (chronic) (principal); N05.9 Unspecified nephritic syndrome with unspecified morphologic changes; D64.9 Anemia, unspecified; N25.81 Secondary hyperparathyroidism of renal origin; R80.9 Proteinuria, unspecified
CPT/HCPCS: 36415; 80048; 82570; 82728; 83550; 83970; 84156; 85014; 85018

== ENCOUNTER → 2022-05-29 12:04 | Outpatient (CLI) | payer MEDICARE, OTHER, SELFPAY ==
[2020-07-05 21:43] VITALS: BMI 26.8
[2022-05-29 12:53] LABS: Hematocrit 38.6 % (36-46)
[2022-05-29 13:24] LABS: BUN Creatinine Ratio 18.7 (6-22); Blood Urea Nitrogen 14 mg/dL (7-17); Carbon Dioxide 33 mmol/L (22-32); Chloride 102 mmol/L (98-107); Estimated Glomerular Filt Rate > 60 mL/min (>60); Glucose 105 mg/dL (80-110); HEMOLYSIS < 15 (0-50); Potassium 3.5 mmol/L (3.4-5.1); Sodium 141 mmol/L (137-145)
[2022-05-29 16:03] LABS: Protein (Total) Urine Random < 5 mg/dL (0-12); Protein Creatinine Ratio Urine 0.05 GRAM/24H
[2022-05-31 08:48] LABS: Parathyroid Hormone Int 36 pg/mL (15-65)
== END ==
PROVIDERS: PCP Family Medicine; Referring Provider Student in an Organized Health Care Education/Training Program; Visit Provider Student in an Organized Health Care Education/Training Program
DX: N05.9 Unspecified nephritic syndrome with unspecified morphologic changes (principal); D64.9 Anemia, unspecified; R80.9 Proteinuria, unspecified; N25.81 Secondary hyperparathyroidism of renal origin
CPT/HCPCS: 36415; 80048; 82570; 83970; 84156; 85014; 85018

== ENCOUNTER → 2023-01-09 11:29 | Outpatient (CLI) | payer MEDICARE, OTHER, SELFPAY ==
[2020-07-05 21:43] VITALS: BMI 26.8
[2023-01-09 13:26] LABS: Alanine Aminotransferase 30 IU/L (<35); Albumin 4.4 g/dL (3.5-5.0); Albumin Globulin Ratio 1.3 (1.0-2.8); Alkaline Phosphatase 126 U/L (38-126); Aspartate Aminotransferase 41 IU/L (14-36); BUN Creatinine Ratio 25.7 (6-22); Bilirubin Total 0.4 mg/dL (0.2-1.3); Blood Urea Nitrogen 18 mg/dL (7-17); Calcium 9.1 mg/dL (8.4-10.2); Carbon Dioxide 30 mmol/L (22-32); Chloride 101 mmol/L (98-107); Estimated Glomerular Filt Rate > 60 mL/min (>60); Globulin 3.3 g/dL (1.7-4.1); Glucose 108 mg/dL (80-110); HEMOLYSIS < 15 (0-50); Potassium 3.7 mmol/L (3.4-5.1); Sodium 138 mmol/L (137-145); Total Protein 7.7 g/dL (6.3-8.2)
[2023-01-09 13:54] LABS: Thyroid Stimulating Hormone 0.695 uIU/mL (0.47-4.68)
== END ==
PROVIDERS: PCP Family Medicine; Referring Provider Internal Medicine Cardiovascular Disease; Visit Provider Internal Medicine Cardiovascular Disease
DX: I48.0 Paroxysmal atrial fibrillation (principal); I10 Essential (primary) hypertension
CPT/HCPCS: 36415; 80053; 83735; 84443

== ENCOUNTER → 2023-01-24 11:20 | Outpatient (CLI) | payer MEDICARE, OTHER, SELFPAY ==
[2020-07-05 21:43] VITALS: BMI 26.8
[2023-01-24 11:48] LABS: Hematocrit 39.3 % (36-46); Hemoglobin 13.3 g/dL (12.0-16.0)
[2023-01-24 12:28] LABS: Blood Urea Nitrogen 21 mg/dL (7-17); Calcium 9.6 mg/dL (8.4-10.2); Carbon Dioxide 32 mmol/L (22-32); Chloride 101 mmol/L (98-107); Estimated Glomerular Filt Rate > 60 mL/min (>60); Glucose 95 mg/dL (80-110); HEMOLYSIS < 15 (0-50); Potassium 4.1 mmol/L (3.4-5.1); Sodium 141 mmol/L (137-145)
[2023-01-24 16:53] LABS: Protein (Total) Urine Random < 5 mg/dL (0-12); Protein Creatinine Ratio Urine 0.06 GRAM/24H
[2023-01-25 09:09] LABS: Parathyroid Hormone Int 34 pg/mL (15-65)
== END ==
PROVIDERS: PCP Family Medicine; Referring Provider Student in an Organized Health Care Education/Training Program; Visit Provider Student in an Organized Health Care Education/Training Program
DX: N05.9 Unspecified nephritic syndrome with unspecified morphologic changes (principal); D64.9 Anemia, unspecified; N25.81 Secondary hyperparathyroidism of renal origin; R80.9 Proteinuria, unspecified
CPT/HCPCS: 36415; 80048; 82570; 83970; 84156; 85014; 85018

== ENCOUNTER → 2023-05-24 10:08 | Outpatient (CLI) | payer MEDICARE, OTHER, SELFPAY ==
[2020-07-05 21:43] VITALS: BMI 26.8
--- NOTE | 2023-05-24 | DI.NM.S_ITS ---
PROCEDURE: NM MOE PERF SPECT REST & STR Rest and exercise myocardial perfusion SPECT with gated imaging and ejection fraction RADIOPHARMACEUTICAL: 12.0 mCi Tc-99m sestamibi IV at rest and 25.3 mCi Tc-99m sestamibi IV at peak exercise. A [id number]-utklarqm was performed. INDICATIONS: Paroxysmal atrial fibrillation TECHNIQUE: Radiopharmaceutical was injected at peak stress test, and also at rest. SPECT images were obtained. SPECT myocardial perfusion images were displayed in short axis, horizontal long axis, and vertical long axis views. Gated images were reviewed using [employer] software. COMPARISON: None. CARDIAC STRESS: A standard Marcus treadmill exercise tolerance test was performed by the patient under the supervision of an attending staff. The patient exercised for 8 minutes and 01 seconds; 8.5 METS; functional aerobic impairment (LAVINIA) is -30% %. Hemodynamic data: There is normal blood pressure and heart rate response to exercise stress. Patient achieved 87% of maximum predicted heart rate at peak exercise. Maximum blood pressure 160/84. Symptoms: Patient denied chest pain during exercise. EKG: No diagnostic EKG changes of ischemia; no ectopy. FINDINGS: Raw data: There is good myocardial labeling by radiotracer. No significant motion artifacts. Bljg-aq-gzqwn ratio is 0.23 (normal is less than 0.38 for sestamibi tracer, and less than 0.50 for thallium tracer). Left ventricle function: Gated images demonstrate normal left ventricle wall thickening. No segmental wall motion abnormality. No transient ischemic dilation; TID is 0.93 (normal less than 1.3). The left ventricle resting end-diastolic volume is 105 mL. Left ventricle stress ejection fraction is 72%; normal values are above 45%. Myocardial perfusion: There is normal distribution of activity in the left and right ventricular myocardium. No fixed or reversible perfusion defects. IMPRESSION: Low risk study. No evidence of exercise-induced ischemia on ECG or SPECT imaging. Normal LV size and function. Normal hemodynamic response. Good exercise capacity. Dictated by: Samanta Osborne D.O. on 05/24/2023 at 16:27 Approved by: Samanta Osborne D.O. on 05/24/2023 at 16:30
--- NOTE | 2023-05-24 | DI.ECHO.S_ITS ---
[facility] +---------+ [facility] +---------+ : : [address] [place] : : : : [id number] : : : : Phone: [phone] +---------+ Echocardiogram Report + + :Name: DANY AMADOR Study Date: 05/24/2023 Height: 66 in : :[facility] ReadingLocation: Weight: 168 lb : : Gender: Female BSA: 1.9 m2 : :: 1940 Age: 83 yrs BP: 130/78 mmHg: :Reason For Study: ATRIAL FIBRILLATION : :Ordering Physician: : :ANTONIO SCHAFER Performed By: Ligia Christy : :Referring: ANTONIO SCHAFER : + + Interpretation Summary The left ventricle is normal in size and wall thickness. The left ventricular ejection fraction is normal. The ejection fraction is estimated to be 60-65%. No significant change in LVEF from the previous study. The right ventricle is normal in size and function. There is moderate mitral regurgitation. Compared to the prior echo study, there has been no change in the severity of mitral regurgitation. There is mild aortic regurgitation. Compared to the prior echo study, there has been no change in the severity of aortic regurgitation. There is mild tricuspid regurgitation. Compared to the prior echo exam, there has been a decrease in TR severity. The right ventricular systolic pressure is estimated to be at least 28 mmHg based on an estimated right atrial pressure of 3 mm Hg. The ascending aorta is mildly enlarged. There is mild luminal irregularity and echogenicity in the abdominal aorta, suggestive of aortic atherosclerotic disease. Procedure: A two-dimensional transthoracic echocardiogram with color flow and Doppler was performed. The study quality was technically adequate. Comparison is made with the echocardiogram of 07/25/2021. The patient was in sinus rhythm with heart rates between 61-67 bpm during the exam. Left Ventricle: The left ventricle is normal in size and wall thickness. There is no thrombus. The ejection fraction is estimated to be 60-65%. The left ventricular ejection fraction is normal. There are no focal wall motion abnormalities. MV E/A: 0.99 Med Peak E' Benigno: 5.9 cm/sec E/E' med: 14.6. Right Ventricle: The right ventricle is normal in size and function. Atria: The left atrium is severely dilated. There has been no significant change since the previous study. Right atrial size is normal. There is no Doppler evidence for an interatrial shunt. Mitral Valve: The mitral valve leaflets appear mildly thickened, but open well. There is mild mitral annular calcification. There is moderate mitral regurgitation. Compared to the prior echo study, there has been no change in the severity of mitral regurgitation. Aortic Valve: The aortic valve is not well visualized. There is mild aortic valve sclerosis. There is no aortic valve stenosis. There is mild aortic regurgitation. Compared to the prior echo study, there has been no change in the severity of aortic regurgitation. Tricuspid Valve: Tricuspid leaflets are thickened. There is mild tricuspid regurgitation. The right ventricular systolic pressure is estimated to be at least 28 mmHg based on an estimated right atrial pressure of 3 mm Hg. Compared to the prior echo exam, there has been a decrease in TR severity. Pulmonic Valve: The pulmonic valve is not well seen, but is grossly normal. There is no pulmonic valvular regurgitation. Great Vessels: The aortic root is normal size. The ascending aorta is mildly enlarged. There is mild luminal irregularity and echogenicity in the abdominal aorta, suggestive of aortic atherosclerotic disease. The IVC is of normal diameter and collapses greater than 50% with a sniff. This suggests a low right atrial pressure of 3 mm Hg. Pericardium/ Pleura There is no pericardial effusion. There is no pleural effusion. MMode/2D Measurements & Calculations LVIDd: 4.7 cm LVOT diam: 2.3 cm LVIDs: 3.4 cm Ao root diam: 4.0 cm FS: 28.4 % asc Aorta Diam: 4.0 cm IVSd: 0.80 cm Ao Arch Diam (Prox Trans): 3.3 cm LVPWd: 0.75 cm LV winslow. diameter/BSA (cm/m^2): 2.5 LV sys. diameter/BSA (cm/m^2): 1.8 LA A2 area: 24.8 cm2 RA long axis: 5.5 cm LA A4 area: 19.8 cm2 RA area: 17.6 cm2 LA length (vol): 4.8 cm RA vol: 47.6 ml LA vol: 86.1 ml RA : 25.6 ml/m2 LA vol index: 46.4 ml/m2 IVC diam: 1.6 cm RVD1 (basal): 3.6 cm RVD2 (mid): 2.7 cm TAPSE: 2.0 cm Doppler Measurements & Calculations Ao V2 max: 129.8 cm/sec LVOT Max Benigno: 90.5 cm/sec Ao V2 mean: 88.4 cm/sec LV V1 max P.3 mmHg Ao max P.7 mmHg LV V1 VTI: 18.0 cm Ao mean P.6 mmHg FLACO(I,D): 2.7 cm2 Ao V2 VTI: 26.9 cm FLACO(V,D): 2.8 cm2 sev ratio: 0.67 FLACO indexed to BSA (cm^2/m^2): 1.4 AI P1/2t: 866.2 msec AI dec slope: 130.8 cm/sec2 MV E max benigno: 85.5 cm/sec TR max benigno: 253.6 cm/sec MV A max benigno: 86.3 cm/sec TR max P.7 mmHg MV E/A: 0.99 PA V2 max: 78.8 cm/sec Med Peak E' Benigno: 5.9 cm/sec PA V2 mean: 58.8 cm/sec E/E' med: 14.6 PA mean P.5 mmHg Lat Peak E' Benigno: 7.1 cm/sec PA pr(Accel): 46.5 mmHg E/E' lat: 12.0 E/e' average: 13.3 MV dec time: 0.20 sec SV(LVOT): 72.3 ml Reading Physician:04:40 PM
== END ==
PROVIDERS: PCP Family Medicine; Referring Provider Internal Medicine Cardiovascular Disease; Visit Provider Internal Medicine Cardiovascular Disease
DX: I48.0 Paroxysmal atrial fibrillation (principal); I77.89 Other specified disorders of arteries and arterioles; Z51.81 Encounter for therapeutic drug level monitoring; I08.3 Combined rheumatic disorders of mitral, aortic and tricuspid valves; Z79.899 Other long term (current) drug therapy
CPT/HCPCS: 78452; 93017; 93306; A9502

== ENCOUNTER 2023-12-02 02:00 | Emergency (ER) | payer MEDICARE, OTHER, SELFPAY ==
[2020-07-05 21:43] VITALS: BMI 26.8
[2023-12-02 02:02] VITALS: BP 170/79; PULSE 88; RESP 18; TEMP 36.7; O2SAT 99; BMI 26.6
--- NOTE | 2023-12-02 02:09 | DI.RAD.S_ITS ---
PROCEDURE: XR CHEST 1V INDICATIONS: chest pain TECHNIQUE: One view of the chest was acquired. COMPARISON: [facility], CR, XR CHEST 1V, 02/15/2021, 12:49. FINDINGS: Surgical changes and devices: None. Lungs and pleura: Biapical pleural plaquing. Slightly coarse interstitial markings. Lungs are otherwise clear. No pleural effusions or pneumothorax. Mediastinum: Mediastinal contours appear normal. Heart size is normal. Bones and chest wall: No suspicious bony lesions. Thoracic spine dextroscoliosis Overlying soft tissues appear unremarkable. IMPRESSION: No acute cardiopulmonary abnormality is seen. Chronic changes as described. Dictated by: Christy Pak M.D. on 12/02/2023 at 6:01 Approved by: Christy Pak M.D. on 12/02/2023 at 6:06
--- NOTE | 2023-12-02 02:09 | EKG_ITS ---
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
[2023-12-02 02:25] LABS: Add Manual Diff / Slide Review NO; Basophils Absolute Auto 100 /uL (0-100); Eosinophils Absolute Auto 400 /uL (0-450); Eosinophils Percent Auto 4.3 % (2-4); Hematocrit 40.4 % (36-46); Hemoglobin 13.6 g/dL (12.0-16.0); Lymphocytes Absolute Auto 3900 /uL (1100-4500); Mean Corpuscular HGB Conc 33.7 % (30-36); Mean Corpuscular Hemoglobin 30.7 PG (26-34); Mean Corpuscular Volume 91.1 fL (80-100); Monocytes Absolute Auto 1100 /uL (0-900); Monocytes Percent Auto 11.4 % (3-14); Neutrophils Absolute Auto 4400 /uL (1500-7000); Neutrophils Percent Auto 44.3 % (50-75); Platelet Count 321 X10^3/uL (150-400); Red Blood Cell Count 4.44 X10^6/uL (4.0-5.2); Red Cell Distribution Width 13.7 % (11.6-14.8); White Blood Cell Count 9.9 X10^3/uL (4.5-11.0)
[2023-12-02 02:34] LABS: Alanine Aminotransferase 35 IU/L (<35); Albumin 4.4 g/dL (3.5-5.0); Albumin Globulin Ratio 1.3 (1.0-2.8); Alkaline Phosphatase 135 U/L (38-126); Aspartate Aminotransferase 46 IU/L (14-36); BUN Creatinine Ratio 30.8 (6-22); Bilirubin Total 0.5 mg/dL (0.2-1.3); Blood Urea Nitrogen 24 mg/dL (7-17); Calcium 9.1 mg/dL (8.4-10.2); Carbon Dioxide 30 mmol/L (22-32); Chloride 104 mmol/L (98-107); Creatine Kinase 99 U/L (30-135); Estimated Glomerular Filt Rate > 60 mL/min (>60); Globulin 3.4 g/dL (1.7-4.1); Glucose 109 mg/dL (80-110); HEMOLYSIS < 15 (0-50); Lipase 535 U/L (23-300); Potassium 3.5 mmol/L (3.4-5.1); Sodium 140 mmol/L (137-145); Total Protein 7.8 g/dL (6.3-8.2)
--- NOTE | 2023-12-02 02:35 | ED_ITS ---
HPI - Chest Pain General Chief Complaint: Shortness of Breath/Dyspnea Stated Complaint: sob, cp Time Seen by Provider: 12/02/23 02:09 Source: patient and EMS Mode of arrival: EMS Limitations: no limitations History of Present Illness HPI narrative: Patient 83-year-old female history of atrial fibrillation on Eliquis, WPW, diastolic heart failure presenting today with chest pain. She reports that she was sleeping when she woke up with chest heaviness and it went to both arms. She reports over the last week and a half she has had intermittent wake ups in the nighttime with arm pain. She really thought it was musculoskeletal. She denies any extra labor intensive work. Tonight she says was different it was down both arms down the inner arm and did not really feel like muscle. However she was took aspirin and about 20 minutes later it has completely resolved. She has no symptoms now she denies any fever chills cough abdominal pain nausea or vomiting. No lower extremity swelling. Related Data Home Medications Medication Instructions Recorded Confirmed cholecalciferol (vitamin D3) 25 25 mcg PO DAILY 07/05/20 04/17/23 mcg (1,000 unit) capsule multivitamin (Daily Multi-Vitamin 1 tab PO DAILY 07/16/20 04/17/23 tablet) apixaban 5 mg tablet (Eliquis) 2.5 mg PO BID 10/15/20 04/17/23 Previous Rx's Medication Instructions Recorded loratadine 10 mg tablet (Claritin) 10 mg PO Q DAY #30 tabs 02/26/20 flecainide 50 mg tablet 25 mg (1/2 x 50 mg) PO BID #60 tabs 07/07/20 furosemide 20 mg tablet 20 mg PO QAM #30 tabs 10/18/20 furosemide 20 mg tablet (Lasix) 20 mg PO DAILY PRN weight gain #14 04/25/21 tabs potassium chloride 20 mEq 20 meq PO DAILY #14 tabs 04/25/21 tablet,extended release atenolol 25 mg tablet 12.5 mg (1/2 x 25 mg) PO BID #180 04/17/23 tabs atorvastatin 80 mg tablet 80 mg PO ONCE PM #90 tabs 09/17/23 Allergies Allergy/AdvReac Type Severity Reaction Status Date / Time clindamycin AdvReac Mild rash Verified 04/17/23 08:15 morphine AdvReac Mild N/V Verified 04/17/23 08:15 Patient History Medical History (Updated 12/02/23 @ 05:55 by Leidy Stern DO) Acute renal failure Insomnia Obstructive sleep apnea syndrome History of Frpua-Dvwyecjfw-Kddwf (WPW) syndrome Atrial fibrillation Acute diastolic heart failure Essential hypertension Hypokalemia Surgical History History of cataract removal with insertion of prosthetic lens History of breast augmentation Status post cholecystectomy History of cardiac radiofrequency ablation (RFA) Family History Grandmother Stroke Mother Osteoporosis Social History marital status: number of children: 2 household members: spouse lives independently: Yes caregiver/support person: No housing: house Smoking Status: Never smoker second hand exposure: No alcohol intake: current substance use type: does not use Smoking Status: Never smoker alcohol intake frequency: a few times a month Substance Use Type: does not use Exam Initial Vital Signs Initial Vital Signs: Vital Signs Temperature 98.1 F 12/02/23 02:02 Pulse Rate 88 12/02/23 02:02 Respiratory Rate 18 12/02/23 02:02 Blood Pressure 170/79 H 12/02/23 02:02 Pulse Oximetry 99 12/02/23 02:02 Oxygen Delivery Method Room Air 12/02/23 02:02 GENERAL: Alert pleasant 83-year-old female and in no acute distress. HEENT: Head atraumatic,EOMI, pupils reactive, face symmetric, moist mucous membranes CARDIOVASCULAR: Regular rate and rhythm without murmurs, rubs or gallops. RESPIRATORY: Breath sounds equal bilaterally, no wheezes rales or rhonchi. ABDOMEN: Soft, nontender. Normoactive bowel sounds all 4 quadrants. No guarding or rebound. EXTREMITIES: Normal range of motion, no clubbing or edema. Neurovascularly intact NEUROLOGICAL: Alert and oriented x4.Normal gait and speech. Cranial nerves II through XII grossly intact. SKIN: Warm, dry, no laceration, no petechiae, no rashes or lesions. Scores HEART Score Heart Score history: Moderately Suspicious Heart Score EKG: Normal Heart Score Age: > or = 65 years old Heart Score risk factors: 1-2 risk factors Heart Score troponin: < or = to normal limit Heart Score Total: 4 Course Orders Ordered: ED Orders 12/02/23 02:02 BNP [NT-proBNP (BNP-Adult 18+)] Stat Complete Blood Count AUTO DIFF Stat Comprehensive Metabolic Panel Stat Lipase Stat Troponin & CK Cardiac Panel Stat 12/02/23 02:09 XR chest 1V Stat EKG-12 Lead Stat 12/02/23 03:30 Troponin & CK Cardiac Panel Stat Discontinued Medications Nitroglycerin (Nitroglycerin 0.4 Mg Sl Tab) 0.4 mg SL NOW ONE Stop: 12/02/23 02:40 Last Admin: 12/02/23 02:42 Dose: 0.4 mg Documented By: ERINN Nitroglycerin (Nitroglycerin 0.4 Mg Sl Tab) 0.4 mg SL NOW ONE Stop: 12/02/23 03:53 Last Admin: 12/02/23 04:00 Dose: 0.4 mg Documented By: ERINN Vital Signs Vital signs: Vital Signs - 8 hr 12/02/23 02:02 12/02/23 02:42 12/02/23 04:00 Temperature 98.1 F Pulse Rate 88 86 77 Respiratory Rate 18 Blood Pressure 170/79 H 125/60 133/68 Pulse Oximetry 99 Oxygen Delivery Method Room Air 12/02/23 06:05 Temperature 98.2 F Pulse Rate 88 Respiratory Rate Blood Pressure 118/65 Pulse Oximetry 98 Oxygen Delivery Method Room Air MDM - Chest Pain Lab Data 12/02/23 02:02 12/02/23 02:02 Labs: Lab Results 12/02/23 12/02/23 Range/Units 02:02 03:30 WBC 9.9 (4.5-11.0) X10^3/uL RBC 4.44 (4.0-5.2) X10^6/uL Hgb 13.6 (12.0-16.0) g/dL Hct 40.4 (36-46) % MCV 91.1 (80-100) fL MCH 30.7 (26-34) PG MCHC 33.7 (30-36) % RDW 13.7 (11.6-14.8) % Plt Count 321 (150-400) X10^3/uL Neut % (Auto) 44.3 L (50-75) % Lymph % (Auto) 39.0 (25-40) % Shannon % (Auto) 11.4 (3-14) % Eos % (Auto) 4.3 H (2-4) % Baso % (Auto) 1.0 (0-2) % Neut # (Auto) 4400 (3046-7101) /uL Lymph # (Auto) 3900 (7370-1239) /uL Shannon # (Auto) 1100 H (0-900) /uL Eos # (Auto) 400 (0-450) /uL Baso # (Auto) 100 (0-100) /uL Sodium 140 (137-145) mmol/L Potassium 3.5 (3.4-5.1) mmol/L Chloride 104 (98-107) mmol/L Carbon Dioxide 30 (22-32) mmol/L BUN 24 H (7-17) mg/dL Creatinine 0.78 (0.52-1.04) mg/dL Estimated GFR > 60 (>60) mL/min BUN/Creatinine Ratio 30.8 H (6-22) Glucose 109 (80-110) mg/dL Calcium 9.1 (8.4-10.2) mg/dL Total Bilirubin 0.5 (0.2-1.3) mg/dL AST 46 H (14-36) IU/L ALT 35 H (<35) IU/L Alkaline Phosphatase 135 H (38-126) U/L Total Creatine Kinase 99 100 (30-135) U/L Troponin I < 0.012 < 0.012 (0.01-0.034) ng/mL NT-Pro-B Natriuret Pep 183 (<450) pg/mL Total Protein 7.8 (6.3-8.2) g/dL Albumin 4.4 (3.5-5.0) g/dL Globulin 3.4 (1.7-4.1) g/dL Albumin/Globulin Ratio 1.3 (1.0-2.8) Lipase 535 H (23-300) U/L Imaging Data Chest x-ray: Radiologist's Impression: Preliminary report hazy left lower lung opacity may be artifactual due to super and position of soft tissues in secondary atelectasis and infiltrate ECG Data Attestation: I personally reviewed and interpreted this ECG as follows: Interpretation: Sinus rhythm rate 75 VT interval 320 QRS 106 QTC 477 with Mobitz type 1 block no ischemic changes similar to previous EKGs EKG 2. Sinus rhythm with Mobitz no ischemic changes EKG 3. Sinus rhythm Mobitz block rate 57 MDM Narrative Medical decision making narrative: Patient 83-year-old female presents today with bilateral arm pain and chest heaviness. She reports it happened she was sleeping. She took aspirin and it went away. She currently denies any sort of chest pain. She does report some shortness of breath with exertion but no chest pain. She had a recent stress test in May of 2023 and it was negative. She is followed by Dr. 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 Blood work has been reviewed overall reassuring 2- troponins. BNP 183 Chest x-ray has been reviewed no acute cardiopulmonary process Records have been reviewed 05/24/2023 echocardiogram reports normal EF there is moderate mitral regurg no wall motion abnormalities. On the same day nuclear perfusion scan no evidence of exercise-induced ischemia or EKGs normal LV size and function good exercise capacity. Patient was having some chest discomfort she received nitroglycerin and it did seem to help the pain but it did not make it go completely away. She reports it has a mild discomfort at this time. She is taking Eliquis for paroxysmal AFib think unlikely this is due to pulmonary embolism. Ongoing discussion with the patient she has absolutely no pain or discomfort during the daytime. She does have some shortness of breath with exertion but is not new. She has a routine follow-up appointment with her technology lab teacher in 1-2 weeks. At this time I think reasonable to send home this would be very atypical angina. She is low risk Discharge Plan Departure Patient Disposition: Home Clinical Impression: Atypical chest pain Instructions: DI for Atypical Chest Pain Activity Restrictions/Additional Instructions: *You have been diagnosed with atypical chest pain *What to do: At this time I recommend you follow-up with your technology lab teacher. Blood work and workup in the ED are overall reassuring. *Continue to take medications as directed *Follow up with your primary care provider in 2-3 days or call [phone] *Return to ER if you should have increasing arm pain chest discomfort shortness of breath while you are walking around and during the daytime [or] any new, worsening or concerning symptoms Prescriptions: No Action multivitamin [Daily Multi-Vitamin] Tablet 1 tab PO DAILY atenolol 25 mg tablet 12.5 mg PO BID Qty: 180 0RF loratadine [Claritin] 10 mg tablet 10 mg PO Q DAY Qty: 30 1RF furosemide 20 mg tablet 20 mg PO QAM Qty: 30 0RF potassium chloride 20 mEq tablet extended release 20 meq PO DAILY Qty: 14 0RF furosemide [Lasix] 20 mg tablet 20 mg PO DAILY PRN (Reason: weight gain) Qty: 14 0RF atorvastatin 80 mg tablet 80 mg PO ONCE PM Qty: 90 0RF cholecalciferol (vitamin D3) 25 mcg (1,000 unit) Capsule 25 mcg PO DAILY flecainide 50 mg tablet 25 mg PO BID Qty: 60 0RF Eliquis 5 mg tablet 2.5 mg PO BID Referrals: Anabell Powell MD [Primary Care Provider] - Stand Alone Forms: Patient Portal/API
[2023-12-02 02:42] VITALS: BP 125/60; PULSE 86
[2023-12-02] MEDS: NITROGLYCERIN 0.4 MG SL TAB SL ×2 (02:42→04:00)
[2023-12-02 02:46] LABS: Troponin I < 0.012 ng/mL (0.01-0.034)
[2023-12-02 03:58] LABS: NT-proBNP (BNP-Adult 18+) 183 pg/mL (<450)
[2023-12-02 04:00] VITALS: BP 133/68; PULSE 77
[2023-12-02 06:05] VITALS: BP 118/65; PULSE 88; TEMP 36.8; O2SAT 98
[2023-12-02 06:23] LABS: Creatine Kinase 83 U/L (30-135); Troponin I 0.088 ng/mL (0.01-0.034)
== END 2023-12-02 06:06 | disposition home or self-care (01) ==
PROVIDERS: Emergency Provider Emergency Medicine; PCP Family Medicine
DX: R07.89 Other chest pain (principal); M79.602 Pain in left arm; M79.601 Pain in right arm; I48.0 Paroxysmal atrial fibrillation; Z79.01 Long term (current) use of anticoagulants
CPT/HCPCS: 36415; 71045; 80053; 82550; 83690; 83880; 84484; 85025; 93005

== ENCOUNTER 2023-12-02 06:34 | Emergency (ER) | payer MEDICARE, OTHER, SELFPAY ==
[2020-07-05 21:43] VITALS: BMI 26.8
[2023-12-02] VITALS (28 sets, daily range): BP systolic 132–178; BP diastolic 60–81; PULSE 61–81; RESP 14–26; TEMP 37; O2SAT 93–99
--- NOTE | 2023-12-02 03:57 | EKG_ITS ---
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
--- NOTE | 2023-12-02 03:57 | EKG_ITS ---
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
--- NOTE | 2023-12-02 06:42 | ED.CHESTPAIN ---
HPI - Chest Pain <Leidy Stern DO - Last Filed: 12/02/23 22:37> General Chief Complaint: Recheck/Abnormal Lab/Rx Stated Complaint: came back to get lab results Time Seen by Provider: 12/02/23 06:40 History of Present Illness HPI narrative: Patient 83-year-old female just discharged from the emergency department 30 minutes prior with chest pain and arm pain. She initially had 2- troponins however due to a laboratory error lab called and reports that her 2nd negative troponin is actually 0.088. Please see previous HPI. Patient currently denies any chest pain or shortness of breath. She was able to ambulate from the parking lot into the ED without any sort of issue. Related Data Home Medications Medication Instructions Recorded Confirmed cholecalciferol (vitamin D3) 25 25 mcg PO DAILY 07/05/20 12/02/23 mcg (1,000 unit) capsule multivitamin (Daily Multi-Vitamin 1 tab PO DAILY 07/16/20 12/02/23 tablet) apixaban 5 mg tablet (Eliquis) 2.5 mg PO BID 10/15/20 12/02/23 atenolol 25 mg tablet 12.5 mg PO DAILY 12/02/23 12/02/23 chlorthalidone 25 mg tablet 12.5 mg PO DAILY 12/02/23 12/02/23 Previous Rx's Medication Instructions Recorded loratadine 10 mg tablet (Claritin) 10 mg PO Q DAY #30 tabs 02/26/20 flecainide 50 mg tablet 25 mg (1/2 x 50 mg) PO BID #60 tabs 07/07/20 furosemide 20 mg tablet 20 mg PO QAM #30 tabs 10/18/20 furosemide 20 mg tablet (Lasix) 20 mg PO DAILY PRN weight gain #14 04/25/21 tabs potassium chloride 20 mEq 20 meq PO DAILY #14 tabs 04/25/21 tablet,extended release atorvastatin 80 mg tablet 80 mg PO ONCE PM #90 tabs 09/17/23 Allergies Allergy/AdvReac Type Severity Reaction Status Date / Time clindamycin AdvReac Mild rash Verified 04/17/23 08:15 morphine AdvReac Mild N/V Verified 04/17/23 08:15 Patient History <DO Elizabeth Sandoval Last Filed: 12/02/23 22:37> Medical History (Updated 12/02/23 @ 17:39 by Kimberly Fritz MD) Acute renal failure Insomnia Obstructive sleep apnea syndrome History of Ygwpm-Ugdfxepij-Kdedr (WPW) syndrome Atrial fibrillation Acute diastolic heart failure Essential hypertension Hypokalemia Surgical History History of cataract removal with insertion of prosthetic lens History of breast augmentation Status post cholecystectomy History of cardiac radiofrequency ablation (RFA) Family History Grandmother Stroke Mother Osteoporosis Social History marital status: number of children: 2 household members: spouse lives independently: Yes caregiver/support person: No housing: house Smoking Status: Never smoker second hand exposure: No alcohol intake: current substance use type: does not use Smoking Status: Never smoker alcohol intake frequency: a few times a month Substance Use Type: does not use Exam <Leidy Stern DO - Last Filed: 12/02/23 22:37> Initial Vital Signs Initial Vital Signs: Vital Signs Pulse Rate 73 12/02/23 06:44 Respiratory Rate 14 12/02/23 06:44 Pulse Oximetry 98 12/02/23 06:44 GENERAL: Alert very pleasant 83-year-old female CARDIOVASCULAR: peripheral pulses in tact, cap refill <2 sec RESPIRATORY: No respiratory distress, speaks in full sentences without difficulty [ABDOMEN: Soft, nontender, no guarding or rebound] EXTREMITIES: Normal range of motion, no clubbing or edema. Neurovascularly intact NEUROLOGICAL: Cranial nerves II through XII grossly intact. Normal gait and speech. SKIN: Warm, dry, no petechiae, no rashes or lesions. <Kimberly Fritz MD - Last Filed: 12/02/23 17:39> Initial Vital Signs Initial Vital Signs: Vital Signs Pulse Rate 73 12/02/23 06:44 Respiratory Rate 14 12/02/23 06:44 Pulse Oximetry 98 12/02/23 06:44 Course <Leidy Stern DO - Last Filed: 12/02/23 22:37> Orders Ordered: ED Orders 12/02/23 16:15 PTT Partial Thromboplastin Chris Stat Discontinued Medications Heparin Sodium (Porcine) (Heparin 5,000 Unit/Ml Vial) 5,000 unit IV NOW ONE Stop: 12/02/23 15:43 Last Admin: 12/02/23 16:50 Dose: 5,000 unit Documented By: MICHAEL Heparin Sodium/Dextrose (Heparin Drip) 25,000 unit in 500 mls @ 18.282 mls/hr IV CONT SHRUTI; Protocol Last Admin: 12/02/23 16:51 Dose: 12 units/kg/hr, 18.282 mls/hr Documented By: MICAHEL Co-signed By: VINCENZO Nitroglycerin (Nitroglycerin 0.4 Mg Sl Tab) 0.4 mg SL [id number] PRN PRN Reason: Chest Pain Last Admin: 12/02/23 10:36 Dose: 0.4 mg Documented By: Admin: 12/02/23 10:12 Dose: 0.4 mg Documented By: MICHAEL Vital Signs Vital signs: Vital Signs - 8 hr 12/02/23 15:30 12/02/23 16:00 12/02/23 16:30 Pulse Rate 63 63 61 Respiratory Rate 21 23 22 Blood Pressure Pulse Oximetry 98 95 96 Oxygen Delivery Method Room Air Room Air Room Air 12/02/23 17:00 12/02/23 17:30 12/02/23 18:00 Pulse Rate 61 64 66 Respiratory Rate 19 22 18 Blood Pressure 158/73 H 155/70 H 137/63 Pulse Oximetry 96 98 95 Oxygen Delivery Method Room Air Room Air Room Air 12/02/23 18:30 Pulse Rate 69 Respiratory Rate 17 Blood Pressure Pulse Oximetry 95 Oxygen Delivery Method Room Air <Kimberly Fritz MD - Last Filed: 12/02/23 17:39> Orders Ordered: ED Orders 12/02/23 16:15 PTT Partial Thromboplastin Chris Stat Discontinued Medications Heparin Sodium (Porcine) (Heparin 5,000 Unit/Ml Vial) 5,000 unit IV NOW ONE Stop: 12/02/23 15:43 Last Admin: 12/02/23 16:50 Dose: 5,000 unit Documented By: SPF Heparin Sodium/Dextrose (Heparin Drip) 25,000 unit in 500 mls @ 18.282 mls/hr IV CONT SHRUTI; Protocol Last Admin: 12/02/23 16:51 Dose: 12 units/kg/hr, 18.282 mls/hr Documented By: MICHAEL Co-signed By: VINCENZO Nitroglycerin (Nitroglycerin 0.4 Mg Sl Tab) 0.4 mg SL [id number] PRN PRN Reason: Chest Pain Last Admin: 12/02/23 10:36 Dose: 0.4 mg Documented By: Admin: 12/02/23 10:12 Dose: 0.4 mg Documented By: MICHAEL Vital Signs Vital signs: Vital Signs - 8 hr 12/02/23 15:30 12/02/23 16:00 12/02/23 16:30 Pulse Rate 63 63 61 Respiratory Rate 21 23 22 Blood Pressure Pulse Oximetry 98 95 96 Oxygen Delivery Method Room Air Room Air Room Air 12/02/23 17:00 12/02/23 17:30 12/02/23 18:00 Pulse Rate 61 64 66 Respiratory Rate 19 22 18 Blood Pressure 158/73 H 155/70 H 137/63 Pulse Oximetry 96 98 95 Oxygen Delivery Method Room Air Room Air Room Air 12/02/23 18:30 Pulse Rate 69 Respiratory Rate 17 Blood Pressure Pulse Oximetry 95 Oxygen Delivery Method Room Air MDM - Chest Pain <Leidy Stern DO - Last Filed: 12/02/23 22:37> Lab Data Labs: Lab Results 12/02/23 12/02/23 12/02/23 Range/Units 08:15 12:28 16:15 APTT 39 H (25.1-36.5) SECONDS Troponin I 0.087 H 0.056 H (0.01-0.034) ng/mL [facility] Narrative Medical decision making narrative: 629 Dr. Nelson, cardiology updated patient's symptoms test results agrees that patient should be transferred over to [facility]. Awaiting to call [facility] beds at 7:00 a.m. Patient signed out to Dr. Fritz <Kimberly Fritz MD - Last Filed: 12/02/23 17:39> Lab Data Labs: Lab Results 12/02/23 12/02/23 12/02/23 Range/Units 08:15 12:28 16:15 APTT 39 H (25.1-36.5) SECONDS Troponin I 0.087 H 0.056 H (0.01-0.034) ng/mL [facility] Narrative Medical decision making narrative: 629 Dr. Nelson, cardiology updated patient's symptoms test results agrees that patient should be transferred over to [facility]. Awaiting to call [facility] for beds at 7:00 a.m. Patient signed out to Dr. Lam Fritz Received sign-out on patient, independent review of labs and imaging performed by myself. 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 Still pending call from [facility] for available bed. Repeat troponin stable. Patient was not had any further episodes of chest pain 1030 - Still awaiting call from [facility] for available bed. Patient had brief return of chest pain, resolved with administration of nitroglycerin. 1230 -troponin seems to be downtrending. Received call from [facility], discussed case with Dr. Francisco, who accepted patient for transfer. Recommended heparin drip out of precaution, which was ordered and administered to the patient. Discharge Plan Departure Patient Disposition: [facility] Clinical Impression: Non-ST elevation MA (NSTEMI) Prescriptions: No Action multivitamin [Daily Multi-Vitamin] Tablet 1 tab PO DAILY loratadine [Claritin] 10 mg tablet 10 mg PO Q DAY Qty: 30 1RF furosemide 20 mg tablet 20 mg PO QAM Qty: 30 0RF potassium chloride 20 mEq tablet extended release 20 meq PO DAILY Qty: 14 0RF furosemide [Lasix] 20 mg tablet 20 mg PO DAILY PRN (Reason: weight gain) Qty: 14 0RF atorvastatin 80 mg tablet 80 mg PO ONCE PM Qty: 90 0RF cholecalciferol (vitamin D3) 25 mcg (1,000 unit) Capsule 25 mcg PO DAILY flecainide 50 mg tablet 25 mg PO BID Qty: 60 0RF Eliquis 5 mg tablet 2.5 mg PO BID atenolol 25 mg tablet 12.5 mg PO DAILY chlorthalidone 25 mg Tablet 12.5 mg PO DAILY Referrals: Anabell Powell MD [Primary Care Provider] -
[2023-12-02 08:43] LABS: Troponin I 0.087 ng/mL (0.01-0.034)
[2023-12-02] MEDS: NITROGLYCERIN 0.4 MG SL TAB SL ×2 (10:12→10:36)
[2023-12-02 12:56] LABS: Troponin I 0.056 ng/mL (0.01-0.034)
[2023-12-02 16:41] LABS: PTT Partial Thromboplastin Tim 39 SECONDS (25.1-36.5)
[2023-12-02] MEDS: HEPARIN 5,000 UNIT/ML VIAL 5000 UNIT IV (16:50)
[2023-12-02] MEDS: HEPARIN DRIP 25,000 UNIT/500 ML IV.SOLN 18.282 UNIT IV (16:51)
--- NOTE | 2023-12-02 19:37 | PC.NURSE ---
Report attempted by primary RN. Receiving facility stated they could not take report at that time related to being in shift change. This RN then later called to attempt report again, receiving RN available and took report. All questions answered. Patient was transferred to [facility], PCC Unit, Rm 2023. Phone number to reach unit is [phone].
--- NOTE | 2023-12-02 22:39 | EKG_ITS ---
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
== END 2023-12-02 18:46 | disposition short-term general hospital (02) ==
PROVIDERS: Emergency Provider Emergency Medicine; PCP Family Medicine
DX: I21.4 Non-ST elevation (NSTEMI) myocardial infarction (principal); R07.89 Other chest pain; M79.602 Pain in left arm; M79.601 Pain in right arm; I48.0 Paroxysmal atrial fibrillation; Z79.01 Long term (current) use of anticoagulants
CPT/HCPCS: 36415; 71045; 80053; 82550; 83690; 83880; 84484; 85025; 85730; 93005; 96365; 96375; 99284; J1644

== ENCOUNTER 2023-12-07 03:39 | Emergency (ER) | payer MEDICARE, OTHER, SELFPAY ==
[2020-07-05 21:43] VITALS: BMI 26.8
[2023-12-07] VITALS (22 sets, daily range): BP systolic 119–197; BP diastolic 59–88; PULSE 66–80; RESP 18–28; TEMP 36.9; O2SAT 94–98; BMI 26.9
--- NOTE | 2023-12-07 03:57 | DI.RAD.S_ITS ---
PROCEDURE: XR CHEST 1V INDICATIONS: chest pain TECHNIQUE: One view of the chest was acquired. COMPARISON: [facility], CR, XR CHEST 1V, 12/02/2023, 2:13. [facility], CR, XR CHEST 1V, 02/15/2021, 12:49. FINDINGS: Surgical changes and devices: None. Lungs and pleura: No dense consolidation or pleural effusion Mediastinum: Heart size is at the upper limit of normal. Bones and chest wall: Degenerative changes IMPRESSION: No acute radiographic abnormality on this single view study. Agree with prelim report. Dictated by: Zak Hernandez M.D. on 12/07/2023 at 8:05 Approved by: Zak Hernandez M.D. on 12/07/2023 at 8:05
--- NOTE | 2023-12-07 03:57 | EKG_ITS ---
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
[2023-12-07 04:11] LABS: Add Manual Diff / Slide Review NO; Basophils Absolute Auto 100 /uL (0-100); Basophils Percent Auto 1.1 % (0-2); Eosinophils Absolute Auto 300 /uL (0-450); Eosinophils Percent Auto 4.2 % (2-4); Hematocrit 38.2 % (36-46); Hemoglobin 12.8 g/dL (12.0-16.0); Lymphocytes Absolute Auto 3200 /uL (1100-4500); Lymphocytes Percent Auto 42.4 % (25-40); Mean Corpuscular HGB Conc 33.5 % (30-36); Mean Corpuscular Hemoglobin 30.7 PG (26-34); Mean Corpuscular Volume 91.6 fL (80-100); Monocytes Absolute Auto 900 /uL (0-900); Monocytes Percent Auto 11.5 % (3-14); Neutrophils Absolute Auto 3100 /uL (1500-7000); Neutrophils Percent Auto 40.8 % (50-75); Platelet Count 308 X10^3/uL (150-400); Red Blood Cell Count 4.17 X10^6/uL (4.0-5.2); Red Cell Distribution Width 13.8 % (11.6-14.8); White Blood Cell Count 7.6 X10^3/uL (4.5-11.0)
[2023-12-07 04:14] LABS: Alanine Aminotransferase 37 IU/L (<35); Albumin 4.4 g/dL (3.5-5.0); Albumin Globulin Ratio 1.4 (1.0-2.8); Alkaline Phosphatase 99 U/L (38-126); Aspartate Aminotransferase 45 IU/L (14-36); BUN Creatinine Ratio 24.4 (6-22); Bilirubin Total 0.5 mg/dL (0.2-1.3); Blood Urea Nitrogen 19 mg/dL (7-17); Calcium 9.7 mg/dL (8.4-10.2); Carbon Dioxide 31 mmol/L (22-32); Chloride 105 mmol/L (98-107); Creatine Kinase 85 U/L (30-135); Estimated Glomerular Filt Rate > 60 mL/min (>60); Globulin 3.2 g/dL (1.7-4.1); Glucose 117 mg/dL (80-110); HEMOLYSIS < 15 (0-50); Lipase 246 U/L (23-300); Potassium 3.6 mmol/L (3.4-5.1); Sodium 139 mmol/L (137-145); Total Protein 7.6 g/dL (6.3-8.2)
--- NOTE | 2023-12-07 04:17 | ED_ITS ---
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 Subsequent troponins were negative at [facility] after she was transferred, she would echo and started on Imdur and discharged home. Patient states she has been asymptomatic until this morning. She woke up at 2:00 a.m. with left substernal and left arm pain. Patient states she does feel little short of breath. She has had some nausea but no vomiting, no syncope but did feel lightheaded. Patient states no new issues with bowel movements. Denies any issues with urination. No new swelling of extremities. She took aspirin 324 mg prior to arrival as well as 0.4 mg sublingual nitro that she received from her . That did improve her chest pain. She states she is on medication including antihypertensives, statin, she is on Eliquis for atrial fibrillation. She has had prior cholecystectomy, breast implants remotely, cardiac ablation in 1994 1995 she states no subsequent episodes of atrial fib. States allergic to morphine makes her throw up. No tobacco, alcohol no weekends, no recreational drugs. Dr. James is her mandarin teacher, she has an appointment this morning at 9:[address] Powell is her primary care physician Related Data Home Medications Medication Instructions Recorded Confirmed cholecalciferol (vitamin D3) 25 25 mcg PO DAILY 07/05/20 12/07/23 mcg (1,000 unit) capsule multivitamin (Daily Multi-Vitamin 1 tab PO DAILY 07/16/20 12/07/23 tablet) apixaban 5 mg tablet (Eliquis) 2.5 mg PO BID 10/15/20 12/07/23 atenolol 25 mg tablet 12.5 mg PO DAILY 12/02/23 12/07/23 chlorthalidone 25 mg tablet 12.5 mg PO DAILY 12/02/23 12/07/23 isosorbide mononitrate 30 mg 30 mg PO DAILY 12/07/23 12/07/23 tablet,extended release 24 hr loratadine 10 mg tablet (Allergy 10 mg PO DAILY 12/07/23 12/07/23 Relief (loratadine)) potassium chloride 10 mEq 20 meq PO DAILY 12/07/23 12/07/23 tablet,extended release Previous Rx's Medication Instructions Recorded loratadine 10 mg tablet (Claritin) 10 mg PO Q DAY #30 tabs 02/26/20 flecainide 50 mg tablet 25 mg (1/2 x 50 mg) PO BID #60 tabs 07/07/20 furosemide 20 mg tablet 20 mg PO QAM #30 tabs 10/18/20 furosemide 20 mg tablet (Lasix) 20 mg PO DAILY PRN weight gain #14 04/25/21 tabs atorvastatin 80 mg tablet 80 mg PO ONCE PM #90 tabs 09/17/23 Allergies Allergy/AdvReac Type Severity Reaction Status Date / Time clindamycin AdvReac Mild rash Verified 04/17/23 08:15 morphine AdvReac Mild N/V Verified 04/17/23 08:15 <Patel Garcia, - Last Filed: 12/07/23 12:56> History of Present Illness HPI narrative: 83-year-old female with history of atrial fibrillation on flecainide and Eliquis, WPW, diastolic heart failure, AVRT and AVNRT status post ablation, Mobitz type 1 second-degree heart block, hypertension, dyslipidemia, sleep apnea transferred for NSTEMI to [facility] on the 01 of December. Subsequent troponins were negative at [facility] after she was transferred, she would echo and started on Imdur and discharged home. Patient states she has been asymptomatic until this morning. She woke up at 2:00 a.m. with left substernal and left arm pain. Patient states she does feel little short of breath. She has had some nausea but no vomiting, no syncope but did feel lightheaded. Patient states no new issues with bowel movements. Denies any issues with urination. No new swelling of extremities. She took aspirin 324 mg prior to arrival as well as 0.4 mg sublingual nitro that she received from her . That did improve her chest pain. She states she is on medication including antihypertensives, statin, she is on Eliquis for atrial fibrillation. She has had prior cholecystectomy, breast implants remotely, cardiac ablation in 1994 1995 she states no subsequent episodes of atrial fib. States allergic to morphine makes her throw up. No tobacco, alcohol no weekends, no recreational drugs. Dr. James is her mandarin teacher, she has an appointment this morning at 9:[address] Powell is her primary care physician Review of Systems <Kimberly Talavera DO - Last Filed: 12/08/23 06:04> Review of Systems ROS Unobtainable: All systems reviewed & are unremarkable except as noted in HPI and below Patient History <Kimberly Talavera DO - Last Filed: 12/08/23 06:04> Medical History Acute renal failure Insomnia Obstructive sleep apnea syndrome History of Qjvuj-Bqbwtxfwl-Tzsie (WPW) syndrome Atrial fibrillation Acute diastolic heart failure Essential hypertension Hypokalemia Surgical History History of cataract removal with insertion of prosthetic lens History of breast augmentation Status post cholecystectomy History of cardiac radiofrequency ablation (RFA) Family History Grandmother Stroke Mother Osteoporosis Social History marital status: number of children: 2 household members: spouse lives independently: Yes caregiver/support person: No housing: house Smoking Status: Never smoker second hand exposure: No alcohol intake: current substance use type: does not use Smoking Status: Never smoker alcohol intake frequency: a few times a month Substance Use Type: does not use Exam <Kimberly Talavera DO - Last Filed: 12/08/23 06:04> Narrative Exam Narrative: GENERAL: Alert and oriented x three, well-appearing elderly female in mild distress. HEENT: Head normocephalic, atraumatic, EOMI, pupils reactive, face symmetric, moist mucous membranes NECK: Supple, full range of motion CARDIOVASCULAR: Regular rate and rhythm without murmurs, rubs or gallops. JVD. No edema bilateral lower extremities. No reproducible chest pain. RESPIRATORY: Breath sounds equal bilaterally, no wheezes rales or rhonchi. ABDOMEN: Soft, nontender. Normoactive bowel sounds all 4 quadrants. No guarding or rebound, rigidity, no mass : No CVA tenderness EXTREMITIES: Normal range of motion, no clubbing or edema. Neurovascularly intact NEUROLOGICAL: Cranial nerves II through XII grossly intact. Moving all extremities SKIN: Warm, dry, no petechiae, no rashes or lesions. Initial Vital Signs Initial Vital Signs: Vital Signs Temperature 98.5 F 12/07/23 03:48 Pulse Rate 71 12/07/23 03:48 Respiratory Rate 18 12/07/23 03:48 Blood Pressure 182/81 H 12/07/23 03:48 Pulse Oximetry 97 12/07/23 03:48 Oxygen Delivery Method Room Air 12/07/23 03:48 <Patel Garcia DO - Last Filed: 12/07/23 12:56> Initial Vital Signs Initial Vital Signs: Vital Signs Temperature 98.5 F 12/07/23 03:48 Pulse Rate 71 12/07/23 03:48 Respiratory Rate 18 12/07/23 03:48 Blood Pressure 182/81 H 12/07/23 03:48 Pulse Oximetry 97 12/07/23 03:48 Oxygen Delivery Method Room Air 12/07/23 03:48 <Leidy Stern DO - Last Filed: 12/09/23 08:09> Initial Vital Signs Initial Vital Signs: Vital Signs Temperature 98.5 F 12/07/23 03:48 Pulse Rate 71 12/07/23 03:48 Respiratory Rate 18 12/07/23 03:48 Blood Pressure 182/81 H 12/07/23 03:48 Pulse Oximetry 97 12/07/23 03:48 Oxygen Delivery Method Room Air 12/07/23 03:48 Course <Kimberly Talavera DO - Last Filed: 12/08/23 06:04> Orders Ordered: Discontinued Medications Aspirin (Aspirin 81 Mg Chew Tab) 324 mg PO NOW ONE Stop: 12/07/23 03:58 Last Admin: 12/07/23 04:05 Dose: Not Given Documented By: ERINN Flecainide Acetate (Flecainide 100 Mg Tablet) 25 mg PO NOW ONE Stop: 12/07/23 07:39 Last Admin: 12/07/23 07:58 Dose: 25 mg Documented By: POLLY Heparin Sodium (Porcine) (Heparin 5,000 Unit/Ml Vial) 4,500 unit 60 unit/kg (4500 unit) IV NOW ONE Stop: 12/07/23 09:33 Last Admin: 12/07/23 10:00 Dose: 4,500 unit Documented By: POLLY Sodium Chloride (Normal Saline 0.9%) 1,000 mls @ 150 mls/hr IV CONT SHRUTI Last Admin: 12/07/23 04:05 Dose: Not Given Documented By: ERINN Heparin Sodium/Dextrose (Heparin Drip) 25,000 unit in 500 mls @ 18.18 mls/hr IV CONT SHRUTI; Protocol Last Titration: 12/07/23 13:20 Dose: 0 units/kg/hr, 0 mls/hr Documented By: POLLY Co-signed By: SONIA Admin: 12/07/23 10:01 Dose: 12 units/kg/hr, 18.18 mls/hr Documented By: POLLY Co-signed By: SPF Nitroglycerin (Nitroglycerin Oint 1 Inch/Gm Oint...G.) 0.5 inch TOP NOW ONE Stop: 12/07/23 05:03 Last Admin: 12/07/23 05:06 Dose: 0.5 inch Documented By: ERINN Vital Signs Vital signs: Vital Signs - 8 hr 12/07/23 05:06 12/07/23 05:07 12/07/23 07:18 Pulse Rate 71 72 80 Respiratory Rate 23 28 H Blood Pressure 189/80 H Pulse Oximetry 95 96 12/07/23 07:30 12/07/23 07:30 12/07/23 08:00 Pulse Rate 76 74 Respiratory Rate Blood Pressure 126/60 Pulse Oximetry 97 96 12/07/23 08:00 12/07/23 08:30 12/07/23 08:31 Pulse Rate 69 Respiratory Rate 27 H Blood Pressure 178/81 H 157/69 H Pulse Oximetry 94 12/07/23 08:31 12/07/23 09:00 12/07/23 09:00 Pulse Rate 75 66 Respiratory Rate 19 Blood Pressure 167/80 H Pulse Oximetry 94 95 12/07/23 09:30 12/07/23 09:30 12/07/23 09:59 Pulse Rate 70 74 Respiratory Rate 28 H 22 Blood Pressure 193/87 H Pulse Oximetry 97 97 12/07/23 09:59 12/07/23 10:00 12/07/23 10:00 Pulse Rate 69 Respiratory Rate 23 Blood Pressure 186/88 H 197/82 H Pulse Oximetry 98 12/07/23 10:30 12/07/23 10:31 12/07/23 10:31 Pulse Rate 71 70 Respiratory Rate Blood Pressure 154/67 H Pulse Oximetry 98 97 12/07/23 11:00 12/07/23 11:01 12/07/23 11:01 Pulse Rate 73 71 Respiratory Rate Blood Pressure 145/67 H Pulse Oximetry 97 98 12/07/23 11:30 12/07/23 11:30 12/07/23 12:00 Pulse Rate 67 74 Respiratory Rate 22 Blood Pressure 124/59 L Pulse Oximetry 95 98 12/07/23 12:01 12/07/23 12:01 12/07/23 12:30 Pulse Rate 74 78 Respiratory Rate Blood Pressure 119/63 Pulse Oximetry 97 96 12/07/23 12:31 12/07/23 12:31 Pulse Rate 78 Respiratory Rate Blood Pressure 174/80 H Pulse Oximetry 97 <Patel Garcia DO - Last Filed: 12/07/23 12:56> Orders Ordered: Discontinued Medications Aspirin (Aspirin 81 Mg Chew Tab) 324 mg PO NOW ONE Stop: 12/07/23 03:58 Last Admin: 12/07/23 04:05 Dose: Not Given Documented By: ERINN Flecainide Acetate (Flecainide 100 Mg Tablet) 25 mg PO NOW ONE Stop: 12/07/23 07:39 Last Admin: 12/07/23 07:58 Dose: 25 mg Documented By: RB Heparin Sodium (Porcine) (Heparin 5,000 Unit/Ml Vial) 4,500 unit 60 unit/kg (4500 unit) IV NOW ONE Stop: 12/07/23 09:33 Last Admin: 12/07/23 10:00 Dose: 4,500 unit Documented By: POLLY Sodium Chloride (Normal Saline 0.9%) 1,000 mls @ 150 mls/hr IV CONT SHRUTI Last Admin: 12/07/23 04:05 Dose: Not Given Documented By: ERINN Heparin Sodium/Dextrose (Heparin Drip) 25,000 unit in 500 mls @ 18.18 mls/hr IV CONT SHRUTI; Protocol Last Titration: 12/07/23 13:20 Dose: 0 units/kg/hr, 0 mls/hr Documented By: POLLY Co-signed By: SONIA Admin: 12/07/23 10:01 Dose: 12 units/kg/hr, 18.18 mls/hr Documented By: POLYL Co-signed By: SPF Nitroglycerin (Nitroglycerin Oint 1 Inch/Gm Oint...G.) 0.5 inch TOP NOW ONE Stop: 12/07/23 05:03 Last Admin: 12/07/23 05:06 Dose: 0.5 inch Documented By: ERINN Vital Signs Vital signs: Vital Signs - 8 hr 12/07/23 05:06 12/07/23 05:07 12/07/23 07:18 Pulse Rate 71 72 80 Respiratory Rate 23 28 H Blood Pressure 189/80 H Pulse Oximetry 95 96 12/07/23 07:30 12/07/23 07:30 12/07/23 08:00 Pulse Rate 76 74 Respiratory Rate Blood Pressure 126/60 Pulse Oximetry 97 96 12/07/23 08:00 12/07/23 08:30 12/07/23 08:31 Pulse Rate 69 Respiratory Rate 27 H Blood Pressure 178/81 H 157/69 H Pulse Oximetry 94 12/07/23 08:31 12/07/23 09:00 12/07/23 09:00 Pulse Rate 75 66 Respiratory Rate 19 Blood Pressure 167/80 H Pulse Oximetry 94 95 12/07/23 09:30 12/07/23 09:30 12/07/23 09:59 Pulse Rate 70 74 Respiratory Rate 28 H 22 Blood Pressure 193/87 H Pulse Oximetry 97 97 12/07/23 09:59 12/07/23 10:00 12/07/23 10:00 Pulse Rate 69 Respiratory Rate 23 Blood Pressure 186/88 H 197/82 H Pulse Oximetry 98 12/07/23 10:30 12/07/23 10:31 12/07/23 10:31 Pulse Rate 71 70 Respiratory Rate Blood Pressure 154/67 H Pulse Oximetry 98 97 12/07/23 11:00 12/07/23 11:01 12/07/23 11:01 Pulse Rate 73 71 Respiratory Rate Blood Pressure 145/67 H Pulse Oximetry 97 98 12/07/23 11:30 12/07/23 11:30 12/07/23 12:00 Pulse Rate 67 74 Respiratory Rate 22 Blood Pressure 124/59 L Pulse Oximetry 95 98 12/07/23 12:01 12/07/23 12:01 12/07/23 12:30 Pulse Rate 74 78 Respiratory Rate Blood Pressure 119/63 Pulse Oximetry 97 96 12/07/23 12:31 12/07/23 12:31 Pulse Rate 78 Respiratory Rate Blood Pressure 174/80 H Pulse Oximetry 97 <Leidy Stern, DO - Last Filed: 12/09/23 08:09> Orders Ordered: Discontinued Medications Aspirin (Aspirin 81 Mg Chew Tab) 324 mg PO NOW ONE Stop: 12/07/23 03:58 Last Admin: 12/07/23 04:05 Dose: Not Given Documented By: ERINN Flecainide Acetate (Flecainide 100 Mg Tablet) 25 mg PO NOW ONE Stop: 12/07/23 07:39 Last Admin: 12/07/23 07:58 Dose: 25 mg Documented By: POLLY Heparin Sodium (Porcine) (Heparin 5,000 Unit/Ml Vial) 4,500 unit 60 unit/kg (4500 unit) IV NOW ONE Stop: 12/07/23 09:33 Last Admin: 12/07/23 10:00 Dose: 4,500 unit Documented By: POLLY Sodium Chloride (Normal Saline 0.9%) 1,000 mls @ 150 mls/hr IV CONT SHRUTI Last Admin: 12/07/23 04:05 Dose: Not Given Documented By: ERINN Heparin Sodium/Dextrose (Heparin Drip) 25,000 unit in 500 mls @ 18.18 mls/hr IV CONT SHRUTI; Protocol Last Titration: 12/07/23 13:20 Dose: 0 units/kg/hr, 0 mls/hr Documented By: POLLY Co-signed By: SONIA Admin: 12/07/23 10:01 Dose: 12 units/kg/hr, 18.18 mls/hr Documented By: POLLY Co-signed By: SPF Nitroglycerin (Nitroglycerin Oint 1 Inch/Gm Oint...G.) 0.5 inch TOP NOW ONE Stop: 12/07/23 05:03 Last Admin: 12/07/23 05:06 Dose: 0.5 inch Documented By: ERINN Vital Signs Vital signs: Vital Signs - 8 hr 12/07/23 05:06 12/07/23 05:07 12/07/23 07:18 Pulse Rate 71 72 80 Respiratory Rate 23 28 H Blood Pressure 189/80 H Pulse Oximetry 95 96 12/07/23 07:30 12/07/23 07:30 12/07/23 08:00 Pulse Rate 76 74 Respiratory Rate Blood Pressure 126/60 Pulse Oximetry 97 96 12/07/23 08:00 12/07/23 08:30 12/07/23 08:31 Pulse Rate 69 Respiratory Rate 27 H Blood Pressure 178/81 H 157/69 H Pulse Oximetry 94 12/07/23 08:31 12/07/23 09:00 12/07/23 09:00 Pulse Rate 75 66 Respiratory Rate 19 Blood Pressure 167/80 H Pulse Oximetry 94 95 12/07/23 09:30 12/07/23 09:30 12/07/23 09:59 Pulse Rate 70 74 Respiratory Rate 28 H 22 Blood Pressure 193/87 H Pulse Oximetry 97 97 12/07/23 09:59 12/07/23 10:00 12/07/23 10:00 Pulse Rate 69 Respiratory Rate 23 Blood Pressure 186/88 H 197/82 H Pulse Oximetry 98 12/07/23 10:30 12/07/23 10:31 12/07/23 10:31 Pulse Rate 71 70 Respiratory Rate Blood Pressure 154/67 H Pulse Oximetry 98 97 12/07/23 11:00 12/07/23 11:01 12/07/23 11:01 Pulse Rate 73 71 Respiratory Rate Blood Pressure 145/67 H Pulse Oximetry 97 98 12/07/23 11:30 12/07/23 11:30 12/07/23 12:00 Pulse Rate 67 74 Respiratory Rate 22 Blood Pressure 124/59 L Pulse Oximetry 95 98 12/07/23 12:01 12/07/23 12:01 12/07/23 12:30 Pulse Rate 74 78 Respiratory Rate Blood Pressure 119/63 Pulse Oximetry 97 96 12/07/23 12:31 12/07/23 12:31 Pulse Rate 78 Respiratory Rate Blood Pressure 174/80 H Pulse Oximetry 97 MDM - Chest Pain <Kimberly Talavera, - Last Filed: 12/08/23 06:04> Lab Data 12/07/23 03:41 12/07/23 03:41 Labs: Lab Results 12/07/23 12/07/23 12/07/23 Range/Units 03:41 06:05 08:05 WBC 7.6 (4.5-11.0) X10^3/uL RBC 4.17 (4.0-5.2) X10^6/uL Hgb 12.8 (12.0-16.0) g/dL Hct 38.2 (36-46) % MCV 91.6 (80-100) fL MCH 30.7 (26-34) PG MCHC 33.5 (30-36) % RDW 13.8 (11.6-14.8) % Plt Count 308 (150-400) X10^3/uL Neut % (Auto) 40.8 L (50-75) % Lymph % (Auto) 42.4 H (25-40) % Braxton % (Auto) 11.5 (3-14) % Eos % (Auto) 4.2 H (2-4) % Baso % (Auto) 1.1 (0-2) % Neut # (Auto) 3100 (2500-6979) /uL Lymph # (Auto) 3200 (4939-4396) /uL Braxton # (Auto) 900 (0-900) /uL Eos # (Auto) 300 (0-450) /uL Baso # (Auto) 100 (0-100) /uL APTT (25.1-36.5) SECONDS Sodium 139 (137-145) mmol/L Potassium 3.6 (3.4-5.1) mmol/L Chloride 105 (98-107) mmol/L Carbon Dioxide 31 (22-32) mmol/L BUN 19 H (7-17) mg/dL Creatinine 0.78 (0.52-1.04) mg/dL Estimated GFR > 60 (>60) mL/min BUN/Creatinine Ratio 24.4 H (6-22) Glucose 117 H (80-110) mg/dL Calcium 9.7 (8.4-10.2) mg/dL Total Bilirubin 0.5 (0.2-1.3) mg/dL AST 45 H (14-36) IU/L ALT 37 H (<35) IU/L Alkaline Phosphatase 99 (38-126) U/L Total Creatine Kinase 85 (30-135) U/L Troponin I 0.014 0.025 0.028 (0.01-0.034) ng/mL NT-Pro-B Natriuret Pep 123 (<450) pg/mL Total Protein 7.6 (6.3-8.2) g/dL Albumin 4.4 (3.5-5.0) g/dL Globulin 3.2 (1.7-4.1) g/dL Albumin/Globulin Ratio 1.4 (1.0-2.8) Lipase 246 D (23-300) U/L 12/07/23 Range/Units 09:53 WBC (4.5-11.0) X10^3/uL RBC (4.0-5.2) X10^6/uL Hgb (12.0-16.0) g/dL Hct (36-46) % MCV (80-100) fL MCH (26-34) PG MCHC (30-36) % RDW (11.6-14.8) % Plt Count (150-400) X10^3/uL Neut % (Auto) (50-75) % Lymph % (Auto) (25-40) % Braxton % (Auto) (3-14) % Eos % (Auto) (2-4) % Baso % (Auto) (0-2) % Neut # (Auto) (8582-8127) /uL Lymph # (Auto) (2929-2925) /uL Braxton # (Auto) (0-900) /uL Eos # (Auto) (0-450) /uL Baso # (Auto) (0-100) /uL APTT 40 H (25.1-36.5) SECONDS Sodium (137-145) mmol/L Potassium (3.4-5.1) mmol/L Chloride (98-107) mmol/L Carbon Dioxide (22-32) mmol/L BUN (7-17) mg/dL Creatinine (0.52-1.04) mg/dL Estimated GFR (>60) mL/min BUN/Creatinine Ratio (6-22) Glucose (80-110) mg/dL Calcium (8.4-10.2) mg/dL Total Bilirubin (0.2-1.3) mg/dL AST (14-36) IU/L ALT (<35) IU/L Alkaline Phosphatase (38-126) U/L Total Creatine Kinase (30-135) U/L Troponin I (0.01-0.034) ng/mL NT-Pro-B Natriuret Pep (<450) pg/mL Total Protein (6.3-8.2) g/dL Albumin (3.5-5.0) g/dL Globulin (1.7-4.1) g/dL Albumin/Globulin Ratio (1.0-2.8) Lipase (23-300) U/L Imaging Data Chest x-ray: Radiologist's Impression: No acute cardiopulmonary event periods variant apices, diminished haziness left base compared to prior study no active infiltrates. No pneumothorax. Sharp costophrenic angles. Stable mild cardiomegaly. No pulmonary vascular cephalization. Thoracic aortic anterior scalp. ECG Data Attestation: I personally reviewed and interpreted this ECG as follows: Prior ECG tracings: available for review Interpretation: Sinus rhythm first-degree AV block, nonspecific ST changes, patient patient had questionable elevation in 1st speed of lead 1 but not in subsequent beats, patient's EKG does not show any other acute ST elevation, T-waves are flipped in V1 V2. Patient has not Q-waves. EKG appears very similar to prior from 12/02/2023. Repeat EKG sinus rhythm marked sinus arrhythmia rate of 67 VA 312 QRS of [address]TC [address] elevation or depression appreciated compared to prior from earlier today or priors. MDM Narrative Medical decision making narrative: 83-year-old female with substernal chest pain radiating to the left arm. Patient was seen earlier this month sent to [facility] for NSTEMI, subsequent troponins were all negative, patient had an echo which showed no change and was started on Imdur. She did not have a stress test or heart catheterization but notes she did have a stress test in June. Workup today shows a white count of 7.6 hemoglobin of 12.8, platelets of 308, predominance of lymphocytes. Chemistries show a BUN 19 otherwise normal electrolytes, normal renal function glucose of 117, bilirubin 0.5, AST is 45 with a ALT of 37, initial troponin is 0.014. BNP is negative. EKG shows nonspecific changes but very similar to prior from 12/02/2023. Chest x-ray does not show any acute changes. Patient chest pain did return so had nitropaste applied. She has been taking her new prescription of Imdur. EKG was repeated with no acute change. Troponin was repeated is negative but increased from 0.014 to 0.[address] James for Cardiology. You recommends transfer for unstable angina. Asked that we start heparin drip 12 hours after last dose of patient's oral apixaban. Dr. Talavera discuss the case with Dr. James he was the patient's mandarin teacher who recommended starting her on heparin and transferring her to a facility that has Cardiology capability for further risk stratification testing to include a cardiac catheterization. He stated that her symptoms are concerning for unstable angina. I assumed care of the patient. We have patient's history and physical and workup up to this point. She has now had 3- troponins. She is nitro paste on. She did have a return of the chest discomfort that lasted a very short period of time. Repeat EKG during this time was unchanged from prior. Patient is now chest pain-free. She was on a heparin drip. I discussed the case with Dr. Curiel hospitalist on-call [facility] who accepts the patient in transfer. Patient is stable for transport. <Patel Garcia, DO - Last Filed: 12/07/23 12:56> Lab Data Labs: Lab Results 12/07/23 12/07/23 12/07/23 Range/Units 03:41 06:05 08:05 WBC 7.6 (4.5-11.0) X10^3/uL RBC 4.17 (4.0-5.2) X10^6/uL Hgb 12.8 (12.0-16.0) g/dL Hct 38.2 (36-46) % MCV 91.6 (80-100) fL MCH 30.7 (26-34) PG MCHC 33.5 (30-36) % RDW 13.8 (11.6-14.8) % Plt Count 308 (150-400) X10^3/uL Neut % (Auto) 40.8 L (50-75) % Lymph % (Auto) 42.4 H (25-40) % Braxton % (Auto) 11.5 (3-14) % Eos % (Auto) 4.2 H (2-4) % Baso % (Auto) 1.1 (0-2) % Neut # (Auto) 3100 (0931-6169) /uL Lymph # (Auto) 3200 (3866-4123) /uL Braxton # (Auto) 900 (0-900) /uL Eos # (Auto) 300 (0-450) /uL Baso # (Auto) 100 (0-100) /uL APTT (25.1-36.5) SECONDS Sodium 139 (137-145) mmol/L Potassium 3.6 (3.4-5.1) mmol/L Chloride 105 (98-107) mmol/L Carbon Dioxide 31 (22-32) mmol/L BUN 19 H (7-17) mg/dL Creatinine 0.78 (0.52-1.04) mg/dL Estimated GFR > 60 (>60) mL/min BUN/Creatinine Ratio 24.4 H (6-22) Glucose 117 H (80-110) mg/dL Calcium 9.7 (8.4-10.2) mg/dL Total Bilirubin 0.5 (0.2-1.3) mg/dL AST 45 H (14-36) IU/L ALT 37 H (<35) IU/L Alkaline Phosphatase 99 (38-126) U/L Total Creatine Kinase 85 (30-135) U/L Troponin I 0.014 0.025 0.028 (0.01-0.034) ng/mL NT-Pro-B Natriuret Pep 123 (<450) pg/mL Total Protein 7.6 (6.3-8.2) g/dL Albumin 4.4 (3.5-5.0) g/dL Globulin 3.2 (1.7-4.1) g/dL Albumin/Globulin Ratio 1.4 (1.0-2.8) Lipase 246 D (23-300) U/L 12/07/23 Range/Units 09:53 WBC (4.5-11.0) X10^3/uL RBC (4.0-5.2) X10^6/uL Hgb (12.0-16.0) g/dL Hct (36-46) % MCV (80-100) fL MCH (26-34) PG MCHC (30-36) % RDW (11.6-14.8) % Plt Count (150-400) X10^3/uL Neut % (Auto) (50-75) % Lymph % (Auto) (25-40) % Braxton % (Auto) (3-14) % Eos % (Auto) (2-4) % Baso % (Auto) (0-2) % Neut # (Auto) (9226-8047) /uL Lymph # (Auto) (5787-8321) /uL Braxton # (Auto) (0-900) /uL Eos # (Auto) (0-450) /uL Baso # (Auto) (0-100) /uL APTT 40 H (25.1-36.5) SECONDS Sodium (137-145) mmol/L Potassium (3.4-5.1) mmol/L Chloride (98-107) mmol/L Carbon Dioxide (22-32) mmol/L BUN (7-17) mg/dL Creatinine (0.52-1.04) mg/dL Estimated GFR (>60) mL/min BUN/Creatinine Ratio (6-22) Glucose (80-110) mg/dL Calcium (8.4-10.2) mg/dL Total Bilirubin (0.2-1.3) mg/dL AST (14-36) IU/L ALT (<35) IU/L Alkaline Phosphatase (38-126) U/L Total Creatine Kinase (30-135) U/L Troponin I (0.01-0.034) ng/mL NT-Pro-B Natriuret Pep (<450) pg/mL Total Protein (6.3-8.2) g/dL Albumin (3.5-5.0) g/dL Globulin (1.7-4.1) g/dL Albumin/Globulin Ratio (1.0-2.8) Lipase (23-300) U/L [facility] Narrative Medical decision making narrative: 83-year-old female with substernal chest pain radiating to the left arm. Patient was seen earlier this month sent to [facility] for NSTEMI, subsequent troponins were all negative, patient had an echo which showed no change and was started on Imdur. She did not have a stress test or heart catheterization but notes she did have a stress test in June. Workup today shows a white count of 7.6 hemoglobin of 12.8, platelets of 308, predominance of lymphocytes. Chemistries show a BUN 19 otherwise normal electrolytes, normal renal function glucose of 117, bilirubin 0.5, AST is 45 with a ALT of 37, initial troponin is 0.014. BNP is negative. EKG shows nonspecific changes but very similar to prior from 12/02/2023. Chest x-ray does not show any acute changes. Patient chest pain did return so had nitropaste applied. She has been taking her new prescription of Imdur. EKG was repeated with no acute change. Troponin was repeated Call to Dr. James for Cardiology. Dr. Romero discuss the case with Dr. James he was the patient's mandarin teacher who recommended starting her on heparin and transferring her to a facility that has Cardiology capability for further risk stratification testing to include a cardiac catheterization. He stated that her symptoms are concerning for unstable angina. I assumed care of the patient. We have patient's history and physical and workup up to this point. She has now had 3- troponins. She is nitro paste on. She did have a return of the chest discomfort that lasted a very short period of time. Repeat EKG during this time was unchanged from prior. Patient is now chest pain-free. She was on a heparin drip. I discussed the case with Dr. Curiel hospitalist on-call [facility] who accepts the patient in transfer. Patient is stable for transport. <Leidy Stern, DO - Last Filed: 12/09/23 08:09> Lab Data Labs: Lab Results 12/07/23 12/07/23 12/07/23 Range/Units 03:41 06:05 08:05 WBC 7.6 (4.5-11.0) X10^3/uL RBC 4.17 (4.0-5.2) X10^6/uL Hgb 12.8 (12.0-16.0) g/dL Hct 38.2 (36-46) % MCV 91.6 (80-100) fL MCH 30.7 (26-34) PG MCHC 33.5 (30-36) % RDW 13.8 (11.6-14.8) % Plt Count 308 (150-400) X10^3/uL Neut % (Auto) 40.8 L (50-75) % Lymph % (Auto) 42.4 H (25-40) % Braxton % (Auto) 11.5 (3-14) % Eos % (Auto) 4.2 H (2-4) % Baso % (Auto) 1.1 (0-2) % Neut # (Auto) 3100 (7884-0746) /uL Lymph # (Auto) 3200 (9713-7026) /uL [place] # (Auto) 900 (0-900) /uL Eos # (Auto) 300 (0-450) /uL Baso # (Auto) 100 (0-100) /uL APTT (25.1-36.5) SECONDS Sodium 139 (137-145) mmol/L Potassium 3.6 (3.4-5.1) mmol/L Chloride 105 (98-107) mmol/L Carbon Dioxide 31 (22-32) mmol/L BUN 19 H (7-17) mg/dL Creatinine 0.78 (0.52-1.04) mg/dL Estimated GFR > 60 (>60) mL/min BUN/Creatinine Ratio 24.4 H (6-22) Glucose 117 H (80-110) mg/dL Calcium 9.7 (8.4-10.2) mg/dL Total Bilirubin 0.5 (0.2-1.3) mg/dL AST 45 H (14-36) IU/L ALT 37 H (<35) IU/L Alkaline Phosphatase 99 (38-126) U/L Total Creatine Kinase 85 (30-135) U/L Troponin I 0.014 0.025 0.028 (0.01-0.034) ng/mL NT-Pro-B Natriuret Pep 123 (<450) pg/mL Total Protein 7.6 (6.3-8.2) g/dL Albumin 4.4 (3.5-5.0) g/dL Globulin 3.2 (1.7-4.1) g/dL Albumin/Globulin Ratio 1.4 (1.0-2.8) Lipase 246 D (23-300) U/L 12/07/23 Range/Units 09:53 WBC (4.5-11.0) X10^3/uL RBC (4.0-5.2) X10^6/uL Hgb (12.0-16.0) g/dL Hct (36-46) % MCV (80-100) fL MCH (26-34) PG MCHC (30-36) % RDW (11.6-14.8) % Plt Count (150-400) X10^3/uL Neut % (Auto) (50-75) % Lymph % (Auto) (25-40) % Braxton % (Auto) (3-14) % Eos % (Auto) (2-4) % Baso % (Auto) (0-2) % Neut # (Auto) (1103-1427) /uL Lymph # (Auto) (4267-7009) /uL Braxton # (Auto) (0-900) /uL Eos # (Auto) (0-450) /uL Baso # (Auto) (0-100) /uL APTT 40 H (25.1-36.5) SECONDS Sodium (137-145) mmol/L Potassium (3.4-5.1) mmol/L Chloride (98-107) mmol/L Carbon Dioxide (22-32) mmol/L BUN (7-17) mg/dL Creatinine (0.52-1.04) mg/dL Estimated GFR (>60) mL/min BUN/Creatinine Ratio (6-22) Glucose (80-110) mg/dL Calcium (8.4-10.2) mg/dL Total Bilirubin (0.2-1.3) mg/dL AST (14-36) IU/L ALT (<35) IU/L Alkaline Phosphatase (38-126) U/L Total Creatine Kinase (30-135) U/L Troponin I (0.01-0.034) ng/mL NT-Pro-B Natriuret Pep (<450) pg/mL Total Protein (6.3-8.2) g/dL Albumin (3.5-5.0) g/dL Globulin (1.7-4.1) g/dL Albumin/Globulin Ratio (1.0-2.8) Lipase (23-300) U/L MDM Narrative Medical decision making narrative: 83-year-old female with substernal chest pain radiating to the left arm. Patient was seen earlier this month sent to [facility] for NSTEMI, subsequent troponins were all negative, patient had an echo which showed no change and was started on Imdur. She did not have a stress test or heart catheterization but notes she did have a stress test in June. Workup today shows a white count of 7.6 hemoglobin of 12.8, platelets of 308, predominance of lymphocytes. Chemistries show a BUN 19 otherwise normal electrolytes, normal renal function glucose of 117, bilirubin 0.5, AST is 45 with a ALT of 37, initial troponin is 0.014. BNP is negative. EKG shows nonspecific changes but very similar to prior from 12/02/2023. Chest x-ray does not show any acute changes. Patient chest pain did return so had nitropaste applied. She has been taking her new prescription of Imdur. EKG was repeated with no acute change. Troponin was repeated is negative but increased from 0.014 to 0.[address] James for Cardiology. You recommends transfer for unstable angina. Asked that we start heparin drip 12 hours after last dose of patient's oral apixaban. Dr. Talavera discuss the case with Dr. James he was the patient's mandarin teacher who recommended starting her on heparin and transferring her to a facility that has Cardiology capability for further risk stratification testing to include a cardiac catheterization. He stated that her symptoms are concerning for unstable angina. I assumed care of the patient. We have patient's history and physical and workup up to this point. She has now had 3- troponins. She is nitro paste on. She did have a return of the chest discomfort that lasted a very short period of time. Repeat EKG during this time was unchanged from prior. Patient is now chest pain-free. She was on a heparin drip. I discussed the case with Dr. Curiel hospitalist on-call [facility] who accepts the patient in transfer. Patient is stable for transport. Dr. Stern--I never saw or evaluated patient during this visit. Patient was dispositioned before signed out on 12/09/23 at 7am. I was not working 12/07/23 or 12/08/23 Discharge Plan Departure [facility] Clinical Impression: Unstable angina pectoris Prescriptions: No Action multivitamin [Daily Multi-Vitamin] Tablet 1 tab PO DAILY loratadine [Claritin] 10 mg tablet 10 mg PO Q DAY Qty: 30 1RF furosemide 20 mg tablet 20 mg PO QAM Qty: 30 0RF furosemide [Lasix] 20 mg tablet 20 mg PO DAILY PRN (Reason: weight gain) Qty: 14 0RF atorvastatin 80 mg tablet 80 mg PO ONCE PM Qty: 90 0RF isosorbide mononitrate 30 mg tablet extended release 24 hr 30 mg PO DAILY potassium chloride 10 mEq tablet extended release 20 meq PO DAILY loratadine [Allergy Relief (loratadine)] 10 mg Tablet 10 mg PO DAILY cholecalciferol (vitamin D3) 25 mcg (1,000 unit) Capsule 25 mcg PO DAILY flecainide 50 mg tablet 25 mg PO BID Qty: 60 0RF Eliquis 5 mg tablet 2.5 mg PO BID atenolol 25 mg tablet 12.5 mg PO DAILY chlorthalidone 25 mg Tablet 12.5 mg PO DAILY Referrals: Anabell Powell MD [Primary Care Provider] -
[2023-12-07 04:26] LABS: Troponin I 0.014 ng/mL (0.01-0.034)
[2023-12-07] MEDS: NITROGLYCERIN OINT 1 INCH/GM OINT...G. 0.5 INCH TOP (05:06)
[2023-12-07 05:22] LABS: NT-proBNP (BNP-Adult 18+) 123 pg/mL (<450)
--- NOTE | 2023-12-07 06:10 | EKG_ITS ---
[place] [id number] [place] [id number] Test Date: 2023-12-07 Pat Name: Rashida Quijano Department: Room: Gender: Female A/C Technician: : 1940 Requested By: Order Number: [id number] Reading MD: Bernardino Landeros Measurements Intervals [place] Rate: 67 P: 81 [place]: 312 QRS: 3 QRSD: 102 T: 55 QT: 442 QTc: 467 Interpretive Statements Sinus rhythm with marked sinus arrhythmia with 1st degree AV block Moderate voltage criteria for LVH, may be normal variant ( R in aVL , Shailesh product ) Anterior infarct , age undetermined Electronically Signed On 12-07-2023 16:21:31 PDT by Bernardino Landeros
[2023-12-07 06:42] LABS: Troponin I 0.025 ng/mL (0.01-0.034)
[2023-12-07] MEDS: FLECAINIDE 100 MG TABLET 25 MG PO (07:58)
[2023-12-07 08:34] LABS: Troponin I 0.028 ng/mL (0.01-0.034)
--- NOTE | 2023-12-07 09:27 | EKG_ITS ---
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
[2023-12-07] MEDS: HEPARIN 5,000 UNIT/ML VIAL 4500 UNIT IV (10:00)
[2023-12-07] MEDS: HEPARIN DRIP 25,000 UNIT/500 ML IV.SOLN 18.18 UNIT IV (10:01)
[2023-12-07 10:32] LABS: PTT Partial Thromboplastin Tim 40 SECONDS (25.1-36.5)
--- NOTE | 2023-12-07 10:59 | PC.NURSE ---
This RN transferred patient to inpatient hospital bed within the Emergency department.
--- NOTE | 2023-12-07 12:59 | PC.NURSE ---
Addendum entered by Bernard Kang R.N. 12/07/23 13:11: Patient is on heparin and is being transported via [facility]. This RN informed ZACK Paez that next PTT is needed 0353. This RN gave nurse the return phone number in case of any additional questions. Original Note: This RN gave verbal report to ZACK Paez at [facility].
--- NOTE | 2023-12-07 13:06 | PC.NURSE ---
This RN gave verbal report to ZACK Easley from [facility]. This RN informed RN of Heparin and the rate of current infusion and next PTT needed time. Sinan RN transferred Heparin over to their pump. This RN gave this department phone number for any further questions.
--- NOTE | 2023-12-07 13:14 | PC.NURSE ---
Patient left with CPAP machine, cell phone, stores naval, tablet, stores naval, and Wedding ring with josé miguel stone and two bags of clothes and personal affects with [facility].
== END 2023-12-07 13:20 | disposition short-term general hospital (02) ==
PROVIDERS: Emergency Medicine; Emergency Provider Emergency Medicine; PCP Family Medicine
DX: I44.0 Atrioventricular block, first degree (principal); I48.91 Unspecified atrial fibrillation; Z79.01 Long term (current) use of anticoagulants; I20.0 Unstable angina
CPT/HCPCS: 36415; 71045; 80053; 82550; 83690; 83880; 84484; 85025; 85730; 93005; 96365; 96366; 96375; 99284; J1644

== ENCOUNTER → 2024-01-23 08:49 | Outpatient (CLI) | payer MEDICARE, OTHER, SELFPAY ==
[2020-07-05 21:43] VITALS: BMI 26.8
[2024-01-23 10:59] LABS: Cholesterol 147 mg/dL (140-199); HDL Cholesterol 68 mg/dL (40-60); LDL Cholesterol Calculated 64 mg/dL (<100); Triglycerides 75 mg/dL (35-150)
== END ==
PROVIDERS: PCP Family Medicine; Referring Provider Internal Medicine Cardiovascular Disease; Visit Provider Internal Medicine Cardiovascular Disease
DX: I10 Essential (primary) hypertension (principal)
CPT/HCPCS: 36415; 80061

== ENCOUNTER 2024-02-07 06:49 | Emergency (ER) | payer MEDICARE, OTHER, SELFPAY ==
[2020-07-05 21:43] VITALS: BMI 26.8
[2024-02-07] VITALS (10 sets, daily range): BP systolic 130–193; BP diastolic 69–91; PULSE 62–75; RESP 15–26; TEMP 36.7; O2SAT 93–99; BMI 27.1
--- NOTE | 2024-02-07 06:58 | EKG_ITS ---
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
--- NOTE | 2024-02-07 06:58 | DI.RAD.S_ITS ---
PROCEDURE: XR CHEST 1V INDICATIONS: chest pain TECHNIQUE: One view of the chest was acquired. COMPARISON: [facility], CR, XR CHEST 1V, 12/07/2023, 4:04. FINDINGS: Surgical changes and devices: Electronic device overlying the left chest. Lungs and pleura: Lungs are clear. No pleural effusions or pneumothorax. Mediastinum: Mediastinal contours appear unchanged. Heart size is normal. Bones and chest wall: No suspicious bony lesions. Overlying soft tissues appear unremarkable. IMPRESSION: No acute cardiopulmonary abnormality is seen. Dictated by: Eric Alexander M.D. on 02/07/2024 at 8:02 Approved by: Eric Alexander M.D. on 02/07/2024 at 8:03
[2024-02-07 07:18] LABS: Add Manual Diff / Slide Review NO; Basophils Absolute Auto 100 /uL (0-100); Eosinophils Absolute Auto 200 /uL (0-450); Eosinophils Percent Auto 3.5 % (2-4); Hematocrit 41.1 % (36-46); Hemoglobin 13.7 g/dL (12.0-16.0); Lymphocytes Absolute Auto 2100 /uL (1100-4500); Lymphocytes Percent Auto 30.2 % (25-40); Mean Corpuscular HGB Conc 33.2 % (30-36); Mean Corpuscular Hemoglobin 30.5 PG (26-34); Mean Corpuscular Volume 91.8 fL (80-100); Monocytes Absolute Auto 700 /uL (0-900); Monocytes Percent Auto 10.7 % (3-14); Neutrophils Absolute Auto 3700 /uL (1500-7000); Neutrophils Percent Auto 54.6 % (50-75); Platelet Count 332 X10^3/uL (150-400); Red Blood Cell Count 4.48 X10^6/uL (4.0-5.2); Red Cell Distribution Width 13.1 % (11.6-14.8); White Blood Cell Count 6.8 X10^3/uL (4.5-11.0)
--- NOTE | 2024-02-07 07:22 | ED_ITS ---
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 December 01 then again transferred to [facility] for cardiac catheterization where patient says she received a stent. Today she presents with right-sided chest pain and some shortness of breath. She says last night she woke swelling you could not take a deep breath. She did not seem to notice any significant dyspnea with exertion. She describes it as some chest heaviness but not like her previous heart history. She is also currently wearing a ZIO patch followed by Dr. Reyna while Cardiology for her AFib. She was instructed by someone not to continue her cardiac rehab until her arrhythmia is more stable. She does appear to have sinus arrhythmia on the monitor. She has no fever chills or cough no lower extremity edema no other symptoms. Related Data Home Medications Medication Instructions Recorded Confirmed cholecalciferol (vitamin D3) 25 25 mcg PO DAILY 07/05/20 12/21/23 mcg (1,000 unit) capsule multivitamin (Daily Multi-Vitamin 1 tab PO DAILY 07/16/20 12/21/23 tablet) apixaban 5 mg tablet (Eliquis) 2.5 mg PO BID 10/15/20 12/21/23 isosorbide mononitrate 30 mg 30 mg PO DAILY 12/07/23 12/21/23 tablet,extended release 24 hr loratadine 10 mg tablet (Allergy 10 mg PO DAILY 12/07/23 12/21/23 Relief (loratadine)) potassium chloride 10 mEq 20 meq PO DAILY 12/07/23 12/21/23 tablet,extended release Previous Rx's Medication Instructions Recorded loratadine 10 mg tablet (Claritin) 10 mg PO Q DAY #30 tabs 02/26/20 furosemide 20 mg tablet 20 mg PO QAM #30 tabs 10/18/20 furosemide 20 mg tablet (Lasix) 20 mg PO DAILY PRN weight gain #14 04/25/21 tabs atorvastatin 80 mg tablet 80 mg PO QPM #90 tabs 12/19/23 albuterol sulfate 90 mcg/actuation 2 puff inhalation Q4-6H PRN 02/07/24 aerosol inhaler shortness of breath or wheezing #8.5 grams Allergies Allergy/AdvReac Type Severity Reaction Status Date / Time clindamycin AdvReac Mild rash Verified 12/21/23 09:47 morphine AdvReac Mild N/V Verified 12/21/23 09:47 Patient History Medical History Acute renal failure Insomnia Obstructive sleep apnea syndrome History of Wuuob-Qpaeufabo-Dggiu (WPW) syndrome Atrial fibrillation Acute diastolic heart failure Essential hypertension Hypokalemia Surgical History History of cataract removal with insertion of prosthetic lens History of breast augmentation Status post cholecystectomy History of cardiac radiofrequency ablation (RFA) Family History Grandmother Stroke Mother Osteoporosis Social History marital status: number of children: 2 household members: spouse lives independently: Yes caregiver/support person: No housing: house Smoking Status: Never smoker second hand exposure: No alcohol intake: current substance use type: does not use Smoking Status: Never smoker alcohol intake frequency: a few times a week Substance Use Type: does not use Exam Initial Vital Signs Initial Vital Signs: Vital Signs Temperature 98.0 F 02/07/24 06:59 Pulse Rate 75 02/07/24 06:59 Respiratory Rate 17 02/07/24 06:59 Blood Pressure 193/91 H 02/07/24 06:59 Pulse Oximetry 99 02/07/24 06:59 Oxygen Delivery Method Room Air 02/07/24 06:59 GENERAL: Alert pleasant 83-year-old female and in no acute distress. HEENT: Head atraumatic,EOMI, pupils reactive, face symmetric, moist mucous membranes CARDIOVASCULAR: Regular rate and rhythm without murmurs, rubs or gallops. RESPIRATORY: Breath sounds equal bilaterally, no wheezes rales or rhonchi. ABDOMEN: Soft, nontender. Normoactive bowel sounds all 4 quadrants. No guarding or rebound. EXTREMITIES: Normal range of motion, no clubbing or edema. Neurovascularly intact NEUROLOGICAL: Alert and oriented x4.Normal gait and speech. Cranial nerves II through XII grossly intact. SKIN: Warm, dry, no laceration, no petechiae, no rashes or lesions. Course Orders Ordered: ED Orders 02/07/24 06:58 XR chest 1V Stat EKG-12 Lead Stat 02/07/24 07:02 Complete Blood Count AUTO DIFF Stat Comprehensive Metabolic Panel Stat Lipase Stat Magnesium Stat NT-proBNP (BNP-Adult 18+) Stat PTT Partial Thromboplastin Chris Stat Prothrombin Time INR Stat Troponin & CK Cardiac Panel Stat 02/07/24 07:59 Urine Microscopic Stat 02/07/24 09:04 Trop I [Troponin I] Stat Discontinued Medications Albuterol (Albuterol 2.5 Mg/3 Ml Neb (Adult)) 2.5 mg INH NOW ONE Stop: 02/07/24 08:18 Last Admin: 02/07/24 08:33 Dose: 2.5 mg Documented By: DELMAR Aspirin (Aspirin 81 Mg Chew Tab) 324 mg PO NOW ONE Stop: 02/07/24 06:59 Last Admin: 02/07/24 08:01 Dose: Not Given Documented By: [facility] Vital Signs Vital signs: Vital Signs - 8 hr 02/07/24 06:59 02/07/24 07:04 02/07/24 07:30 Temperature 98.0 F Pulse Rate 75 74 67 Respiratory Rate 17 26 H 19 Blood Pressure 193/91 H Pulse Oximetry 99 98 93 Oxygen Delivery Method Room Air Oxygen Flow Rate 02/07/24 07:59 02/07/24 07:59 02/07/24 08:00 Temperature Pulse Rate 67 Respiratory Rate 19 Blood Pressure 138/72 130/69 Pulse Oximetry 94 Oxygen Delivery Method Oxygen Flow Rate 02/07/24 08:00 02/07/24 08:30 02/07/24 08:30 Temperature Pulse Rate 67 66 Respiratory Rate 23 15 Blood Pressure 154/70 H Pulse Oximetry 95 95 Oxygen Delivery Method Oxygen Flow Rate 02/07/24 08:33 02/07/24 09:00 02/07/24 09:00 Temperature Pulse Rate 62 64 Respiratory Rate 16 22 Blood Pressure 153/70 H Pulse Oximetry 98 Oxygen Delivery Method Room Air Oxygen Flow Rate 97 02/07/24 09:30 02/07/24 09:30 02/07/24 10:00 Temperature Pulse Rate 66 68 Respiratory Rate 17 20 Blood Pressure 164/73 H Pulse Oximetry 98 97 Oxygen Delivery Method Oxygen Flow Rate 02/07/24 10:00 Temperature Pulse Rate Respiratory Rate Blood Pressure 174/74 H Pulse Oximetry Oxygen Delivery Method Oxygen Flow Rate MDM - Chest Pain Lab Data 02/07/24 07:02 02/07/24 07:02 Labs: Lab Results 02/07/24 02/07/24 02/07/24 Range/Units 07:02 07:59 09:04 WBC 6.8 (4.5-11.0) X10^3/uL RBC 4.48 (4.0-5.2) X10^6/uL Hgb 13.7 (12.0-16.0) g/dL Hct 41.1 (36-46) % MCV 91.8 (80-100) fL MCH 30.5 (26-34) PG MCHC 33.2 (30-36) % RDW 13.1 (11.6-14.8) % Plt Count 332 (150-400) X10^3/uL Neut % (Auto) 54.6 (50-75) % Lymph % (Auto) 30.2 (25-40) % [place] % (Auto) 10.7 (3-14) % Eos % (Auto) 3.5 (2-4) % Baso % (Auto) 1.0 (0-2) % Neut # (Auto) 3700 (7768-0965) /uL Lymph # (Auto) 2100 (5206-1835) /uL [place] # (Auto) 700 (0-900) /uL Eos # (Auto) 200 (0-450) /uL Baso # (Auto) 100 (0-100) /uL PT 18.6 H (9.4-12.5) SECONDS INR 1.6 H (0.9-1.3) APTT 43 H (25.1-36.5) SECONDS Sodium 142 (137-145) mmol/L Potassium 3.9 (3.4-5.1) mmol/L Chloride 108 H (98-107) mmol/L Carbon Dioxide 26 (22-32) mmol/L BUN 21 H (7-17) mg/dL Creatinine 0.83 (0.52-1.04) mg/dL Estimated GFR > 60 (>60) mL/min BUN/Creatinine Ratio 25.3 H (6-22) Glucose 114 H (80-110) mg/dL Calcium 9.6 (8.4-10.2) mg/dL Magnesium 1.9 (1.6-2.3) mg/dL Total Bilirubin 0.6 (0.2-1.3) mg/dL AST 37 H (14-36) IU/L ALT 30 (<35) IU/L Alkaline Phosphatase 122 (38-126) U/L Total Creatine Kinase 54 (30-135) U/L Troponin I < 0.012 < 0.012 (0.01-0.034) ng/mL NT-Pro-B Natriuret Pep 116 (<450) pg/mL Total Protein 7.5 (6.3-8.2) g/dL Albumin 4.4 (3.5-5.0) g/dL Globulin 3.1 (1.7-4.1) g/dL Albumin/Globulin Ratio 1.4 (1.0-2.8) Lipase 177 (23-300) U/L Urine RBC 0-1/hpf (0-5/HPF) Urine WBC 0-1/hpf (0-5/HPF) Ur Squamous Epith Cells None seen (0-5/HPF) Urine Bacteria None seen (None) Ur Culture Indicated? Cult not indicated Vol Urine Centrifuged 10ml (spun) Urine Dip Bedside Urine Glucose Negative Bedside Urine Bilirubin - Negative Bedside Urine Ketone - Negative Urine Specific Power 1.010 Bedside Urine Occult Blood +/- Bedside Urine pH 6.0 Bedside Urine Protein - Negative Bedside Urine Urobilinogen - Negative Bedside Urine Nitrite - Negative Bedside Urine Leukocytes +/- 15 Esterase Imaging Data Chest x-ray: Radiologist's Impression: PROCEDURE: XR CHEST 1V INDICATIONS: chest pain TECHNIQUE: One view of the chest was acquired. COMPARISON: [facility], CR, XR CHEST 1V, 12/07/2023, 4:04. FINDINGS: Surgical changes and devices: Electronic device overlying the left chest. Lungs and pleura: Lungs are clear. No pleural effusions or pneumothorax. Mediastinum: Mediastinal contours appear unchanged. Heart size is normal. Bones and chest wall: No suspicious bony lesions. Overlying soft tissues appear unremarkable. IMPRESSION: No acute cardiopulmonary abnormality is seen. Dictated by: Eric Alexander M.D. on 02/07/2024 at 8:02 ECG Data Attestation: I personally reviewed and interpreted this ECG as follows: Prior ECG tracings: available for review Interpretation: Sinus rhythm rate 74 SD interval was 214 QRS 98 QTC 452 does appear to be irregular sinus MDM Narrative Medical decision making narrative: Patient 83-year-old female with recent stent at [facility] for NSTEMI currently on a ZIO patch and Eliquis presenting today with right-sided chest discomfort and some shortness of breath. EKG has been reviewed it is irregular sinus rhythm does not appear to be type 2 or type 3 AV block Chest x-ray reviewed no acute cardiopulmonary process Blood work has been reviewed no leukocytosis no electrolyte abnormality ANY and 2- troponins BNP is 116 WBC 6.8 hemoglobin 13.7 hematocrit 41.1 platelets 332 INR 1.6, sodium 142, potassium 3.9, chloride 108, carbon dioxide 26, BUN 21, creatinine 0.8, glucose 114 bilirubin 0.6 AST 37 ALT 30 alk-phos 122 BNP 116 Patient was given a treatment for albuterol she really feels like she can not take a deep breath and she reports significant improvement afterwards. 10:15 Dr. Flores, cardiology updated patient's symptoms test results agrees with outpatient follow-up. Currently on a Zio patch. Patient continues to feel better. At this time no need for admission follow-up outpatient cardiology Differential diagnosis includes acute coronary syndrome congestive heart failure pulmonary embolism although unlikely on Eliquis reactive airway disease Discharge Plan Departure Patient Disposition: Home Clinical Impression: RAD (reactive airway disease) Instructions: DI for Reactive Airway Disease-Adult Activity Restrictions/Additional Instructions: *You have been diagnosed with reactive airway disease *What to do: At this time I am so glad that you can breathe. My do recommend follow-up with your sewing machine adjuster and get results of your ZIO monitor *Continue to take medications as directed Albuterol 1-2 puffs every 4 hours if needed for cough or shortness of breath *Follow up with your primary care provider in 2-3 days or call [phone] *Return to ER if you should have increasing chest pain shortness of breath dizziness lightheadedness almost passing out passing or any new, worsening or concerning symptoms Prescriptions: New albuterol sulfate 90 mcg/actuation HFA aerosol inhaler 2 puff inhalation Q4-6H PRN (Reason: shortness of breath or wheezing) Qty: 8.5 0RF No Action multivitamin [Daily Multi-Vitamin] Tablet 1 tab PO DAILY loratadine [Claritin] 10 mg tablet 10 mg PO Q DAY Qty: 30 1RF furosemide 20 mg tablet 20 mg PO QAM Qty: 30 0RF furosemide [Lasix] 20 mg tablet 20 mg PO DAILY PRN (Reason: weight gain) Qty: 14 0RF atorvastatin 80 mg tablet 80 mg PO QPM Qty: 90 0RF isosorbide mononitrate 30 mg tablet extended release 24 hr 30 mg PO DAILY potassium chloride 10 mEq tablet extended release 20 meq PO DAILY loratadine [Allergy Relief (loratadine)] 10 mg Tablet 10 mg PO DAILY cholecalciferol (vitamin D3) 25 mcg (1,000 unit) Capsule 25 mcg PO DAILY Eliquis 5 mg tablet 2.5 mg PO BID Referrals: Anabell Powell MD [Primary Care Provider] - Stand Alone Forms: Patient Portal/API
[2024-02-07 07:23] LABS: INR 1.6 (0.9-1.3); Prothrombin Time 18.6 SECONDS (9.4-12.5)
[2024-02-07 07:25] LABS: PTT Partial Thromboplastin Tim 43 SECONDS (25.1-36.5)
[2024-02-07 07:27] LABS: Alanine Aminotransferase 30 IU/L (<35); Albumin 4.4 g/dL (3.5-5.0); Albumin Globulin Ratio 1.4 (1.0-2.8); Alkaline Phosphatase 122 U/L (38-126); Aspartate Aminotransferase 37 IU/L (14-36); BUN Creatinine Ratio 25.3 (6-22); Bilirubin Total 0.6 mg/dL (0.2-1.3); Blood Urea Nitrogen 21 mg/dL (7-17); Calcium 9.6 mg/dL (8.4-10.2); Carbon Dioxide 26 mmol/L (22-32); Chloride 108 mmol/L (98-107); Creatine Kinase 54 U/L (30-135); Estimated Glomerular Filt Rate > 60 mL/min (>60); Globulin 3.1 g/dL (1.7-4.1); Glucose 114 mg/dL (80-110); HEMOLYSIS < 15 (0-50); Lipase 177 U/L (23-300); Magnesium 1.9 mg/dL (1.6-2.3); Potassium 3.9 mmol/L (3.4-5.1); Sodium 142 mmol/L (137-145); Total Protein 7.5 g/dL (6.3-8.2)
[2024-02-07 07:39] LABS: NT-proBNP (BNP-Adult 18+) 116 pg/mL (<450); Troponin I < 0.012 ng/mL (0.01-0.034)
[2024-02-07] MEDS: ALBUTEROL 2.5 MG/3 ML NEB (ADULT) INH (08:33)
[2024-02-07 09:59] LABS: Troponin I < 0.012 ng/mL (0.01-0.034)
[2024-02-07 10:30] LABS: Bacteria Urine None Seen; Culture Indicated Urine Cult Not Indicated; RBC Urine 0-1/HPF (0-5/HPF); Squamous Epithelial Cell Urine None Seen (0-5/HPF); Urine Volume 10mL (spun); WBC Urine 0-1/HPF (0-5/HPF)
== END 2024-02-07 10:29 | disposition home or self-care (01) ==
PROVIDERS: Emergency Provider Emergency Medicine; PCP Family Medicine
DX: J45.909 Unspecified asthma, uncomplicated (principal); R07.9 Chest pain, unspecified; I44.0 Atrioventricular block, first degree; Z95.5 Presence of coronary angioplasty implant and graft
CPT/HCPCS: 36415; 71045; 80053; 81003; 81015; 82550; 83690; 83735; 83880; 84484; 85025; 85610; 85730; 93005; 94640; 99284; J7613

== ENCOUNTER → 2024-04-08 08:13 | Outpatient (CLI) | payer MEDICARE, OTHER, SELFPAY ==
[2020-07-05 21:43] VITALS: BMI 26.8
== END ==
LOC: RESP 08:13
PROVIDERS: PCP Family Medicine; Referring Provider Family Medicine; Visit Provider Family Medicine
DX: R06.02 Shortness of breath (principal); R94.2 Abnormal results of pulmonary function studies; R07.9 Chest pain, unspecified; R53.83 Other fatigue
CPT/HCPCS: 94060; 94726; 94729

== ENCOUNTER → 2024-05-06 10:37 | Outpatient (CLI) | payer MEDICARE, OTHER, SELFPAY ==
[2020-07-05 21:43] VITALS: BMI 26.8
[2024-05-06 11:56] LABS: Creatinine Urine Random 172.75 mg/dL; Protein (Total) Urine Random 5 mg/dL (0-12); Protein Creatinine Ratio Urine 0.02 GRAM/24H
[2024-05-06 12:04] LABS: Hematocrit 39.6 % (36-46)
[2024-05-06 12:19] LABS: BUN Creatinine Ratio 24.4 (6-22); Blood Urea Nitrogen 21 mg/dL (7-17); Calcium 9.7 mg/dL (8.4-10.2); Carbon Dioxide 27 mmol/L (22-32); Chloride 104 mmol/L (98-107); Estimated Glomerular Filt Rate > 60 mL/min (>60); Glucose 138 mg/dL (80-110); HEMOLYSIS < 15 (0-50); Potassium 4.2 mmol/L (3.4-5.1); Sodium 139 mmol/L (137-145)
[2024-05-07 08:36] LABS: Parathyroid Hormone Int 29 pg/mL (15-65)
== END ==
PROVIDERS: PCP Family Medicine; Referring Provider Student in an Organized Health Care Education/Training Program; Visit Provider Student in an Organized Health Care Education/Training Program
DX: N05.9 Unspecified nephritic syndrome with unspecified morphologic changes (principal); D70.9 Neutropenia, unspecified; D63.1 Anemia in chronic kidney disease; N25.81 Secondary hyperparathyroidism of renal origin; R00.8 Other abnormalities of heart beat
CPT/HCPCS: 36415; 80048; 82570; 83970; 84156; 85014; 85018

== ENCOUNTER 2024-09-08 08:30 | Outpatient (RCR) | payer MEDICARE, OTHER, SELFPAY ==
[2020-07-05 21:43] VITALS: BMI 26.8
== END 2024-09-08 10:30 ==
LOC: CAR 08:30
PROVIDERS: PCP Family Medicine; Referring Provider Family Medicine; Visit Provider Family Medicine
DX: I21.4 Non-ST elevation (NSTEMI) myocardial infarction (principal)
CPT/HCPCS: 93798

== ENCOUNTER 2024-10-28 14:14 | Emergency (ER) | payer MEDICARE, OTHER, SELFPAY ==
[2020-07-05 21:43] VITALS: BMI 26.8
[2024-10-28] VITALS (10 sets, daily range): BP systolic 127–190; BP diastolic 60–94; PULSE 46–84; RESP 16–30; TEMP 36.7; O2SAT 96–98; BMI 26.4
--- NOTE | 2024-10-28 14:30 | EKG_ITS ---
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
--- NOTE | 2024-10-28 14:30 | DI.RAD.S_ITS ---
PROCEDURE: XR CHEST 1V INDICATIONS: Chest Pain TECHNIQUE: One view of the chest was acquired. COMPARISON: [facility], CR, XR CHEST 1V, 02/07/2024, 7:14. FINDINGS: Surgical changes and devices: None. Lungs and pleura: Lungs are clear. No pleural effusions or pneumothorax. Mediastinum: Mediastinal contours appear normal. Heart size is enlarged. Bones and chest wall: No suspicious bony lesions. Overlying soft tissues appear unremarkable. IMPRESSION: No acute pulmonary process. Dictated by: Alyssia Bee M.D. on 10/28/2024 at 14:51 Approved by: Alyssia Bee M.D. on 10/28/2024 at 14:51
[2024-10-28 14:44] LABS: INR 1.4 (0.9-1.3); Prothrombin Time 15.4 SECONDS (9.4-12.5)
[2024-10-28 14:46] LABS: PTT Partial Thromboplastin Tim 40 SECONDS (25.1-36.5)
[2024-10-28 14:48] LABS: Lactate (Lactic Acid) 1.1 mmol/L (0.7-2.1)
[2024-10-28 14:49] LABS: Alanine Aminotransferase 46 IU/L (<35); Albumin 4.5 g/dL (3.5-5.0); Albumin Globulin Ratio 1.6 (1.0-2.8); Alkaline Phosphatase 146 U/L (38-126); Aspartate Aminotransferase 49 IU/L (14-36); BUN Creatinine Ratio 27.7 (6-22); Bilirubin Total 0.4 mg/dL (0.2-1.3); Blood Urea Nitrogen 23 mg/dL (7-17); Calcium 9.4 mg/dL (8.4-10.2); Carbon Dioxide 29 mmol/L (22-32); Chloride 105 mmol/L (98-107); Creatine Kinase 58 U/L (30-135); Estimated Glomerular Filt Rate > 60 mL/min (>60); Globulin 2.8 g/dL (1.7-4.1); Glucose 104 mg/dL (70-99); HEMOLYSIS < 15 (0-50); Lipase 259 U/L (23-300); Magnesium 1.8 mg/dL (1.6-2.3); Sodium 143 mmol/L (137-145); Total Protein 7.3 g/dL (6.3-8.2)
[2024-10-28 14:50] LABS: Add Manual Diff / Slide Review NO; Basophils Absolute Auto 100 /uL (0-100); Basophils Percent Auto 1.3 % (0-2); Eosinophils Absolute Auto 300 /uL (0-450); Eosinophils Percent Auto 4.2 % (2-4); Hematocrit 38.3 % (36-46); Lymphocytes Absolute Auto 1800 /uL (1100-4500); Lymphocytes Percent Auto 27.5 % (25-40); Mean Corpuscular HGB Conc 33.9 % (30-36); Mean Corpuscular Hemoglobin 30.5 PG (26-34); Mean Corpuscular Volume 90.1 fL (80-100); Monocytes Absolute Auto 600 /uL (0-900); Monocytes Percent Auto 8.5 % (3-14); Neutrophils Absolute Auto 3900 /uL (1500-7000); Neutrophils Percent Auto 58.5 % (50-75); Platelet Count 329 X10^3/uL (150-400); Red Blood Cell Count 4.26 X10^6/uL (4.0-5.2); Red Cell Distribution Width 13.9 % (11.6-14.8); White Blood Cell Count 6.6 X10^3/uL (4.5-11.0)
[2024-10-28 15:00] LABS: NT-proBNP (BNP-Adult 18+) 197 pg/mL (<450); Troponin I 0.013 ng/mL (0.01-0.034)
--- NOTE | 2024-10-28 15:42 | ED_ITS ---
HPI - Arrhythmia/Palpitations General Chief Complaint: Arrhythmia/Palpitations Stated Complaint: rapid heart beat Time Seen by Provider: 10/28/24 15:19 History of Present Illness HPI narrative: Patient here with . Complains of palpitations off and on since 11:00 a.m. today. Patient has history of atrial fibrillation on losartan metoprolol amlodipine Eliquis, she has history of non-STEMI with a stent, that was placed a couple of years ago in [facility]. Denies any chest pain. On monitor patient has been intermittent AFib and sinus rhythm. Rate is controlled between 60 and 80. Patient in no distress at this time. Has not missed any dosing of Eliquis or her home medications. Related Data Home Medications Medication Instructions Recorded Confirmed cholecalciferol (vitamin D3) 25 25 mcg PO DAILY 07/05/20 10/28/24 mcg (1,000 unit) capsule multivitamin (Daily Multi-Vitamin 1 tab PO DAILY 07/16/20 10/28/24 tablet) apixaban 5 mg tablet (Eliquis) 5 mg PO BID 10/15/20 10/28/24 potassium chloride 10 mEq 20 meq PO DAILY 12/07/23 10/28/24 tablet,extended release clopidogrel 75 mg tablet 75 mg PO DAILY 03/17/24 10/28/24 metoprolol succinate 25 mg 12.5 mg PO DAILY 05/12/24 10/28/24 tablet,extended release 24 hr furosemide 20 mg tablet (Lasix) 20 mg PO DAILY weight gain 10/28/24 10/28/24 losartan 25 mg tablet 50 mg PO DAILY 10/28/24 10/28/24 Previous Rx's Medication Instructions Recorded loratadine 10 mg tablet (Claritin) 10 mg PO Q DAY #30 tabs 02/26/20 atorvastatin 80 mg tablet 80 mg PO QPM #90 tabs 12/19/23 albuterol sulfate 90 mcg/actuation 2 puff inhalation Q4-6H PRN 02/07/24 aerosol inhaler shortness of breath or wheezing #8.5 grams oxybutynin chloride 5 mg 5 mg PO DAILY #30 tabs 05/19/24 tablet,extended release 24 hr Allergies Allergy/AdvReac Type Severity Reaction Status Date / Time clindamycin AdvReac Mild rash Verified 05/12/24 14:35 morphine AdvReac Mild N/V Verified 05/12/24 14:35 Review of Systems Review of Systems Narrative: GENERAL: Negative chills, fatigue, malaise, fever, sweats. HEENT: Negative sinus pain, ear pain, sore throat RESPIRATORY: Negative dyspnea, cough CARDIOVASCULAR: Negative chest pain, positive palpitations GASTROINTESTINAL: Negative vomiting, nausea, abdominal pain : Negative dysuria, frequency, hematuria MUSCULOSKELETAL: Negative muscle or bony pain SKIN: Negative rash, skin lesions NEUROLOGIC: Negative weakness, numbness ROS Unobtainable: All systems reviewed & are unremarkable except as noted in HPI and below Patient History Medical History Acute renal failure Insomnia Obstructive sleep apnea syndrome History of Focli-Lkewnnokv-Avglf (WPW) syndrome Atrial fibrillation Acute diastolic heart failure Essential hypertension Hypokalemia Surgical History History of cataract removal with insertion of prosthetic lens History of breast augmentation Status post cholecystectomy History of cardiac radiofrequency ablation (RFA) Family History Grandmother Stroke Mother Osteoporosis Social History marital status: number of children: 2 household members: spouse lives independently: Yes caregiver/support person: No housing: house second hand exposure: No alcohol intake: current substance use type: does not use alcohol intake frequency: a few times a week Exam Narrative Exam Narrative: GENERAL: in no distress, not toxic not dyspneic HEAD: Normocephalic. EYES: Pupils equal round ENT: Mucous membranes moist. NECK: Trachea midline. CARDIOVASCULAR: Irregularly irregular but not tachycardic RESPIRATORY: Clear to auscultation. Breath sounds equal bilaterally. No wheezes, rales, or rhonchi. GASTROINTESTINAL: Abdomen soft, non-tender EXTREMITIES: No gross deformities. BACK: No flank tenderness. NEURO: AOx4. Clear speech SKIN: Warm and dry PSYCH: Not anxious, is cooperative Initial Vital Signs Initial Vital Signs: Vital Signs Pulse Rate 84 10/28/24 14:19 Pulse Oximetry 97 10/28/24 14:19 Course Orders Ordered: ED Orders 10/28/24 14:28 Complete Blood Count AUTO DIFF Stat Comprehensive Metabolic Panel Stat Lactate (Lactic Acid) Stat Lipase Stat Magnesium Stat NT-proBNP (BNP-Adult 18+) Stat PTT Partial Thromboplastin Chris Stat Prothrombin Time INR Stat Troponin & CK Cardiac Panel Stat 10/28/24 14:30 XR chest 1V Stat EKG-12 Lead Stat RT Consult Eval and Treat NOW Vital Signs Vital signs: Vital Signs - 8 hr 10/28/24 14:19 10/28/24 14:20 10/28/24 14:20 Temperature Pulse Rate 84 75 Respiratory Rate Blood Pressure 190/94 H Pulse Oximetry 97 97 Oxygen Delivery Method 10/28/24 14:21 10/28/24 14:21 10/28/24 14:27 Temperature 98.1 F Pulse Rate 72 75 Respiratory Rate 16 Blood Pressure 184/77 H 184/77 H Pulse Oximetry 96 96 Oxygen Delivery Method Room Air 10/28/24 14:30 10/28/24 14:30 10/28/24 15:00 Temperature Pulse Rate 72 64 Respiratory Rate 20 23 Blood Pressure 163/72 H Pulse Oximetry 96 96 Oxygen Delivery Method 10/28/24 15:01 10/28/24 15:01 10/28/24 15:30 Temperature Pulse Rate 64 46 L Respiratory Rate 20 Blood Pressure 127/60 Pulse Oximetry 96 98 Oxygen Delivery Method Room Air 10/28/24 15:31 10/28/24 15:31 10/28/24 16:00 Temperature Pulse Rate 63 66 Respiratory Rate 26 H 30 H Blood Pressure 152/63 H Pulse Oximetry 97 97 Oxygen Delivery Method MDM - Arrhythmia/Palpitations Lab Data 10/28/24 14:28 10/28/24 14:28 Labs: Lab Results 10/28/24 Range/Units 14:28 WBC 6.6 (4.5-11.0) X10^3/uL RBC 4.26 (4.0-5.2) X10^6/uL Hgb 13.0 (12.0-16.0) g/dL Hct 38.3 (36-46) % MCV 90.1 (80-100) fL MCH 30.5 (26-34) PG MCHC 33.9 (30-36) % RDW 13.9 (11.6-14.8) % Plt Count 329 (150-400) X10^3/uL Neut % (Auto) 58.5 (50-75) % Lymph % (Auto) 27.5 (25-40) % [place] % (Auto) 8.5 (3-14) % Eos % (Auto) 4.2 H (2-4) % Baso % (Auto) 1.3 (0-2) % Neut # (Auto) 3900 (3822-1375) /uL Lymph # (Auto) 1800 (7982-5214) /uL [place] # (Auto) 600 (0-900) /uL Eos # (Auto) 300 (0-450) /uL Baso # (Auto) 100 (0-100) /uL PT 15.4 H (9.4-12.5) SECONDS INR 1.4 H (0.9-1.3) APTT 40 H (25.1-36.5) SECONDS Sodium 143 (137-145) mmol/L Potassium 4.0 (3.4-5.1) mmol/L Chloride 105 (98-107) mmol/L Carbon Dioxide 29 (22-32) mmol/L BUN 23 H (7-17) mg/dL Creatinine 0.83 (0.52-1.04) mg/dL Estimated GFR > 60 (>60) mL/min BUN/Creatinine Ratio 27.7 H (6-22) Glucose 104 H (70-99) mg/dL Lactate 1.1 (0.7-2.1) mmol/L Calcium 9.4 (8.4-10.2) mg/dL Magnesium 1.8 (1.6-2.3) mg/dL Total Bilirubin 0.4 (0.2-1.3) mg/dL AST 49 H (14-36) IU/L ALT 46 H (<35) IU/L Alkaline Phosphatase 146 H (38-126) U/L Total Creatine Kinase 58 (30-135) U/L Troponin I 0.013 (0.01-0.034) ng/mL NT-Pro-B Natriuret Pep 197 (<450) pg/mL Total Protein 7.3 (6.3-8.2) g/dL Albumin 4.5 (3.5-5.0) g/dL Globulin 2.8 (1.7-4.1) g/dL Albumin/Globulin Ratio 1.6 (1.0-2.8) Lipase 259 (23-300) U/L Imaging Data Chest x-ray: Radiologist's Impresson: [address] [address] XRay Report Signed Patient: Rashida Quijano MR#: [id number] : 1940 Acct:[id number] Age/Sex: 84 / F Date of Service: 10/28/24 Loc: ED Accession Number: [id number] Procedure: XR chest 1V Ordering Provider: Jean Ga MD PROCEDURE: XR CHEST 1V INDICATIONS: Chest Pain TECHNIQUE: One view of the chest was acquired. COMPARISON: [facility], , XR CHEST 1V, 02/07/2024, 7:14. FINDINGS: Surgical changes and devices: None. Lungs and pleura: Lungs are clear. No pleural effusions or pneumothorax. Mediastinum: Mediastinal contours appear normal. Heart size is enlarged. Bones and chest wall: No suspicious bony lesions. Overlying soft tissues appear unremarkable. IMPRESSION: No acute pulmonary process. Dictated by: Alyssia Bee M.D. on 10/28/2024 at 14:51 Approved by: Alyssia Bee M.D. on 10/28/2024 at 14:51 [facility] Narrative Medical decision making narrative: Patient here with . Complains of palpitations off and on since 11:00 a.m. today. Patient has history of atrial fibrillation on losartan metoprolol amlodipine Eliquis, she has history of non-STEMI with a stent, that was placed a couple of years ago in [facility]. Denies any chest pain. On monitor patient has been intermittent AFib and sinus rhythm. Rate is controlled between 60 and 80. Patient in no distress at this time. Has not missed any dosing of Eliquis or her home medications. After history and exam, CBC CMP troponin EKG chest x-ray BNP [facility] Medical records reviewed: March 17, 2024 primary care office visit Differential considered: Includes but not limited to STEMI non-STEMI AFib a flutter Lab Test results independently reviewed as above. Pertinent findings: WBC 6.6 hemoglobin 13.0 INR 1.4 sodium 143 potassium 4.0 BUN 23 creatinine 0.83 troponin 0.013 BNP 197 Independently reviewed EKG junctional rhythm rate 57 p waves are noted Imaging studies independently reviewed: Chest x-ray no acute finding Consultations: 3:[address] Mendez, cardiology provider on-call for patient's radio installer Dr. James, no cardioversion indicated this time. No changes in medication. Patient's rate has been controlled and blood pressure stable. Patient to continue home medications and follow up with her radio installer Re-evaluations: 4:00 p.m.. Reviewed results with patient and . As well as my discussion with Dr. Mendez. Patient has no no no chest pain. Patient has never had heart rate above 100. She is feeling better. Return precautions reviewed. They desire discharge home. Patient has appointment with Maria Luz radio installer, Dr. Casper, electrophysiology radio installer tomorrow for this. Discussion: Appropriate for discharge home. Patient's heart rate has been controlled. No chest pain. Patient is anticoagulated already. Patient does have established radio installer. Return precautions reviewed. She has appointment with Dr. Casper electrophysiology radio installer tomorrow. Diagnosis: Paroxysmal atrial fibrillation Discharge Plan Departure Patient Disposition: Home Clinical Impression: AF (paroxysmal atrial fibrillation) Instructions: DI for Atrial Fibrillation Activity Restrictions/Additional Instructions: Your exam and laboratory studies are reassuring. You do have intermittent atrial fibrillation episodes. This is likely causing your symptoms but your cardiology team was contacted today and no cardioversion or changes in her medication is indicated. Please continue home medications, contact your cardiology provider tomorrow for follow up appointment. Return if worse if any questions or concerns Prescriptions: No Action multivitamin [Daily Multi-Vitamin] Tablet 1 tab PO DAILY clopidogrel 75 mg tablet 75 mg PO DAILY metoprolol succinate 25 mg tablet extended release 24 hr 12.5 mg PO DAILY oxybutynin chloride 5 mg tablet extended release 24hr 5 mg PO DAILY Qty: 30 2RF loratadine [Claritin] 10 mg tablet 10 mg PO Q DAY Qty: 30 1RF atorvastatin 80 mg tablet 80 mg PO QPM Qty: 90 0RF potassium chloride 10 mEq tablet extended release 20 meq PO DAILY albuterol sulfate 90 mcg/actuation HFA aerosol inhaler 2 puff inhalation Q4-6H PRN (Reason: shortness of breath or wheezing) Qty: 8.5 0RF cholecalciferol (vitamin D3) 25 mcg (1,000 unit) Capsule 25 mcg PO DAILY Eliquis 5 mg tablet 5 mg PO BID losartan 25 mg tablet 50 mg PO DAILY furosemide [Lasix] 20 mg tablet 20 mg PO DAILY Referrals: Anabell Powell MD [Primary Care Provider] - Stand Alone Forms: Patient Portal/API/Survey
== END 2024-10-28 16:10 | disposition home or self-care (01) ==
PROVIDERS: Emergency Provider Emergency Medicine; PCP Family Medicine
DX: I48.0 Paroxysmal atrial fibrillation (principal); R07.9 Chest pain, unspecified; Z79.01 Long term (current) use of anticoagulants
CPT/HCPCS: 71045; 80053; 82550; 83605; 83690; 83735; 83880; 84484; 85025; 85610; 85730; 93005; 93010; 99283; 99284

== ENCOUNTER 2024-12-31 00:02 | Emergency (ER) | payer MEDICARE, OTHER, SELFPAY ==
[2020-07-05 21:43] VITALS: BMI 26.8
[2024-12-31] VITALS (8 sets, daily range): BP systolic 147–188; BP diastolic 70–84; PULSE 71–77; RESP 10–25; TEMP 36.6; O2SAT 96–99; BMI 25.3
--- NOTE | 2024-12-31 00:22 | EKG_ITS ---
[facility] [address] [place] [address] Test Date: 2024-12-31 Pat Name: Rashida Quijano Department: [facility] Room: Gender: Female [employer] Consultant: VICKI : 1940 Requested By: Order Number: [id number] Reading MD: Robbi Hernandez Measurements Intervals Beggs Rate: 81 P: 80 OR: 258 QRS: -8 QRSD: 94 T: 65 QT: 396 QTc: 460 Interpretive Statements Sinus rhythm with 1st degree AV block with premature supraventricular complexes Minimal voltage criteria for LVH, may be normal variant ( Bob White product ) Electronically Signed On 01-01-2025 13:39:24 PDT by Robbi Hernandez
[2024-12-31 00:48] LABS: Add Manual Diff / Slide Review NO; Hematocrit 39.1 % (36-46); Hemoglobin 13.3 g/dL (12.0-16.0); Lymphocytes Absolute Auto 2700 /uL (1100-4500); Mean Corpuscular HGB Conc 34.0 % (30-36); Mean Corpuscular Hemoglobin 30.5 PG (26-34); Mean Corpuscular Volume 89.6 fL (80-100); Platelet Count 326 X10^3/uL (150-400)
[2024-12-31 01:00] LABS: Culture Indicated Urine Cult Not Indicated
[2024-12-31 01:09] LABS: Alanine Aminotransferase 84 IU/L (<35); Albumin 4.5 g/dL (3.5-5.0); Albumin Globulin Ratio 1.5 (1.0-2.8); Alkaline Phosphatase 151 U/L (38-126); Blood Urea Nitrogen 23 mg/dL (7-17); Calcium 9.4 mg/dL (8.4-10.2); Carbon Dioxide 28 mmol/L (22-32); Chloride 103 mmol/L (98-107); Estimated Glomerular Filt Rate > 60 mL/min (>60); Globulin 3.0 g/dL (1.7-4.1); Glucose 103 mg/dL (70-99); HEMOLYSIS < 15 (0-50); Lipase 332 U/L (23-300); Potassium 3.9 mmol/L (3.4-5.1); Sodium 139 mmol/L (137-145); Total Protein 7.5 g/dL (6.3-8.2)
--- NOTE | 2024-12-31 02:35 | ED.CHESTPAIN ---
HPI - Chest Pain General Chief Complaint: Abdominal Pain Stated Complaint: chest pain Time Seen by Provider: 12/31/24 00:07 Source: patient Mode of arrival: Ambulatory History of Present Illness HPI narrative: 84-year-old female history of cad x 1 stent, paroxysmal atrial fibrillation on Eliquis, heart failure, hypertension, obstructive sleep apnea, history of Sonuw-Ixmltyfzo-Maobp syndrome presents with lower chest pain epigastric pain that lasted for a few minutes not associated with any radiating symptoms, nausea, vomiting, diaphoresis, fever, chills, back pain, constipation. It resolved on its own without any acute intervention. Other than what is stated 14 pt ROS is negative. Related Data Home Medications ?Medication ?Instructions ?Recorded ?Confirmed cholecalciferol (vitamin D3) 25 25 mcg PO DAILY 07/05/20 12/03/24 mcg (1,000 unit) capsule multivitamin (Daily Multi-Vitamin 1 tab PO DAILY 07/16/20 12/03/24 tablet) apixaban 5 mg tablet (Eliquis) 5 mg PO BID 10/15/20 12/03/24 potassium chloride 10 mEq 20 meq PO DAILY 12/07/23 12/03/24 tablet,extended release clopidogrel 75 mg tablet 75 mg PO DAILY 03/17/24 12/03/24 metoprolol succinate 25 mg 12.5 mg PO DAILY 05/12/24 12/03/24 tablet,extended release 24 hr furosemide 20 mg tablet (Lasix) 20 mg PO DAILY weight gain 10/28/24 12/03/24 losartan 25 mg tablet 50 mg PO DAILY 10/28/24 12/03/24 Previous Rx's ?Medication ?Instructions ?Recorded loratadine 10 mg tablet (Claritin) 10 mg PO Q DAY #30 tabs 02/26/20 atorvastatin 80 mg tablet 80 mg PO QPM #90 tabs 12/19/23 albuterol sulfate 90 mcg/actuation 2 puff inhalation Q4-6H PRN 02/07/24 aerosol inhaler shortness of breath or wheezing #8.5 grams oxybutynin chloride 10 mg 10 mg PO DAILY #90 tabs 12/03/24 tablet,extended release 24 hr Allergies Allergy/AdvReac Type Severity Reaction Status Date / Time clindamycin AdvReac Mild rash Verified 12/03/24 10:29 morphine AdvReac Mild N/V Verified 12/03/24 10:29 Review of Systems Review of Systems ROS Unobtainable: All systems reviewed & are unremarkable except as noted in HPI and below Patient History Medical History Acute renal failure Insomnia Obstructive sleep apnea syndrome History of Cjbct-Brxuzznjv-Yogas (WPW) syndrome Atrial fibrillation Acute diastolic heart failure Essential hypertension Hypokalemia Surgical History History of cataract removal with insertion of prosthetic lens History of breast augmentation Status post cholecystectomy History of cardiac radiofrequency ablation (RFA) Family History Grandmother Stroke Mother Osteoporosis Social History marital status: number of children: 2 household members: spouse lives independently: Yes caregiver/support person: No housing: house Smoking Status: Former smoker second hand exposure: No alcohol intake: current substance use type: does not use Smoking Status: Former smoker alcohol intake frequency: a few times a week Exam Narrative Exam Narrative: GENERAL: [84] year old patient appears stated age. Well-developed patient, in mild distress. HEAD: Atraumatic. Normocephalic. EYES: Pupils equal round and reactive. Extraocular motions intact. No scleral icterus. No injection or drainage. ENT: Nose without bleeding, purulent drainage. Throat without erythema, tonsillar hypertrophy or exudate. Airway patent. NECK: Trachea midline. Non tender CARDIOVASCULAR: Regular rate and rhythm without murmurs, gallops, or rubs. RESPIRATORY: Clear to auscultation. Breath sounds equal bilaterally. No wheezes, rales, or rhonchi. GASTROINTESTINAL: Abdomen soft, non-tender, nondistended. EXTREMITIES: No edema or joint tenderness. BACK: Nontender without deformity or crepitance. No flank tenderness. NEURO: AOx3. SKIN: No rash or erythema of visible areas Initial Vital Signs Initial Vital Signs: Vital Signs Temperature 97.9 F 12/31/24 00:17 Pulse Rate 76 12/31/24 00:17 Respiratory Rate 18 12/31/24 00:17 Blood Pressure 188/84 H 12/31/24 00:17 Pulse Oximetry 96 12/31/24 00:17 Oxygen Delivery Method Room Air 12/31/24 00:17 Scores HEART Score Heart Score history: Slightly Suspicious Heart Score EKG: Non-Specific repolarization disturbance Heart Score Age: > or = 65 years old Heart Score risk factors: > 3 risk factors or hx of atherosclerotic disease Heart Score troponin: < or = to normal limit Heart Score Total: 5 Course Orders Ordered: ED Orders 12/31/24 00:22 EKG-12 Lead Stat 12/31/24 00:26 Urine Microscopic Stat 12/31/24 00:27 Complete Blood Count AUTO DIFF Stat Comprehensive Metabolic Panel Stat Lipase Stat Ondansetron HCl (Ondansetron 4 Mg/2 Ml Inj) 4 mg IV NOW PRN PRN Reason: Nausea And Vomiting Ondansetron HCl (Ondansetron 4 Mg Odt) 4 mg PO NOW PRN PRN Reason: Nausea And Vomiting Vital Signs Vital signs: Vital Signs - 8 hr 12/31/24 00:17 12/31/24 02:29 Temperature 97.9 F Pulse Rate 76 Respiratory Rate 18 Blood Pressure 188/84 H Pulse Oximetry 96 99 Oxygen Delivery Method Room Air Room Air MDM - Chest Pain Lab Data 12/31/24 00:27 12/31/24 00:27 Labs: Lab Results 12/31/24 12/31/24 Range/Units 00:26 00:27 WBC 7.9 (4.5-11.0) X10^3/uL RBC 4.37 (4.0-5.2) X10^6/uL Hgb 13.3 (12.0-16.0) g/dL Hct 39.1 (36-46) % MCV 89.6 (80-100) fL MCH 30.5 (26-34) PG MCHC 34.0 (30-36) % RDW 13.3 (11.6-14.8) % Plt Count 326 (150-400) X10^3/uL Neut % (Auto) 50.9 (50-75) % Lymph % (Auto) 33.7 (25-40) % [place] % (Auto) 10.9 (3-14) % Eos % (Auto) 3.6 (2-4) % Baso % (Auto) 0.9 (0-2) % Neut # (Auto) 4000 (2459-5482) /uL Lymph # (Auto) 2700 (7485-6398) /uL [place] # (Auto) 900 (0-900) /uL Eos # (Auto) 300 (0-450) /uL Baso # (Auto) 100 (0-100) /uL Sodium 139 (137-145) mmol/L Potassium 3.9 (3.4-5.1) mmol/L Chloride 103 (98-107) mmol/L Carbon Dioxide 28 (22-32) mmol/L BUN 23 H (7-17) mg/dL Creatinine 0.78 (0.52-1.04) mg/dL Estimated GFR > 60 (>60) mL/min BUN/Creatinine Ratio 29.5 H (6-22) Glucose 103 H (70-99) mg/dL Calcium 9.4 (8.4-10.2) mg/dL Total Bilirubin 0.5 (0.2-1.3) mg/dL AST 102 H (14-36) IU/L ALT 84 H (<35) IU/L Alkaline Phosphatase 151 H (38-126) U/L Total Protein 7.5 (6.3-8.2) g/dL Albumin 4.5 (3.5-5.0) g/dL Globulin 3.0 (1.7-4.1) g/dL Albumin/Globulin Ratio 1.5 (1.0-2.8) Lipase 332 H (23-300) U/L Urine RBC 0-1/hpf (0-5/HPF) Urine WBC None seen (0-5/HPF) Ur Squamous Epith Cells 0-1 /hpf (0-5/HPF) Urine Bacteria None seen (None) Ur Culture Indicated? Cult not indicated Vol Urine Centrifuged 10ml (spun) Urine Dip Bedside Urine Glucose Negative Bedside Urine Bilirubin - Negative Bedside Urine Ketone - Negative Urine Specific [place] 1.015 Bedside Urine Occult Blood + Bedside Urine pH 6.0 Bedside Urine Protein - Negative Bedside Urine Urobilinogen - Negative Bedside Urine Nitrite - Negative Bedside Urine Leukocytes +/- 15 Esterase Imaging Data Chest x-ray: Radiologist's Impression: Chest x-ray showed no acute process CT scan - abdomen/pelvis: Radiologist's Impression: No evidence of colitis diverticulitis bowel obstruction obstructive uropathy or acute appendicitis ECG Data Interpretation: Afib HR 81 ND 258 QRS [address]-t wave change Change from 10/28/24 [facility] Narrative Medical decision making narrative: All lab work, vital signs, nurse triage note, medication list, previous ER visits, and all imaging study reviewed. CBC normal, , BUN 23 creatinine 0.7 glucose 103 AST 102 ALT 84 alk-phos 151 lipase 332 patient given fluids Benadryl and droperidol. Differential diagnosis includes viral, dehydration, pancreatitis, diverticulitis, constipation, small-bowel obstruction, NSTEMI, STEMI, unstable angina. Discharge Plan Departure Patient Disposition: Home Clinical Impression: Abdominal pain, epigastric Instructions: DI for Abdominal Pain-Adult Activity Restrictions/Additional Instructions: Return with new or worsening symptoms. Follow up PCP in 1-2 weeks if no improvement in symptoms Prescriptions: No Action multivitamin [Daily Multi-Vitamin] Tablet 1 tab PO DAILY clopidogrel 75 mg tablet 75 mg PO DAILY oxybutynin chloride 10 mg tablet extended release 24hr 10 mg PO DAILY Qty: 90 2RF metoprolol succinate 25 mg tablet extended release 24 hr 12.5 mg PO DAILY loratadine [Claritin] 10 mg tablet 10 mg PO Q DAY Qty: 30 1RF atorvastatin 80 mg tablet 80 mg PO QPM Qty: 90 0RF potassium chloride 10 mEq tablet extended release 20 meq PO DAILY albuterol sulfate 90 mcg/actuation HFA aerosol inhaler 2 puff inhalation Q4-6H PRN (Reason: shortness of breath or wheezing) Qty: 8.5 0RF cholecalciferol (vitamin D3) 25 mcg (1,000 unit) Capsule 25 mcg PO DAILY Eliquis 5 mg tablet 5 mg PO BID losartan 25 mg tablet 50 mg PO DAILY furosemide [Lasix] 20 mg tablet 20 mg PO DAILY Referrals: Anabell Powell MD [Primary Care Provider, Family Practice] Stand Alone Forms: Patient Portal/API
--- NOTE | 2024-12-31 02:51 | DI.RAD.S_ITS ---
PROCEDURE: XR CHEST 1V INDICATIONS: chest pain, epigastric pain, hx of Afib TECHNIQUE: One view of the chest was acquired. COMPARISON: [facility], CR, XR CHEST 1V, 10/28/2024, 14:35. FINDINGS: Surgical changes and devices: None. Lungs and pleura: Lungs are clear. No pleural effusions or pneumothorax. Mediastinum: Mediastinal contours appear normal. Heart size is normal. Bones and chest wall: No suspicious bony lesions. Overlying soft tissues appear unremarkable. IMPRESSION: No acute cardiopulmonary abnormality is seen. Dictated by: James Kinsey M.D. on 12/31/2024 at 8:19 Approved by: James Kinsey M.D. on 12/31/2024 at 8:20
--- NOTE | 2024-12-31 02:51 | DI.CT.S_ITS ---
PROCEDURE: CT ABDOMEN PELVIS W CON INDICATIONS: epigastric pain TECHNIQUE: After the administration of intravenous contrast, axial sections acquired from the lung bases to the pubic symphysis. Coronal and sagittal reformats were performed. For radiation dose reduction, the following was used: automated exposure control, adjustment of mA and/or kV according to patient size. COMPARISON: None. FINDINGS: Image quality: Diagnostic. Lower Chest: No significant findings. ABDOMEN: Liver: No solid mass. Gallbladder: Absent Biliary ducts: Dilated intrahepatic ducts. Somewhat prominent extrahepatic duct. No pancreatic mass. Pancreas: No ductal dilation. Spleen: Size is within normal limits. Adrenal Glands: No adrenal nodules. Kidneys and Ureters: No hydronephrosis. No solid mass. No complex renal cystic lesion which requires follow up. Stomach and Bowel: Normal colonic caliber, without significant wall thickening. Normal appendix. Mild diverticulosis without CT evidence of acute diverticulitis. Peritoneum: No abnormal intraperitoneal fluid. No free air. Ventral Wall: No significant ventral hernia. Abdominal Nodes: No retroperitoneal or mesenteric adenopathy by size criteria. Vessels: Aorta and inferior vena cava are normal in size. PELVIS: Pelvic Organs: Retroverted uterus. No adnexal masses. Bladder: No bladder wall thickening, accounting for underdistention. Pelvic Nodes: No enlarged lymph nodes. Miscellaneous: No inguinal hernias are seen. Bones: No aggressive osseous abnormality. Lumbar degenerative change with moderate canal stenosis at L3-L4. IMPRESSION: 1. Remote cholecystectomy with biliary ductal dilatation. This is frequently seen post cholecystectomy. However, if suspect at a common duct stone, consider MRCP. 2. No other potentially acute abdominal process noted. 3. Mild diverticulosis. 4. Normal appendix. 5. Incidental note made of moderate canal stenosis at L3-L4. Dictated by: James Kinsey M.D. on 12/31/2024 at 8:06 Approved by: James Kinsey M.D. on 12/31/2024 at 8:19
[2024-12-31 04:10] LABS: Creatine Kinase 59 U/L (30-135)
[2024-12-31 04:23] LABS: Troponin I < 0.012 ng/mL (0.01-0.034)
[2024-12-31 04:39] LABS: Troponin I < 0.012 ng/mL (0.01-0.034)
== END 2024-12-31 04:49 | disposition home or self-care (01) ==
PROVIDERS: Emergency Provider Family Medicine; PCP Family Medicine
DX: R10.13 Epigastric pain (principal); R07.9 Chest pain, unspecified; I25.10 Atherosclerotic heart disease of native coronary artery without angina pectoris; I48.0 Paroxysmal atrial fibrillation; I50.9 Heart failure, unspecified; I11.0 Hypertensive heart disease with heart failure; Z95.5 Presence of coronary angioplasty implant and graft; Z79.01 Long term (current) use of anticoagulants; Z87.891 Personal history of nicotine dependence
CPT/HCPCS: 36415; 71045; 74177; 80053; 81003; 81015; 82550; 83690; 84484; 85025; 93005; 99283; 99284; Q9967

== ENCOUNTER → 2025-01-22 12:27 | Outpatient (CLI) | payer MEDICARE, OTHER, SELFPAY ==
[2020-07-05 21:43] VITALS: BMI 26.8
[2025-01-22 14:11] LABS: Add Manual Diff / Slide Review NO; Hematocrit 39.0 % (36-46); Hemoglobin 13.2 g/dL (12.0-16.0); Lymphocytes Absolute Auto 1900 /uL (1100-4500); Mean Corpuscular HGB Conc 33.8 % (30-36); Mean Corpuscular Hemoglobin 30.6 PG (26-34); Mean Corpuscular Volume 90.5 fL (80-100); Platelet Count 323 X10^3/uL (150-400)
[2025-01-22 14:39] LABS: Blood Urea Nitrogen 15 mg/dL (7-17); Calcium 9.8 mg/dL (8.4-10.2); Carbon Dioxide 29 mmol/L (22-32); Chloride 104 mmol/L (98-107); Estimated Glomerular Filt Rate > 60 mL/min (>60); Glucose 128 mg/dL (70-99); HEMOLYSIS < 15 (0-50); Potassium 4.0 mmol/L (3.4-5.1); Sodium 142 mmol/L (137-145)
== END ==
PROVIDERS: PCP Family Medicine; Referring Provider Internal Medicine Cardiovascular Disease; Visit Provider Internal Medicine Cardiovascular Disease
DX: I48.0 Paroxysmal atrial fibrillation (principal)
CPT/HCPCS: 36415; 80048; 85025

== ENCOUNTER → 2025-01-24 08:44 | Outpatient (CLI) | payer MEDICARE, OTHER, SELFPAY ==
[2020-07-05 21:43] VITALS: BMI 26.8
[2025-01-24 10:08] LABS: Protein (Total) Urine Random 10 mg/dL (0-12); Protein Creatinine Ratio Urine 0.20 GRAM/24H
[2025-01-24 10:36] LABS: Hematocrit 37.8 % (36-46); Hemoglobin 12.7 g/dL (12.0-16.0)
[2025-01-24 11:12] LABS: Blood Urea Nitrogen 13 mg/dL (7-17); Calcium 9.4 mg/dL (8.4-10.2); Carbon Dioxide 29 mmol/L (22-32); Chloride 103 mmol/L (98-107); Estimated Glomerular Filt Rate > 60 mL/min (>60); Glucose 103 mg/dL (70-99); HEMOLYSIS < 15 (0-50); Potassium 4.0 mmol/L (3.4-5.1); Sodium 140 mmol/L (137-145)
== END ==
PROVIDERS: PCP Family Medicine; Referring Provider Student in an Organized Health Care Education/Training Program; Visit Provider Student in an Organized Health Care Education/Training Program
DX: D70.9 Neutropenia, unspecified (principal); N05.9 Unspecified nephritic syndrome with unspecified morphologic changes; N25.81 Secondary hyperparathyroidism of renal origin; R80.9 Proteinuria, unspecified; D63.1 Anemia in chronic kidney disease
CPT/HCPCS: 36415; 80048; 82570; 83970; 84156; 85014; 85018